=== PATIENT | male | born 1945 | race Hispanic/Latino ===

== ENCOUNTER → 2018-08-30 | Day surgery (SDC) | payer MEDICARE ==
[2018-08-29 11:29] LABS: BASOPHILS # (AUTO) 0.1 (0.0-0.1); BASOPHILS % 0.6 % (0.0-1.0); EOSINOPHILS # (AUTO) 0.2 (0.0-0.4); EOSINOPHILS % 2.5 % (0.0-6.0); HEMATOCRIT 36.3 % (38.2-49.6); HEMOGLOBIN 12.3 g/dL (14.0-18.0); LYMPHOCYTES # (AUTO) 1.2 (1.0-3.2); LYMPHOCYTES % 14.1 % (18.0-39.1); MEAN CORPUSCULAR HEMOGLOBIN 30.8 pg (28-32); MEAN CORPUSCULAR HGB CONC 33.9 g/dL (31-35); MEAN CORPUSCULAR VOLUME 90.8 fL (81-99); MONOCYTES # (AUTO) 0.6 (0.2-0.8); MONOCYTES % 7.3 % (4.4-11.3); NEUTROPHILS # (AUTO) 6.2 (2.1-6.9); NEUTROPHILS % 73.6 % (38.7-80.0); PLATELET COUNT 299 x10e3/uL (140-360); RED CELL DISTRIBUTION WIDTH 12.7 % (11.7-14.4)
[2018-08-29 11:50] LABS: ALBUMIN 3.5 g/dL (3.5-5.0); ALBUMIN/GLOBULIN RATIO 0.8 (0.8-2.0); ANION GAP 13.9 mmol/L (8-16); CALCIUM 9.9 mg/dL (8.4-10.2); CREATININE, SERUM 1.51 mg/dL (0.72-1.25); POTASSIUM 4.9 mmol/L (3.5-5.1)
[2018-08-29 12:21] LABS: INR 0.96; PROTHROMBIN TIME 13.3 seconds (11.9-14.5)
[~2018-08-30] VITALS: Ht 172.7 cm; Wt 77.1 kg
[~2018-08-30] MED LIST: ASPIRIN81 MG PO; ATORVASTATIN CA40 MG PO; CEPHALEXIN500 MG PO; CLOPIDOGREL75 MG PO; DOXAZOSIN MESYLA2 MG PO; ESCITALOPRAM OXA5 MG PO; FENTANYL CITRATE/PF 100MCG/2 ML INJ ONE; GLIMEPIRIDE4 MG PO; HEPARIN SOD/SOD CHLORIDE 2,000 ML ONE; IOPAMIDOL 300MG/ML 100 ML INFUS..BTL IV ONE; JANUMET 50-1,01 EACH PO; LIDOCAINE HCL 1% LOCAL INJ 20 ML VIAL ONE; LISINOPRIL2.5 MG PO; METOPROLOL SUCC25 MG PEG; MIDAZOLAM HCL 2 MG/2 ML VIAL ONE; MULTI-VITAMIN1 EACH PO; OMEGA 3 1,0001 EACH PO; OMEPRAZOLE40 MG PO; SODIUM CHLORIDE 0.9% 1000ML 1,000 ML ONE; TAMSULOSIN HCL0.4 MG PO; TRULANCE PO; VERAPAMIL HCL 2.5 MG/ML 2 ML VIAL ONE; XIGDUO XR PO
--- OUTSIDE RECORDS SUMMARY | 2018-08-30 07:09 | XMS REPORT ---
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 Allergies, Adverse Reactions, Alerts This patient has no known allergies or adverse reactions. Medications This patient has no known medications.
--- OUTSIDE RECORDS SUMMARY | 2018-08-30 07:09 | XMS REPORT ---
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 Active Christy Averyt Special investigations and examinations - Gynecological examination BMI 30.0-30.9 Active Christy Averyt Body Mass Index 30.0-30.9, adult Colon cancer screening V76.51 Active Christy Averyt Screening for malignant neoplasms of colon Obesity Active Christy Averyt Obesity, unspecified Pap smear V76.2 Active Christy Averyt Screening for malignant neoplasms of the cervix Personal history of malignant neoplasm of breast V10.3 Active Christy Averyt Personal history of malignant neoplasm of breast Screening for anemia V78.1 Active Christy Averyt Screening for other and unspecified deficiency anemia Screening for diabetes mellitus V77.1 Active Christy Averyt Screening for diabetes mellitus Screening for hyperlipidemia V77.91 Active Christy Averyt Screening for lipoid disorders Screening for thyroid disorder V77.0 Active Christy Averyt Screening for thyroid disorders Sleep disorder 780.50 Active Christy Averyt Unspecified sleep disturbance Need for prophylactic vaccination against other specified vaccination V03.89 Inactive 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 Need for other specified vaccination against single bacterial disease Need for prophylactic vaccination against other specified vaccination ICD-V03.89 Inactive 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 Medication List Medication Instructions Start Date Stop Date Generic Name NDC Status Provider Patient Instruction No Drug Therapy Prescribed - none known did ask 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 Immunizations Vaccine Administration Date Value Standard Description influenza immunization (Flu Vax) has been administered given influenza virus vaccine, unspecified formulation MMR (measles, mumps, rubella) virus immunization #1 given Tetanus toxoid, reduced diphtheria toxoid and acellular Pertussis vaccine, absorbed (TdaP) given given tetanus toxoid, reduced diphtheria toxoid, and acellular pertussis vaccine, adsorbed Vital Signs Date Name Value Unit Range Description blood pressure, diastolic - 8462-4 83 mm[Hg] BP farah blood pressure, systolic - 8480-6 124 mm[Hg] BP sys height E&M - 8302-2 58 [in_us] Bdy height pulse rate E&M - 8867-4 70 /min Heart rate respiratory rate E&M - 9279-1 16 /min Resp rate temperature E&M 98.2 [degF] Body temperature weight E&M - 3141-9 143.80 [lb_av] Weight Measured Diagnostic Results Date Name Value Unit Range Description Lab Report: CBC With Differential/Platelet, Comp. Metabolic Panel (14), ... - Hematology hematocrit, blood 42.4 % 37.5-51.0 Lab Report: CBC With Differential/Platelet, Comp. Metabolic Panel (14), ... - Chemistry sodium, serum 140 mmol/L 766-491 7925/11/20 thyroid stimulating hormone, serum 1.390 u[iU]/mL 0.450-4.500 Lab Report: CBC With Differential/Platelet, Comp. Metabolic Panel (14), ... - Hematology neutrophils as percent of blood leukocytes 51 % Not Estab. basophils as percent of blood leukocytes 0 % Not Estab. Lab Report: CBC With Differential/Platelet, Comp. Metabolic Panel (14), ... - Chemistry very low density lipoproteins 60 mg/dL 5-40 carbon dioxide, venous blood 24 mmol/L 20-29 chloride, serum 101 mmol/L 96-106 triglyceride, serum, fasting 299 mg/dL 0-149 calcium, serum 9.8 mg/dL 8.7-10.2 urea nitrogen, blood 14 mg/dL 6-24 alanine aminotransferase (SGPT), serum 28 U/L 0-44 Lab Report: CBC With Differential/Platelet, Comp. Metabolic Panel (14), ... - Hematology mean corpuscular hemoglobin, RBC 28.7 pg 26.6-33.0 mean corpuscular hemoglobin concentration, RBC 33.5 G/DL % 31.5-35.7 Lab Report: CBC With Differential/Platelet, Comp. Metabolic Panel (14), ... - Chemistry protein, total, serum 8.0 g/dL 6.0-8.5 alkaline phosphatase, serum 121 U/L 39-117 Lab Report: CBC With Differential/Platelet, Comp. Metabolic Panel (14), ... - Hematology erythrocyte (RBC) count 4.94 X10E6/UL 10*6/mm3 4.14-5.80 hemoglobin, blood 14.2 g/dL 13.0-17.7 Lab Report: CBC With Differential/Platelet, Comp. Metabolic Panel (14), ... - Chemistry Absolute Neutrophils 4.0 X10E3/UL 10*3/uL 1.4-7.0 LDL cholesterol, serum 126 mg/dL 0-99 urea nitrogen/creatinine ratio, serum 22 9-20 Lab Report: CBC With Differential/Platelet, Comp. Metabolic Panel (14), ... - Hematology lymphocytes as percent of blood leukocytes 42 % Not Estab. Lab Report: CBC With Differential/Platelet, Comp. Metabolic Panel (14), ... - Chemistry hemoglobin A1C, blood, as % of total hemoglobin 5.4 % 4.8-5.6 Lab Report: CBC With Differential/Platelet, Comp. Metabolic Panel (14), ... - Hematology mean corpuscular volume, RBC 86 fL 79-97 Lab Report: CBC With Differential/Platelet, Comp. Metabolic Panel (14), ... - Chemistry HDL cholesterol, serum 49 mg/dL >39 Lab Report: CBC With Differential/Platelet, Comp. Metabolic Panel (14), ... - Genetics/fertility eGFR if 125 mL/min/1.73m2 >59 Lab Report: CBC With Differential/Platelet, Comp. Metabolic Panel (14), ... - Hematology basophil count, absolute 0.0 x10E3/uL 0.0-0.2 monocytes as percent of blood leukocytes 6 % Not Estab. Lab Report: CBC With Differential/Platelet, Comp. Metabolic Panel (14), ... - Chemistry globulin, serum 3.3 1.5-4.5 albumin/globulin ratio, serum 1.4 1.2-2.2 Estimated Glomerular Filtration Rate (calc) 108 mL/min/1.73m2 >59 creatinine, serum 0.65 mg/dL 0.76-1.27 cholesterol, serum 235 mg/dL 298-978 1606/11/20 bilirubin, serum, total 0.3 mg/dL 0.0-1.2 Lab Report: CBC With Differential/Platelet, Comp. Metabolic Panel (14), ... - Hematology Eosinophil Absolute Count 0.1 X10E3/UL 10*3/uL 0.0-0.4 eosinophils as percent of blood leukocytes 1 % Not Estab. Lab Report: CBC With Differential/Platelet, Comp. Metabolic Panel (14), ... - Chemistry blood glucose, random 87 mg/dL 65-99 aspartate aminotransferase (SGOT), serum 27 U/L 0-40 Lab Report: CBC With Differential/Platelet, Comp. Metabolic Panel (14), ... - Hematology red blood cell distribution width 14.6 % 12.3-15.4 leukocyte count, blood 8.1 X10E3/UL 10*3/mm3 3.4-10.8 Lab Report: CBC With Differential/Platelet, Comp. Metabolic Panel (14), ... - Chemistry potassium, serum 4.6 mmol/L 3.5-5.2 Lab Report: CBC With Differential/Platelet, Comp. Metabolic Panel (14), ... - Hematology monocyte count, blood, automated 0.5 X10E3/UL 10*3/uL 0.1-0.9 Lab Report: CBC With Differential/Platelet, Comp. Metabolic Panel (14), ... - Chemistry albumin, serum 4.7 g/dL 3.5-5.5 immature granulocytes, percentage of total cells, blood 0 % Not Estab. Lab Report: CBC With Differential/Platelet, Comp. Metabolic Panel (14), ... - Hematology platelet count 240 X10E3/UL 10*3/mm3 052-228 4486/11/20 lymphocyte count, blood, automated 3.4 X10E3/UL 10*3/mm3 0.7-3.1 Encounters Date Encounter Provider Code Facility 11:34:35 CHANNEL EXECUTIVE Est Patient Nurse - Only Visit - [id number] Jumana Caballero LVN CPT-12960 [facility] Procedures Code Procedure Name Date Entry Date Standard Description CPT-30332 New Patient Well Exam (40 - 64 Yrs) - 37331 15:53:29 CHANNEL EXECUTIVE CPT-68768 INFLUENZA VACCINE QUADRIVALENT 3 YRS PLUS IM 11:34:35 CHANNEL EXECUTIVE CPT-68421 TDAP 11:34:35 CHANNEL EXECUTIVE CPT-05536 MEASLES MUMPS RUBELLA VIRUS VACCINE LIVE SUBQ 11:34:35 CHANNEL EXECUTIVE CPT-44974 Admin of Vaccine - Injection - 1 11:34:35 CHANNEL EXECUTIVE
[2018-08-30 09:54] VITALS: BP 129/63
--- NOTE | 2018-08-30 09:54 | NUR ---
Received report from Norberto Narvaez RN. Reviewed medications given, procedural events and orders. Patient laying flat in stretcher with siderails elevatedx2. Caregiver at bedside. Patient appears to be in no signs of acute distress.
[2018-08-30 10:00] VITALS: BP 115/69
[2018-08-30 10:15] VITALS: BP 121/70
--- NOTE | 2018-08-30 10:20 | NUR ---
Report given to Dede Avalos RN. Reviewed medications given, procedural events, and orders.
[2018-08-30 10:30] VITALS: BP 121/70
--- NOTE | 2018-08-30 10:30 | NUR ---
1030 Received report from Norberto Rivers Peripheral no fix. Left hand iv site w/o s/s infiltration. Resp shallow and regular 100% on room air Abdomen soft and non tender Denies necessity to defecate or urinate. Bilateral PPx 4 Pd/Dp. Ordered diet tray Ok to dc home at 1100am. greg/oli
[2018-08-30 11:00] VITALS: BP 100/70
[2018-08-30 11:15] VITALS: BP_SYST 134; BP_SYST 137; BP_DIAS 85; BP_DIAS 98
--- NOTE | 2018-08-30 11:15 | NUR ---
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 ds/rn
--- NOTE | 2018-08-30 17:02 | Operative Report ---
DATE OF PROCEDURE: 08/30/2018 SURGEON: Rich Tejada MD INDICATIONS: Peripheral arterial disease and ulceration of the right lower extremity. PROCEDURES PERFORMED: 1. Abdominal aortogram. 2. Unilateral extremity angiogram with third-order catheter placement from the left femoral artery, right superficial femoral artery. 3. Deployment of left groin Vascade closure device. COMPLICATIONS: None. BLOOD LOSS: 2 mL. RECOMMENDATIONS: Medical therapy including consideration for hyperbaric oxygen therapy. DESCRIPTION OF PROCEDURE: Access obtained in the left femoral artery. A 6-Mexican sheath placed. Abdominal aortogram demonstrated widely patent abdominal aorta and iliac arteries bilaterally. The catheter then exchanged from the left femoral artery to the right superficial femoral artery. Heavy calcification was noted, but diffuse 30% to 50% stenosis of the femoral artery; popliteal artery, 50% stenosis; right anterior tibial artery, 30% to 50% stenosis. The right dorsalis pedis of 1.5 mm vessel was completely occluded. Right posterior tibial artery was occluded. Peroneal artery was patent. Two-vessel runoff to the right foot. No intervention was deemed necessary. Aggressive medical therapy recommended. Left groin repaired using Vascade closure device. The patient discharged home same day. Rich Tejada MD KSB/MODL /[id number]
== END | disposition home or self-care (01) ==
LOC: CATH LAB 07:06 → EDBD 09:30
PROVIDERS: ATTEND Internal Medicine Interventional Cardiology
DX: I70.235 Atherosclerosis of native arteries of right leg with ulceration of other part of foot (principal); I70.92 Chronic total occlusion of artery of the extremities; I10 Essential (primary) hypertension; E78.5 Hyperlipidemia, unspecified; Z88.1 Allergy status to other antibiotic agents; Z01.812 Encounter for preprocedural laboratory examination; Z79.02 Long term (current) use of antithrombotics/antiplatelets; Z79.82 Long term (current) use of aspirin; Z79.84 Long term (current) use of oral hypoglycemic drugs
CPT/HCPCS: 36247; 36415; 75625; 75710; 80053; 85025; 85610; C1760; C1769 ×2; J2001; J2250; J7030; Q9967

== ENCOUNTER → 2018-09-13 | Day surgery (SDC) | payer MEDICARE ==
[~2018-09-13] MED LIST changes: +ARICEPT5 MG PO; +BACITRACIN 50,000 UNIT VIAL ONE; +BUPIVACAINE HCL 0.5% INJ 30 ML VIAL INJ ONE; +CEFAZOLIN SOD 2 GM/D5W 50ML 50 ML IV ONE; +DEXAMETHASONE SOD PHOS INJ 4 MG/ML VIAL ONE; +EPHEDRINE SULFATE INJ 50 MG/10 ML SYR ONE; -FENTANYL CITRATE/PF 100MCG/2 ML INJ ONE; -HEPARIN SOD/SOD CHLORIDE 2,000 ML ONE; +HYDROMORPHONE 2MG/ML 2 MG/ML ML ONE; -IOPAMIDOL 300MG/ML 100 ML INFUS..BTL IV ONE; +LEXAPRO10 MG PO; -LIDOCAINE HCL 1% LOCAL INJ 20 ML VIAL ONE; +LIDOCAINE HCL 2% LOCAL INJ 5 ML SDV VIAL INJ ONE; -MIDAZOLAM HCL 2 MG/2 ML VIAL ONE; +MUPIROCIN 2% OINT 22 GM TUBE ONE; +ONDANSETRON HCL INJ 2MG/ML 2ML 2 MG/ML VIAL ONE; +PHENYLEPHRINE HCL 1% 10 MG/ML VIAL ONE; +PROPOFOL IV EMULSION 10 MG/ML 20 ML VIAL ONE; +SEVOFLURANE INHAL SOLN 250 ML PEN BTL ONE; -SODIUM CHLORIDE 0.9% 1000ML 1,000 ML ONE; -VERAPAMIL HCL 2.5 MG/ML 2 ML VIAL ONE; +[UNRECOGNIZED DRUG - OTHER] SQ
--- OUTSIDE RECORDS SUMMARY | 2018-09-13 05:26 | XMS REPORT | Continuity of Care Document ---
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 Abnormal Lab Result, Start date: 12/10/16 1:38:00 CDT, Duration: 30 day, Stop date: 01/09/17 1:37:00 CDT, FOR ICU USE ONLY Inactive 12/10/2016 [facility] Magnesium Sulfate 2 gm, Route: IVPB, PRN, Dosing Weight 77.273, kg, PRN Abnormal Lab Result, Start date: 12/10/16 1:38:00 CDT, Duration: 30 day, Stop date: 01/09/17 1:37:00 CDT, FOR ICU USE ONLY Inactive 12/10/2016 [facility] niCARdipine 40 mg/ NS 200 ml IV Soln (premix) 40 mg 40 mg, 200 mL, Rate: Titrate, Start Dose: 5 mg/hr, Titration: 2.5 mg/hr every 15 minutes, Goal(s): MAP >65, HR >60 Notes: Same as: Cardene Concentration: (0.2 mg /1 ml ) Inactive 12/10/2016 [facility] Dextrose 50% Syringe 12.5 gm, 25 mL, Route: IVP, Drug Form: INJ, Dosing Weight 77.273, kg, PRN, PRN Blood Glucose Results, Start date: 12/10/16 0:04:00 CDT, Duration: 30 day, Stop date: 01/09/17 0:03:00 CDT No Longer Active 12/10/2016 [facility] Insulin regular 100 unit + sodium chloride 0.9% INJ 99 mL 99 mL, Rate: Start Insulin Drip Per ICU Protocol, Dosing Weight 77.273, kg, Route: IVPB, Total Volume: 100, Start Date: 12/10/16 0:04:00 CDT, Duration: 30 day, Stop date: 01/09/17 0:03:00 CDT, Replace Every: 24 hrNotes: (Same as: Humulin R and NovoLIN R) WASTE: F/P - Black; E - Municipal Trash Bin (Do not shake) No Longer Active 12/10/2016 [facility] Coreg 12.5 mg, 1 tab, Route: PO, Drug form: TAB, ONCE, Dosing Weight 77.273, kg, Start date: 12/09/16 22:40:00 CDT, Stop date: 12/09/16 22:40:00 CDTNotes: Give with food. (Same As: Coreg) Inactive 12/10/2016 [facility] Ceftriaxone 1 gm, Route: IVPB, Drug form: PDR/INJ, Q24H, Dosing Weight 77.273, kg, Start date: 12/09/16 22:00:00 CDT, Duration: 4 day, Stop date: 12/12/16 22:00:00 CDT, ABX Indication: Urinary Tract InfectionNotes: (Same As: Rocephin). Use with 100 mL NS and infuse over 30 min MEDICATION WASTE Product Size: 1000 mg Product Wasted: ___ mg No Longer Active 12/10/2016 [facility] heparin 5,000 unit, 1 mL, Route: SUB-Q, Drug form: INJ, Q8H, Dosing Weight 77.273, kg, Start date: 12/09/16 16:00:00 CDT, Duration: 30 day, Stop date: 01/08/17 8:00:00 CDTNotes: porcine heparin No Longer Active 12/09/2016 [facility] Labetalol 10 mg, Route: IVP, Drug form: INJ, ONCE, Dosing Weight 77.273, kg, Start date: 12/09/16 15:26:00 CDT, Stop date: 12/09/16 15:26:00 CDT Inactive 12/09/2016 [facility] carvedilol 6.25 mg, Route: PO, Drug form: TAB, ONCE, Dosing Weight 77.273, kg, Start date: 12/09/16 15:23:00 CDT, Stop date: 12/09/16 15:23:00 CDT Inactive 12/09/2016 [facility] Sodium Chloride, Inhalation 3% solution 3 mL, Route: INHALATION, Drug Form: SOLN, Dosing Weight 77.273, kg, RQ6H, PRN Respiratory Protocol, Start date: 12/09/16 9:48:00 CDT, Duration: 30 day, Stop date: 01/08/17 9:47:00 CDTNotes: SEE RT DOCUMENTATION (Same as: Hypertonic Saline 3%, Inhalation) No Longer Active 12/09/2016 [facility] Sodium Chloride, Inhalation 3% solution 3 mL, Route: INHALATION, Drug Form: SOLN, Dosing Weight 77.273, kg, PRN, PRN Respiratory Protocol, Start date: 12/09/16 9:03:00 CDT, Duration: 30 day, Stop date: 01/08/17 9:02:00 CDTNotes: SEE RT DOCUMENTATION (Same as: Hypertonic Saline 3%, Inhalation) Inactive 12/09/2016 [facility] Albuterol 0.833 MG/ML / Ipratropium [place] 0.167 MG/ML Inhalant Solution [DuoNeb] 3 ml, Route: NEB, Drug Form: SOLN, Dosing Weight 77.273, kg, PRN, PRN Respiratory Protocol, Start date: 12/09/16 9:02:00 CDT, Duration: 30 day, Stop date: 01/08/17 9:01:00 CDTNotes: (Same as: Duoneb) No Longer Active 12/09/2016 [facility] potassium chloride 20 mEq, 15 mL, Route: PO, Drug form: LIQ, ONCE, Dosing Weight 77.273, kg, Start date: 12/09/16 4:00:00 CDT, Stop date: 12/09/16 4:00:00 CDTNotes: (Same as: Potassium Chloride) Inactive 12/09/2016 [facility] potassium chloride 20 mEq oral tablet, extended release 20 mEq, 1 tab, Route: PO, Drug form: ERTAB, ONCE, Dosing Weight 77.273, kg, Start date: 12/09/16 3:31:00 CDT, Stop date: 12/09/16 3:31:00 CDTNotes: (Same as: K- Dur 20) "Do Not Crush" With food and full glass of water Inactive 12/09/2016 [facility] carvedilol 12.5 mg, 1 tab, Route: PO, Drug form: TAB, Q12H, Dosing Weight 77.273, kg, Start date: 12/08/16 18:00:00 CDT, Stop date: 01/07/17 6:00:00 CDT No Longer Active 12/08/2016 [facility] heparin 1,000 unit, 1 mL, Route: MISC, Drug form: INJ, PRN, PRN Other -See Comment, Start date: 12/08/16 15:56:00 CDT, Stop date: 01/07/17 15:55:00 CDT No Longer Active 12/08/2016 [facility] heparin, porcine 1,000 unit, Route: IVP, PRN, Dosing Weight 77.273, kg, PRN Line Flush, Start date: 12/08/16 15:30:00 CDT, Duration: 30 day, Stop date: 01/07/17 15:29:00 CDT, flush jordon cath Inactive 12/08/2016 [facility] Metoprolol 5 mg, Route: IVP, Drug form: INJ, ONCE, Dosing Weight 77.273, kg, Start date: 12/08/16 11:09:00 CDT, Stop date: 12/08/16 11:09:00 CDT Inactive 12/08/2016 [facility] Nitroglycerin 0.4 mg, 1 tab, Route: SL, Drug form: TAB, Q5Min, Dosing Weight 77.273, kg, PRN Chest Pain, Start date: 12/08/16 9:53:00 CDT, Duration: 3 doses or times, Stop date: Limited # of timesNotes: (Same as:N itroquick, Nitrostat) "Do Not Crush" Sublingual tablet No Longer Active 12/08/2016 [facility] lansoprazole 30 mg, 10 mL, Route: NG, Drug form: SUSP, Daily, Dosing Weight 77.273, kg, Start date: 12/08/16 9:00:00 CDT, Duration: 30 day, Stop date: 01/06/17 9:00:00 CDT No Longer Active 12/08/2016 [facility] Insulin regular 3 unit, 0.03 mL, Route: SUB-Q, Drug form: SOLN, Sliding Scale, Dosing Weight 77.273, kg, PRN Blood Glucose Results, Start date: 12/07/16 19:42:00 CDT, Duration: 30 day, Stop date: 01/06/17 19:41:00 C DTNotes: (Same as: Humulin R) Roll in palms of hands gently; Do not shake vigorously. "single patient use only" (Restricted to patients requiring a dose > 60 units) WASTE: F/P - Black; E - Municipal Trash Bin Stable for 28 days at room temperature Expires in days from Date No Longer Active 12/08/2016 [facility] Glucagon 1 mg, Route: IM, Drug form: PDR/INJ, PRN, Dosing Weight 77.273, kg, PRN Blood Glucose Results, Start date: 12/07/16 19:42:00 CDT, Duration: 30 day, Stop date: 01/06/17 19:41:00 CDT No Longer Active 12/08/2016 [facility] Dextrose 50% Syringe 12.5 gm, 25 mL, Route: IVP, Drug Form: INJ, Dosing Weight 77.273, kg, PRN, PRN Blood Glucose Results, Start date: 12/07/16 19:42:00 CDT, Duration: 30 day, Stop date: 01/06/17 19:41:00 CDT No Longer Active 12/08/2016 [facility] Versed 2 mg, 2 mL, Route: IVP, Drug form: INJ, PRN, Dosing Weight 77.273, kg, PRN Agitation, Start date: 12/07/16 18:42:00 CDT, Duration: 30 day, Stop date: 01/06/17 18:41:00 CDTNotes: (Same as: Versed) MEDICATION WASTE Product Size: 2 mg Product Wasted: _0__ mg No Longer Active 12/07/2016 [facility] Calcium Chloride 1 gm, 10 mL, Route: IVPB, PRN, Dosing Weight 77.273, kg, PRN Abnormal Lab Result, Via central line, Start date: 12/07/16 16:17:00 CDT, Duration: 30 day, Stop date: 01/06/17 16:16:00 CDTNotes: WASTE: F/P - Sink; E - Municipal Trash Bin No Longer Active 12/07/2016 [facility] Magnesium Sulfate 4 gm, 100 mL, Route: IVPB, Drug form: INJ, PRN, Dosing Weight 77.273, kg, PRN Abnormal Lab Result, Via central line, Start date: 12/07/16 16:17:00 CDT, Duration: 30 day, Stop date: 01/06/17 16:16:00 CDTNotes: WASTE: F/P - Sink; E - Municipal Trash Bin No Longer Active 12/07/2016 [facility] sodium phosphate + sodium chloride 0.9% INJ 250 mL 30 mmol, 10 mL, Route: IVPB, PRN, Dosing Weight 77.273, kg, PRN Abnormal Lab Result, Via central line, Start date: 12/07/16 16:17:00 CDT, Duration: 30 day, Stop date: 01/06/17 16:16:00 CDT No Longer Active 12/07/2016 [facility] potassium chloride 20 mEq, 100 mL, Route: IVPB, Drug form: INJ, PRN, Dosing Weight 77.273, kg, PRN Abnormal Lab Result, Via central line, Start date: 12/07/16 16:17:00 CDT, Duration: 30 day, Stop date: 01/06/17 16:16:0 0 CDTNotes: (Same as: KCL) Infuse no faster than 10 mEq/hr if given peripherally. No Longer Active 12/07/2016 [facility] Fentanyl 1,000 microgram, 20 mL, Rate: Titrate, Start Dose: 50 microgram/hr, Titration: 25 microgram/hour every 15 minutes, Goal(s): RASS (0) to (-2), Max Dose: 300 microgram/hr, Route: IV, Dosing Weight 77.273 kg, Total Volume: 20, Start date: 12/07/16 15:42:... No Longer Active 12/07/2016 [facility] Sodium Chloride 0.154 MEQ/ML Injectable Solution 500 mL, 500 ml/hr, Infuse Over: 1 hr, Route: IV, 500, Drug form: INJ, ONCE, Priority: STAT, Dosing Weight 77.273 kg, Start date: 12/07/16 9:55:00 CDT, Duration: 1 doses or times, Stop date: 12/07/16 9:55:00 CDT Inactive 12/07/2016 [facility] heparin additive 25,000 unit [18 unit/kg/hr] + Premix Diluent Dextrose 5% 500 mL 500 mL, Rate: 27.82 ml/hr, Infuse over: 18 hr, Route: IV, Dosing Weight 77.27 kg, Total Volume: 500 mL, Start date: 12/07/16 9:34:00 CDT, Stop date: 01/06/17 9:33:00 CDT No Longer Active 12/07/2016 [facility] Heparin 80 unit/kg Bolus (Heparin Dosing Weight) Route: IVP, PRN, 6,200 unit, 6.2 mL, Drug form: INJ, PRN, Heparin Protocol, Start date: 12/07/16 9:34:00 CDT Stop date: 01/06/17 9:33:00 CDT, 30 day No Longer Active 12/07/2016 [facility] Heparin 40 unit/kg Bolus (Heparin Dosing Weight) Route: IVP, PRN, 3,100 unit, 3.1 mL, Drug form: INJ, PRN, Heparin Protocol, Start date: 12/07/16 9:34:00 CDT Stop date: 01/06/17 9:33:00 CDT, 30 day No Longer Active 12/07/2016 [facility] heparin additive 25,000 unit [14 unit/kg/hr] + Premix Diluent Dextrose 5% 500 mL 500 mL, Rate: 21.64 ml/hr, Infuse over: 23.1 hr, Route: IV, Dosing Weight 77.273 kg, Total Volume: 500 mL, Start date: 12/07/16 9:12:00 CDT, Duration: 30 day, Stop date: 01/06/17 9:11:00 CDT Inactive 12/07/2016 [facility] D5W 1,000 mL 1,000 mL, Rate: 75 ml/hr, Infuse over: 13.3 hr, Route: IV, Dosing Weight 77.273 kg, Total Volume: 1,000, Start date: 12/07/16 3:45:00 CDT, Duration: 30 day, Stop date: 01/06/17 3:44:00 CDT Inactive 12/07/2016 [facility] senna 8.8 mg, 5 mL, Route: PO, Drug form: SYRP, Q12H, Start date: 12/06/16 21:00:00 CDT, Duration: 30 day, Stop date: 01/05/17 9:00:00 CDTNotes: (Same as: Senokot) No Longer Active 12/07/2016 [facility] docusate 100 mg, 10 mL, Route: PO, Drug form: LIQ, Q12H, Start date: 12/06/16 21:00:00 CDT, Duration: 30 day, Stop date: 01/05/17 9:00:00 CDTNotes: (Same as: Colace) No Longer Active 12/07/2016 [facility] atorvastatin 40 mg, 1 tab, Route: PO, Drug form: TAB, Bedtime, Dosing Weight 77.273, kg, Start date: 12/06/16 21:00:00 CDT, Duration: 30 day, Stop date: 01/04/17 21:00:00 CDTNotes: (Same as: Lipitor) No Longer Active 12/07/2016 [facility] sodium chloride 0.9% INJ 250 mL 250 mL, Rate: score caller for use with blood product administration, Dosing Weight 77.273, kg, Route: IV, Total Volume: 250, Start Date: 12/06/16 11:40:00 CDT, Duration: 30 day, Stop date: 01/05/17 11:39:00 CDT, Replace Every: 24 hr No Longer Active 12/06/2016 [facility] sodium chloride 0.9% INJ 250 mL 250 mL, Rate: Grinding Machine Operator for use with blood product administration., Dosing Weight 77.273, kg, Route: IV, Total Volume: 250, Priority: Routine, Start Date: 12/06/16 10:22:00 CDT, Duration: 30 day, Stop date: 01/05/17 10:21:00 CDT, Replace Every: 24 hr No Longer Active 12/06/2016 [facility] Plavix 75 mg, 1 tab, Route: PO, Drug form: TAB, Daily, Dosing Weight 77.273, kg, Start date: 12/06/16 9:00:00 CDT, Duration: 30 day, Stop date: 01/04/17 9:00:00 CDTNotes: (Same As: Plavix) No Longer Active 12/06/2016 [facility] Aspirin 81 mg, 1 tab, Route: PO, Drug form: ECTAB, Daily, Dosing Weight 77.273, kg, Start date: 12/06/16 9:00:00 CDT, Duration: 30 day, Stop date: 01/04/17 9:00:00 CDTNotes: Do not crush or chew. (Same As: Ecotrin) No Longer Active 12/06/2016 [facility] pantoprazole 40 mg, Route: IVP, Drug form: INJ, Daily, Dosing Weight 77.273, kg, Start date: 12/06/16 9:00:00 CDT, Duration: 30 day, Stop date: 01/04/17 9:00:00 CDTNotes: For IV push reconstitute with 10 ml 0.9% sodium chloride and push over 2 minutes. (Same as: Protonix) No Longer Active 12/06/2016 [facility] Famotidine 20 mg, 2 mL, Route: IVP, Drug form: INJ, Daily, Dosing Weight 77.273, kg, Start date: 12/06/16 9:00:00 CDT, Duration: 30 day, Stop date: 01/04/17 9:00:00 CDTNotes: (Same as: Pepcid) Can be dilute in 5-10cc NS IVP: Slow IV push over at least 2 minutes. No Longer Active 12/06/2016 [facility] Docusate Sodium 50 MG / sennosides, PENITENTIARY 8.6 MG Oral Tablet 1 tab, Route: PO, Drug Form: TAB, Dosing Weight 77.273, kg, BID, Start date: 12/06/16 9:00:00 CDT, Duration: 30 day, Stop date: 01/04/17 17:00:00 CDTNotes: (Same as Senokot-S) Equiv. to Sugar-Colace. Inactive 12/06/2016 [facility] metoprolol extended release 25 mg, 1 tab, Route: PO, Drug form: ERTAB, Daily, Start date: 12/06/16 9:00:00 CDT, Duration: 30 day, Stop date: 01/04/17 9:00:00 CDTNotes: (Same as: Toprol XL) Do Not Crush No Longer Active 12/06/2016 [facility] Sodium Chloride 0.154 MEQ/ML Injectable Solution 500 mL, 500 ml/hr, Infuse Over: 1 hr, Route: IV, 500, Drug form: INJ, ONCE, Priority: STAT, Dosing Weight 77.273 kg, Start date: 12/06/16 7:36:00 CDT, Duration: 1 doses or times, Stop date: 12/06/16 7:36:00 CDT Inactive 12/06/2016 [facility] Midazolam 2 mg, 2 mL, Route: IVP, Drug form: INJ, Q2H, Dosing Weight 77.273, kg, PRN Sedation, Start date: 12/06/16 5:40:00 CDT, Duration: 30 day, Stop date: 01/05/17 5:39:00 CDTNotes: (Same as: Versed) MEDICATION WASTE Product Size: 2 mg Product Wasted: ___ mg No Longer Active 12/06/2016 [facility] Insulin regular 100 unit + sodium chloride 0.9% INJ 99 mL 99 mL, Rate: Start Insulin Drip Per ICU Protocol, Dosing Weight 77.273, kg, Route: IVPB, Total Volume: 100, Start Date: 12/06/16 4:36:00 CDT, Duration: 30 day, Stop date: 01/05/17 4:35:00 CDT, Replace Every: 24 hrNotes: (Same as: Humulin R and NovoLIN R) WASTE: F/P - Black; E - Nexvet Trash Bin (Do not shake) No Longer Active 12/06/2016 [facility] Dextrose 50% Syringe 12.5 gm, 25 mL, Route: IVP, Drug Form: INJ, Dosing Weight 77.273, kg, PRN, PRN Blood Glucose Results, Start date: 12/06/16 4:36:00 CDT, Duration: 30 day, Stop date: 01/05/17 4:35:00 CDT No Longer Active 12/06/2016 [facility] Vasopressin (PENITENTIARY) 40 unit, 2 mL, Rate: 0.03 unit/min, Start Dose: 0.03 unit/min, Titration: DO NOT TITRATE, Goal(s): MAP >=65 mmHg, Max Dose: 0.03 unit/min, Route: IV, Dosing Weight 77.273 kg, Total Volume: 100 For Sepsis, Start date: 12/06/16 1:40:00 CDT, Duration:...Notes: (Same As: Pitressin, Vasostrict) No Longer Active 12/06/2016 [facility] heparin 5,000 unit, Route: SUB-Q, Q8H, Dosing Weight 77.273, kg, Start date: 12/06/16 0:00:00 CDT, Duration: 30 day, Stop date: 01/04/17 16:00:00 CDT No Longer Active 12/06/2016 [facility] ocular lubricant 1 appl, Route: BOTH EYES, Q6H, Drug form: OINT, Start date: 12/06/16 0:00:00 CDT, Duration: 30 day, Stop date: 01/04/17 18:00:00 CDTNotes: (Same as: Lacri-Lube, Duratears Naturale, Artificial Tears, and Tears Again ) No Longer Active 12/06/2016 [facility] Lactulose 20 gm, 30 mL, Route: PO, Drug form: SYRP, Q6H, Dosing Weight 77.273, kg, Start date: 12/06/16 0:00:00 CDT, Duration: 30 day, Stop date: 01/04/17 18:00:00 CDTNotes: (Same as:Chronulac) No Longer Active 12/06/2016 [facility] Norepinephrine 16 mg, 16 mL, Rate: Titrate, Start Dose: 0.1 microgram/kg/min, Titration: 0.05 microgram/kg/min every 2 - 5 minutes, Goal(s): MAP >=60 mmHg, Max Dose: 1 microgram/kg/min, Route: IV, Dosing Weight 77.273 kg, Total Volume: 250, Start date: 12/05/16 23:...Notes: Not for direct administration - DILUTE. Protect from light. (Same as:Levophed). Administer by either central venous catheter or peripherally-inserted central catheter (PICC) line. No Longer Active 12/06/2016 [facility] Clindamycin 600 mg, 4 mL, Route: IV, Drug form: INJ, ABXQ8H, Dosing Weight 77.273, kg, Start date: 12/05/16 23:00:00 CDT, Duration: 30 day, Stop date: 01/04/17 15:00:00 CDT, ABX Indication: Other (specify in Commen ts)Notes: (clindamycin 150 mg/1 ml (600 mg/4 ml VL) INJ) (Same As: Cleocin) No Longer Active 12/06/2016 [facility] Norepinephrine 16 mg, 16 mL, Rate: Titrate, Start Dose: 0.1 microgram/kg/min, Titration: 0.05 microgram/kg/min every 2 - 5 minutes, Goal(s): MAP >=65 mmHg, Max Dose: 1 microgram/kg/min, Route: IV, Dosing Weight 77.273 kg, Total Volume: 250, Start date: 12/05/16 22:...Notes: Not for direct administration - DILUTE. Protect from light. (Same as:Levophed). Administer by either central venous catheter or peripherally-inserted central catheter (PICC) line. Inactive 12/06/2016 [facility] sodium bicarbonate 150 mEq + D5W 1,000 mL 1,000 mL, Rate: 150 ml/hr, Infuse over: 7.7 hr, Route: IV, Dosing Weight 77.273 kg, Total Volume: 1,150 mL, Start date: 12/05/16 22:39:00 CDT, Duration: 30 day, Stop date: 01/04/17 22:38:00 CDT No Longer Active 12/06/2016 [facility] sodium chloride 0.9% INJ 250 mL 250 mL, Rate: score caller for use with blood product administration, Dosing Weight 77.273, kg, Route: IV, Total Volume: 250, Start Date: 12/05/16 22:07:00 CDT, Duration: 30 day, Stop date: 01/04/17 22:06:00 CDT, Replace Every: 24 hr No Longer Active 12/06/2016 [facility] chlorhexidine gluconate 1.2 MG/ML Mouthwash 15 mL, Route: Swab Mouth, Q12H, Drug form: LIQ, Start date: 12/05/16 21:00:00 CDT, Duration: 30 day, Stop date: 01/04/17 9:00:00 CDTNotes: (Same As: Peridex) No Longer Active 12/06/2016 [facility] Saline Flush 0.9% 10 ml, Route: IVP, Drug Form: INJ, Dosing Weight 77.273, kg, Q12H, Start date: 12/05/16 21:00:00 CDT, Duration: 30 day, Stop date: 01/04/17 9:00:00 CDTNotes: (Same as: BD Posiflush) No Longer Active 12/06/2016 [facility] Docusate 100 mg, 10 mL, Route: PO, Drug form: LIQ, Q12H, Dosing Weight 77.273, kg, Start date: 12/05/16 21:00:00 CDT, Stop date: 01/04/17 9:00:00 CDTNotes: (Same as: Colace) No Longer Active 12/06/2016 [facility] sodium bicarbonate 150 mEq + D5W 1,000 mL 1,000 mL, Rate: 999 ml/hr, Infuse over: 1.2 hr, Route: IV, Dosing Weight 77.273 kg, Total Volume: 1,150 mL, Start date: 12/05/16 20:37:00 CDT, Duration: 30 day, Stop date: 01/04/17 20:36:00 CDT No Longer Active 12/06/2016 [facility] albumin human 5% intravenous solution 25 gm, 500 mL, 500 ml/hr, Route: IV, Drug Form: INJ, Dosing Weight 77.273, kg, ONCE, Start date: 12/05/16 20:36:00 CDT, Stop date: 12/05/16 20:36:00 CDTNotes: LOT#: Mfg: (Same as: Albuminar) "blood product derivative" WASTE: F/P - Red; E -Red MEDICATION WASTE Product Size: 25 gm Product Wasted: 0 gm Inactive 12/06/2016 [facility] sodium chloride 0.9% INJ 250 mL 250 mL, Rate: score caller for use with blood product administration, Dosing Weight 77.273, kg, Route: IV, Total Volume: 250, Start Date: 12/05/16 20:30:00 CDT, Duration: 30 day, Stop date: 01/04/17 20:29:00 CDT, Replace Every: 24 hr No Longer Active 12/06/2016 [facility] Versed 1 mg, 1 mL, Route: IVP, Drug form: INJ, ONCE, Dosing Weight 77.273, kg, PRN Other -See Comment, Start date: 12/05/16 20:15:00 CDTNotes: (Same as: Versed) MEDICATION WASTE Product Size: 2 mg Product Wasted: 0 mg No Longer Active 12/06/2016 [facility] Insulin regular 8 unit, 0.08 mL, Route: SUB-Q, Drug form: SOLN, Sliding Scale, Dosing Weight 77.273, kg, PRN Blood Glucose Results, Start date: 12/05/16 20:14:00 CDT, Duration: 30 day, Stop date: 01/04/17 20:13:00 CDTN otes: (Same as: Humulin R) Roll in palms of hands gently; Do not shake vigorously. "single patient use only" (Restricted to patients requiring a dose > 60 units) WASTE: F/P - Black; E - Municipal Trash Bin Stable for 28 days at room temperature Expires in days from Date No Longer Active 12/06/2016 [facility] Glucagon 1 mg, Route: IM, Drug form: PDR/INJ, PRN, Dosing Weight 77.273, kg, PRN Blood Glucose Results, Start date: 12/05/16 20:14:00 CDT, Duration: 30 day, Stop date: 01/04/17 20:13:00 CDT No Longer Active 12/06/2016 [facility] Dextrose 50% Syringe 25 gm, 50 mL, Route: IVP, Drug Form: INJ, Dosing Weight 77.273, kg, PRN, PRN Blood Glucose Results, Start date: 12/05/16 20:14:00 CDT, Duration: 30 day, Stop date: 01/04/17 20:13:00 CDT No Longer Active 12/06/2016 [facility] sodium bicarbonate 8.4% 100 mEq, 100 mL, Route: IVP, Drug Form: INJ, Dosing Weight 77.273, kg, ONCE, Start date: 12/05/16 20:14:00 CDT, Stop date: 12/05/16 20:14:00 CDTNotes: (sodium bicarb 8.4% (1 mEq/ml) 50 ml syringe) Inactive 12/06/2016 [facility] Norepinephrine 8 mg, 8 mL, Rate: Titrate, Start Dose: 0.2 microgram/kg/min, Titration: 0.05 microgram/kg/min every 2 - 5 minutes, Goal(s): MAP >=65 mmHg, Max Dose: 1 microgram/kg/min, Route: IV, Dosing Weight 77.273 kg, Total Volume: 250, Start date: 12/05/16 20:05...Notes: Not for direct administration - DILUTE. Protect from light. (Same as:Levophed). Administer by either central venous catheter or peripherally-inserted central catheter (PICC) line. Inactive 12/06/2016 [facility] sodium bicarbonate 8.4% 100 mEq, 100 mL, Route: IVP, Drug Form: SOLN, Dosing Weight 77.273, kg, ONCE, Start date: 12/05/16 20:03:00 CDT, Stop date: 12/05/16 20:03:00 CDTNotes: For oral use only. Inactive 12/06/2016 [facility] Midazolam 1 mg, Route: IVP, ONCE, Dosing Weight 77.273, kg, Start date: 12/05/16 19:03:00 CDT, Stop date: 12/05/16 19:03:00 CDT Inactive 12/06/2016 [facility] Fentanyl 50 microgram, 1 mL, Route: IVP, Drug form: INJ, Q2H, Dosing Weight 77.273, kg, PRN Pain Score 6-10, Start date: 12/05/16 19:03:00 CDT, Duration: 30 day, Stop date: 01/04/17 19:02:00 CDTNotes: (Same as: Sublimaze) Preservative free. No Longer Active 12/06/2016 [facility] Saline Flush 0.9% 10 ml, Route: IVP, Drug Form: INJ, Dosing Weight 77.273, kg, PRN, PRN Line Flush, Start date: 12/05/16 18:53:00 CDT, Duration: 30 day, Stop date: 01/04/17 18:52:00 CDTNotes: (Same as: BD Posiflush) No Longer Active 12/05/2016 [facility] Nystatin 100 UNT/MG Topical Powder 1 appl, Route: TOP, PRN, Drug form: PWDR, PRN For Fungal Prophylaxis, Start date: 12/05/16 18:53:00 CDT, Duration: 30 day, Stop date: 01/04/17 18:52:00 CDTNotes: (Same as:Mycostatin, Nilstat) For external use only. No Longer Active 12/05/2016 [facility] chlorhexidine gluconate 1.2 MG/ML Mouthwash 15 mL, Route: Swab Mouth, PRN, Drug form: LIQ, PRN Other -See Comment, Start date: 12/05/16 18:44:00 CDT, Duration: 30 day, Stop date: 01/04/17 18:43:00 CDTNotes: (Same As: Peridex) No Longer Active 12/05/2016 [facility] iodixanol 100 mL, Route: IVP, Drug Form: SOLN, Dosing Weight 77.273, kg, ONCALL, STAT, Start date: 12/05/16 18:28:00 CDT, Duration: 1 doses or times, Dose=2.2ml/kg, Max [id number] -- "To be infused by Radiology Staff ONLY" Inactive 12/05/2016 [facility] physiological irrigating solution 5,000 mL, Route: DIALYSIS, Dialysis PRN, Irrigation Site: Groin, Right, "For Irrigation Only", Start date: 12/05/16 17:24:00 CDT, Duration: 30 day, Stop date: 01/04/17 17:23:00 CDTNotes: NxStage RFP-400=K2/Ca3 Total ingredients in bag Na 140meq/L; K 2meq/L; HCO 35meq/L; Ca 3meq/L; Magnesium 1meq/L; CL 111meq/L; Glucose 100mg/dL; "Break seal Between compartments and mix before hanging" No Longer Active 12/05/2016 [facility] Magnesium Sulfate 2 gm, 50 mL, Route: IVPB, Drug form: INJ, PRN, Dosing Weight 77.273, kg, PRN Abnormal Lab Result, Via central line, Start date: 12/05/16 17:02:00 CDT, Duration: 30 day, Stop date: 01/04/17 17:01:00 CDTNotes: WASTE: F/P - Sink; E - Municipal Trash Bin No Longer Active 12/05/2016 [facility] sodium phosphate + sodium chloride 0.9% INJ 250 mL 30 mmol, 10 mL, Route: IVPB, PRN, Dosing Weight 77.273, kg, PRN Abnormal Lab Result, Via central line, Start date: 12/05/16 17:02:00 CDT, Duration: 30 day, Stop date: 01/04/17 17:01:00 CDT No Longer Active 12/05/2016 [facility] Calcium Chloride 1 gm, 10 mL, Route: IVPB, PRN, Dosing Weight 77.273, kg, PRN Abnormal Lab Result, Via central line, Start date: 12/05/16 17:02:00 CDT, Duration: 30 day, Stop date: 01/04/17 17:01:00 CDTNotes: WASTE: F/P - Sink; E - Municipal Trash Bin No Longer Active 12/05/2016 [facility] physiological irrigating solution 5000 mL 5,000 mL, Route: DIALYSIS, Irrigation Site: Groin, Right, 3,500 ml/hr, 1.4 hr, Total Volume: 5,000 mL, "For Irrigation Only", Start date: 12/05/16 17:02:00 CDT, Duration: 30 day, Stop date: 01/04/17 17:01:00 CDT Inactive 12/05/2016 [facility] Fentanyl 1,000 microgram, 20 mL, Rate: Titrate, Start Dose: 50 microgram/hr, Titration: 25 microgram/hour every 15 minutes, Goal(s): RASS (0) to (-2), Max Dose: 300 microgram/hr, Route: IV, Dosing Weight 77.273 kg, Total Volume: 20, Start date: 12/05/16 16:13:... No Longer Active 12/05/2016 [facility] Propofol 30 mg, Route: IV, Drug form: INJ, ONCE, Dosing Weight 77.273, kg, Start date: 12/05/16 16:10:00 CDT, Stop date: 12/05/16 16:10:00 CDT, Loading Dose; Pediatric Dosing Inactive 12/05/2016 [facility] Isolyte S PH-7.4 (Bolus) IV 1,000 mL, 1000 ml/hr, Route: IV, Drug Form: SOLN, Dosing Weight 77.273, kg, ONCE, STAT, Start date: 12/05/16 16:08:00 CDT, Stop date: 12/05/16 16:08:00 CDTNotes: (Same as: Isolyte S PH 7.4) Inactive 12/05/2016 [facility] Ketamine 100 mg, Route: IV, ONCE, Dosing Weight 77.273, kg, Start date: 12/05/16 16:08:00 CDT, Duration: 1 doses or times, Stop date: 12/05/16 16:08:00 CDT Inactive 12/05/2016 [facility] Ondansetron 4 mg, Route: IVP, Drug form: INJ, ONCE, Dosing Weight 77.273, kg, Priority: STAT, Start date: 12/05/16 14:47:00 CDT, Stop date: 12/05/16 14:47:00 CDT Inactive 12/05/2016 [facility] Morphine 4 mg, Route: IVP, ONCE, Dosing Weight 77.273, kg, Priority: STAT, Start date: 12/05/16 14:47:00 CDT, Stop date: 12/05/16 14:47:00 CDT Inactive 12/05/2016 [facility] cefepime 1 gm, Route: IVPB, ONCE, Dosing Weight 77.273, kg, Priority: STAT, Start date: 12/05/16 14:21:00 CDT, Duration: 1 doses or times, Stop date: 12/05/16 14:21:00 CDT, ABX Indication: Bacteremia Inactive 12/05/2016 [facility] Clindamycin 600 mg, Route: IVPB, ONCE, Dosing Weight 77.273, kg, Priority: STAT, Start date: 12/05/16 14:21:00 CDT, Duration: 1 doses or times, Stop date: 12/05/16 14:21:00 CDT, ABX Indication: Bacteremia Inactive 12/05/2016 [facility] sodium bicarbonate 150 mEq + D5W 1,000 mL 1,000 mL, Rate: 150 ml/hr, Infuse over: 7.7 hr, Route: IV, Dosing Weight 77.273 kg, Total Volume: 1,150 mL, Start date: 12/05/16 14:16:00 CDT, Duration: 30 day, Stop date: 01/04/17 14:15:00 CDT Inactive 12/05/2016 [facility] Sodium Chloride 0.154 MEQ/ML Injectable Solution 1,000 mL, Infuse Over: 1 hr, Route: IV, ONCE, Priority: STAT, Dosing Weight 77.273 kg, Start date: 12/05/16 13:27:00 CDT, Duration: 1 doses or times, Stop date: 12/05/16 13:27:00 CDT Inactive 12/05/2016 [facility] D5W 1/2NS 1,000 mL 1,000 mL, Rate: 125 ml/hr, Infuse over: 8 hr, Route: IV, Dosing Weight 77.273 kg, Total Volume: 1,000, Start date: 12/05/16 13:25:00 CDT, Duration: 30 day, Stop date: 01/04/17 13:24:00 CDT No Longer Active 12/05/2016 [facility] Albuterol 0.83 MG/ML Inhalant Solution 10 mg, Route: INHALATION, ONCE, Dosing Weight 77.273, kg, Start date: 12/05/16 13:25:00 CDT, Stop date: 12/05/16 13:25:00 CDT Inactive 12/05/2016 [facility] Sodium Chloride 0.154 MEQ/ML Injectable Solution 1,000 mL, Infuse Over: 1 hr, Route: IV, ONCE, Priority: STAT, Dosing Weight 77.273 kg, Start date: 12/05/16 13:24:00 CDT, Duration: 1 doses or times, Stop date: 12/05/16 13:24:00 CDT Inactive 12/05/2016 [facility] Dextrose 50% Syringe 25 gm, Route: IVP, Dosing Weight 77.273, kg, ONCE, STAT, Start date: 12/05/16 13:08:00 CDT, Stop date: 12/05/16 13:08:00 CDT Inactive 12/05/2016 [facility] cefepime 1 gm, Route: IV, Drug form: INJ, [id number], Dosing Weight 77.273, kg, Start date: 12/05/16 3:00:00 CDT, Stop date: 01/03/17 14:00:00 CDT, ABX Indication: Other (specify in Comments)Notes: (Same As: López cruz) MEDICATION WASTE Product Size: 1000 mg Product Wasted: ___ mg No Longer Active 12/05/2016 [facility] Clonidine Hydrochloride 0.1 MG Oral Tablet 0.1 mg, 1 tab, Route: PO, Drug form: TAB, Q8H, Dosing Weight 66.818, kg, PRN Elevated BP, Start date: 08/02/15 13:49:00, Duration: 30 day, Stop date: 09/01/15 13:48:00, SBP >160Notes: (Same As: Catapres) Inactive 08/02/2015 [facility] Ciprofloxacin 250 MG Oral Tablet [Cipro] 250 mg=1 tab, PO, Q12H, X 7 day, # 14 tab, 0 Refill(s) Active 08/02/2015 [facility] Pravastatin 40 mg, 2 tab, Route: PO, Drug form: TAB, Bedtime, Dosing Weight 66.818, kg, Start date: 07/31/15 21:00:00, Duration: 30 day, Stop date: 08/29/15 21:00:00Notes: (Same as: Pravachol) No Longer Active 08/01/2015 [facility] Simvastatin 20 mg, 1 tab, Route: PO, Drug form: TAB, Bedtime, Dosing Weight 66.818, kg, Start date: 07/31/15 21:00:00, Duration: 30 day, Stop date: 08/29/15 21:00:00Notes: (Same as: Zocor) Inactive 08/01/2015 [facility] Protonix 40 mg, 1 tab, Route: PO, Drug form: ECTAB, Before Dinner, Start date: 07/31/15 16:30:00, Duration: 30 day, Stop date: 08/29/15 16:30:00Notes: Tablet should not be chewed or crushed. (Same as: Protonix) No Longer Active 07/31/2015 [facility] Insulin Glargine 15 unit, Route: SUB-Q, Drug form: SOLN, Daily, Dosing Weight 66.818, kg, Start date: 07/31/15 9:00:00, Duration: 30 day, Stop date: 08/29/15 9:00:00 Inactive 07/31/2015 [facility] glimepiride 4 mg, 1 tab, Route: PO, Drug form: TAB, BID, Dosing Weight 66.818, kg, Start date: 07/31/15 9:00:00, Duration: 30 day, Stop date: 08/29/15 17:00:00Notes: (Same as: Amaryl) No Longer Active 07/31/2015 [facility] ferrous sulfate 325 mg, 1 tab, Route: PO, Drug form: ECTAB, Daily, Dosing Weight 66.818, kg, Start date: 07/31/15 9:00:00, Duration: 30 day, Stop date: 08/29/15 9:00:00Notes: Give with food. "Do Not Crush" Inactive 07/31/2015 [facility] Escitalopram 5 mg, 0.5 tab, Route: PO, Drug form: TAB, Daily, Dosing Weight 66.818, kg, Start date: 07/31/15 9:00:00, Duration: 30 day, Stop date: 08/29/15 9:00:00Notes: (Same as: Lexapro) No Longer Active 07/31/2015 [facility] clopidogrel 75 mg, 1 tab, Route: PO, Drug form: TAB, Daily, Dosing Weight 66.818, kg, Start date: 07/31/15 9:00:00, Duration: 30 day, Stop date: 08/29/15 9:00:00Notes: (Same As: Plavix) No Longer Active 07/31/2015 [facility] Baclofen 10 mg, 1 tab, Route: PO, Drug form: TAB, TID, Dosing Weight 66.818, kg, Start date: 07/31/15 9:00:00, Duration: 30 day, Stop date: 08/29/15 21:00:00Notes: (Same As: Lioresal) No Longer Active 07/31/2015 [facility] Patient's own med: Janumet 50mg/1000mg(sitagliptin/metformin Patient's own med: Janumet 50mg/1000mg(sitagliptin/metformin, 1 tab, Drug form: MISC, Route: PO, BID, 07/31/15 9:00:00, Duration: 30 day, Stop date: 08/29/15 17:00:00 No Longer Active 07/31/2015 [facility] Sertraline 50 mg, 1 tab, Route: PO, Drug form: TAB, Daily, Dosing Weight 66.818, kg, Start date: 07/31/15 9:00:00, Duration: 30 day, Stop date: 08/29/15 9:00:00Notes: (Same as: Zoloft) Inactive 07/31/2015 [facility] Levemir FlexPen 15 unit, 0.15 mL, Route: SUB-Q, Drug form: INJ, Daily, Start date: 07/31/15 9:00:00, Duration: 30 day, Stop date: 08/29/15 9:00:00Notes: Same as Levemir Do not hold insulin without contacting prescriber WASTE: F/P - Black; E - Municipal Trash Bin "single patient use only" No Longer Active 07/31/2015 [facility] tamsulosin 0.8 mg, 2 cap, Route: PO, Drug form: CAP, Daily, Dosing Weight 66.818, kg, Start date: 07/31/15 9:00:00, Stop date: 08/29/15 9:00:00Notes: (Same As: Flomax) "Do Not Crush" No Longer Active 07/31/2015 [facility] Omeprazole 40 mg, Route: PO, Daily, Dosing Weight 66.818, kg, Start date: 07/31/15 9:00:00, Duration: 30 day, Stop date: 08/29/15 9:00:00 Inactive 07/31/2015 [facility] sitagliptin 50 mg, Route: PO, Drug form: TAB, BID, Dosing Weight 66.818, kg, substituting metform and this for his janumet, Start date: 07/31/15 9:00:00, Duration: 30 day, Stop date: 08/29/15 17:00:00 Inactive 07/31/2015 [facility] influenza virus vaccine, inactivated 0.5 mL, Route: IM, Drug Form: SUSP, Daily, Start date: 07/31/15 9:00:00, Duration: 1 doses or times, Stop date: 07/31/15 9:00:00Notes: (Same as: Fluzone Quadrivalent) For 3 years of age and older (0.5 mL IM) Shake well before use Inactive 07/31/2015 [facility] Losartan 100 mg, 2 tab, Route: PO, Drug form: TAB, Daily, Dosing Weight 66.818, kg, Start date: 07/31/15 9:00:00, Duration: 30 day, Stop date: 08/29/15 9:00:00Notes: (Same as: Cozaar) Inactive 07/31/2015 [facility] Metformin 1,000 mg, 2 tab, Route: PO, Drug form: TAB, BID, Dosing Weight 66.818, kg, Start date: 07/31/15 9:00:00, Duration: 30 day, Stop date: 08/29/15 17:00:00Notes: (Same as: Glucophage) Take with meal Inactive 07/31/2015 [facility] metoprolol tartrate 25 mg, 1 tab, Route: PO, Drug form: ERTAB, Daily, Dosing Weight 66.818, kg, Start date: 07/31/15 9:00:00, Duration: 30 day, Stop date: 08/29/15 9:00:00Notes: (Same as: Toprol XL) Do Not Crush No Longer Active 07/31/2015 [facility] Enoxaparin 40 mg, 0.4 mL, Route: SUB-Q, Drug form: INJ, [id number], Dosing Weight 66.818, kg, Start date: 07/31/15 8:00:00, Duration: 30 day, Stop date: 08/29/15 8:00:00Notes: (Same as: Lovenox) No Longer Active 07/31/2015 [facility] Nurse pls bring pt's own med: Sitagliptin to pharmacy for ve Nurse pls bring pt's own med: Sitagliptin to pharmacy for ve, attn, Drug form: MISC, Route: MISC, QSHIFT, 07/31/15 8:00:00, Duration: 30 day, Stop date: 08/30/15 0:00:00 Inactive 07/31/2015 [facility] Glucagon 1 mg, Route: IM, Drug form: PDR/INJ, PRN, Dosing Weight 66.818, kg, PRN Blood Glucose Results, Start date: 07/31/15 7:47:00, Duration: 30 day, Stop date: 08/30/15 7:46:00 No Longer Active 07/31/2015 [facility] Insulin, Aspart, Human 6 unit, 0.06 mL, Route: SUB-Q, Drug form: SOLN, TID-Before Meals, Dosing Weight 66.818, kg, PRN Blood Glucose Results, Start date: 07/31/15 7:47:00, Duration: 30 day, Stop date: 08/30/15 7:46:00Notes: Roll in palms of hands gently; Do not shake vigorously. (Same as: NovoLOG) "single patient use only" WASTE: F/P - Black; E - Municipal Trash Bin Stable for 28 days at room temperature. Expires in days from Date No Longer Active 07/31/2015 [facility] Dextrose 50% Syringe 12.5 gm, 25 mL, Route: IVP, Drug Form: INJ, Dosing Weight 66.818, kg, PRN, PRN Blood Glucose Results, Start date: 07/31/15 7:47:00, Duration: 30 day, Stop date: 08/30/15 7:46:00 No Longer Active 07/31/2015 [facility] Vitamin D2 50,000 IntlUnit, Route: PO, qWeek, Dosing Weight 66.818, kg, Start date: 07/31/15 6:00:00, Duration: 30 day, Stop date: 08/28/15 9:00:00 Inactive 07/31/2015 [facility] Aspirin 81 MG Chewable Tablet 81 mg, 1 tab, Route: PO, Drug form: CHEWTAB, Q24H, Dosing Weight 66.818, kg, Start date: 07/31/15 6:00:00, Duration: 30 day, Stop date: 08/29/15 6:00:00Notes: Take with food. No Longer Active 07/31/2015 [facility] tramadol hydrochloride 50 MG Oral Tablet 50 mg, 1 tab, Route: PO, Drug form: TAB, ONCE, Dosing Weight 66.818, kg, Start date: 07/31/15 5:18:00, Stop date: 07/31/15 5:18:00Notes: Not to exceed 400mg/day. (Same As: Ultram) Inactive 07/31/2015 [facility] gabapentin 300 MG Oral Capsule 300 mg, 1 cap, Route: PO, Drug form: CAP, ONCE, Dosing Weight 66.818, kg, Start date: 07/31/15 5:16:00, Stop date: 07/31/15 5:16:00Notes: (Same as: Neurontin) Inactive 07/31/2015 [facility] Atropine 0.5 mg, 5 mL, Route: IVP, Drug form: INJ, PRN, Dosing Weight 66.818, kg, PRN Bradycardia, Start date: 07/31/15 3:53:00, Duration: 30 day, Stop date: 08/30/15 3:52:00 No Longer Active 07/31/2015 [facility] Nitroglycerin 0.4 MG Sublingual Tablet 0.4 mg, 1 tab, Route: SL, Drug form: TAB, Q5Min, Dosing Weight 66.818, kg, PRN Chest Pain, Start date: 07/31/15 3:53:00, Duration: 30 day, Stop date: 08/30/15 3:52:00Notes: (Same as:Nitroquick, Nitrostat) "Do Not Crush" Sublingual tablet No Longer Active 07/31/2015 [facility] Insulin Glargine 100 UNT/ML Injectable Solution [Lantus] SUB-Q, Daily, # 15 unit, 0 Refill(s) Active 07/31/2015 [facility] escitalopram 5 mg oral tablet 5 mg=1 tab, PO, Daily, # 30 tab, 0 Refill(s) Active 07/31/2015 [facility] metoprolol tartrate 25 mg oral tablet 25 mg=1 tab, PO, ONCE, 0 Refill(s) No Longer Active 07/31/2015 [facility] tamsulosin 0.4 mg oral capsule 0.4 mg=1 cap, PO, Daily, # 30 cap, 0 Refill(s) Active 07/31/2015 [facility] tramadol hydrochloride 50 MG Oral Tablet 50 mg=1 tab, PO, Daily, 0 Refill(s) No Longer Active 07/31/2015 [facility] gabapentin 300 MG Oral Capsule 300 mg=1 cap, PO, ONCE, 0 Refill(s) No Longer Active 07/31/2015 [facility] pravastatin 40 mg oral tablet 40 mg=1 tab, PO, Bedtime, # 30 tab, 0 Refill(s) No Longer Active 07/31/2015 [facility] losartan 100 mg oral tablet 100 mg=1 tab, PO, Daily, # 30 tab, 0 Refill(s) Active 07/31/2015 [facility] Metformin hydrochloride 1000 MG / sitagliptin 50 MG Oral Tablet [Janumet ] 1 tab, PO, BID-Meals, # 60 tab, 0 Refill(s) No Longer Active 07/31/2015 [facility] baclofen 10 mg oral tablet 10 mg=1 tab, PO, TID, # 90 tab, 0 Refill(s) Active 07/31/2015 [facility] Sulfamethoxazole 800 MG / Trimethoprim 160 MG Oral Tablet 1 tab, PO, BID, # 28 tab, 0 Refill(s) No Longer Active 07/31/2015 [facility] Sodium Chloride 0.154 MEQ/ML Injectable Solution 1,000 mL, Rate: 75 ml/hr, Infuse over: 13.3 hr, Route: IV, Dosing Weight 63.636 kg, Total Volume: 1,000, Start date: 07/31/15 3:19:00, Duration: 30 day, Stop date: 08/30/15 3:18:00 No Longer Active 07/31/2015 [facility] Ceftriaxone 1 gm, Route: IVPB, Q24H, Dosing Weight 63.636, kg, Priority: STAT, Start date: 07/31/15 3:19:00, Duration: 30 day, Stop date: 08/29/15 2:00:00Notes: (Same As: Rocephin). Use with 100 mL NS and infuse over 30 min MEDICATION WASTE Product Size: 1000 mg Product Wasted: ___ mg No Longer Active 07/31/2015 [facility] Acetaminophen 650 mg, 2 tab, Route: PO, Drug form: TAB, Q4H, Dosing Weight 63.636, kg, PRN Pain 1-3/Temp > 100.4 F, Start date: 07/31/15 3:19:00, Duration: 30 day, Stop date: 08/30/15 3:18:00Notes: Do not exceed 4 gm/day. (Same as: Tylenol) No Longer Active 07/31/2015 [facility] Morphine 2 mg, 1 mL, Route: IVP, Drug form: INJ, Q4H, Dosing Weight 63.636, kg, PRN Pain Score 7-10, Start date: 07/31/15 3:19:00, Duration: 30 day, Stop date: 08/30/15 3:18:00Notes: (Same as:MORPhine Sulfate) No Longer Active 07/31/2015 [facility] Docusate 100 mg, 1 cap, Route: PO, Drug form: CAP, BID, Dosing Weight 63.636, kg, PRN Constipation, Start date: 07/31/15 3:19:00, Duration: 30 day, Stop date: 08/30/15 3:18:00Notes: (Same as: Colace) (Do Not Crush) No Longer Active 07/31/2015 [facility] Ondansetron 4 mg, 2 mL, Route: IVP, Drug form: INJ, Q6H, Dosing Weight 63.636, kg, PRN Nausea & Vomiting, Start date: 07/31/15 3:19:00, Duration: 30 day, Stop date: 08/30/15 3:18:00Notes: (Same as: Zofran) MEDICATION WASTE Product Size: 4 mg Product Wasted: ___ mg No Longer Active 07/31/2015 [facility] Rocephin 1 gm, Route: IVPB, Drug form: PDR/INJ, ONCE, Dosing Weight 63.636, kg, Priority: STAT, Start date: 07/31/15 1:33:00, Stop date: 07/31/15 1:33:00 Inactive 07/31/2015 [facility] Saline Flush 0.9% 10 mL, Route: IVP, Drug Form: INJ, Dosing Weight 63.636, kg, PRN, PRN Line Flush, Start date: 07/30/15 23:05:00, Duration: 30 day, Stop date: 08/29/15 23:04:00Notes: (Same as: BD Posiflush) No Longer Active 07/31/2015 [facility] Zofran 4 mg, Route: IVP, Drug form: INJ, ONCE, Dosing Weight 63.636, kg, Priority: STAT, Start date: 07/30/15 23:03:00, Stop date: 07/30/15 23:03:00 Inactive 07/31/2015 [facility] omeprazole 40 mg, Route: PO, Daily, Dosing Weight 62.727, kg, Start date: 06/07/12 9:00:00, Duration: 30 day, Stop date: 07/06/12 9:00:00 PO No Longer Active [facility] 06/07/2012 [facility] sertraline 50 mg, 1 tab, Route: PO, Drug form: TAB, Daily, Dosing Weight 62.727, kg, Start date: 06/07/12 9:00:00, Duration: 30 day, Stop date: 07/06/12 9:00:00 PO No Longer Active [facility] 06/07/2012 [facility] metoprolol extended release 25 mg, 1 tab, Route: PO, Drug form: ERTAB, Daily, Start date: 06/07/12 9:00:00, Duration: 30 day, Stop date: 07/06/12 9:00:00 PO No Longer Active [facility] 06/07/2012 [facility] losartan 50 mg, 1 tab, Route: PO, Drug form: TAB, Daily, Dosing Weight 62.727, kg, Start date: 06/07/12 9:00:00, Duration: 30 day, Stop date: 07/06/12 9:00:00 PO No Longer Active [facility] 06/07/2012 [facility] ferrous sulfate 325 mg, 1 tab, Route: PO, Drug form: ECTAB, Daily, Dosing Weight 62.727, kg, Start date: 06/07/12 9:00:00, Duration: 30 day, Stop date: 07/06/12 9:00:00 PO No Longer Active [facility] 06/07/2012 [facility] clopidogrel 75 mg, 1 tab, Route: PO, Drug form: TAB, Daily, Dosing Weight 62.727, kg, Start date: 06/07/12 9:00:00, Duration: 30 day, Stop date: 07/06/12 9:00:00 PO No Longer Active [facility] 06/07/2012 [facility] potassium chloride 40 mEq, 2 tab, Route: PO, Drug form: ERTAB, ONCE, Dosing Weight 62.727, kg, Priority: NOW, Start date: 06/07/12 8:21:00, Stop date: 06/07/12 8:21:00 PO No Longer Active [facility] 06/07/2012 [facility] NovoLog Mix 70/30 FlexPen 10 unit, 0.1 mL, Route: SUB-Q, Drug form: INJ, BID-Before Meals, Priority: STAT, Start date: 06/07/12 0:15:00, Duration: 30 day, Stop date: 07/06/12 16:30:00 SUB-Q No Longer Active [facility] 06/07/2012 [facility] insulin isophane-insulin regular 70/30 10 unit, Route: SUB-Q, Drug form: SUSP, BID-Before Meals, Dosing Weight 62.727, kg, Priority: STAT, Start date: 06/07/12 0:06:00, Duration: 30 day, Stop date: 07/06/12 16:30:00 SUB-Q No Longer Active [facility] 06/07/2012 [facility] simvastatin 20 mg, 1 tab, Route: PO, Drug form: TAB, Bedtime, Dosing Weight 62.727, kg, Start date: 06/06/12 21:00:00, Duration: 30 day, Stop date: 07/05/12 21:00:00 PO No Longer Active [facility] 06/07/2012 [facility] amLODipine 5 mg, 1 tab, Route: PO, Drug form: TAB, Q24H, Dosing Weight 62.727, kg, Start date: 06/06/12 17:00:00, Duration: 30 day, Stop date: 07/05/12 17:00:00 PO No Longer Active [facility] 06/06/2012 [facility] Imdur 60 mg, 1 tab, Route: PO, Drug form: ERTAB, Q24H, Dosing Weight 62.727, kg, Start date: 06/06/12 17:00:00, Duration: 30 day, Stop date: 07/05/12 17:00:00 PO No Longer Active [facility] 06/06/2012 [facility] glimepiride 4 mg, 1 tab, Route: PO, Drug form: TAB, BID, Dosing Weight 62.727, kg, Start date: 06/06/12 17:00:00, Duration: 30 day, Stop date: 07/06/12 9:00:00 PO No Longer Active [facility] 06/06/2012 [facility] Protonix 40 mg, 1 tab, Route: PO, Drug form: ECTAB, Before Dinner, Start date: 06/06/12 16:30:00, Duration: 30 day, Stop date: 07/05/12 16:30:00 PO No Longer Active [facility] 06/06/2012 [facility] morphine Sulfate 2 mg, 1 mL, Route: IV, Drug form: INJ, Q10day, PRN Chest Pain, Start date: 06/06/12 15:42:00, Duration: 5 doses or times, Stop date: Limited # of times IV No Longer Active [facility] 06/06/2012 [facility] nitroglycerin 0.4 mg sublingual tablet 0.4 mg, 1 tab, Route: SL, Drug form: TAB, Q5Min, PRN Chest Pain, Start date: 06/06/12 15:41:00, Duration: 30 day, Stop date: 07/06/12 15:40:00 SL No Longer Active [facility] 06/06/2012 [facility] atropine 0.5 mg, 5 mL, Route: IVP, Drug form: INJ, PRN, PRN Bradycardia, Start date: 06/06/12 15:41:00, Duration: 30 day, Stop date: 07/06/12 15:40:00 IVP No Longer Active [facility] 06/06/2012 [facility] aspirin 81 mg tablet, chewable 81 mg, 1 tab, Route: PO, Drug form: CHEWTAB, Daily, Dosing Weight 62.727, kg, Start date: 06/06/12 15:30:00, Duration: 30 day, Stop date: 07/06/12 9:00:00 PO No Longer Active [facility] 06/06/2012 [facility] Vitamin D 50,000 IntlUnit, 1 cap, Route: PO, Drug form: CAP, qWeek, Dosing Weight 62.727, kg, Start date: 06/06/12 15:00:00, Duration: 30 day, Stop date: 07/04/12 9:00:00 PO No Longer Active [facility] 06/06/2012 [facility] NS 1,000 mL 1,000 mL, Rate: 100 ml/hr, Infuse over: 10 hr, Route: IV, kg, Total Volume: 1,000, Priority: NOW, Start date: 06/06/12 14:51:00, Duration: 10 hr, Stop date: 06/07/12 0:50:00 IV No Longer Active [facility] 06/06/2012 [facility] pneumococcal 23-valent vaccine 0.5 ml, Route: IM, Drug Form: INJ, Start date: 05/18/12 16:30:00, Stop date: 05/18/12 16:30:00 IM No Longer Active [facility] 05/18/2012 [facility] influenza virus vaccine, inactivated 0.5 ml, Route: IM, Drug Form: INJ, Start date: 05/18/12 16:30:00, Stop date: 05/18/12 16:30:00 IM No Longer Active [facility] 05/18/2012 [facility] Allergies, Adverse Reactions, Alerts Substance Category Reaction Severity Reaction type Status Date Reported Comments Source vancomycin Assertion Drug allergy Active [facility] Immunizations Immunization Date Given Site Status Last Updated Comments Source influenza virus vaccine, inactivated<sup>1</sup> 03/02/2018 Left Deltoid completed [facility] Result Comment: Patient waited 10 min, no reaction [facility] pneumococcal 23-valent vaccine 04/01/2017 Left Deltoid completed [facility] influenza virus vaccine, inactivated 03/16/2017 Right Deltoid completed [facility] influenza virus vaccine, inactivated 03/24/2016 Right Deltoid completed [facility] influenza virus vaccine, inactivated 03/24/2016 Right Deltoid completed [facility] influenza virus vaccine, inactivated 03/24/2016 Right Deltoid completed [facility] influenza virus vaccine, inactivated 07/31/2015 Not Given [facility] influenza virus vaccine, inactivated 07/31/2015 Not Given [facility] influenza virus vaccine, inactivated 07/31/2015 Not Given [facility] influenza virus vaccine, inactivated<sup>2</sup> 07/31/2015 Not Given [facility] influenza virus vaccine, inactivated 05/18/2012 Right deltoid completed [facility] pneumococcal 23-valent vaccine 05/18/2012 Left deltoid completed [facility] influenza virus vaccine, inactivated 05/18/2012 Right deltoid completed [facility] pneumococcal 23-valent vaccine 05/18/2012 Left deltoid completed [place] [facility] influenza virus vaccine, inactivated 05/18/2012 Right deltoid completed [place] [facility] pneumococcal 23-valent vaccine 05/18/2012 Left deltoid completed [place] [facility], [facility] pneumococcal 23-valent vaccine 05/18/2012 completed [facility] influenza virus vaccine, inactivated 05/18/2012 completed [facility] Results Order Name Results Value Reference Range Date Interpretation Comments Source CHEM PANEL eGFR 37 mL/min/1.73m2 09/05/2018 Result Comment: The eGFR is calculated using the CKD-EPI formula. In most young, healthy individuals the eGFR will be >90 mL/min/1.73m2. The eGFR declines with age. An eGFR of 60-89 may be normal in some populations, particularly the elderly, for whom the CKD-EPI formula has not been extensively validated. Use of the eGFR is not recommended in the following populations: Individuals with unstable creatinine concentrations, including patients and those with serious co-morbid conditions. Patients with extremes in muscle mass or diet. The data above are obtained from the National Kidney Disease Education Program (NKDEP) which additionally recommends that when the eGFR is used in patients with extremes of body mass index for purposes of drug dosing, the eGFR should be multiplied by the estimated BMI. [facility] CHEM PANEL Calcium Lvl 9.0 mg/dL 8.5 - 10.5 09/05/2018 [facility] CHEM PANEL AGAP 8.1 meq/L 10.0 - 20.0 09/05/2018 [facility] CHEM PANEL CO2 27 meq/L 24 - 32 09/05/2018 [facility] CHEM PANEL Potassium Lvl 5.1 meq/L 3.5 - 5.1 09/05/2018 [facility] CHEM PANEL Chloride Lvl 101 meq/L 95 - 109 09/05/2018 [facility] CHEM PANEL Sodium Lvl 131 meq/L 135 - 145 09/05/2018 [facility] CHEM PANEL Creatinine Lvl 1.79 mg/dL 0.50 - 1.40 09/05/2018 [facility] CHEM PANEL BUN 27 mg/dL 7 - 22 09/05/2018 [facility] CHEM PANEL Glucose Lvl 436 mg/dL 70 - 99 09/05/2018 Result Comment: Critical Result(s) called to Jonel Pitts at 09/05/2018 15:28 by alva. Read back OK. [facility] HEMATOLOGY RDW 13.5 % 11.5 - 14.5 09/05/2018 [facility] HEMATOLOGY Platelet 195 K/CMM 133 - 450 09/05/2018 [facility] HEMATOLOGY MPV 8.1 fL 7.4 - 10.4 09/05/2018 [facility] [place][note 2] MCHC 33.4 g/dL 32.0 - 36.0 09/05/2018 [facility] [place][note 2] MCH 30.8 pg 27.0 - 31.0 09/05/2018 [facility] [place][note 2] MCV 92.2 fL 80.0 - 94.0 09/05/2018 [facility] [place][note 2] Hct 36.6 % 42.0 - 54.0 09/05/2018 [facility] [place][note 2] Hgb 12.2 g/dL 14.0 - 18.0 09/05/2018 [facility] [place][note 2] RBC 3.98 M/CMM 4.70 - 6.10 09/05/2018 [facility] [place][note 2] WBC 9.5 K/CMM 3.7 - 10.4 09/05/2018 [facility] [place][note 2] Eosinophils # 0.1 K/CMM 0.0 - 0.5 09/05/2018 [facility] [place][note 2] Monocytes # 0.7 K/CMM 0.0 - 0.8 09/05/2018 [facility] [place][note 2] Lymphocytes # 0.9 K/CMM 1.0 - 5.5 09/05/2018 [facility] [place][note 2] Neutrophils # 7.8 K/CMM 1.5 - 8.1 09/05/2018 [facility] [place][note 2] Basophils 0.4 % 0.0 - 1.0 09/05/2018 [facility] [place][note 2] Eosinophils 1.0 % 0.0 - 4.0 09/05/2018 [facility] [place][note 2] Monocytes 7.1 % 2.0 - 12.0 09/05/2018 [facility] [place][note 2] Lymphocytes 9.7 % 20.0 - 40.0 09/05/2018 [facility] [place][note 2] Segs 81.8 % 45.0 - 75.0 09/05/2018 [facility]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 HEMATOLOGY Lymphocytes # 1.3 K/CMM 1.0 - 5.5 12/20/2016 [facility] HEMATOLOGY Basophils 0.4 % 0.0 - 1.0 12/20/2016 [facility] HEMATOLOGY Eosinophils 2.0 % 0.0 - 4.0 12/20/2016 [facility] HEMATOLOGY Segs 76.4 % 45.0 - 75.0 12/20/2016 [facility] HEMATOLOGY Lymphocytes 13.8 % 20.0 - 40.0 12/20/2016 [facility] HEMATOLOGY Monocytes 7.4 % 2.0 - 12.0 12/20/2016 [facility] ELECTROLYTES CO2 30 meq/L 24 - 32 12/19/2016 [facility] ELECTROLYTES Calcium Lvl 7.7 mg/dL 8.5 - 10.5 12/19/2016 [facility] ELECTROLYTES AGAP 9.6 meq/L 10.0 - 20.0 12/19/2016 [facility] ELECTROLYTES Potassium Lvl 4.6 meq/L 3.5 - 5.1 12/19/2016 [facility] ELECTROLYTES B/C Ratio 26 6 - 25 12/19/2016 [facility] ELECTROLYTES Glucose Lvl 169 mg/dL 70 - 99 12/19/2016 [facility] ELECTROLYTES BUN 37 mg/dL 7 - 22 12/19/2016 [facility] ELECTROLYTES Sodium Lvl 142 meq/L 135 - 145 12/19/2016 [facility] ELECTROLYTES Chloride Lvl 107 meq/L 95 - 109 12/19/2016 [facility] ELECTROLYTES Creatinine Lvl 1.40 mg/dL 0.50 - 1.40 12/19/2016 [facility] ELECTROLYTES eGFR 50 mL/min/1.73m2 12/19/2016 Result Comment: The eGFR is calculated using the CKD-EPI formula. In most young, healthy individuals the eGFR will be >90 mL/min/1.73m2. The eGFR declines with age. An eGFR of 60-89 may be normal in some populations, particularly the elderly, for whom the CKD-EPI formula has not been extensively validated. Use of the eGFR is not recommended in the following populations: Individuals with unstable creatinine concentrations, including patients and those with serious co-morbid conditions. Patients with extremes in muscle mass or diet. The data above are obtained from the National Kidney Disease Education Program (NKDEP) which additionally recommends that when the eGFR is used in patients with extremes of body mass index for purposes of drug dosing, the eGFR should be multiplied by the estimated BMI. [facility] ELECTROLYTES A/G Ratio 0.6 0.7 - 1.6 12/19/2016 [facility] ELECTROLYTES Bili Total 0.4 mg/dL 0.2 - 1.3 12/19/2016 [facility] ELECTROLYTES Globulin 4.0 g/dL 2.7 - 4.2 12/19/2016 [facility] ELECTROLYTES Alk Phos 98 unit/L 39 - 136 12/19/2016 [facility] ELECTROLYTES AST 42 unit/L 0 - 37 12/19/2016 [facility] ELECTROLYTES Total Protein 6.2 g/dL 6.4 - 8.4 12/19/2016 [facility] ELECTROLYTES ALT 18 unit/L 0 - 65 12/19/2016 [facility] ELECTROLYTES Albumin Lvl 2.2 g/dL 3.5 - 5.0 12/19/2016 [facility] CHEM PANEL Bili Total 0.6 mg/dL 0.2 - 1.3 12/18/2016 [facility] CHEM PANEL Alk Phos 98 unit/L 39 - 136 12/18/2016 [facility] CHEM PANEL ALT 21 unit/L 0 - 65 12/18/2016 [facility] CHEM PANEL Total Protein 6.5 g/dL 6.4 - 8.4 12/18/2016 [facility] CHEM PANEL Albumin Lvl 2.2 g/dL 3.5 - 5.0 12/18/2016 [facility] CHEM PANEL Globulin 4.3 g/dL 2.7 - 4.2 12/18/2016 [facility] CHEM PANEL A/G Ratio 0.5 0.7 - 1.6 12/18/2016 [facility] CHEM PANEL AST 37 unit/L 0 - 37 12/18/2016 [facility] CHEM PANEL B/C Ratio 26 6 - 25 12/18/2016 [facility] HEMATOLOGY MPV 8.3 fL 7.4 - 10.4 12/18/2016 [facility] HEMATOLOGY RDW 19.3 % 11.5 - 14.5 12/18/2016 [facility] HEMATOLOGY MCH 29.9 pg 27.0 - 31.0 12/18/2016 [facility] HEMATOLOGY MCHC 33.5 g/dL 32.0 - 36.0 12/18/2016 [facility] HEMATOLOGY Platelet 327 K/CMM 133 - 450 12/18/2016 [facility] HEMATOLOGY WBC 11.6 K/CMM 3.7 - 10.4 12/18/2016 [facility] HEMATOLOGY RBC 2.91 M/CMM 4.70 - 6.10 12/18/2016 [facility] HEMATOLOGY Hct 26.0 % 42.0 - 54.0 12/18/2016 [facility] HEMATOLOGY MCV 89.4 fL 80.0 - 94.0 12/18/2016 [facility] HEMATOLOGY Hgb 8.7 g/dL 14.0 - 18.0 12/18/2016 [facility] HEMATOLOGY Segs 77.3 % 45.0 - 75.0 12/18/2016 [facility] HEMATOLOGY Lymphocytes 11.7 % 20.0 - 40.0 12/18/2016 [facility] HEMATOLOGY Basophils 0.5 % 0.0 - 1.0 12/18/2016 [facility] HEMATOLOGY Monocytes 7.9 % 2.0 - 12.0 12/18/2016 [facility] HEMATOLOGY Segs-Bands # 9.0 K/CMM 1.5 - 8.1 12/18/2016 [facility] HEMATOLOGY Eosinophils 2.6 % 0.0 - 4.0 12/18/2016 [facility] HEMATOLOGY Basophils # 0.1 K/CMM 0.0 - 0.2 12/18/2016 [facility] HEMATOLOGY Eosinophils # 0.3 K/CMM 0.0 - 0.5 12/18/2016 [facility] HEMATOLOGY Monocytes # 0.9 K/CMM 0.0 - 0.8 12/18/2016 [facility] HEMATOLOGY Lymphocytes # 1.4 K/CMM 1.0 - 5.5 12/18/2016 [facility] Abdomen AP DX Abdomen AP DX EXAM: XR ABDOMEN 1 VIEW DATE: 12/18/2016 4:13 AM CDT INDICATION: - Tube placement ADDITIONAL INFORMATION: None. COMPARISON: KUB 12/17/2016 TECHNIQUE: AP view of the abdomen. Number of images: 1 FINDINGS: Transesophageal suction tube: The tip overlies the greater curvature of the proximal to mid body with the side-port in the central proximal body. Transesophageal feeding tube: None. Other tubes and lines: None. Bowel: Mild gaseous distention without dilatation. Fecal [place]: Mild. Bones: No acute abnormalities seen. Soft tissues. There is stable moderate left retrocardiac opacification. IMPRESSION: 1. Non-specific bowel gas pattern with no acute abnormality seen. 2. Tube(s) and/or catheter(s) as above. 12/18/2016 - - Read by: Magdaleno Spann MD Dictated Date/time: 12/18/16 09:46 Electronically Signed by: Magdaleno Spann MD 12/18/16 09:47 FINAL REPORT [facility] HEMATOLOGY Basophils # 0.1 K/CMM 0.0 - 0.2 12/17/2016 [facility] Abdomen AP DX Abdomen AP DX EXAM: XR ABDOMEN 1 VIEW DATE: 12/17/2016 4:01 AM CDT INDICATION: - NGT placement confirmation ADDITIONAL INFORMATION: None. COMPARISON: 12/15/2016 TECHNIQUE: Limited AP view of the abdomen for tube placement assessment. Number of images: 1 FINDINGS: Transesophageal feeding tube tip: None Transesophageal suction tube sidehole: Nasogastric tube is terminating in the proximal gastric antral region. Other tubes and lines: None. Diffuse gaseous distention of loops of small bowel and colon seen without dilation. IMPRESSION: 1. Tube position as above. 12/17/2016 - - Read by: Leidy Chavez Dictated Date/time: 12/17/16 09:16 Electronically Signed by: Leidy Chavez 12/17/16 09:18 FINAL REPORT [facility] Chest Pulmonary Embolism CTA Chest Pulmonary Embolism CTA EXAM: CTA CHEST WITH CONTRAST. Pulmonary Embolus Protocol. DATE: 12/16/2016 6:38 PM CDT INDICATION: - r/o PE acture SOB. Evaluate for Pulmonary Embolus. COMPARISON: None TECHNIQUE: Volumetric CT acquisition of the chest, during pulmonary arterial phase, after intravenous contrast. Axial, sagittal, coronal, and oblique MIP reconstructions are created at the acquisition workstation. Exam repeated due to technically suboptimal initial exam. IV Contrast: 1 20 mL Visipaque 320. DLP: 1584 mGy-cm FINDINGS: Visualized Lower Neck: No acute findings. Lines/Tubes/Devices: Gastric catheter courses into the stomach. Heart and Great Vessels: The aorta and main pulmonary artery measure 33 and 26 mm. respectively. The cardiothoracic radio measures 14/25. No significant pericardial effusion is present. Advanced three-vessel coronary artery vascular calcifications are noted. Evaluation for pulmonary embolus is limited by significant respiratory motion artifact on both studies. No central pulmonary embolus is identified. Peripheral evaluation nondiagnostic. Lymph Nodes: 11 mm right precarinal node. Lungs: Extensive respiratory motion artifact and expiratory imaging, as demonstrated by concavity of the posterior wall the trachea, moderately degrades image quality, limiting evaluation. Small to moderate bilateral pleural effusions are present with bibasilar areas of consolidation demonstrating patchy enhancement. There is mild biapical scarring. Areas of septal thickening and groundglass opacity cannot be excluded given motion. No distinct pneumothorax is identified. Upper abdomen: No acute findings. Bones and Soft Tissues: Irregularity of the sternum likely secondary to motion. Evaluation of ribs suboptimal. Moderate degenerative changes spine. IMPRESSION: 1. Exam moderately degraded by significant respiratory motion artifact on initial and repeat scan. 2. No central pulmonary embolus. Peripheral evaluation nondiagnostic. 3. Small to moderate bilateral pleural effusions with superimposed areas of consolidation predominantly enhancing suggesting atelectasis. Superimposed pneumonia not excluded. 4. Pulmonary parenchymal evaluation limited. BELOW IS PROVIDED PRELIMINARY REPORT BY THE ON-CALL VIDEO SYSTEMS ENGINEER. FINAL REPORT IS DETAILED ABOVE. IMPRESSION: This exam was repeated secondary to motion artifact. Both original and repeat exam are somewhat limited by quantum mottle artifact. Within the limitations, no filling defects in the pulmonary arteries to the segmental level. Moderate bilateral pleural effusions with subsegmental atelectasis. [place] SECTION: Chest 12/16/2016 - - This report was dictated by a Fire Prevention Inspector/Fellow. I have personally reviewed the images as well as the Resident's interpretation and agree with the findings. Read by: Cat Krueger MD Resident: Cat Krueger MD Dictated Date/time: 12/16/16 20:40 Electronically Signed by: Travon Castro MD 12/17/16 08:30 FINAL REPORT [facility] Chest 1view DX Chest 1view DX EXAM: XR CHEST 1 VIEW DATE: 12/16/2016 6:19 PM CDT INDICATION: Shortness of Breath - acute SOB COMPARISON: 12/14/2016 TECHNIQUE: AP chest, semierect. FINDINGS: Lines and tubes, and life support devices: Unchanged. Lungs and pleura: Persisting left basilar opacity. Bilateral pleural effusions. Mild interstitial pulmonary edema. No new pulmonary or pleural based abnormality is identified. Heart and mediastinum: Unchanged. Bones and soft tissues: Unchanged. IMPRESSION: No significant interval change in the radiographic appearance of the chest. 12/16/2016 - - Read by: Adonay Schuler Dictated Date/time: 12/17/16 06:11 Electronically Signed by: Adonay Schuler 12/17/16 06:11 FINAL REPORT [facility] Abdomen AP DX Abdomen AP DX EXAM: XR ABDOMEN 1 VIEW DATE: 12/15/2016 3:26 PM CDT INDICATION: NGT placement - NGT placement ADDITIONAL INFORMATION: None. COMPARISON: X-ray abdomen 12/05/2016 TECHNIQUE: AP view of the abdomen. FINDINGS: Lines, tubes and hardware: Nasogastric tube tip overlies the gastric antrum, the side port is beyond the gastroesophageal junction. Lower thorax: Unremarkable where visualized. Bowel: Normal. Gas is distributed throughout the gastrointestinal tract. Other abdominal organs: No abnormal mass or organomegaly seen. Calcifications: No abnormal calcifications found. Bones: No acute abnormality. Extraabdominal soft tissues: Normal. IMPRESSION: 1. Nasogastric tube tip overlies the gastric antrum. 2. No acute intra-abdominal abnormality. 12/15/2016 - - This report was dictated by a Fire Prevention Inspector/Fellow. I have personally reviewed the images as well as the Resident's interpretation and agree with the findings. Read by: Yong Paul MD Resident: Yong Paul MD Dictated Date/time: 12/15/16 16:04 Electronically Signed by: Pan Coe MD 12/15/16 16:50 FINAL REPORT [facility] CHEM PANEL Lactic Acid Lvl 1.0 mMol/L 0.5 - 2.2 12/15/2016 [facility] URINE AND STOOL Micro? Performed *NA* (12/15/16 9:55 AM) 12/15/2016 [facility] URINE AND STOOL UA Bacteria Occasional /HPF None Seen /HPF 12/15/2016 [facility] URINE AND STOOL UA RBC null 0 - 2 12/15/2016 [facility] URINE AND STOOL UA [place] Yeast Occasional /HPF None Seen /HPF 12/15/2016 [facility] URINE AND STOOL UA Urobilinogen <=1.0 mg/dL 0.1 - 1.0 12/15/2016 [facility] URINE AND STOOL UA WBC 19 /HPF 0 - 5 12/15/2016 [facility] URINE AND STOOL UA Blood Negative (12/15/16 9:55 AM) Negative 12/15/2016 [facility] URINE AND STOOL UA Bili Negative *NA* (12/15/16 9:55 AM) Negative 12/15/2016 [facility] URINE AND STOOL UA Protein 100 mg/dL Negative mg/dL 12/15/2016 [facility] URINE AND STOOL UA Glucose Negative mg/dL Negative mg/dL 12/15/2016 [facility] URINE AND STOOL UA Turbidity Clear (12/15/16 9:55 AM) Clear 12/15/2016 [facility] URINE AND STOOL UA Color Yellow *NA* (12/15/16 9:55 AM) Yellow 12/15/2016 [facility] URINE AND STOOL UA pH 7.5 5.0 - 8.0 12/15/2016 [facility] URINE AND STOOL UA Spec Grav 1.012 <=1.030 12/15/2016 [facility] URINE AND STOOL UA Nitrite Negative (12/15/16 9:55 AM) Negative 12/15/2016 [facility] URINE AND STOOL UA Sq Epi Occasional /LPF Few /LPF 12/15/2016 [facility] URINE AND STOOL UA Leuk Est Small *ABN* (12/15/16 9:55 AM) Negative 12/15/2016 [facility] URINE AND STOOL UA Ketones Negative mg/dL Negative mg/dL 12/15/2016 [facility] HEMATOLOGY Plt Morph Normal (12/15/16 5:27 AM) 12/15/2016 [facility] HEMATOLOGY RBC Morph Normal (12/15/16 5:27 AM) 12/15/2016 [facility] HEMATOLOGY RBC Morph Normal (12/14/16 4:24 AM) 12/14/2016 [facility] HEMATOLOGY Plt Morph Normal (12/14/16 4:24 AM) 12/14/2016 [facility] Chest 2 views DX Chest 2 views DX EXAM: XR PA AND LATERAL CHEST DATE: 12/14/2016 INDICATION: - Eval for improvemnent, comparison is made with December 10 FINDINGS: The patient has been extubated. Gastric tube tip is in the fundus of the stomach. There are bilateral retrocardiac opacities obscuring the hemidiaphragms and silhouette of the descending thoracic aorta which may represent bilateral pleural effusions with or without underlying atelectasis or consolidation of both lower lobes. .. The remainder of the lungs are clear. There are bilateral pleural effusions. IMPRESSION: The patient has been extubated. 12/14/2016 - - Read by: Jessica Matthew MD Dictated Date/time: 12/14/16 10:12 Electronically Signed by: Jessica Matthew MD 12/14/16 10:12 FINAL REPORT [facility] CHEM PANEL Phosphorus 2.8 mg/dL 2.5 - 4.5 12/12/2016 [facility] CHEM PANEL Phosphorus 0.5 mg/dL 2.5 - 4.5 12/11/2016 Result Comment: Critical Result(s) called to Tristan Ortiz at 12/11/2016 19:44 byJP. Read back OK. [facility] CHEM PANEL Magnesium Lvl 2.2 mg/dL 1.8 - 2.4 12/11/2016 [facility] CHEM PANEL Phosphorus 1.2 mg/dL 2.5 - 4.5 12/11/2016 Result Comment: Critical Result(s) called to Baltazar MUNIZIN at 12/11/2016 01:32 byJw. Read back OK. [facility] PARATHYROID PROFILE Ca Ion WB 1.06 mMol/L 1.05 - 1.25 12/11/2016 [facility] PARATHYROID PROFILE Ca Norm WB 1.11 mMol/L 1.05 - 1.25 12/11/2016 [facility] Chest 1view DX Chest 1view DX EXAM: XR CHEST 1 VIEW DATE: 12/10/2016 1:07 PM CDT INDICATION: - ET tube leak COMPARISON: 12/10/2016 at 0057 hours TECHNIQUE: AP chest IMPRESSION: 1. Endotracheal tube again seen with tip terminates 1 cm above the stas and retraction for 3 cm is recommended. Right IJV central venous line and NG tube are stable. 2. Cardiomediastinal silhouette is enlarged, unchanged. Aortic atherosclerotic disease. 3. Prominent lung reticulations again seen with peribronchial cuffing suggestive of pulmonary edema. Superimposed infection cannot be excluded. Findings are stable compared to previous study. 4. Small bilateral pleural effusions. 5. No acute osseous abnormalities. 12/10/2016 - - Read by: Bryant Emerson MD Dictated Date/time: 12/10/16 14:31 Electronically Signed by: Bryant Emerson MD 12/10/16 14:32 FINAL REPORT [facility] CHEM PANEL Lactic Acid Lvl 1.1 mMol/L 0.5 - 2.2 12/10/2016 [facility] URINE AND STOOL UA Amorph Georgie Moderate /HPF None Seen /HPF 12/10/2016 [facility] URINE AND STOOL UA Sq Epi None Seen 12/10/2016 [facility] URINE AND STOOL UA Urobilinogen <=1.0 mg/dL 0.1 - 1.0 12/10/2016 [facility] URINE AND STOOL UA Gran Cast 74 /LPF 12/10/2016 [facility] URINE AND STOOL UA Nitrite Negative (12/10/16 2:08 AM) Negative 12/10/2016 [facility] URINE AND STOOL UA RBC 15 /HPF 0 - 2 12/10/2016 [facility] URINE AND STOOL UA Leuk Est Large *ABN* (12/10/16 2:08 AM) Negative 12/10/2016 [facility] URINE AND STOOL UA WBC 129 /HPF 0 - 5 12/10/2016 [facility] URINE AND STOOL UA Blood Moderate *ABN* (12/10/16 2:08 AM) Negative 12/10/2016 [facility] URINE AND STOOL UA Protein 70 mg/dL Negative mg/dL 12/10/2016 [facility] URINE AND STOOL UA Ketones 40 mg/dL Negative mg/dL 12/10/2016 [facility] URINE AND STOOL UA Bacteria Few /HPF None Seen /HPF 12/10/2016 [facility] URINE AND STOOL UA Mucus Few /LPF None Seen /LPF 12/10/2016 [facility] URINE AND STOOL UA Bili Negative *NA* (12/10/16 2:08 AM) Negative 12/10/2016 [facility] URINE AND STOOL UA Glucose >=1000 mg/dL Negative mg/dL 12/10/2016 [facility] URINE AND STOOL UA Turbidity Marked *ABN* (12/10/16 2:08 AM) Clear 12/10/2016 [facility] URINE AND STOOL UA pH 6.5 5.0 - 8.0 12/10/2016 [facility] URINE AND STOOL UA Spec Grav 1.006 <=1.030 12/10/2016 [facility] URINE AND STOOL UA Color Light Yellow (12/10/16 2:08 AM) Yellow 12/10/2016 [facility] CHEM PANEL Magnesium Lvl 2.4 mg/dL 1.8 - 2.4 12/10/2016 [facility] HEMATOLOGY Schistocyte Occasional 12/10/2016 [facility] HEMATOLOGY Polychrom slight 12/10/2016 [facility] HEMATOLOGY Anisocyte 1+ *ABN* (12/10/16 12:03 AM) None Seen 12/10/2016 [facility] HEMATOLOGY Toxic Gran slight 12/10/2016 [facility] PARATHYROID PROFILE Ca Norm WB 1.09 mMol/L 1.05 - 1.25 12/10/2016 [facility] PARATHYROID PROFILE Ca Ion WB 1.03 mMol/L 1.05 - 1.25 12/10/2016 [facility] Chest 1view DX Chest 1view DX ADDENDUM: Dr. Armen Tan, the tray server in the MICU, was notified by phone of this right midlung lucency today at 0930 hours. The peak tells me that the patient has ARDS and a strep infection. EXAM: XR CHEST 1 VIEW DATE: 12/10/2016 INDICATION: intubated - intubated . Comparison is made with yesterday FINDINGS: The tip of the endotracheal tube is 8 mm from the stas and should be pulled out 1.5 cm further away from the stas. Cardiomediastinal silhouette and other life-support lines are stable. There are bilateral retrocardiac opacities obscuring the hemidiaphragms and silhouette of the descending thoracic aorta which may represent bilateral pleural effusions with or without underlying atelectasis or consolidation of both lower lobes. .. The upper lungs are clear. IMPRESSION: The tip of the endotracheal tube is 8 mm from the stas and should be pulled out 1.5 cm further away from the stas. Dr. Armen Tan, the Department Store Manager in the MICU was notified by phone of this at 0930 hours. 12/10/2016 - - Read by: Jessica Matthew MD Dictated Date/time: 12/10/16 09:38 Electronically Signed by: Jessica Matthew MD 12/10/16 09:39 FINAL REPORT - - Read by: Jessica Matthew MD Dictated Date/time: 12/10/16 09:27 Electronically Signed by: Jessica Matthew MD 12/10/16 09:30 FINAL REPORT [facility] URINE CHEM TV CrCl 12H 2121 mL 800 - 1800 12/09/2016 [facility] URINE CHEM Ur Creat 30.30 mg/dL 12/09/2016 [facility] URINE CHEM WT Crcl 121 [lb_ap] 12/09/2016 [facility] URINE CHEM HT Crcl 69 [in_i] 12/09/2016 [facility] URINE CHEM BSA Cr Clear 1.66 12/09/2016 [facility] URINE CHEM U12 Cr Clear 42 mL/min 97 - 137 12/09/2016 [facility] CHEM PANEL Magnesium Lvl 2.5 mg/dL 1.8 - 2.4 12/09/2016 [facility] PARATHYROID PROFILE Ca Ion WB 1.08 mMol/L 1.05 - 1.25 12/09/2016 [facility] PARATHYROID PROFILE Ca Norm WB 1.08 mMol/L 1.05 - 1.25 12/09/2016 [facility] Chest 1view DX Chest 1view DX EXAM: XR CHEST 1 VIEW DATE: 12/09/2016 INDICATION: - intubated ICU . Comparison is made with December 07 FINDINGS: Cardiomediastinal silhouette and life-support lines are stable. There are bilateral retrocardiac opacities obscuring the hemidiaphragms and silhouette of the descending thoracic aorta which may represent bilateral pleural effusions with or without underlying atelectasis or consolidation of both lower lobes. .. The upper lungs are clear IMPRESSION: No significant interval change when compared to prior radiograph. 12/09/2016 - - Read by: Jessica Matthew MD Dictated Date/time: 12/09/16 10:19 Electronically Signed by: Jessica Matthew MD 12/09/16 10:20 FINAL REPORT [facility] HEMATOLOGY PTT 37.6 s 22.9 - 35.8 12/08/2016 [facility] HEMATOLOGY INR 1.26 0.85 - 1.17 12/08/2016 [facility] HEMATOLOGY PT 16.1 s 12.0 - 14.7 12/08/2016 [facility] HEMATOLOGY POC Activated Clotting Time 101 s 12/08/2016 [facility] HEMATOLOGY PT 17.1 s 12.0 - 14.7 12/08/2016 [facility] HEMATOLOGY INR 1.37 0.85 - 1.17 12/08/2016 [facility] HEMATOLOGY PTT 138.0 s 22.9 - 35.8 12/08/2016 Result Comment: Critical Result(s) called to Maryjo TEJADA at 12/08/2016 02:31 by SADE. Read back OK. [facility] CARDIAC ENZYMES Troponin-I 4.55 ng/mL 0.00 - 0.40 12/07/2016 Result Comment: Critical Result(s) called to at 12/07/2016 17:45 by CINDY. Read back OK. [facility] HEMATOLOGY Anisocyte 1+ *ABN* (12/07/16 10:42 AM) None Seen 12/07/2016 [facility] Ext Upper & Lower Venous Doppler Jose Maria US Ext Upper & Lower Venous Doppler Jose Maria US EXAM: US BILATERAL UPPER AND LOWER EXTREMITY VENOUS DOPPLER DATE: 12/07/2016 9:12 AM CDT INDICATION: Leg swelling, concern for DVT ADDITIONAL INFORMATION: None. COMPARISON: None. TECHNIQUE: Multiplanar grayscale, color Doppler and spectral Doppler ultrasound of the bilateral upper and lower extremity veins. FINDINGS: Right Upper Extremity Veins: Internal Jugular: Not imaged due to bandaging. Subclavian: Patent. Axillary: Patent. Brachial: Patent. Basilic: Patent. Cephalic: Patent. Left Upper Extremity Veins: Internal Jugular: Patent. Subclavian: Patent. Axillary: Patent. Brachial: Patent. Basilic: Patent. Cephalic: Patent. Right Thigh Veins: Common Femoral: Not imaged due to bandaging Femoral (SFV): Patent. Popliteal: Patent. Proximal Greater Saphenous: Not imaged due to bandaging . Deep Femoral Veins: Not imaged due to bandaging . 4.7 cm cyst in the medial popliteal fossa, likely Cross's cyst. Left Thigh Veins: Common Femoral: Patent. Femoral (SFV): Patent. Popliteal: Patent. Proximal Greater Saphenous: Patent. Deep Femoral Veins: Patent. IMPRESSION: 1. No deep venous thrombosis (DVT) identified. The right common femoral, deep femoral, proximal greater saphenous, and internal jugular veins were not imaged due to bandaging. 2. 4.7 cm Cross's cyst in right popliteal fossa. 12/07/2016 - - This report was dictated by a Fire Prevention Inspector/Fellow. I have personally reviewed the images as well as the Resident's interpretation and agree with the findings. Read by: Frank Matson MD Resident: Frank Matson MD Dictated Date/time: 12/07/16 16:17 Electronically Signed by: Juventino Copeland MD 12/07/16 18:10 FINAL REPORT [facility] Chest 1view DX Chest 1view DX EXAM: XR CHEST 1 VIEW DATE: 12/07/2016 at 0858 hours INDICATION: - intubated . Comparison is made with 7 hours earlier today FINDINGS: Mediastinal silhouette and life-support lines are stable. Perihilar alveolar opacities are noted which may represent multifocal pneumonia or edema. Left retrocardiac opacity IMPRESSION: No significant interval change when compared to prior radiograph. 12/07/2016 - - Read by: Jessica Matthew MD Dictated Date/time: 12/07/16 09:46 Electronically Signed by: Jessica Matthew MD 12/07/16 09:46 FINAL REPORT [facility] CARDIAC ENZYMES Troponin-I 8.52 ng/mL 0.00 - 0.40 12/07/2016 Result Comment: Critical Result(s) called to Tal Crowley at 12/07/2016 02:45 byJw. Read back OK. [facility] Chest 1view DX Chest 1view DX EXAM: XR CHEST 1 VIEW DATE: 12/07/2016 INDICATION: intubated - intubated . Comparison is made with December 05 FINDINGS: The tip of the endotracheal tube is 2 cm from the stas. Other life support lines are unchanged. There is an opacity at the left lung base obscuring the left hemidiaphragm and the silhouette of the descending thoracic aorta. This opacity may represent left pleural effusion with or without left lower lobe consolidation or atelectasis.. This has increased since earlier radiograph. There is platelike atelectasis in the right midlung. The upper lungs are clear IMPRESSION: Increasing left retrocardiac opacity. 12/07/2016 - - Read by: Jessica Matthew MD Dictated Date/time: 12/07/16 10:07 Electronically Signed by: Jessica Matthew MD 12/07/16 10:08 FINAL REPORT [facility] CARDIAC ENZYMES Troponin-I 8.64 ng/mL 0.00 - 0.40 12/07/2016 Result Comment: Critical Result(s) called to brittney at 12/06/2016 21:57 m by ko. Read back OK. [facility] BLOOD BANK RESULTS RBC product Product available (12/06/16 11:40 AM) 12/06/2016 [facility] BLOOD BANK RESULTS FFP product Product available (12/06/16 11:40 AM) 12/06/2016 [facility] BLOOD BANK RESULTS RBC product Product available (12/06/16 10:22 AM) 12/06/2016 [facility] CHEM PANEL Lactic Acid Lvl 5.9 mMol/L 0.5 - 2.2 12/06/2016 Result Comment: Critical Result(s) called to Kenna Bates at 12/06/2016 10:00 by melani. Read back OK. [facility] CARDIAC ENZYMES Total CK 511 unit/L 12 - 191 12/06/2016 [facility] BACTERIAL - SEROLOGY MRSA by PCR Negative (12/05/16 10:58 PM) 12/06/2016 [facility] URINE AND STOOL UA Ketones TR 12/06/2016 [facility] URINE AND STOOL UA Urobilinogen <=1.0 mg/dL 0.1 - 1.0 12/06/2016 [facility] URINE AND STOOL UA Sq Epi None Seen 12/06/2016 [facility] URINE AND STOOL UA RBC 17 /HPF 0 - 2 12/06/2016 [facility] URINE AND STOOL UA Bacteria Many /HPF None Seen /HPF 12/06/2016 [facility] URINE AND STOOL UA Mucus Few /LPF None Seen /LPF 12/06/2016 [facility] URINE AND STOOL UA pH 6.0 5.0 - 8.0 12/06/2016 [facility] URINE AND STOOL UA Protein >=300 mg/dL Negative mg/dL 12/06/2016 [facility] URINE AND STOOL UA Glucose 30 mg/dL Negative mg/dL 12/06/2016 [facility] URINE AND STOOL UA Color Yellow *NA* (12/05/16 10:58 PM) Yellow 12/06/2016 [facility] URINE AND STOOL UA Turbidity Marked *ABN* (12/05/16 10:58 PM) Clear 12/06/2016 [facility] URINE AND STOOL UA Spec Grav 1.012 <=1.030 12/06/2016 [facility] URINE AND STOOL UA Bili Negative *NA* (12/05/16 10:58 PM) Negative 12/06/2016 [facility] URINE AND STOOL UA Blood Moderate *ABN* (12/05/16 10:58 PM) Negative 12/06/2016 [facility] URINE AND STOOL UA Nitrite Negative (12/05/16 10:58 PM) Negative 12/06/2016 [facility] URINE AND STOOL UA Leuk Est Large *ABN* (12/05/16 10:58 PM) Negative 12/06/2016 [facility] URINE AND STOOL UA WBC null 0 - 5 12/06/2016 [facility] BLOOD BANK RESULTS ABO/Rh O POS 12/06/2016 [facility] BLOOD BANK RESULTS Antibody Scrn Negative (12/05/16 8:42 PM) 12/06/2016 [facility] HEMATOLOGY PB Smear Path Peripheral blood smear shows hypochromic normocytic anemia with anisopoikilocytosis, moderate number of janine cells, slight polychromasia, normal number/morphology of platelets, leukocytosis with left shift.Impression: (1) RBC morphology is suggestive of renal disorder, (2) a leukemoid reaction.CPT: 50389 12/06/2016 [facility] HEMATOLOGY Retic Auto 3.0 % 0.5 - 1.5 12/06/2016 [facility] IMMUNOLOGY HIV Ag/Ab 4th Gen Negative *NA* (12/05/16 8:39 PM) Negative 12/06/2016 [facility] BLOOD BANK RESULTS RBC product Product available (12/05/16 8:30 PM) 12/06/2016 [facility] CHEM PANEL Bili Indirect 0.2 mg/dL 0.0 - 1.0 12/06/2016 [facility] CHEM PANEL Bili Direct 0.1 mg/dL 0.0 - 0.3 12/06/2016 [facility] CHEM PANEL Lipase Lvl 234 unit/L 73 - 393 12/06/2016 [facility] CHEM PANEL Procalcitonin Lvl 0.52 ng/mL 0.00 - 0.10 12/06/2016 [facility] Retroperitoneal Complete US Retroperitoneal Complete US EXAM: US RENAL DATE: 12/05/2016 2:35 PM CDT INDICATION: - JORGE COMPARISON: None. TECHNIQUE: Multiplanar grayscale and color Doppler ultrasound images of the kidneys and urinary bladder. DISCUSSION: Right kidney: Hydronephrosis: None. Size: 10.1 x 4.7 x 5.6 cm Echogenicity: Increased Parenchymal thickness and contour: Normal. Calculi: None. Cysts: None. Masses: None. Left kidney: Hydronephrosis: None. Size: 9.7 x 5.2 x 4.9 cm Echogenicity: Normal. Parenchymal thickness and contour: Normal. Calculi: None. Cysts: None. Masses: None. Bladder: Normal. Small amount of free fluid in the pelvis. IMPRESSION: Bilateral renal parenchymal disease. Small small volume pelvic ascites. 12/05/2016 - - This report was dictated by a Fire Prevention Inspector/Fellow. I have personally reviewed the images as well as the Resident's interpretation and agree with the findings. Read by: Justino Salazar MD Resident: Justino Salazar MD Dictated Date/time: 12/06/16 00:10 Electronically Signed by: Rodolfo Retana MD 12/06/16 05:47 FINAL REPORT [facility] Abdomen AP DX Abdomen AP DX EXAM: XR ABDOMEN 1 VIEW DATE: 12/05/2016 10:59 PM CDT INDICATION: Tube placement/removal/reposition - NG tube placement confirmation COMPARISON: Chest radiograph obtained earlier the same day. TECHNIQUE: AP view of the abdomen. IMPRESSION: 1. Enteric suction tube extends to the stomach. 12/05/2016 - - Read by: Tommy Vaughan MD Dictated Date/time: 12/06/16 09:09 Electronically Signed by: Tommy Vaughan MD 12/06/16 09:10 FINAL REPORT [facility] CHEM PANEL Lactic Acid WB 17.1 mmol/L 0.5 - 2.2 12/05/2016 Result Comment: Critical Result(s) called to Dr. Kenzie Spain at 12/05/2016 18:11 byJP. Read back OK. [facility] Chest 1view DX Chest 1view DX EXAM: XR CHEST 1 VIEW DATE: 12/05/2016 10:45 PM CDT INDICATION: R IJ central line - R IJ central line TECHNIQUE: AP chest IMPRESSION: Right IJ approach central venous catheter with its tip overlying the SVC. ET tube, enteric suction tube in place. Mild subsegmental atelectasis in the lung bases. No pneumothorax given the limitation of a semiupright exam. The costophrenic sulci are sharp. 12/05/2016 - - Read by: Tommy Vaughan MD Dictated Date/time: 12/06/16 09:09 Electronically Signed by: Tommy Vaughan MD 12/06/16 09:09 FINAL REPORT [facility] URINE AND STOOL Micro? Performed (12/05/16 3:04 PM) 12/05/2016 [facility] Chest 1view DX Chest 1view DX EXAM: XR CHEST 1 VIEW DATE: 12/05/2016 6:44 PM CDT INDICATION: intubation - intubation TECHNIQUE: AP chest IMPRESSION: ET tube, enteric suction tube are in place. No evidence for new consolidation. Mild subsegmental atelectasis in the lung bases. No pneumothorax given the limitation of a semiupright exam. 12/05/2016 - - Read by: Tommy Vaughan MD Dictated Date/time: 12/05/16 22:53 Electronically Signed by: Tommy Vaughan MD 12/05/16 22:53 FINAL REPORT [facility] CHEM PANEL Lactic Acid WB 16.1 mmol/L 0.5 - 2.2 12/05/2016 Result Comment: Critical Result(s) called to Thao Jean at 12/05/2016 14:16 by Karsten. Read back OK. [facility] Abdomen/Pelvis w IV contrast CT Abdomen/Pelvis w IV contrast CT EXAM: CT ABDOMEN AND PELVIS WITH CONTRAST DATE: 12/05/2016 5:34 PM CDT. INDICATION: - Adding dialysis afterwards for renal failure. Abdominal pain . ADDITIONAL INFORMATION: None. COMPARISON: None.. TECHNIQUE: Volumetric CT acquisition of the abdomen and pelvis with intravenous contrast. Axial, coronal and sagittal reconstructions. Postcontrast phases: Portal venous and delayed. IV contrast: Visipaque 320, 100 mL. Oral contrast: Dilute enteric contrast. DLP: 1111 mGy-cm. FINDINGS: Lines and tubes: Salcido catheter. Lower thorax: Mild bilateral pleural effusions with associated dependent atelectasis. Liver: There is mild periportal edema. No focal lesions are seen. Biliary tree: No intra- or extrahepatic biliary ductal dilation. Gallbladder: There is vicarious excretion of iodinated contrast within the gallbladder lumen although the patient does not have recent IV contrast administration. Pancreas: There is moderate diffuse fatty replacement. Spleen: Normal. Adrenals: Normal. Kidneys and ureters: There is a tiny lower pole 0.4 cm hypodense lesion too small to characterize. There is focal scarring seen within the interpolar posterior cortex. There is mild bilateral perinephric stranding. Excretion of contrast is not seen on delayed images. Bladder: There is a Salcido catheter in place. Reproductive organs: No CT abnormality. Gastrointestinal tract: There is positive enteric contrast within the colon and rectum. The colon is decompressed. The terminal ileum is unremarkable. The small bowel is unremarkable. Appendix: Not definitely seen. Peritoneum and retroperitoneum: There is retroperitoneal fluid tracking along the posterior retrorenal fascial planes, along the lateral conal fascia extending to the extraperitoneal pelvis. There is intermediate density material seen along the right retroperitoneal space along the right lateral abdominal wall and extending medially to the anterior iliopsoas margin measuring 7.4 x 2.9 x 1.7 cm there is a small amount of intermediate density fluid seen along the contralateral side. Intermediate density material crosses the midline at the level just below the aortic bifurcation. There is intermediate density fluid in the presacral space. Lymph nodes: Normal. Vasculature: There is moderate infrarenal abdominal aortoiliac and common femoral artery extensive atherosclerotic plaque. There is a right venous central femoral catheter with the tip in the proximal right common femoral vein. The IVC is patent. The hepatoportal splenic vasculature is patent. The main portal vein is dilated. There is thickening of the ascending colon suggesting portal colopathy. Bones: Normal. Soft tissues: There are bilateral fat-containing inguinal hernias. IMPRESSION: 1. Extensive intermediate density material extending from the right lateral retroperitoneal fascial planes and along the anterolateral right psoas muscle likely representing hematoma. It extends into the pelvis. There is a smaller amount of similar density fluid on the left. 2. Excretion of contrast is not seen on delayed images suggesting renal insufficiency/renal failure. 3. Vicarious excretion of iodinated contrast within the gallbladder lumen although the patient does not have recent IV contrast administration. 4. Small bilateral pleural effusions. 5. The main portal vein is dilated. There is thickening of the ascending colon suggesting portal colopathy. 6. Primordial system activated. Dr. Gu discussed the finding with Dr. Sprague of the MICU by phone at 2220 hours 12/05/2016. 12/05/2016 - - This report was dictated by a Fire Prevention Inspector/Fellow. I have personally reviewed the images as well as the Resident's interpretation and agree with the findings. Read by: John Paul Gu MD Resident: John Paul Gu MD Dictated Date/time: 12/05/16 18:22 Electronically Signed by: Magdaleno Spann MD 12/05/16 22:26 FINAL REPORT [facility] CHEM PANEL Lipase Lvl 195 unit/L 73 - 393 12/05/2016 [facility] HEMATOLOGY Basophils # 0.1 K/CMM 0.0 - 0.2 12/05/2016 [facility] Chest 1view DX Chest 1view DX EXAM: XR CHEST 1 VIEW DATE: 12/05/2016 3:55 PM CDT INDICATION: - tube placement COMPARISON: None. TECHNIQUE: AP chest FINDINGS: Lines, tubes and hardware: The endotracheal tube tip terminates approximately 3.1 cm superior to stas. An enteric tube tip overlies the mid to distal esophagus. Airway: Patent. Lungs and pleura: Clear. Heart, mediastinum and krystal: Cardiac mediastinal silhouette is prominent. Aorta is tortuous. Bones: No acute abnormality. Soft tissues: Normal. Upper abdomen: Normal. IMPRESSION: 1. Endotracheal tube tip terminates 3.1 cm superior to stas. 2. Enteric tube tip terminates the mid to distal esophagus. 3. No acute intrathoracic abnormality. THIS IS A PRELIMINARY REPORT BY THE ON-CALL RESIDENT. CHANGES TO THIS PRELIMINARY REPORT MAY OCCUR IN AN ADDITIONAL PRELIMINARY OR FINALIZED VERSION. [place] SECTION: ER 12/05/2016 - - This report was dictated by a Fire Prevention Inspector/Fellow. I have personally reviewed the images as well as the Resident's interpretation and agree with the findings. Read by: Yong Paul MD Resident: Yong Paul MD Dictated Date/time: 12/05/16 16:18 Electronically Signed by: Henrik Blackwell MD 12/05/16 17:05 FINAL REPORT [facility] Chest 1view DX Chest 1view DX EXAM: XR CHEST 1 VIEW DATE: 12/05/2016 2:21 PM CDT INDICATION: - renal failure COMPARISON: 05/18/2012 TECHNIQUE: AP chest FINDINGS: No pulmonary or pleural-based abnormality is identified. Pulmonary vascularity is normal. The heart size is normal for technique. No acute bony abnormality is identified. IMPRESSION: No acute cardiopulmonary abnormality. UT SECTION: ER 12/05/2016 - - This report was dictated by a Fire Prevention Inspector/Fellow. I have personally reviewed the images as well as the Resident's interpretation and agree with the findings. Read by: Yong Paul MD Resident: Yong Paul MD Dictated Date/time: 12/05/16 14:44 Electronically Signed by: Carlton Kenney MD 12/05/16 14:47 FINAL REPORT [facility] ELECTROLYTES AGAP 12.6 meq/L 10.0 - 20.0 08/01/2015 [facility] ELECTROLYTES Calcium Lvl 8.3 mg/dL 8.5 - 10.5 08/01/2015 [facility] ELECTROLYTES Chloride Lvl 102 meq/L 95 - 109 08/01/2015 [facility] ELECTROLYTES Potassium Lvl 4.6 meq/L 3.5 - 5.1 08/01/2015 [facility] ELECTROLYTES CO2 24 meq/L 24 - 32 08/01/2015 [facility] ELECTROLYTES BUN 15 mg/dL 7 - 22 08/01/2015 [facility] ELECTROLYTES Glucose Lvl 51 mg/dL 70 - 99 08/01/2015 [facility] ELECTROLYTES Sodium Lvl 134 meq/L 135 - 145 08/01/2015 [facility] ELECTROLYTES Creatinine Lvl 1.57 mg/dL 0.50 - 1.40 08/01/2015 [facility] ELECTROLYTES eGFR 44 mL/min/1.73m2 08/01/2015 Result Comment: The eGFR is calculated using the CKD-EPI formula. In most young, healthy individuals the eGFR will be >90 mL/min/1.73m2. The eGFR declines with age. An eGFR of 60-89 may be normal in some populations, particularly the elderly, for whom the CKD-EPI formula has not been extensively validated. Use of the eGFR is not recommended in the following populations: Individuals with unstable creatinine concentrations, including patients and those with serious co-morbid conditions. Patients with extremes in muscle mass or diet. The data above are obtained from the National Kidney Disease Education Program (NKDEP) which additionally recommends that when the eGFR is used in patients with extremes of body mass index for purposes of drug dosing, the eGFR should be multiplied by the estimated BMI. [facility] [place][note 2] RDW 15.8 % 11.5 - 14.5 08/01/2015 [facility] [place][note 2] MPV 7.8 fL 7.4 - 10.4 08/01/2015 [facility] [place][note 2] MCHC 32.1 g/dL 32.0 - 36.0 08/01/2015 [facility] [place][note 2] Hct 34.2 % 42.0 - 54.0 08/01/2015 [facility] [place][note 2] Hgb 11.0 g/dL 14.0 - 18.0 08/01/2015 [facility] [place][note 2] Platelet 205 K/CMM 133 - 450 08/01/2015 [facility] [place][note 2] MCH 28.0 pg 27.0 - 31.0 08/01/2015 [facility] [place][note 2] MCV 87.4 fL 80.0 - 94.0 08/01/2015 [facility] [place][note 2] RBC 3.91 M/CMM 4.70 - 6.10 08/01/2015 [facility] [place][note 2] WBC 12.4 K/CMM 3.7 - 10.4 08/01/2015 [facility] HEMATOLOGY Segs-Bands # 10.4 K/CMM 1.5 - 8.1 08/01/2015 [facility] HEMATOLOGY Lymphocytes # 1.0 K/CMM 1.0 - 5.5 08/01/2015 [facility] HEMATOLOGY Eosinophils # 0.1 K/CMM 0.0 - 0.5 08/01/2015 [facility] HEMATOLOGY Monocytes # 0.8 K/CMM 0.0 - 0.8 08/01/2015 [facility] HEMATOLOGY Eosinophils 1.2 % 0.0 - 4.0 08/01/2015 [facility] HEMATOLOGY Monocytes 6.6 % 2.0 - 12.0 08/01/2015 [facility] HEMATOLOGY Basophils 0.3 % 0.0 - 1.0 08/01/2015 [facility] [place][note 2] Lymphocytes 8.1 % 20.0 - 40.0 08/01/2015 [facility] [place][note 2] Segs 83.8 % 45.0 - 75.0 08/01/2015 [facility] CARDIAC ENZYMES Total CK 109 unit/L 12 - 191 07/31/2015 [facility] CARDIAC ENZYMES CK MB 2.2 ng/mL 0.5 - 3.6 07/31/2015 [facility] CARDIAC ENZYMES Troponin-I 0.03 ng/mL 0.00 - 0.40 07/31/2015 [facility] CARDIAC ENZYMES CK MB Index 2.0 0.0 - 2.5 07/31/2015 [facility] CHEM PANEL Creatinine Lvl 1.66 mg/dL 0.50 - 1.40 07/31/2015 [facility] CHEM PANEL eGFR 41 mL/min/1.73m2 07/31/2015 Result Comment: The eGFR is calculated using the CKD-EPI formula. In most young, healthy individuals the eGFR will be >90 mL/min/1.73m2. The eGFR declines with age. An eGFR of 60-89 may be normal in some populations, particularly the elderly, for whom the CKD-EPI formula has not been extensively validated. Use of the eGFR is not recommended in the following populations: Individuals with unstable creatinine concentrations, including patients and those with serious co-morbid conditions. Patients with extremes in muscle mass or diet. The data above are obtained from the National Kidney Disease Education Program (NKDEP) which additionally recommends that when the eGFR is used in patients with extremes of body mass index for purposes of drug dosing, the eGFR should be multiplied by the estimated BMI. [facility] HEMATOLOGY Platelet 223 K/CMM 133 - 450 07/31/2015 [facility] CARDIAC ENZYMES Total CK 116 unit/L 12 - 191 07/31/2015 [facility] CARDIAC ENZYMES CK MB 2.0 ng/mL 0.5 - 3.6 07/31/2015 [facility] CARDIAC ENZYMES Troponin-I 0.04 ng/mL 0.00 - 0.40 07/31/2015 [facility] CARDIAC ENZYMES CK MB Index 1.7 0.0 - 2.5 07/31/2015 [facility] CARDIAC ENZYMES Total CK 115 unit/L 12 - 191 07/31/2015 [facility] CARDIAC ENZYMES CK MB 1.8 ng/mL 0.5 - 3.6 07/31/2015 [facility] CARDIAC ENZYMES Troponin-I 0.03 ng/mL 0.00 - 0.40 07/31/2015 [facility] CARDIAC ENZYMES CK MB Index 1.6 0.0 - 2.5 07/31/2015 [facility] CHEM PANEL eGFR 42 mL/min/1.73m2 07/31/2015 Result Comment: The eGFR is calculated using the CKD-EPI formula. In most young, healthy individuals the eGFR will be >90 mL/min/1.73m2. The eGFR declines with age. An eGFR of 60-89 may be normal in some populations, particularly the elderly, for whom the CKD-EPI formula has not been extensively validated. Use of the eGFR is not recommended in the following populations: Individuals with unstable creatinine concentrations, including patients and those with serious co-morbid conditions. Patients with extremes in muscle mass or diet. The data above are obtained from the National Kidney Disease Education Program (NKDEP) which additionally recommends that when the eGFR is used in patients with extremes of body mass index for purposes of drug dosing, the eGFR should be multiplied by the estimated BMI. [facility] CHEM PANEL AGAP 19.5 meq/L 10.0 - 20.0 07/31/2015 [facility] CHEM PANEL A/G Ratio 0.8 0.7 - 1.6 07/31/2015 [facility] CHEM PANEL Globulin 4.6 g/dL 2.0 - 4.0 07/31/2015 [facility] CHEM PANEL B/C Ratio 11 6 - 25 07/31/2015 [facility] CHEM PANEL Glucose Lvl 218 mg/dL 70 - 99 07/31/2015 [facility] CHEM PANEL Potassium Lvl 4.5 meq/L 3.5 - 5.1 07/31/2015 [facility] CHEM PANEL AST 27 unit/L 0 - 37 07/31/2015 [facility] CHEM PANEL Alk Phos 106 unit/L 39 - 136 07/31/2015 [facility] CHEM PANEL ALT 26 unit/L 0 - 65 07/31/2015 [facility] CHEM PANEL Bili Total 0.4 mg/dL 0.2 - 1.3 07/31/2015 [facility] CHEM PANEL Calcium Lvl 9.4 mg/dL 8.5 - 10.5 07/31/2015 [facility] CHEM PANEL Total Protein 8.4 g/dL 6.4 - 8.4 07/31/2015 [facility] CHEM PANEL Chloride Lvl 97 meq/L 95 - 109 07/31/2015 [facility] CHEM PANEL CO2 18 meq/L 24 - 32 07/31/2015 [facility] CHEM PANEL Creatinine Lvl 1.63 mg/dL 0.50 - 1.40 07/31/2015 [facility] CHEM PANEL Sodium Lvl 130 meq/L 135 - 145 07/31/2015 [facility] CHEM PANEL BUN 18 mg/dL 7 - 22 07/31/2015 [facility] CHEM PANEL Albumin Lvl 3.8 g/dL 3.5 - 5.0 07/31/2015 [facility] CHEM PANEL Lipase Lvl 133 unit/L 73 - 393 07/31/2015 [facility] CHEM PANEL Amylase Lvl 72 unit/L 25 - 115 07/31/2015 [facility] HEMATOLOGY INR 1.21 0.85 - 1.17 07/31/2015 [facility] HEMATOLOGY PT 15.6 s 12.0 - 14.7 07/31/2015 [facility] HEMATOLOGY MCH 28.2 pg 27.0 - 31.0 07/31/2015 [facility] HEMATOLOGY MCV 87.5 fL 80.0 - 94.0 07/31/2015 [facility] HEMATOLOGY Hct 36.6 % 42.0 - 54.0 07/31/2015 [facility] HEMATOLOGY Hgb 11.8 g/dL 14.0 - 18.0 07/31/2015 [facility] HEMATOLOGY MPV 7.9 fL 7.4 - 10.4 07/31/2015 [facility] HEMATOLOGY Platelet 216 K/CMM 133 - 450 07/31/2015 [facility] HEMATOLOGY RDW 15.8 % 11.5 - 14.5 07/31/2015 [facility] HEMATOLOGY RBC 4.18 M/CMM 4.70 - 6.10 07/31/2015 [facility] [place][note 2] WBC 23.8 K/CMM 3.7 - 10.4 07/31/2015 [facility] [place][note 2] MCHC 32.3 g/dL 32.0 - 36.0 07/31/2015 [facility] HEMATOLOGY PTT 41.0 s 22.9 - 35.8 07/31/2015 [facility] HEMATOLOGY Plt Morph Normal (07/30/15 11:15 PM) 07/31/2015 [facility] [place][note 2] Monocytes # 0.8 K/CMM 0.0 - 0.8 07/31/2015 [facility] HEMATOLOGY Lymphocytes # 0.7 K/CMM 1.0 - 5.5 07/31/2015 [facility] HEMATOLOGY Segs-Bands # 22.3 K/CMM 1.5 - 8.1 07/31/2015 [facility] HEMATOLOGY Basophils 0.1 % 0.0 - 1.0 07/31/2015 [facility] [place][note 2] Eosinophils 0.1 % 0.0 - 4.0 07/31/2015 [facility] [place][note 2] Segs 93.5 % 45.0 - 75.0 07/31/2015 [facility] [place][note 2] Lymphocytes 2.9 % 20.0 - 40.0 07/31/2015 [facility] [place][note 2] Monocytes 3.4 % 2.0 - 12.0 07/31/2015 [facility] [place][note 2] RBC Morph Normal (07/30/15 11:15 PM) 07/31/2015 [facility] URINE AND STOOL UA Urobilinogen <=1.0 mg/dL 0.1 - 1.0 07/31/2015 [facility] URINE AND STOOL UA Sq Epi None Seen 07/31/2015 [facility] URINE AND STOOL UA Color Ltyellow 07/31/2015 [facility] URINE AND STOOL UA Spec Grav 1.010 <=1.030 07/31/2015 [facility] URINE AND STOOL UA Turbidity Clear (07/30/15 11:15 PM) Clear 07/31/2015 [facility] URINE AND STOOL UA Protein 100 mg/dL Negative mg/dL 07/31/2015 [facility] URINE AND STOOL UA pH 6.0 5.0 - 8.0 07/31/2015 [facility] URINE AND STOOL UA Bili Negative *NA* (07/30/15 11:15 PM) Negative 07/31/2015 [facility] URINE AND STOOL UA Nitrite Negative (07/30/15 11:15 PM) Negative 07/31/2015 [facility] URINE AND STOOL UA Blood Small *ABN* (07/30/15 11:15 PM) Negative 07/31/2015 [facility] URINE AND STOOL UA Ketones Trace mg/dL Negative mg/dL 07/31/2015 [facility] URINE AND STOOL UA Glucose 150 mg/dL Negative mg/dL 07/31/2015 [facility] URINE AND STOOL UA RBC 6 /HPF 0 - 2 07/31/2015 [facility] URINE AND STOOL UA WBC 26 /HPF 0 - 5 07/31/2015 [facility] URINE AND STOOL UA Leuk Est Moderate *ABN* (07/30/15 11:15 PM) Negative 07/31/2015 [facility] Shoulder 2+ Views Bilateral DX Shoulder 2+ Views Bilateral DX HISTORY: Pain TECHNIQUE: Three views of the bilateral shoulders COMPARISON: Previous exam of the left shoulder 12/28/2013 FINDINGS: There is no acute fracture or dislocation. No suspicious osseous lesions. Moderate arthrosis of the bilateral glenohumeral and AC joints, slightly worse on the left. No joint effusions or soft tissue abnormalities. IMPRESSION: Moderate bilateral glenohumeral and AC joint arthrosis, worst on the left. 07/23/2014 - - Read by: Berta Croft MD Dictated Date/time: 07/23/14 10:21 Electronically Signed by: Berta Croft MD 07/23/14 10:23 FINAL REPORT [facility] Shoulder series Shoulder series Exam: X-ray of the left shoulder, 3 views Reason for Exam: Left shoulder pain Comparison Exam: None Discussion: No fractures or dislocations are seen of the left shoulder. AC joint is unremarkable. Moderate osteoarthritis is seen involving the glenohumeral joint. No intraosseous lesions identified. No radiopaque foreign bodies. Visualized portions of the left lung and ribcage are unremarkable. Impression: 1. Moderate osteoarthritis is seen involving the glenohumeral joint. 12/28/2013 - - Read by: Leodan Roberts MD Dictated Date/time: 12/28/13 11:40 Electronically Signed by: Leodan Roberts MD 12/28/13 11:42 FINAL REPORT [facility] BEDSIDE GLUCOSE TESTING Gluc POC Lifscn 290 mg/dL 70 - 99 06/07/2012 HI 1Interpretive Data: Upper Reportable Limit: 200 mg/dL. [facility] BEDSIDE GLUCOSE TESTING Gluc POC Lifscn 131 mg/dL 70 - 99 06/07/2012 HI 2Interpretive Data: Upper Reportable Limit: 200 mg/dL. [facility] BEDSIDE GLUCOSE TESTING Comment1 Notify RN/ 06/07/2012 NA [facility] BEDSIDE GLUCOSE TESTING Gluc POC Lifscn 105 mg/dL 70 - 99 06/07/2012 [place] 3Interpretive Data: Upper Reportable Limit: 200 mg/dL. [facility] CHEMISTRY Magnesium Lvl 1.9 mg/dL 1.8 - 2.4 06/07/2012 Normal [facility] CHEMISTRY AGAP 9.5 meq/L 10.0 - 20.0 06/07/2012 LOW [facility] CHEMISTRY Calcium Lvl 7.8 mg/dL 8.5 - 10.5 06/07/2012 LOW [facility] CHEMISTRY Potassium Lvl 3.5 meq/L 3.5 - 5.1 06/07/2012 Normal [facility] CHEMISTRY Chloride Lvl 109 meq/L 95 - 109 06/07/2012 Normal [facility] CHEMISTRY Sodium Lvl 146 meq/L 135 - 145 06/07/2012 HI [facility] CHEMISTRY eGFR 92 mL/min/1.73m2 06/07/2012 NA 4Result Comment: The eGFR is calculated using the CKD-EPI formula. In most young, healthy individuals the eGFR will be >90 mL/min/1.73m2. The eGFR declines with age. An eGFR of 60-89 may be normal in some populations, particularly the elderly, for whom the CKD-EPI formula has not been extensively validated. Use of the eGFR is not recommended in the following populations: Individuals with unstable creatinine concentrations, including patients and those with serious co-morbid conditions. Patients with extremes in muscle mass or diet. The data above are obtained from the National Kidney Disease Education Program (NKDEP) which additionally recommends that when the eGFR is used in patients with extremes of body mass index for purposes of drug dosing, the eGFR should be multiplied by the estimated BMI. [facility] CHEMISTRY CO2 31 meq/L 24 - 32 06/07/2012 Normal [facility] CHEMISTRY Creatinine Lvl 0.8 mg/dL 0.5 - 1.4 06/07/2012 Normal [facility] CHEMISTRY Glucose Lvl 96 mg/dL 70 - 99 06/07/2012 Normal 5Interpretive Data: Adult reference range values reflect the clinical guidelines of the [place] [employer]. [facility] CHEMISTRY BUN 13 mg/dL 7 - 22 06/07/2012 Normal [facility] HEMATOLOGY MCHC 33.4 g/dL 32.0 - 36.0 06/07/2012 Normal [facility] HEMATOLOGY MPV 7.9 fL 7.4 - 10.4 06/07/2012 Normal [facility] HEMATOLOGY RDW 15.4 % 11.5 - 14.5 06/07/2012 [facility] HEMATOLOGY Platelet 149 K/CMM 133 - 450 06/07/2012 Normal [facility] HEMATOLOGY RBC 3.16 M/CMM 4.70 - 6.10 06/07/2012 LOW [facility] HEMATOLOGY Hgb 10.1 g/dL 14.0 - 18.0 06/07/2012 LOW [facility] HEMATOLOGY MCH 32.0 pg 27.0 - 31.0 06/07/2012 [facility] HEMATOLOGY Hct 30.3 % 42.0 - 54.0 06/07/2012 LOW [facility] HEMATOLOGY MCV 95.7 fL 80.0 - 94.0 06/07/2012 [facility] HEMATOLOGY WBC 7.2 K/CMM 3.7 - 10.4 06/07/2012 Normal [facility] HEMATOLOGY Eosinophils # 0.1 K/CMM 0.0 - 0.5 06/07/2012 Normal [facility] HEMATOLOGY Monocytes # 0.6 K/CMM 0.0 - 0.8 06/07/2012 Normal [facility] HEMATOLOGY Segs-Bands # 5.4 K/CMM 1.5 - 8.1 06/07/2012 Normal [facility] HEMATOLOGY Lymphocytes # 1.0 K/CMM 1.0 - 5.5 06/07/2012 Normal [facility] HEMATOLOGY Basophils # 0.0 K/CMM 0.0 - 0.2 06/07/2012 Normal [facility] HEMATOLOGY Monocytes 8.7 % 2.0 - 12.0 06/07/2012 Normal [facility] HEMATOLOGY Eosinophils 1.6 % 0.0 - 4.0 06/07/2012 Normal [facility] HEMATOLOGY Basophils 0.5 % 0.0 - 1.0 06/07/2012 Normal [facility] HEMATOLOGY Lymphocytes 14.0 % 20.0 - 40.0 06/07/2012 LOW [facility] HEMATOLOGY Segs 75.2 % 45.0 - 75.0 06/07/2012 [facility] BEDSIDE GLUCOSE TESTING Comment1 Notify RN/ 06/07/2012 [facility] BEDSIDE GLUCOSE TESTING Comment1 Notify RN/ 06/07/2012 [facility] HEMATOLOGY PT 13.9 s 12.0 - 14.7 06/06/2012 Normal [facility] HEMATOLOGY INR 1.05 0.85 - 1.17 06/06/2012 Normal 6Interpretive Data: RECOMMENDED RANGES FOR PROTIME INR: 2.0-3.0 for most medical and surgical thromboembolic states. 2.5-3.5 for artificial heart valves and recurrent embolism. INR SHOULD BE USED ONLY FOR PATIENTS ON STABLE ANTICOAGULANT THERAPY. [facility] HEMATOLOGY PTT 31.8 s 22.9 - 35.8 06/06/2012 Normal 7Interpretive Data: Heparin Therapeutic Range: 57 - 92 Seconds [facility] Vital Signs Vital Sign Value Date Comments Source Diastolic (mm Hg) 78 09/06/2018 [facility] Systolic (mm Hg) 183 09/06/2018 [facility] Heart Rate 85 09/06/2018 [facility] Weight 72.727 09/05/2018 [facility] Heart Rate 97 09/05/2018 [facility] Temperature Oral (F) 98.2 F 09/05/2018 [facility] Respitory Rate 16 09/05/2018 [facility] Systolic (mm Hg) 166 09/05/2018 [facility] Diastolic (mm Hg) 75 09/05/2018 [facility] Height 175.26 cm 09/05/2018 [facility] BMI Calculated 23.68 09/05/2018 [facility] Height 172.72 cm 01/20/2018 [facility] Temperature Oral (F) 98 F 01/20/2018 [facility] Respitory Rate 14 01/20/2018 [facility] Heart Rate 82 01/20/2018 [facility] Systolic (mm Hg) 127 01/20/2018 [facility] Diastolic (mm Hg) 59 01/20/2018 [facility] Height 172.72 cm 10/21/2017 [facility] Temperature Oral (F) 98.7 F 10/21/2017 [facility] Systolic (mm Hg) 134 10/21/2017 [facility] Diastolic (mm Hg) 69 10/21/2017 [facility] Heart Rate 78 10/21/2017 [facility] Respitory Rate 14 10/21/2017 [facility] Height 172.72 cm 07/22/2017 [facility] Heart Rate 73 07/22/2017 [facility] Respitory Rate 14 07/22/2017 [facility] Systolic (mm Hg) 143 07/22/2017 [facility] Diastolic (mm Hg) 65 07/22/2017 [facility] Temperature Oral (F) 98.3 F 07/22/2017 [facility] Height 172.72 cm 06/11/2017 [facility] Temperature Oral (F) 98.1 F 06/11/2017 [facility] Heart Rate 80 06/11/2017 [facility] Respitory Rate 14 06/11/2017 [facility] Systolic (mm Hg) 151 06/11/2017 [facility] Diastolic (mm Hg) 70 06/11/2017 [facility] Systolic (mm Hg) 148 05/25/2017 [facility] Diastolic (mm Hg) 72 05/25/2017 [facility] Weight 72.727 05/25/2017 [facility] BMI Calculated 24.38 05/25/2017 [facility] Height 172.72 cm 05/25/2017 [facility] BMI Calculated 25.11 03/23/2017 [facility] Weight 72.727 03/23/2017 [facility] Height 170.18 cm 03/23/2017 [facility] BMI Calculated 25.11 03/18/2017 [facility] Weight 72.727 03/18/2017 [facility] Height 170.18 cm 03/18/2017 [facility] Heart Rate 73 03/18/2017 [facility] Systolic (mm Hg) 122 03/18/2017 [facility] Diastolic (mm Hg) 58 03/18/2017 [facility] Respitory Rate 18 03/04/2017 [facility] Heart Rate 80 03/04/2017 [facility] Systolic (mm Hg) 142 03/04/2017 [facility] Diastolic (mm Hg) 69 03/04/2017 [facility] BMI Calculated 28.35 03/04/2017 [facility] Height 165.1 cm 03/04/2017 [facility] Heart Rate 80 03/04/2017 [facility] Weight 77.273 03/04/2017 [facility] Temperature Oral (F) 98 F 03/04/2017 [facility] Respitory Rate 18 03/04/2017 [facility] Systolic (mm Hg) 162 03/04/2017 [facility] Diastolic (mm Hg) 78 03/04/2017 [facility] Temperature Oral (F) 98.2 F 02/26/2017 [facility] Systolic (mm Hg) 132 02/26/2017 [facility] Diastolic (mm Hg) 97 02/26/2017 [facility] Systolic (mm Hg) 161 02/26/2017 [facility] Diastolic (mm Hg) 82 02/26/2017 [facility] Systolic (mm Hg) 116 02/26/2017 [facility] Diastolic (mm Hg) 60 02/26/2017 [facility] Respitory Rate 18 02/26/2017 [facility] Respitory Rate 17 02/26/2017 [facility] Respitory Rate 19 02/26/2017 [facility] Weight 72.727 02/26/2017 [facility] BMI Calculated 26.68 02/26/2017 [facility] Temperature Oral (F) 98.3 F 02/26/2017 [facility] Height 165.1 cm 02/26/2017 [facility] Heart Rate 77 02/26/2017 [facility] Systolic (mm Hg) 129 12/22/2016 [facility] Diastolic (mm Hg) 64 12/22/2016 [facility] Respitory Rate 18 12/22/2016 [facility] Heart Rate 75 12/22/2016 [facility] Heart Rate 60 12/22/2016 [facility] Respitory Rate 18 12/22/2016 [facility] Systolic (mm Hg) 103 12/22/2016 [facility] Diastolic (mm Hg) 60 12/22/2016 [facility] Temperature Oral (F) 98.8 F 12/22/2016 [facility] Systolic (mm Hg) 144 12/22/2016 [facility] Diastolic (mm Hg) 60 12/22/2016 [facility] Temperature Oral (F) 98.2 F 12/22/2016 [facility] Respitory Rate 18 12/22/2016 [facility] Heart Rate 74 12/22/2016 [facility] Temperature Oral (F) 98.2 F 12/22/2016 [facility] Height 172.72 cm 12/10/2016 [facility] Height 172.72 cm 12/10/2016 [facility] Height 172.72 cm 12/10/2016 [facility] BMI Calculated 25.9 12/07/2016 [facility] Weight 77.273 12/07/2016 [facility] BMI Calculated 25.9 12/05/2016 [facility] Weight 77.273 12/05/2016 [facility] Temperature Oral (F) 98.0 F 08/02/2015 [facility] Respitory Rate 18 08/02/2015 [facility] Heart Rate 78 08/02/2015 [facility] Systolic (mm Hg) 150 08/02/2015 [facility] Diastolic (mm Hg) 72 08/02/2015 [facility] Heart Rate 77 08/02/2015 [facility] Systolic (mm Hg) 169 08/02/2015 [facility] Diastolic (mm Hg) 75 08/02/2015 [facility] Respitory Rate 18 08/02/2015 [facility] Heart Rate 74 08/02/2015 [facility] Temperature Oral (F) 97.8 F 08/02/2015 [facility] Systolic (mm Hg) 184 08/02/2015 [facility] Diastolic (mm Hg) 82 08/02/2015 [facility] Temperature Oral (F) 97.8 F 08/02/2015 [facility] Respitory Rate 18 08/02/2015 [facility] Height 172.72 cm 07/31/2015 [facility] Weight 66.818 07/31/2015 [facility] BMI Calculated 22.4 07/31/2015 [facility] BMI Calculated 24.85 07/31/2015 [facility] Weight 63.636 07/31/2015 [facility] Height 160.02 cm 07/31/2015 [facility] Respitory Rate 20 06/07/2012 [facility] Systolic (mm Hg) 121 06/07/2012 [facility] Diastolic (mm Hg) 65 06/07/2012 [facility] Temperature Oral (F) 97.7 F 06/07/2012 [facility] Heart Rate 80 06/07/2012 [facility] Systolic (mm Hg) 122 06/07/2012 [facility] Diastolic (mm Hg) 70 06/07/2012 [facility] Temperature Oral (F) 98.0 F 06/07/2012 [facility] Respitory Rate 18 06/07/2012 [facility] Heart Rate 75 06/07/2012 [facility] Diastolic (mm Hg) 76 06/07/2012 [facility] Systolic (mm Hg) 130 06/07/2012 [facility] Respitory Rate 18 06/07/2012 [facility] Heart Rate 80 06/07/2012 [facility] Temperature Oral (F) 97.7 F 06/07/2012 [facility] Weight 62.727 06/06/2012 [facility] Height 170.18 cm 06/06/2012 [facility] Encounters Location Location Details Encounter Type Encounter Number Reason For Visit Attending Provider ADM Date DC Date Status Source [facility] OU [id number] CHEST PAIN RADHA CAMPBELL 05/18/2012 05/18/2012 Active [facility] JOHN PAUL [id number] ANGINA/CAD 411.1/414.01/402.10/433.11/794.31/440.21 RADHA CAMPBELL 05/23/2012 05/23/2012 Active [facility] OU [id number] 440.21 RADHA ARSHADEN 06/06/2012 06/07/2012 Active [facility] [place] [facility] [id number] Hardeep Bronson 12/28/2013 12/29/2013 [facility] [place] [facility] [place] [facility] [id number] Jojo Wrightcayo 07/23/2014 07/24/2014 [facility] [place] Outpatient [id number] SYDNEY BULLARD 04/19/2015 Active [facility] Inpatient [id number] Leonardo Darylqwimuah 07/31/2015 08/03/2015 [facility] Outpatient [id number] [place] 03/24/2016 Active [facility] Outpatient [id number] [place] 04/06/2016 Active [facility] Outpatient [id number] [place] 05/04/2016 Active [facility] Outpatient [id number] [place] 06/01/2016 Active [facility] Outpatient [id number] [place] 06/30/2016 Active [facility] Outpatient [id number] [place] 07/13/2016 Active [facility] Outpatient [id number] [place] 10/12/2016 Active [facility] Outpatient [id number] [place] 10/19/2016 Active [facility] Outpatient [id number] [place] 11/16/2016 Active [facility] Inpatient [id number] Odalys Joaquin 12/05/2016 12/22/2016 [facility] Outpatient [id number] [place] 01/18/2017 Active [facility] Phone Message [id number] 02/16/2017 02/18/2017 [facility] Outpatient [id number] KEV MORALES 02/17/2017 Active [facility] Emergency [id number] Lucia Krishnamurthy 02/26/2017 02/26/2017 [facility] Emergency [id number] Luis M Lawsonter 03/04/2017 03/04/2017 [facility] Outpatient [id number] [place] 03/16/[address] [facility] Outpatient [id number] Shyla Kraus 03/18/2017 03/19/2017 [facility] Outpatient [id number] David Jonas 03/23/2017 03/24/2017 [facility] Outpatient [id number] [place] 03/30/2017 Active [facility] Outpatient [id number] [place] 04/01/2017 Active [facility] Outpatient [id number] [place] 04/08/2017 Active [facility] Outpatient [id number] [place] 04/26/2017 Active [facility] Outpatient [id number] [place] 06/11/2017 Active [facility] Outpatient [id number] [place] 06/11/2017 06/12/2017 [facility] Outpatient [id number] [place] 07/16/2017 Active [facility] Ambulatory Pre-Reg [id number] [place] 07/16/2017 07/16/2017 [facility] Outpatient [id number] [place] 07/22/2017 Active [facility] Outpatient [id number] [place] 07/22/2017 07/23/2017 [facility] Outpatient [id number] [place] 10/21/2017 Active [facility] Outpatient [id number] [place] 10/21/2017 10/22/2017 [facility] Phone Message [id number] 12/01/2017 12/03/2017 [facility] Outpatient [id number] [place] 01/20/2018 Active [facility] Outpatient [id number] [place] 01/20/2018 01/21/2018 [facility] Outpatient [id number] [place] 03/02/2018 Active [facility] Outpatient [id number] [place] 05/31/2018 Active [facility] Outpatient [id number] [place] 08/31/2018 Active [facility] Ambulatory Pre-Reg [id number] [place] 08/31/2018 08/31/2018 [facility] Emergency [id number] Jah Iheme 09/05/2018 09/06/2018 [facility] Procedures Procedure Code Date Perfomer Comments Source Screening colonoscopy<sup>1</sup> [id number] 01/11/2018 Hemorroids. Normal colonosopcy Repeat in 10 years but per recommendation of Dr Villanueva, do not repeat due to age and comorbidities [facility] Screening colonoscopy<sup>1</sup> [id number] 01/11/2018 Hemorroids. Normal colonosopcy Repeat in 10 years but per recommendation of Dr Villanueva, do not repeat due to age and comorbidities [facility] Angiogram<sup>1</sup> [id number] coronary [facility] Cataract surgery [id number] [facility] Operation<sup>2</sup> [id number] prostate [facility] Operation<sup>3</sup> [id number] prostate [facility] PEG - Percutaneous endoscopic gastrostomy [id number] [facility] Angiogram<sup>2</sup> [id number] coronary [facility] Operation<sup>4</sup> [id number] foot surgery [facility] Angiogram<sup>2</sup> [id number] coronary [facility] Cataract surgery [id number] [facility] Operation<sup>3</sup> [id number] prostate [facility] Operation<sup>4</sup> [id number] foot surgery [facility] PEG - Percutaneous endoscopic gastrostomy [id number] [facility]
--- OUTSIDE RECORDS SUMMARY | 2018-09-13 05:27 | XMS REPORT | Summary of Care ---
Author Author [facility] Organization [facility] Address Unknown Phone Unavailable Encounter NICHOLE Hernández(GERTRUDE) [id number] Date(s): 12/05/16 - 12/22/16 [facility] [address] [facility] provided by [facility] [employer] [facility] [employer] [place] [address]- Discharge Disposition: Jail Facility Attending Physician: Lindsay Dalton MD Admitting Physician: Odalys Joaquin MD Vital Signs 1 2 3 Most recent to oldest [Reference Range]: 172.72 cm (12/10/16 2:10 PM) 172.72 cm (12/10/16 12:07 PM) 172.72 cm (12/10/16 9:40 AM) Height 51.273 kg (12/22/16 5:09 AM) 52.4 kg (12/21/16 5:33 AM) 57 kg (12/18/16 8:25 AM) Current Weight 98.8 DegF (12/22/16 7:58 AM) 98.2 DegF (12/22/16 4:13 AM) 98.2 DegF (12/22/16 12:15 AM) Temperature Oral [96.4-99.1 DegF] 129/64 mmHg (12/22/16 12:10 PM) 103/60 mmHg (12/22/16 7:58 AM) 144/60 mmHg *HI* (12/22/16 4:13 AM) Blood Pressure [90-140/60-90 mmHg] 18 BRMIN (12/22/16 12:10 PM) 18 BRMIN (12/22/16 7:58 AM) 18 BRMIN (12/22/16 4:13 AM) Respiratory Rate [14-20 BRMIN] 75 bpm (12/22/16 12:10 PM) 60 bpm (12/22/16 7:58 AM) 74 bpm (12/22/16 4:13 AM) Peripheral Pulse Rate [60-100 bpm] 77.273 kg (12/07/16 3:10 PM) 77.273 kg (12/05/16 12:24 PM) Weight 25.9 m2 (12/07/16 3:10 PM) 25.9 m2 (12/05/16 12:24 PM) Body Mass Index Problem List Condition Effective Dates Status Health Status Informant CAD (coronary artery Active disease)(Confirmed) Benign essential Active HTN(Confirmed) Chest Active pain(Confirmed) Constipation(Confirm Active ed) Stroke(Confirmed) Resolved Foot Active deformity(Confirmed) Diabetes Resolved mellitus(Confirmed) DM type 2 with Active diabetic peripheral neuropathy(Confirmed ) dm(Confirmed) Active Heart Resolved disease(Confirmed) Hypertension(Confirm Active ed) Hypertension(Confirm Resolved ed) Iron deficiency Active anemia(Confirmed) Hyperlipidemia, Active mixed(Confirmed) Stroke(Confirmed) Active Allergies, Adverse Reactions, Alerts Substance Reaction Severity Status vancomycin Active Medications acetaminophen 325 mg oral tablet 650 mg=2 tab, PO, Q6H, PRN For Temp > 100.4 F, 0 Refill(s) Start Date: 12/22/16 Status: Ordered albumin human 5% intravenous solution 25 gm, 500 mL, 500 ml/hr, Route: IV, Drug Form: INJ, Dosing Weight 77.273, kg, O NCE, Start date: 12/05/16 20:36:00 CDT, Stop date: 12/05/16 20:36:00 CDT Notes: LOT#: Mfg: (Same as: Albuminar)"blood product derivative"WASTE: F/P - Red; E -Red MEDICATION WASTE Product Size: 25 gmProduct Wasted: 0 gm Start Date: 12/05/16 Stop Date: 12/05/16 Status: Completed albuterol 0.083% inhalation solution 10 mg, Route: INHALATION, ONCE, Dosing Weight 77.273, kg, Start date: 12/05/16 1 3:25:00 CDT, Stop date: 12/05/16 13:25:00 CDT Start Date: 12/05/16 Stop Date: 12/05/16 Status: Completed amLODIPine 10 mg, 1 tab, Route: PO, Drug form: TAB, Daily, Dosing Weight 77.273, kg, Priori ty: NOW, Start date: 12/10/16 9:33:00 CDT, Duration: 30 day, Stop date: 01/09/17 9:00:00 CDT Notes: (Same as: Norvasc) Start Date: 12/10/16 Stop Date: 12/18/16 Status: Discontinued amLODIPine 5 mg, 1 tab, Route: PO, Drug form: TAB, Daily, Dosing Weight 77.273, kg, Start d ate: 12/19/16 9:00:00 CDT, Duration: 30 day, Stop date: 01/17/17 9:00:00 CDT Notes: (Same as: Norvasc) Start Date: 12/19/16 Stop Date: 12/19/16 Status: Canceled aspirin 81 mg, 1 tab, Route: PO, Drug form: ECTAB, Daily, Dosing Weight 77.273, kg, Star t date: 12/06/16 9:00:00 CDT, Duration: 30 day, Stop date: 01/04/17 9:00:00 CDT Notes: Do not crush or chew.(Same As: Ecotrin) Start Date: 12/06/16 Stop Date: 12/05/16 Status: Canceled aspirin 81 mg, 1 tab, Route: PO, Drug form: ECTAB, Daily, Dosing Weight 77.273, kg, Star t date: 12/19/16 9:00:00 CDT, Duration: 30 day, Stop date: 01/17/17 9:00:00 CDT Start Date: 12/19/16 Stop Date: 12/22/16 Status: Discontinued atorvastatin 40 mg, 1 tab, Route: PO, Drug form: TAB, Bedtime, Dosing Weight 77.273, kg, Star t date: 12/06/16 21:00:00 CDT, Duration: 30 day, Stop date: 01/04/17 21:00:00 CD T Notes: (Same as: Lipitor) Start Date: 12/06/16 Stop Date: 12/22/16 Status: Discontinued atorvastatin 40 mg oral tablet 40 mg=1 tab, PO, Bedtime, 0 Refill(s) Start Date: 12/22/16 Status: Ordered calcium carbonate 500 mg (200 mg elemental calcium) oral tablet 1,000 mg, Route: PO, PRN, Dosing Weight 77.273, kg, PRN Abnormal Lab Result, FOR ICU USE ONLY, Start date: 12/10/16 1:38:00 CDT, Duration: 30 day, Stop date: 1:37:00 CDT Start Date: 12/10/16 Stop Date: 12/10/16 Status: Discontinued calcium carbonate 500 mg (200 mg elemental calcium) oral tablet 500 mg, Route: PO, PRN, Dosing Weight 77.273, kg, PRN Abnormal Lab Result, FOR I CU USE ONLY, Start date: 12/10/16 1:38:00 CDT, Duration: 30 day, Stop date: 12/26 11/11 1:37:00 CDT Start Date: 12/10/16 Stop Date: 12/10/16 Status: Discontinued calcium carbonate 500 mg (200 mg elemental calcium) oral tablet 1,000 mg, 2 tab, Route: PO, Drug form: CHEWTAB, PRN, Dosing Weight 77.273, kg, P RN Abnormal Lab Result, FOR ICU USE ONLY, Start date: 12/11/16 2:10:00 CDT, Dura tion: 30 day, Stop date: 01/10/17 2:09:00 CDT Notes: (Same As: Tri)Calcium Carbonate 500 uw=695 mg elemental calcium Dose=_ mg calcium carbonate ( mg elemental calcium) Start Date: 12/11/16 Stop Date: 12/15/16 Status: Discontinued calcium carbonate 500 mg (200 mg elemental calcium) oral tablet 500 mg, 1 tab, Route: PO, Drug form: CHEWTAB, PRN, Dosing Weight 77.273, kg, PRN Abnormal Lab Result, FOR ICU USE ONLY, Start date: 12/11/16 2:10:00 CDT, Durati on: 30 day, Stop date: 01/10/17 2:09:00 CDT Notes: (Same As: Kourtneys)Calcium Carbonate 500 nz=302 mg elemental calcium Dose=_ mg calcium carbonate ( mg elemental calcium) Start Date: 12/11/16 Stop Date: 12/15/16 Status: Discontinued calcium chloride + sodium chloride 0.9% INJ 100 mL 2 gm, 20 mL, Route: IVPB, PRN, Dosing Weight 77.273, kg, PRN Abnormal Lab Result , Via central line, Start date: 12/07/16 16:17:00 CDT, Duration: 30 day, Stop da te: 01/06/17 16:16:00 CDT Notes: WASTE: F/P - Sink; E - Municipal Trash Bin Start Date: 12/07/16 Stop Date: 12/11/16 Status: Discontinued calcium chloride + sodium chloride 0.9% INJ 100 mL 2 gm, 20 mL, Route: IVPB, PRN, Dosing Weight 77.273, kg, PRN Abnormal Lab Result , Via central line, Start date: 12/05/16 17:02:00 CDT, Duration: 30 day, Stop da te: 01/04/17 17:01:00 CDT Notes: WASTE: F/P - Sink; E - Municipal Trash Bin Start Date: 12/05/16 Stop Date: 12/07/16 Status: Discontinued calcium chloride + sodium chloride 0.9% INJ 50 mL 1 gm, 10 mL, Route: IVPB, PRN, Dosing Weight 77.273, kg, PRN Abnormal Lab Result , Via central line, Start date: 12/07/16 16:17:00 CDT, Duration: 30 day, Stop da te: 01/06/17 16:16:00 CDT Notes: WASTE: F/P - Sink; E - Municipal Trash Bin Start Date: 12/07/16 Stop Date: 12/11/16 Status: Discontinued calcium chloride + sodium chloride 0.9% INJ 50 mL 1 gm, 10 mL, Route: IVPB, PRN, Dosing Weight 77.273, kg, PRN Abnormal Lab Result , Via central line, Start date: 12/05/16 17:02:00 CDT, Duration: 30 day, Stop da te: 01/04/17 17:01:00 CDT Notes: WASTE: F/P - Sink; E - Municipal Trash Bin Start Date: 12/05/16 Stop Date: 12/07/16 Status: Discontinued calcium gluconate 1 gm, Route: IVPB, PRN, Dosing Weight 77.273, kg, PRN Abnormal Lab Result, Start date: 12/10/16 1:38:00 CDT, Duration: 30 day, Stop date: 01/09/17 1:37:00 CDT, FOR ICU USE ONLY Start Date: 12/10/16 Stop Date: 12/10/16 Status: Discontinued calcium gluconate + sodium chloride 0.9% INJ 50 mL 1 gm, 10 mL, Route: IVPB, PRN, Dosing Weight 77.273, kg, PRN Abnormal Lab Result , Start date: 12/11/16 2:10:00 CDT, Duration: 30 day, Stop date: 01/10/17 2:09:0 0 CDT, FOR ICU USE ONLY Notes: WASTE: F/P - Sink; E - Municipal Trash Bin Start Date: 12/11/16 Stop Date: 12/15/16 Status: Discontinued carvedilol 25 mg, 1 tab, Route: PO, Drug form: TAB, Q12H, Dosing Weight 77.273, kg, Start d ate: 12/10/16 6:00:00 CDT, Duration: 30 day, Stop date: 01/08/17 18:00:00 CDT Notes: Give with food. (Same As: Coreg) Start Date: 12/10/16 Stop Date: 12/22/16 Status: Discontinued carvedilol 6.25 mg, Route: PO, Drug form: TAB, ONCE, Dosing Weight 77.273, kg, Start date: 12/09/16 15:23:00 CDT, Stop date: 12/09/16 15:23:00 CDT Start Date: 12/09/16 Stop Date: 12/09/16 Status: Discontinued carvedilol 12.5 mg, 1 tab, Route: PO, Drug form: TAB, Q12H, Dosing Weight 77.273, kg, Start date: 12/08/16 18:00:00 CDT, Stop date: 01/07/17 6:00:00 CDT Start Date: 12/08/16 Stop Date: 12/09/16 Status: Discontinued carvedilol 25 mg oral tablet 25 mg=1 tab, PO, Q12H, 0 Refill(s) Start Date: 12/22/16 Status: Ordered cefepime 1 gm, Route: IVPB, ONCE, Dosing Weight 77.273, kg, Priority: STAT, Start date: 0 12/05/16 14:21:00 CDT, Duration: 1 doses or times, Stop date: 12/05/16 14:21:00 C DT, ABX Indication: Bacteremia Start Date: 12/05/16 Stop Date: 12/05/16 Status: Completed cefepime 1 gm, Route: IV, Drug form: INJ, [id number], Dosing Weight 77.273, kg, Start date: 0 12/05/16 3:00:00 CDT, Stop date: 01/03/17 14:00:00 CDT, ABX Indication: Other (sp ecify in Comments) Notes: (Same As: Maxipime) MEDICATION WASTE Product Size: 1000 mgProduc t Wasted: ___ mg Start Date: 12/05/16 Stop Date: 12/09/16 Status: Discontinued cefepime 1 gm, Route: IVPB, Drug form: INJ, [id number], Dosing Weight 77.273, kg, (CrCl 30 - 49 ml/min), Start date: 12/10/16 6:00:00 CDT, Duration: 7 day, Stop date: 12/16 18:00:00 CDT, ABX Indication: Urinary Tract Infection Notes: (Same As: Maxipime) MEDICATION WASTE Product Size: 1000 mgProduc t Wasted: ___ mg Start Date: 12/10/16 Stop Date: 12/12/16 Status: Discontinued cefTRIAXone 1 gm, Route: IVPB, Drug form: PDR/INJ, Q24H, Dosing Weight 77.273, kg, Start vincenzo e: 12/09/16 22:00:00 CDT, Duration: 4 day, Stop date: 12/12/16 22:00:00 CDT, ABX Indication: Urinary Tract Infection Notes: (Same As: Rocephin).Use with 100 mL NS and infuse over 30 min MEDICA TION WASTE Product Size: 1000 mgProduct Wasted: ___ mg Start Date: 12/09/16 Stop Date: 12/10/16 Status: Discontinued Chloraseptic 1.4% spray 1 spray, Route: TOP, TID, Drug form: SPRY, PRN Sore Throat, Start date: 12/10/16 16:40:00 CDT, Duration: 30 day, Stop date: 01/09/17 16:39:00 CDT Notes: Chloraseptic Mchenry(Same as: Chloraseptic, Sore Throat Mchenry)WASTE: F/P - Black; E - Municipal Trash Bin Start Date: 12/10/16 Stop Date: 12/22/16 Status: Discontinued chlorhexidine topical 0.12% liquid 15 mL, Route: Swab Mouth, PRN, Drug form: LIQ, PRN Other -See Comment, Start vincenzo e: 12/05/16 18:44:00 CDT, Duration: 30 day, Stop date: 01/04/17 18:43:00 CDT Notes: (Same As: Peridex) Start Date: 12/05/16 Stop Date: 12/22/16 Status: Discontinued chlorhexidine topical 0.12% liquid 15 mL, Route: Swab Mouth, Q12H, Drug form: LIQ, Start date: 12/05/16 21:00:00 CD T, Duration: 30 day, Stop date: 01/04/17 9:00:00 CDT Notes: (Same As: Peridex) Start Date: 12/05/16 Stop Date: 12/11/16 Status: Discontinued clindamycin 600 mg, Route: IVPB, ONCE, Dosing Weight 77.273, kg, Priority: STAT, Start date: 12/05/16 14:21:00 CDT, Duration: 1 doses or times, Stop date: 12/05/16 14:21:00 CDT, ABX Indication: Bacteremia Start Date: 12/05/16 Stop Date: 12/05/16 Status: Completed clindamycin 600 mg, 4 mL, Route: IV, Drug form: INJ, ABXQ8H, Dosing Weight 77.273, kg, Start date: 12/05/16 23:00:00 CDT, Duration: 30 day, Stop date: 01/04/17 15:00:00 CDT, ABX Indication: Other (specify in Comments) Notes: (clindamycin 150 mg/1 ml (600 mg/4 ml VL) INJ) (Same As: Cleocin) Start Date: 12/05/16 Stop Date: 12/07/16 Status: Discontinued Coreg 12.5 mg, 1 tab, Route: PO, Drug form: TAB, ONCE, Dosing Weight 77.273, kg, Start date: 12/09/16 22:40:00 CDT, Stop date: 12/09/16 22:40:00 CDT Notes: Give with food. (Same As: Coreg) Start Date: 12/09/16 Stop Date: 12/09/16 Status: Completed Crestor 10 mg oral tablet 10 mg=1 tab, PO, Bedtime, 0 Refill(s) Start Date: 12/19/16 Stop Date: 12/22/16 Status: Discontinued D50W (bolus) IV 12.5 gm, 25 mL, Route: IVP, Drug Form: INJ, Dosing Weight 77.273, kg, ONCE, Star t date: 12/15/16 22:22:00 CDT, Stop date: 12/15/16 22:22:00 CDT Start Date: 12/15/16 Stop Date: 12/15/16 Status: Completed D5W 1,000 mL 1,000 mL, Rate: 75 ml/hr, Infuse over: 13.3 hr, Route: IV, Dosing Weight 77.273 kg, Total Volume: 1,000, Start date: 12/07/16 3:45:00 CDT, Duration: 30 day, Sto p date: 01/06/17 3:44:00 CDT Start Date: 12/07/16 Stop Date: 12/07/16 Status: Discontinued D5W 1,000 mL 1,000 mL, Rate: 30 ml/hr, Infuse over: 33.3 hr, Route: IV, Dosing Weight 77.273 kg, Total Volume: 1,000, Start date: 12/17/16 8:29:00 CDT, Duration: 30 day, Sto p date: 01/16/17 8:28:00 CDT Start Date: 12/17/16 Stop Date: 12/17/16 Status: Discontinued D5W 1/2NS 1,000 mL 1,000 mL, Rate: 125 ml/hr, Infuse over: 8 hr, Route: IV, Dosing Weight 77.273 kg , Total Volume: 1,000, Start date: 12/05/16 13:25:00 CDT, Duration: 30 day, Stop date: 01/04/17 13:24:00 CDT Start Date: 12/05/16 Stop Date: 12/06/16 Status: Discontinued Dextrose 50% Syringe 12.5 gm, 25 mL, Route: IVP, Drug Form: INJ, Dosing Weight 77.273, kg, PRN, PRN B lood Glucose Results, Start date: 12/06/16 4:36:00 CDT, Duration: 30 day, Stop d ate: 01/05/17 4:35:00 CDT Start Date: 12/06/16 Stop Date: 12/10/16 Status: Discontinued Dextrose 50% Syringe 25 gm, 50 mL, Route: IVP, Drug Form: INJ, Dosing Weight 77.273, kg, PRN, PRN Blo od Glucose Results, Start date: 12/06/16 4:36:00 CDT, Duration: 30 day, Stop vincenzo e: 01/05/17 4:35:00 CDT Start Date: 12/06/16 Stop Date: 12/10/16 Status: Discontinued Dextrose 50% Syringe 25 gm, 50 mL, Route: IVP, Drug Form: INJ, Dosing Weight 77.273, kg, PRN, PRN Blo od Glucose Results, Start date: 12/05/16 20:14:00 CDT, Duration: 30 day, Stop da te: 01/04/17 20:13:00 CDT Start Date: 12/05/16 Stop Date: 12/06/16 Status: Discontinued Dextrose 50% Syringe 12.5 gm, 25 mL, Route: IVP, Drug Form: INJ, Dosing Weight 77.273, kg, PRN, PRN B lood Glucose Results, Start date: 12/05/16 20:14:00 CDT, Duration: 30 day, Stop date: 01/04/17 20:13:00 CDT Start Date: 12/05/16 Stop Date: 12/06/16 Status: Discontinued Dextrose 50% Syringe 12.5 gm, 25 mL, Route: IVP, Drug Form: INJ, Dosing Weight 77.273, kg, PRN, PRN B lood Glucose Results, Start date: 12/07/16 19:42:00 CDT, Duration: 30 day, Stop date: 01/06/17 19:41:00 CDT Start Date: 12/07/16 Stop Date: 12/10/16 Status: Discontinued Dextrose 50% Syringe 25 gm, 50 mL, Route: IVP, Drug Form: INJ, Dosing Weight 77.273, kg, PRN, PRN Blo od Glucose Results, Start date: 12/07/16 19:42:00 CDT, Duration: 30 day, Stop da te: 01/06/17 19:41:00 CDT Start Date: 12/07/16 Stop Date: 12/10/16 Status: Discontinued Dextrose 50% Syringe 25 gm, Route: IVP, Dosing Weight 77.273, kg, ONCE, STAT, Start date: 12/05/16 13 :08:00 CDT, Stop date: 12/05/16 13:08:00 CDT Start Date: 12/05/16 Stop Date: 12/05/16 Status: Completed Dextrose 50% Syringe 12.5 gm, 25 mL, Route: IVP, Drug Form: INJ, Dosing Weight 77.273, kg, PRN, PRN B lood Glucose Results, Start date: 12/10/16 0:04:00 CDT, Duration: 30 day, Stop d ate: 01/09/17 0:03:00 CDT Start Date: 12/10/16 Stop Date: 12/15/16 Status: Discontinued Dextrose 50% Syringe 25 gm, 50 mL, Route: IVP, Drug Form: INJ, Dosing Weight 77.273, kg, PRN, PRN Blo od Glucose Results, Start date: 12/10/16 0:04:00 CDT, Duration: 30 day, Stop vincenzo e: 01/09/17 0:03:00 CDT Start Date: 12/10/16 Stop Date: 12/15/16 Status: Discontinued Dextrose 50% Syringe 12.5 gm, 25 mL, Route: IVP, Drug Form: INJ, Dosing Weight 77.273, kg, PRN, PRN B lood Glucose Results, Start date: 12/11/16 12:54:00 CDT, Duration: 30 day, Stop date: 01/10/17 12:53:00 CDT Start Date: 12/11/16 Stop Date: 12/22/16 Status: Discontinued Dextrose 50% Syringe 25 gm, 50 mL, Route: IVP, Drug Form: INJ, Dosing Weight 77.273, kg, PRN, PRN Blo od Glucose Results, Start date: 12/11/16 12:54:00 CDT, Duration: 30 day, Stop da te: 01/10/17 12:53:00 CDT Start Date: 12/11/16 Stop Date: 12/22/16 Status: Discontinued docusate 100 mg, 10 mL, Route: PO, Drug form: LIQ, Q12H, Start date: 12/06/16 21:00:00 CD T, Duration: 30 day, Stop date: 01/05/17 9:00:00 CDT Notes: (Same as: Colace) Start Date: 12/06/16 Stop Date: 12/22/16 Status: Discontinued docusate 100 mg, 10 mL, Route: PO, Drug form: LIQ, Q12H, Dosing Weight 77.273, kg, Start date: 12/05/16 21:00:00 CDT, Stop date: 01/04/17 9:00:00 CDT Notes: (Same as: Colace) Start Date: 12/05/16 Stop Date: 12/06/16 Status: Voided With Results docusate sodium 150 mg/15 mL oral liquid 100 mg=10 mL, PO, Q12H, 0 Refill(s) Start Date: 12/22/16 Status: Ordered docusate-senna 50 mg-8.6 mg oral tablet 1 tab, Route: PO, Drug Form: TAB, Dosing Weight 77.273, kg, BID, Start date: 05/14 9:00:00 CDT, Duration: 30 day, Stop date: 01/04/17 17:00:00 CDT Notes: (Same as Senokot-S) Equiv. to Sugar-Colace. Start Date: 12/06/16 Stop Date: 12/06/16 Status: Voided With Results DuoNeb inhalation solution 3 mL, NEB, PRN, PRN Respiratory Protocol, 0 Refill(s) Start Date: 12/22/16 Status: Ordered DuoNeb inhalation solution 3 ml, Route: NEB, Drug Form: SOLN, Dosing Weight 77.273, kg, PRN, PRN Respirator y Protocol, Start date: 12/09/16 9:02:00 CDT, Duration: 30 day, Stop date: 01/08 9:01:00 CDT Notes: (Same as: Duoneb) Start Date: 12/09/16 Stop Date: 12/22/16 Status: Discontinued famotidine 20 mg, 2 mL, Route: IVP, Drug form: INJ, Daily, Dosing Weight 77.273, kg, Start date: 12/06/16 9:00:00 CDT, Duration: 30 day, Stop date: 01/04/17 9:00:00 CDT Notes: (Same as: Pepcid)Can be dilute in 5-10cc NS IVP: Slow IV push over at le ast 2 minutes. Start Date: 12/06/16 Stop Date: 12/05/16 Status: Canceled fentaNYL 50 microgram, 1 mL, Route: IVP, Drug form: INJ, Q2H, Dosing Weight 77.273, kg, P RN Pain Score 6-10, Start date: 12/05/16 19:03:00 CDT, Duration: 30 day, Stop da te: 01/04/17 19:02:00 CDT Notes: (Same as: Sublimaze) Preservative free. Start Date: 12/05/16 Stop Date: 12/11/16 Status: Discontinued fentaNYL 25 microgram, 0.5 mL, Route: IVP, Drug form: INJ, Q2H, Dosing Weight 77.273, kg, PRN Pain Score 1-5, Start date: 12/05/16 19:03:00 CDT, Duration: 30 day, Stop d ate: 01/04/17 19:02:00 CDT Notes: (Same as: Sublimaze) Preservative free. Start Date: 12/05/16 Stop Date: 12/11/16 Status: Discontinued fentaNYL 1000microgram/20ml drip (pyxis) 1,000 microgram 1,000 microgram, 20 mL, Rate: Titrate, Start Dose: 50 microgram/hr, Titration: 2 5 microgram/hour every 15 minutes, Goal(s): RASS (0) to (-2), Max Dose: 300 micr ogram/hr, Route: IV, Dosing Weight 77.273 kg, Total Volume: 20, Start date: 11/26 16:13:... Start Date: 12/05/16 Stop Date: 12/07/16 Status: Discontinued fentaNYL 1000microgram/20ml drip (pyxis) 1,000 microgram 1,000 microgram, 20 mL, Rate: Titrate, Start Dose: 50 microgram/hr, Titration: 2 5 microgram/hour every 15 minutes, Goal(s): RASS (0) to (-2), Max Dose: 300 micr ogram/hr, Route: IV, Dosing Weight 77.273 kg, Total Volume: 20, Start date: 11/26 08/14 15:42:... Start Date: 12/07/16 Stop Date: 12/08/16 Status: Discontinued glucagon 1 mg, Route: IM, Drug form: PDR/INJ, PRN, Dosing Weight 77.273, kg, PRN Blood Gl ucose Results, Start date: 12/05/16 20:14:00 CDT, Duration: 30 day, Stop date: 0 01/04/17 20:13:00 CDT Start Date: 12/05/16 Stop Date: 12/06/16 Status: Discontinued glucagon 1 mg, Route: IM, Drug form: PDR/INJ, PRN, Dosing Weight 77.273, kg, PRN Blood Gl ucose Results, Start date: 12/07/16 19:42:00 CDT, Duration: 30 day, Stop date: 0 01/06/17 19:41:00 CDT Start Date: 12/07/16 Stop Date: 12/11/16 Status: Discontinued glucagon 1 mg, Route: IM, Drug form: PDR/INJ, PRN, Dosing Weight 77.273, kg, PRN Blood Gl ucose Results, Start date: 12/11/16 12:54:00 CDT, Duration: 30 day, Stop date: 0 01/10/17 12:53:00 CDT Start Date: 12/11/16 Stop Date: 12/22/16 Status: Discontinued heparin 5,000 unit, Route: SUB-Q, Q8H, Dosing Weight 77.273, kg, Start date: 12/06/16 0: 00:00 CDT, Duration: 30 day, Stop date: 01/04/17 16:00:00 CDT Start Date: 12/06/16 Stop Date: 12/05/16 Status: Canceled heparin 5,000 unit, 1 mL, Route: SUB-Q, Drug form: INJ, Q8H, Dosing Weight 77.273, kg, S tart date: 12/09/16 16:00:00 CDT, Duration: 30 day, Stop date: 01/08/17 8:00:00 CDT Notes: porcine heparin Start Date: 12/09/16 Stop Date: 12/22/16 Status: Discontinued heparin 1,000 unit, 1 mL, Route: MISC, Drug form: INJ, PRN, PRN Other -See Comment, Star t date: 12/08/16 15:56:00 CDT, Stop date: 01/07/17 15:55:00 CDT Start Date: 12/08/16 Stop Date: 12/12/16 Status: Discontinued Heparin 40 unit/kg Bolus (Heparin Dosing Weight) Route: IVP, PRN, 3,100 unit, 3.1 mL, Drug form: INJ, PRN, Heparin Protocol, Star t date: 12/07/16 9:34:00 CDT Stop date: 01/06/17 9:33:00 CDT, 30 day Start Date: 12/07/16 Stop Date: 12/08/16 Status: Discontinued Heparin 80 unit/kg Bolus (Heparin Dosing Weight) Route: IVP, PRN, 6,200 unit, 6.2 mL, Drug form: INJ, PRN, Heparin Protocol, Star t date: 12/07/16 9:34:00 CDT Stop date: 01/06/17 9:33:00 CDT, 30 day Start Date: 12/07/16 Stop Date: 12/08/16 Status: Discontinued heparin additive 25,000 unit [14 unit/kg/hr] + Premix Diluent Dextrose 5% 500 mL 500 mL, Rate: 21.64 ml/hr, Infuse over: 23.1 hr, Route: IV, Dosing Weight 77.273 kg, Total Volume: 500 mL, Start date: 12/07/16 9:12:00 CDT, Duration: 30 day, S top date: 01/06/17 9:11:00 CDT Start Date: 12/07/16 Stop Date: 12/07/16 Status: Discontinued heparin additive 25,000 unit [18 unit/kg/hr] + Premix Diluent Dextrose 5% 500 mL 500 mL, Rate: 27.82 ml/hr, Infuse over: 18 hr, Route: IV, Dosing Weight 77.27 kg , Total Volume: 500 mL, Start date: 12/07/16 9:34:00 CDT, Stop date: 01/06/17 9: 33:00 CDT Start Date: 12/07/16 Stop Date: 12/08/16 Status: Discontinued heparin flush 1,000 unit, Route: IVP, PRN, Dosing Weight 77.273, kg, PRN Line Flush, Start vincenzo e: 12/08/16 15:30:00 CDT, Duration: 30 day, Stop date: 01/07/17 15:29:00 CDT, [facility] Start Date: 12/08/16 Stop Date: 12/08/16 Status: Deleted hydrALAZINE 25 mg oral tablet 50 mg, 2 tab, Route: PO, Drug form: TAB, Q6Hnow, Dosing Weight 77.273, kg, Prior ity: NOW, Start date: 12/19/16 16:00:00 CDT, Duration: 30 day, Stop date: 10:00:00 CDT Notes: (Same as: Apresoline) May interfere w/enteral feedings Take With Food. Start Date: 12/19/16 Stop Date: 12/20/16 Status: Discontinued hydrALAZINE 25 mg oral tablet 50 mg, 2 tab, Route: PO, Drug form: TAB, Q6Hnow, Dosing Weight 77.273, kg, Start date: 12/10/16 10:00:00 CDT, Duration: 30 day, Stop date: 01/09/17 6:00:00 CDT Notes: (Same as: Apresoline) May interfere w/enteral feedings Take With Food. Start Date: 12/10/16 Stop Date: 12/18/16 Status: Discontinued hydrALAZINE 25 mg oral tablet 25 mg=1 tab, PO, Q6H, 0 Refill(s) Start Date: 12/22/16 Status: Ordered hydrALAZINE 25 mg oral tablet 25 mg, 1 tab, Route: PO, Drug form: TAB, Q6Hnow, Dosing Weight 77.273, kg, Start date: 12/18/16 11:00:00 CDT, Duration: 30 day, Stop date: 01/17/17 5:00:00 CDT Notes: (Same as: Apresoline) Start Date: 12/18/16 Stop Date: 12/19/16 Status: Discontinued hydrALAZINE 25 mg oral tablet 25 mg, 1 tab, Route: PO, Drug form: TAB, Q6H, Dosing Weight 77.273, kg, Start da te: 12/20/16 12:00:00 CDT, Duration: 30 day, Stop date: 01/19/17 6:00:00 CDT Notes: (Same as: Apresoline) May interfere w/enteral feedings Take With Food. Start Date: 12/20/16 Stop Date: 12/22/16 Status: Discontinued insulin isophane (NPH) 100 units/mL human recombinant subcutaneous suspension 30 unit, SUB-Q, BID, 0 Refill(s) Start Date: 12/22/16 Status: Ordered insulin isophane-NPH 24 unit, 0.24 mL, Route: SUB-Q, Drug form: INJ, TID-Before Meals, Dosing Weight 77.273, kg, Start date: 12/12/16 7:30:00 CDT, Duration: 30 day, Stop date: 01/10 16:30:00 CDT Notes: Roll in palms of hands gently; Do not shake vigorously. (Same as: Nereyda meredith N)Do not hold insulin without contacting prescriberWASTE: F/P - Black; E - [facility] Tr[facility] Bin Stable for 28 days at room temperatureExpires in days f rom Date Start Date: 12/12/16 Stop Date: 12/22/16 Status: Discontinued insulin isophane-NPH 20 unit, 0.2 mL, Route: SUB-Q, Drug form: INJ, TID-Before Meals, Dosing Weight 7 7.273, kg, Start date: 12/11/16 7:30:00 CDT, Duration: 30 day, Stop date: 16:30:00 CDT Notes: Roll in palms of hands gently; Do not shake vigorously. (Same as: Nereyda n N)Do not hold insulin without contacting prescriberWASTE: F/P - Black; E - [facility] Stable for 28 days at room temperatureExpires in days f rom Date Start Date: 12/11/16 Stop Date: 12/11/16 Status: Discontinued Insulin regular 8 unit, 0.08 mL, Route: SUB-Q, Drug form: SOLN, Sliding Scale, Dosing Weight 77. 273, kg, PRN Blood Glucose Results, Start date: 12/05/16 20:14:00 CDT, Duration: 30 day, Stop date: 01/04/17 20:13:00 CDT Notes: (Same as: Humulin R) Roll in palms of hands gently; Do not shake vigorou sly. "single patient use only"(Restricted to patients requiring a dose > 60 units)WASTE: F/P - Black; E - [facility] Stable for 28 days at room temperatureExpires in days from Date Start Date: 12/05/16 Stop Date: 12/06/16 Status: Discontinued Insulin regular 10 unit, 0.1 mL, Route: SUB-Q, Drug form: SOLN, Sliding Scale, Dosing Weight 77. 273, kg, PRN Blood Glucose Results, Start date: 12/05/16 20:14:00 CDT, Duration: 30 day, Stop date: 01/04/17 20:13:00 CDT Notes: (Same as: Humulin R) Roll in palms of hands gently; Do not shake vigorou sly. "single patient use only"(Restricted to patients requiring a dose > 60 units)WASTE: F/P - Black; E - [facility] Stable for 28 days at room temperatureExpires in days from Date Start Date: 12/05/16 Stop Date: 12/06/16 Status: Discontinued Insulin regular 6 unit, 0.06 mL, Route: SUB-Q, Drug form: SOLN, Sliding Scale, Dosing Weight 77. 273, kg, PRN Blood Glucose Results, Start date: 12/05/16 20:14:00 CDT, Duration: 30 day, Stop date: 01/04/17 20:13:00 CDT Notes: (Same as: Humulin R) Roll in palms of hands gently; Do not shake vigorou sly. "single patient use only"(Restricted to patients requiring a dose > 60 units)WASTE: F/P - Black; E - [facility] Stable for 28 days at room temperatureExpires in days from Date Start Date: 12/05/16 Stop Date: 12/06/16 Status: Discontinued Insulin regular 2 unit, 0.02 mL, Route: SUB-Q, Drug form: SOLN, Sliding Scale, Dosing Weight 77. 273, kg, PRN Blood Glucose Results, Start date: 12/05/16 20:14:00 CDT, Duration: 30 day, Stop date: 01/04/17 20:13:00 CDT Notes: (Same as: Humulin R) Roll in palms of hands gently; Do not shake vigorou sly. "single patient use only"(Restricted to patients requiring a dose > 60 units)WASTE: F/P - Black; E - [facility] Stable for 28 days at room temperatureExpires in days from Date Start Date: 12/05/16 Stop Date: 12/06/16 Status: Discontinued Insulin regular 4 unit, 0.04 mL, Route: SUB-Q, Drug form: SOLN, Sliding Scale, Dosing Weight 77. 273, kg, PRN Blood Glucose Results, Start date: 12/05/16 20:14:00 CDT, Duration: 30 day, Stop date: 01/04/17 20:13:00 CDT Notes: (Same as: Humulin R) Roll in palms of hands gently; Do not shake vigorou sly. "single patient use only"(Restricted to patients requiring a dose > 60 units)WASTE: F/P - Black; E - [facility] Stable for 28 days at room temperatureExpires in days from Date Start Date: 12/05/16 Stop Date: 12/06/16 Status: Discontinued Insulin regular 3 unit, 0.03 mL, Route: SUB-Q, Drug form: SOLN, Sliding Scale, Dosing Weight 77. 273, kg, PRN Blood Glucose Results, Start date: 12/07/16 19:42:00 CDT, Duration: 30 day, Stop date: 01/06/17 19:41:00 CDT Notes: (Same as: Humulin R) Roll in palms of hands gently; Do not shake vigorou sly. "single patient use only"(Restricted to patients requiring a dose > 60 units)WASTE: F/P - Black; E - [facility] Stable for 28 days at room temperatureExpires in days from Date Start Date: 12/07/16 Stop Date: 12/10/16 Status: Discontinued Insulin regular 6 unit, 0.06 mL, Route: SUB-Q, Drug form: SOLN, Sliding Scale, Dosing Weight 77. 273, kg, PRN Blood Glucose Results, Start date: 12/07/16 19:42:00 CDT, Duration: 30 day, Stop date: 01/06/17 19:41:00 CDT Notes: (Same as: Humulin R) Roll in palms of hands gently; Do not shake vigorou sly. "single patient use only"(Restricted to patients requiring a dose > 60 units)WASTE: F/P - Black; E - [facility] Stable for 28 days at room temperatureExpires in days from Date Start Date: 12/07/16 Stop Date: 12/10/16 Status: Discontinued Insulin regular 9 unit, 0.09 mL, Route: SUB-Q, Drug form: SOLN, Sliding Scale, Dosing Weight 77. 273, kg, PRN Blood Glucose Results, Start date: 12/07/16 19:42:00 CDT, Duration: 30 day, Stop date: 01/06/17 19:41:00 CDT Notes: (Same as: Humulin R) Roll in palms of hands gently; Do not shake vigorou sly. "single patient use only"(Restricted to patients requiring a dose > 60 units)WASTE: F/P - Black; E - [facility] Stable for 28 days at room temperatureExpires in days from Date Start Date: 12/07/16 Stop Date: 12/10/16 Status: Discontinued Insulin regular 12 unit, 0.12 mL, Route: SUB-Q, Drug form: SOLN, Sliding Scale, Dosing Weight 77 .273, kg, PRN Blood Glucose Results, Start date: 12/07/16 19:42:00 CDT, Duration : 30 day, Stop date: 01/06/17 19:41:00 CDT Notes: (Same as: Humulin R) (Restricted to patients requiring a dose > 60 units) Start Date: 12/07/16 Stop Date: 12/10/16 Status: Discontinued Insulin regular 15 unit, 0.15 mL, Route: SUB-Q, Drug form: SOLN, Sliding Scale, Dosing Weight 77 .273, kg, PRN Blood Glucose Results, Start date: 12/07/16 19:42:00 CDT, Duration : 30 day, Stop date: 01/06/17 19:41:00 CDT Notes: (Same as: Humulin R) Roll in palms of hands gently; Do not shake vigorou sly. "single patient use only"(Restricted to patients requiring a dose > 60 units)WASTE: F/P - Black; E - [facility] Stable for 28 days at room temperatureExpires in days from Date Start Date: 12/07/16 Stop Date: 12/10/16 Status: Discontinued Insulin regular 12 unit, 0.12 mL, Route: SUB-Q, Drug form: SOLN, Sliding Scale, Dosing Weight 77 .273, kg, PRN Blood Glucose Results, Start date: 12/11/16 12:54:00 CDT, Duration : 30 day, Stop date: 01/10/17 12:53:00 CDT Notes: (Same as: Humulin R) Roll in palms of hands gently; Do not shake vigorou sly. "single patient use only"(Restricted to patients requiring a dose > 60 units)WASTE: F/P - Black; E - [facility] Stable for 28 days at room temperatureExpires in days from Date Start Date: 12/11/16 Stop Date: 12/22/16 Status: Discontinued Insulin regular 15 unit, 0.15 mL, Route: SUB-Q, Drug form: SOLN, Sliding Scale, Dosing Weight 77 .273, kg, PRN Blood Glucose Results, Start date: 12/11/16 12:54:00 CDT, Duration : 30 day, Stop date: 01/10/17 12:53:00 CDT Notes: (Same as: Humulin R) Roll in palms of hands gently; Do not shake vigorou sly. "single patient use only"(Restricted to patients requiring a dose > 60 units)WASTE: F/P - Black; E - [facility] Stable for 28 days at room temperatureExpires in days from Date Start Date: 12/11/16 Stop Date: 12/22/16 Status: Discontinued Insulin regular 6 unit, 0.06 mL, Route: SUB-Q, Drug form: SOLN, Sliding Scale, Dosing Weight 77. 273, kg, PRN Blood Glucose Results, Start date: 12/11/16 12:54:00 CDT, Duration: 30 day, Stop date: 01/10/17 12:53:00 CDT Notes: (Same as: Humulin R) Roll in palms of hands gently; Do not shake vigorou sly. "single patient use only"(Restricted to patients requiring a dose > 60 units)WASTE: F/P - Black; E - [facility] Stable for 28 days at room temperatureExpires in days from Date Start Date: 12/11/16 Stop Date: 12/22/16 Status: Discontinued Insulin regular 9 unit, 0.09 mL, Route: SUB-Q, Drug form: SOLN, Sliding Scale, Dosing Weight 77. 273, kg, PRN Blood Glucose Results, Start date: 12/11/16 12:54:00 CDT, Duration: 30 day, Stop date: 01/10/17 12:53:00 CDT Notes: (Same as: Humulin R) Roll in palms of hands gently; Do not shake vigorou sly. "single patient use only"(Restricted to patients requiring a dose > 60 units)WASTE: F/P - Black; E - [facility] Stable for 28 days at room temperatureExpires in days from Date Start Date: 12/11/16 Stop Date: 12/22/16 Status: Discontinued Insulin regular 3 unit, 0.03 mL, Route: SUB-Q, Drug form: SOLN, Sliding Scale, Dosing Weight 77. 273, kg, PRN Blood Glucose Results, Start date: 12/11/16 12:54:00 CDT, Duration: 30 day, Stop date: 01/10/17 12:53:00 CDT Notes: (Same as: Humulin R) Roll in palms of hands gently; Do not shake vigorou sly. "single patient use only"(Restricted to patients requiring a dose > 60 units)WASTE: F/P - Black; E - [facility] Stable for 28 days at room temperatureExpires in days from Date Start Date: 12/11/16 Stop Date: 12/22/16 Status: Discontinued Insulin regular 15 unit, 0.15 mL, Route: SUB-Q, Drug form: SOLN, ONCE, Dosing Weight 77.273, kg, Start date: 12/12/16 0:41:00 CDT, Stop date: 12/12/16 0:41:00 CDT Notes: (Same as: Humulin R) Roll in palms of hands gently; Do not shake vigorou sly. "single patient use only"(Restricted to patients requiring a dose > 60 units)WASTE: F/P - Black; E - [facility] Stable for 28 days at room temperatureExpires in days from Date Start Date: 12/12/16 Stop Date: 12/12/16 Status: Completed Insulin regular 100 unit + sodium chloride 0.9% INJ 99 mL 99 mL, Rate: Start Insulin Drip Per ICU Protocol, Dosing Weight 77.273, kg, Rout e: IVPB, Total Volume: 100, Start Date: 12/06/16 4:36:00 CDT, Duration: 30 day, Stop date: 01/05/17 4:35:00 CDT, Replace Every: 24 hr Notes: (Same as: Humulin R and NovoLIN R)WASTE: F/P - Black; E - [facility] (Do not shake) Start Date: 12/06/16 Stop Date: 12/08/16 Status: Discontinued Insulin regular 100 unit + sodium chloride 0.9% INJ 99 mL 99 mL, Rate: Start Insulin Drip Per ICU Protocol, Dosing Weight 77.273, kg, Rout e: IVPB, Total Volume: 100, Start Date: 12/10/16 0:04:00 CDT, Duration: 30 day, Stop date: 01/09/17 0:03:00 CDT, Replace Every: 24 hr Notes: (Same as: Humulin R and NovoLIN R)WASTE: F/P - Black; E - [facility] (Do not shake) Start Date: 12/10/16 Stop Date: 12/12/16 Status: Discontinued Isolyte S PH-7.4 (Bolus) IV 1,000 mL, 1000 ml/hr, Route: IV, Drug Form: SOLN, Dosing Weight 77.273, kg, ONCE , STAT, Start date: 12/05/16 16:08:00 CDT, Stop date: 12/05/16 16:08:00 CDT Notes: (Same as: Isolyte S PH 7.4) Start Date: 12/05/16 Stop Date: 12/05/16 Status: Completed Isolyte S PH-7.4 (Bolus) IV 1,000 mL, 1000 ml/hr, Route: IV, Drug Form: SOLN, Dosing Weight 77.273, kg, ONCE , STAT, Start date: 12/05/16 16:08:00 CDT, Stop date: 12/05/16 16:08:00 CDT Notes: (Same as: Isolyte S PH 7.4) Start Date: 12/05/16 Stop Date: 12/05/16 Status: Completed ketAMINE 100 mg, Route: IV, ONCE, Dosing Weight 77.273, kg, Start date: 12/05/16 16:08:00 CDT, Duration: 1 doses or times, Stop date: 12/05/16 16:08:00 CDT Start Date: 12/05/16 Stop Date: 12/05/16 Status: Completed labetalol 10 mg, Route: IVP, Drug form: INJ, ONCE, Dosing Weight 77.273, kg, Start date: 0 12/09/16 15:26:00 CDT, Stop date: 12/09/16 15:26:00 CDT Start Date: 12/09/16 Stop Date: 12/09/16 Status: Completed lactulose 20 gm, 30 mL, Route: PO, Drug form: SYRP, Q6H, Dosing Weight 77.273, kg, Start d ate: 12/06/16 0:00:00 CDT, Duration: 30 day, Stop date: 01/04/17 18:00:00 CDT Notes: (Same as:Chronulac) Start Date: 12/06/16 Stop Date: 12/07/16 Status: Discontinued lansoprazole 30 mg, 10 mL, Route: NG, Drug form: SUSP, Daily, Dosing Weight 77.273, kg, Start date: 12/08/16 9:00:00 CDT, Duration: 30 day, Stop date: 01/06/17 9:00:00 CDT Start Date: 12/08/16 Stop Date: 12/11/16 Status: Discontinued Lasix 40 mg, 4 mL, Route: IVP, Drug form: INJ, BID, Dosing Weight 77.273, kg, Start da te: 12/17/16 9:00:00 CDT, Duration: 30 day, Stop date: 01/15/17 17:00:00 CDT Notes: (Same as: Lasix) MEDICATION WASTE Product Size: 40 mgProduct Was mitchell: ___ mg Start Date: 12/17/16 Stop Date: 12/18/16 Status: Discontinued Lasix 20 mg oral tablet 20 mg, 1 tab, Route: PO, Drug form: TAB, Daily, Dosing Weight 77.273, kg, Start date: 12/19/16 9:00:00 CDT, Duration: 30 day, Stop date: 01/17/17 9:00:00 CDT Notes: (Same as: Lasix) May cause GI upset. Give with food or milk. Start Date: 12/19/16 Stop Date: 12/20/16 Status: Discontinued Lasix 20 mg oral tablet 40 mg, 2 tab, Route: PO, Drug form: TAB, BID, Dosing Weight 77.273, kg, Priority : NOW, Start date: 12/20/16 20:46:00 CDT, Duration: 30 day, Stop date: 01/19/17 9:00:00 CDT Notes: (Same as: Lasix) May cause GI upset. Give with food or milk. Start Date: 12/20/16 Stop Date: 12/22/16 Status: Discontinued Lasix 20 mg oral tablet See Instructions, 2 tab PO BID for 3 days then 2 tabs PO daily, 0 Refill(s) Start Date: 12/22/16 Status: Ordered lisinopril 5 mg, Route: PO, Drug form: TAB, Daily, Dosing Weight 77.273, kg, Start date: 9:00:00 CDT, Duration: 30 day, Stop date: 01/10/17 9:00:00 CDT Start Date: 12/12/16 Stop Date: 12/12/16 Status: Canceled magnesium oxide 800 mg, Route: PO, PRN, Dosing Weight 77.273, kg, PRN Abnormal Lab Result, FOR I CU USE ONLY, Start date: 12/10/16 1:38:00 CDT, Duration: 30 day, Stop date: 12/26 11/11 1:37:00 CDT Start Date: 12/10/16 Stop Date: 12/10/16 Status: Discontinued magnesium oxide 800 mg, 2 tab, Route: PO, Drug form: TAB, PRN, Dosing Weight 77.273, kg, PRN Abn ormal Lab Result, FOR ICU USE ONLY, Start date: 12/11/16 2:10:00 CDT, Duration: 30 day, Stop date: 01/10/17 2:09:00 CDT Notes: (Same as: Mag-Ox 400)Magnesium oxide [id number] elemental magnesiumDose= ____mg magnesium oxide (___mg elemental magnesium) Start Date: 12/11/16 Stop Date: 12/12/16 Status: Discontinued magnesium sulfate 2 gm, Route: IVPB, PRN, Dosing Weight 77.273, kg, PRN Abnormal Lab Result, Start date: 12/10/16 1:38:00 CDT, Duration: 30 day, Stop date: 01/09/17 1:37:00 CDT, FOR ICU USE ONLY Start Date: 12/10/16 Stop Date: 12/10/16 Status: Discontinued magnesium sulfate 2 gm, 50 mL, Route: IVPB, Drug form: INJ, PRN, Dosing Weight 77.273, kg, PRN Abn ormal Lab Result, Start date: 12/11/16 2:10:00 CDT, Duration: 30 day, Stop date: 01/10/17 2:09:00 CDT, FOR ICU USE ONLY Notes: WASTE: F/P - Sink; E - [facility] Start Date: 12/11/16 Stop Date: 12/12/16 Status: Discontinued magnesium sulfate 4 gm, 100 mL, Route: IVPB, Drug form: INJ, PRN, Dosing Weight 77.273, kg, PRN Ab normal Lab Result, Via central line, Start date: 12/07/16 16:17:00 CDT, Duration : 30 day, Stop date: 01/06/17 16:16:00 CDT Notes: WASTE: F/P - Sink; E - [facility] Start Date: 12/07/16 Stop Date: 12/11/16 Status: Discontinued magnesium sulfate 2 gm, 50 mL, Route: IVPB, Drug form: INJ, PRN, Dosing Weight 77.273, kg, PRN Abn ormal Lab Result, Via central line, Start date: 12/07/16 16:17:00 CDT, Stop date : 01/06/17 16:16:00 CDT Notes: WASTE: F/P - Sink; E - [facility] Start Date: 12/07/16 Stop Date: 12/11/16 Status: Discontinued magnesium sulfate 2 gm, 50 mL, Route: IVPB, Drug form: INJ, PRN, Dosing Weight 77.273, kg, PRN Abn ormal Lab Result, Via central line, Start date: 12/05/16 17:02:00 CDT, Duration: 30 day, Stop date: 01/04/17 17:01:00 CDT Notes: WASTE: F/P - Sink; E - [facility] Start Date: 12/05/16 Stop Date: 12/07/16 Status: Discontinued magnesium sulfate 4 gm, 100 mL, Route: IVPB, Drug form: INJ, PRN, Dosing Weight 77.273, kg, PRN Ab normal Lab Result, Via central line, Start date: 12/05/16 17:02:00 CDT, Duration : 30 day, Stop date: 01/04/17 17:01:00 CDT Notes: WASTE: F/P - Sink; E - [facility] Start Date: 12/05/16 Stop Date: 12/07/16 Status: Discontinued melatonin 3 mg oral tablet 3 mg=1 tab, PO, Bedtime, 0 Refill(s) Start Date: 12/22/16 Status: Ordered melatonin 3 mg oral tablet 3 mg, 1 tab, Route: PO, Drug Form: TAB, Dosing Weight 77.273, kg, Bedtime, NOW, Start date: 12/18/16 23:15:00 CDT, Duration: 30 day, Stop date: 01/17/17 21:00:0 0 CDT Notes: (Same as: Melatonin) Start Date: 12/18/16 Stop Date: 12/22/16 Status: Discontinued metoprolol 5 mg/5 ml INJ 5 mg, Route: IVP, Drug form: INJ, ONCE, Dosing Weight 77.273, kg, Start date: 11:09:00 CDT, Stop date: 12/08/16 11:09:00 CDT Start Date: 12/08/16 Stop Date: 12/08/16 Status: Completed metoprolol extended release 25 mg, 1 tab, Route: PO, Drug form: ERTAB, Daily, Start date: 12/06/16 9:00:00 C DT, Duration: 30 day, Stop date: 01/04/17 9:00:00 CDT Notes: (Same as: Toprol XL) Do Not Crush Start Date: 12/06/16 Stop Date: 12/05/16 Status: Canceled midazolam 1 mg, Route: IVP, ONCE, Dosing Weight 77.273, kg, Start date: 12/05/16 19:03:00 CDT, Stop date: 12/05/16 19:03:00 CDT Start Date: 12/05/16 Stop Date: 12/05/16 Status: Completed midazolam 2 mg, 2 mL, Route: IVP, Drug form: INJ, Q2H, Dosing Weight 77.273, kg, PRN Sedat ion, Start date: 12/05/16 19:03:00 CDT, Duration: 30 day, Stop date: 01/04/17 19 :02:00 CDT Notes: (Same as: Versed) MEDICATION WASTE Product Size: 5 mgProduct Was mitchell: ___ mg Start Date: 12/05/16 Stop Date: 12/05/16 Status: Discontinued midazolam 2 mg, 2 mL, Route: IVP, Drug form: INJ, Q2H, Dosing Weight 77.273, kg, PRN Sedat ion, Start date: 12/06/16 5:40:00 CDT, Duration: 30 day, Stop date: 01/05/17 5:3 9:00 CDT Notes: (Same as: Versed) MEDICATION WASTE Product Size: 2 mgProduct Was mitchell: ___ mg Start Date: 12/06/16 Stop Date: 12/08/16 Status: Discontinued morphine Sulfate 4 mg, Route: IVP, ONCE, Dosing Weight 77.273, kg, Priority: STAT, Start date: 14:47:00 CDT, Stop date: 12/05/16 14:47:00 CDT Start Date: 12/05/16 Stop Date: 12/05/16 Status: Completed niCARdipine 40 mg/ NS 200 ml IV Soln (premix) 40 mg 40 mg, 200 mL, Rate: Titrate, Start Dose: 5 mg/hr, Titration: 2.5 mg/hr every 15 minutes, Goal(s): MAP >65, HR >60 <100, Max Dose: 15 mg/hr, Route: IV, Dosing Weight 77.273 kg, Total Volume: 200, Start date: 12/10/16 1:12:00 CDT, Duration: 30 day, Sto... Notes: Same as: CardeneConcentration: (0.2 mg /1 ml ) Start Date: 12/10/16 Stop Date: 12/10/16 Status: Discontinued nitroglycerin SL Tab 0.4 mg, 1 tab, Route: SL, Drug form: TAB, Q5Min, Dosing Weight 77.273, kg, PRN C hest Pain, Start date: 12/08/16 9:53:00 CDT, Duration: 3 doses or times, Stop da te: Limited # of times Notes: (Same as:Nitroquick, Nitrostat)"Do Not Crush" Sublingual tablet Start Date: 12/08/16 Stop Date: 12/22/16 Status: Discontinued norepinephrine 4 mg/4 ml inj 16 mg + sodium chloride 0.9% INJ 234 mL 16 mg, 16 mL, Rate: Titrate, Start Dose: 0.1 microgram/kg/min, Titration: 0.05 m icrogram/kg/min every 2 - 5 minutes, Goal(s): MAP >=65 mmHg, Max Dose: 1 microgram/kg/min, Route: IV, Dosing Weight 77.273 kg, Total Volume: 250, Start date: 12/05/16 22:... Notes: Not for direct administration - DILUTE. Protect from light. (Same as:Levo phed). Administer by either central venous catheter or peripherally-inserted clyde tral catheter (PICC) line. Start Date: 12/05/16 Stop Date: 12/05/16 Status: Discontinued norepinephrine 4 mg/4 ml inj 16 mg + sodium chloride 0.9% INJ 234 mL 16 mg, 16 mL, Rate: Titrate, Start Dose: 0.1 microgram/kg/min, Titration: 0.05 m icrogram/kg/min every 2 - 5 minutes, Goal(s): MAP >=60 mmHg, Max Dose: 1 microgram/kg/min, Route: IV, Dosing Weight 77.273 kg, Total Volume: 250, Start date: 12/05/16 23:... Notes: Not for direct administration - DILUTE. Protect from light. (Same as:Levo phed). Administer by either central venous catheter or peripherally-inserted clyde tral catheter (PICC) line. Start Date: 12/05/16 Stop Date: 12/08/16 Status: Discontinued norepinephrine 4 mg/4 ml inj 8 mg + sodium chloride 0.9% INJ 242 mL 8 mg, 8 mL, Rate: Titrate, Start Dose: 0.2 microgram/kg/min, Titration: 0.05 boom rogram/kg/min every 2 - 5 minutes, Goal(s): MAP >=65 mmHg, Max Dose: 1 microgram/kg/min, Route: IV, Dosing Weight 77.273 kg, Total Volume: 250, Start date: 12/05/16 20:05... Notes: Not for direct administration - DILUTE. Protect from light. (Same as:Levo phed). Administer by either central venous catheter or peripherally-inserted clyde tral catheter (PICC) line. Start Date: 12/05/16 Stop Date: 12/05/16 Status: Discontinued NS (Bolus) IV 500 mL, 500 ml/hr, Infuse Over: 1 hr, Route: IV, 500, Drug form: INJ, ONCE, Prio rity: STAT, Dosing Weight 77.273 kg, Start date: 12/07/16 9:55:00 CDT, Duration: 1 doses or times, Stop date: 12/07/16 9:55:00 CDT Start Date: 12/07/16 Stop Date: 12/07/16 Status: Completed NS (Bolus) IV 500 mL, 500 ml/hr, Infuse Over: 1 hr, Route: IV, 500, Drug form: INJ, ONCE, Prio rity: STAT, Dosing Weight 77.273 kg, Start date: 12/06/16 7:36:00 CDT, Duration: 1 doses or times, Stop date: 12/06/16 7:36:00 CDT Start Date: 12/06/16 Stop Date: 12/06/16 Status: Completed nystatin topical 100,000 units/g powder 1 appl, Route: TOP, PRN, Drug form: PWDR, PRN For Fungal Prophylaxis, Start date : 12/05/16 18:53:00 CDT, Duration: 30 day, Stop date: 01/04/17 18:52:00 CDT Notes: (Same as:Mycostatin, Nilstat) For external use only. Start Date: 12/05/16 Stop Date: 12/12/16 Status: Discontinued ocular lubricant 1 appl, Route: BOTH EYES, Q6H, Drug form: OINT, Start date: 12/06/16 0:00:00 CDT , Duration: 30 day, Stop date: 01/04/17 18:00:00 CDT Notes: (Same as: Lacri-Lube, Duratears Naturale, Artificial Tears, and Tears Aga in ) Start Date: 12/06/16 Stop Date: 12/11/16 Status: Discontinued ondansetron 4 mg, Route: IVP, Drug form: INJ, ONCE, Dosing Weight 77.273, kg, Priority: STAT , Start date: 12/05/16 14:47:00 CDT, Stop date: 12/05/16 14:47:00 CDT Start Date: 12/05/16 Stop Date: 12/05/16 Status: Completed pantoprazole 40 mg, Route: IVP, Drug form: INJ, Daily, Dosing Weight 77.273, kg, Start date: 12/06/16 9:00:00 CDT, Duration: 30 day, Stop date: 01/04/17 9:00:00 CDT Notes: For IV push reconstitute with 10 ml 0.9% sodium chloride and push over 2 minutes. (Same as: Protonix) Start Date: 12/06/16 Stop Date: 12/07/16 Status: Discontinued physiological irrigating solution 5,000 mL, Route: DIALYSIS, Dialysis PRN, Irrigation Site: Groin, Right, "For Irr igation Only", Start date: 12/05/16 17:24:00 CDT, Duration: 30 day, Stop date: 0 01/04/17 17:23:00 CDT Notes: NxStage [id number] ingredients in bag Na 140meq/L; K 2meq/L; HCO 35meq/L; Ca 3meq/L; Magnesium 1meq/L; CL 111meq/L; Glucose 100mg/dL; "Break seal Between compartments and mix before hanging" Start Date: 12/05/16 Stop Date: 12/12/16 Status: Discontinued physiological irrigating solution 5000 mL 5,000 mL, Route: DIALYSIS, Irrigation Site: Groin, Right, 3,500 ml/hr, 1.4 hr, T otal Volume: 5,000 mL, "For Irrigation Only", Start date: 12/05/16 17:02:00 CDT, Duration: 30 day, Stop date: 01/04/17 17:01:00 CDT Start Date: 12/05/16 Stop Date: 12/05/16 Status: Deleted Plavix 75 mg, 1 tab, Route: PO, Drug form: TAB, Daily, Dosing Weight 77.273, kg, Start date: 12/06/16 9:00:00 CDT, Duration: 30 day, Stop date: 01/04/17 9:00:00 CDT Notes: (Same As: Plavix) Start Date: 12/06/16 Stop Date: 12/05/16 Status: Canceled potassium chloride 20 mEq, Route: NJ, Drug form: LIQ, PRN, Dosing Weight 77.273, kg, PRN Abnormal L ab Result, Start date: 12/10/16 1:38:00 CDT, Duration: 30 day, Stop date: 1:37:00 CDT, FOR ICU USE ONLY Start Date: 12/10/16 Stop Date: 12/10/16 Status: Discontinued potassium chloride 20 mEq, Route: PO, Drug form: ERTAB, PRN, Dosing Weight 77.273, kg, PRN Abnormal Lab Result, Start date: 12/10/16 1:38:00 CDT, Duration: 30 day, Stop date: 12/26 11/11 1:37:00 CDT, FOR ICU USE ONLY Start Date: 12/10/16 Stop Date: 12/10/16 Status: Discontinued potassium chloride 10 mEq, Route: IVPB, PRN, Dosing Weight 77.273, kg, PRN Abnormal Lab Result, Via peripheral line, Start date: 12/10/16 1:38:00 CDT, Duration: 30 day, Stop date: 01/09/17 1:37:00 CDT, FOR ICU USE ONLY Start Date: 12/10/16 Stop Date: 12/10/16 Status: Discontinued potassium chloride 20 mEq, Route: IVPB, PRN, Dosing Weight 77.273, kg, PRN Abnormal Lab Result, Via central line, Start date: 12/10/16 1:38:00 CDT, Duration: 30 day, Stop date: 1:37:00 CDT, FOR ICU USE ONLY Start Date: 12/10/16 Stop Date: 12/10/16 Status: Discontinued potassium chloride 20 mEq, 100 mL, Route: IVPB, Drug form: INJ, PRN, Dosing Weight 77.273, kg, PRN Abnormal Lab Result, Via central line, Start date: 12/11/16 2:10:00 CDT, Duratio n: 30 day, Stop date: 01/10/17 2:09:00 CDT, FOR ICU USE ONLY Notes: (Same as: KCL) Infuse no faster than 10 mEq/hr if given peripherally. Start Date: 12/11/16 Stop Date: 12/12/16 Status: Discontinued potassium chloride 10 mEq, 50 mL, Route: IVPB, Drug form: INJ, PRN, Dosing Weight 77.273, kg, PRN A bnormal Lab Result, Via peripheral line, Start date: 12/11/16 2:10:00 CDT, Durat ion: 30 day, Stop date: 01/10/17 2:09:00 CDT, FOR ICU USE ONLY Notes: (Same as: KCL) Infuse over 2 hours. Start Date: 12/11/16 Stop Date: 12/12/16 Status: Discontinued potassium chloride 20 mEq, 15 mL, Route: NJ, Drug form: LIQ, PRN, Dosing Weight 77.273, kg, PRN Abn ormal Lab Result, Start date: 12/11/16 2:10:00 CDT, Duration: 30 day, Stop date: 01/10/17 2:09:00 CDT, FOR ICU USE ONLY Notes: (Same as: Potassium Chloride) Start Date: 12/11/16 Stop Date: 12/12/16 Status: Discontinued potassium chloride 20 mEq, 1 tab, Route: PO, Drug form: ERTAB, PRN, Dosing Weight 77.273, kg, PRN A bnormal Lab Result, Start date: 12/11/16 2:10:00 CDT, Duration: 30 day, Stop vincenzo e: 01/10/17 2:09:00 CDT, FOR ICU USE ONLY Notes: (Same as: K-Dur 20)"Do Not Crush" With food and full glass of water Start Date: 12/11/16 Stop Date: 12/12/16 Status: Discontinued potassium chloride 20 mEq, 100 mL, Route: IVPB, Drug form: INJ, PRN, Dosing Weight 77.273, kg, PRN Abnormal Lab Result, Via central line, Start date: 12/07/16 16:17:00 CDT, Durati on: 30 day, Stop date: 01/06/17 16:16:00 CDT Notes: (Same as: KCL) Infuse no faster than 10 mEq/hr if given peripherally. Start Date: 12/07/16 Stop Date: 12/11/16 Status: Discontinued potassium chloride 20 mEq, 15 mL, Route: PO, Drug form: LIQ, ONCE, Dosing Weight 77.273, kg, Start date: 12/09/16 4:00:00 CDT, Stop date: 12/09/16 4:00:00 CDT Notes: (Same as: Potassium Chloride) Start Date: 12/09/16 Stop Date: 12/09/16 Status: Completed potassium chloride 20 mEq oral tablet, extended release 20 mEq, 1 tab, Route: PO, Drug form: ERTAB, ONCE, Dosing Weight 77.273, kg, Star t date: 12/09/16 3:31:00 CDT, Stop date: 12/09/16 3:31:00 CDT Notes: (Same as: K-Dur 20)"Do Not Crush" With food and full glass of water Start Date: 12/09/16 Stop Date: 12/09/16 Status: Deleted potassium chloride 20 mEq/15 mL oral liquid 40 mEq, 30 mL, Route: PO, Drug form: LIQ, ONCE, Dosing Weight 77.273, kg, Start date: 12/11/16 0:54:00 CDT, Stop date: 12/11/16 0:54:00 CDT Start Date: 12/11/16 Stop Date: 12/11/16 Status: Discontinued potassium chloride 20 mEq/15 mL oral liquid 20 mEq, 15 mL, Route: PO, Drug form: LIQ, ONCE, Dosing Weight 77.273, kg, Start date: 12/11/16 0:53:00 CDT, Stop date: 12/11/16 0:53:00 CDT Notes: (Same as: Potassium Chloride) Start Date: 12/11/16 Stop Date: 12/11/16 Status: Completed potassium phosphate 30 mmol, Route: IVPB, PRN, Dosing Weight 77.273, kg, PRN Abnormal Lab Result, St art date: 12/10/16 1:38:00 CDT, Duration: 30 day, Stop date: 01/09/17 1:37:00 CD T, FOR ICU USE ONLY Start Date: 12/10/16 Stop Date: 12/10/16 Status: Discontinued potassium phosphate 45 mmol, Route: IVPB, PRN, Dosing Weight 77.273, kg, PRN Abnormal Lab Result, St art date: 12/10/16 1:38:00 CDT, Duration: 30 day, Stop date: 01/09/17 1:37:00 CD T, FOR ICU USE ONLY Start Date: 12/10/16 Stop Date: 12/10/16 Status: Discontinued potassium phosphate 15 mmol, Route: IVPB, PRN, Dosing Weight 77.273, kg, PRN Abnormal Lab Result, St art date: 12/10/16 1:38:00 CDT, Duration: 30 day, Stop date: 01/09/17 1:37:00 CD T, FOR ICU USE ONLY Start Date: 12/10/16 Stop Date: 12/10/16 Status: Discontinued potassium phosphate + sodium chloride 0.9% INJ 250 mL 21 mmol, 7 mL, Route: IVPB, ONCE, Dosing Weight 77.273, kg, Start date: 12/10/16 4:35:00 CDT, Stop date: 12/10/16 4:35:00 CDT Notes: (Same as: K Phosphate.) 1 mMol phoshate has 1.47 mEq potassium Infuse o rj 4 hours Start Date: 12/10/16 Stop Date: 12/10/16 Status: Completed potassium phosphate + sodium chloride 0.9% INJ 250 mL 45 mmol, 15 mL, Route: IVPB, PRN, Dosing Weight 77.273, kg, PRN Abnormal Lab Res ult, Start date: 12/11/16 2:10:00 CDT, Duration: 30 day, Stop date: 01/10/17 2:0 9:00 CDT, FOR ICU USE ONLY Notes: (Same as: K Phosphate.) 1 mMol phoshate has 1.47 mEq potassium Infuse o rj 4 hours Start Date: 12/11/16 Stop Date: 12/12/16 Status: Discontinued potassium phosphate + sodium chloride 0.9% INJ 250 mL 15 mmol, 5 mL, Route: IVPB, PRN, Dosing Weight 77.273, kg, PRN Abnormal Lab Resu lt, Start date: 12/11/16 2:10:00 CDT, Duration: 30 day, Stop date: 01/10/17 2:09 :00 CDT, FOR ICU USE ONLY Notes: (Same as: K Phosphate.) 1 mMol phoshate has 1.47 mEq potassium Infuse o rj 4 hours Start Date: 12/11/16 Stop Date: 12/12/16 Status: Discontinued potassium phosphate + sodium chloride 0.9% INJ 250 mL 30 mmol, 10 mL, Route: IVPB, PRN, Dosing Weight 77.273, kg, PRN Abnormal Lab Res ult, Start date: 12/11/16 2:10:00 CDT, Duration: 30 day, Stop date: 01/10/17 2:0 9:00 CDT, FOR ICU USE ONLY Notes: (Same as: K Phosphate.) 1 mMol phoshate has 1.47 mEq potassium Infuse o rj 4 hours Start Date: 12/11/16 Stop Date: 12/12/16 Status: Discontinued potassium phosphate-sodium phosphate 250 mg-280 mg-160 mg oral powder for recons titution 2 pkt, Route: PO, Dosing Weight 77.273, kg, PRN, PRN Abnormal Lab Result, FOR IC U USE ONLY, Start date: 12/10/16 1:38:00 CDT, Duration: 30 day, Stop date: 01/09 1:37:00 CDT Start Date: 12/10/16 Stop Date: 12/10/16 Status: Discontinued potassium phosphate-sodium phosphate 250 mg-280 mg-160 mg oral powder for recons titution 2 pkt, Route: PO, Drug Form: PDR/REC, Dosing Weight 77.273, kg, PRN, PRN Abnorma l Lab Result, FOR ICU USE ONLY, Start date: 12/11/16 2:10:00 CDT, Duration: 30 d ay, Stop date: 01/10/17 2:09:00 CDT Notes: (Same as: Phos-NaK) Each 1.5 gm pkt has 250mg phosphorous. Mix w/2.5oz w ater and stir. Start Date: 12/11/16 Stop Date: 12/12/16 Status: Discontinued propofol 30 mg, Route: IV, Drug form: INJ, ONCE, Dosing Weight 77.273, kg, Start date: 16:10:00 CDT, Stop date: 12/05/16 16:10:00 CDT, Loading Dose; Pediatric D osing Start Date: 12/05/16 Stop Date: 12/05/16 Status: Completed Rocephin 1 gm, Route: IVPB, Drug form: PDR/INJ, [id number], Dosing Weight 77.273, kg, Start date: 12/12/16 5:00:00 CDT, Duration: 7 day, Stop date: 12/18/16 5:00:00 CDT, AB X Indication: Urinary Tract Infection Notes: (Same As: Rocephin).Use with 100 mL NS and infuse over 30 min MEDICA TION WASTE Product Size: 1000 mgProduct Wasted: ___ mg Start Date: 12/12/16 Stop Date: 12/18/16 Status: Completed Saline Flush 0.9% 10 ml, Route: IVP, Drug Form: INJ, Dosing Weight 77.273, kg, PRN, PRN Line Flush , Start date: 12/05/16 18:53:00 CDT, Duration: 30 day, Stop date: 01/04/17 18:52 :00 CDT Notes: (Same as: BD Posiflush) Start Date: 12/05/16 Stop Date: 12/19/16 Status: Discontinued Saline Flush 0.9% 10 ml, Route: IVP, Drug Form: INJ, Dosing Weight 77.273, kg, Q12H, Start date: 0 12/05/16 21:00:00 CDT, Duration: 30 day, Stop date: 01/04/17 9:00:00 CDT Notes: (Same as: BD Posiflush) Start Date: 12/05/16 Stop Date: 12/19/16 Status: Discontinued senna 8.8 mg, 5 mL, Route: PO, Drug form: SYRP, Q12H, Start date: 12/06/16 21:00:00 CD T, Duration: 30 day, Stop date: 01/05/17 9:00:00 CDT Notes: (Same as: Senokot) Start Date: 12/06/16 Stop Date: 12/22/16 Status: Discontinued senna 8.6 mg=, PO, Q12H, PRN as needed for constipation, 0 Refill(s) Start Date: 12/22/16 Status: Ordered sodium bicarbonate 150 mEq + D5W 1,000 mL 1,000 mL, Rate: 150 ml/hr, Infuse over: 7.7 hr, Route: IV, Dosing Weight 77.273 kg, Total Volume: 1,150 mL, Start date: 12/05/16 22:39:00 CDT, Duration: 30 day, Stop date: 01/04/17 22:38:00 CDT Start Date: 12/05/16 Stop Date: 12/06/16 Status: Discontinued sodium bicarbonate 150 mEq + D5W 1,000 mL 1,000 mL, Rate: 999 ml/hr, Infuse over: 1.2 hr, Route: IV, Dosing Weight 77.273 kg, Total Volume: 1,150 mL, Start date: 12/05/16 20:37:00 CDT, Duration: 30 day, Stop date: 01/04/17 20:36:00 CDT Start Date: 12/05/16 Stop Date: 12/06/16 Status: Discontinued sodium bicarbonate 150 mEq + D5W 1,000 mL 1,000 mL, Rate: 150 ml/hr, Infuse over: 7.7 hr, Route: IV, Dosing Weight 77.273 kg, Total Volume: 1,150 mL, Start date: 12/05/16 14:16:00 CDT, Duration: 30 day, Stop date: 01/04/17 14:15:00 CDT Start Date: 12/05/16 Stop Date: 12/05/16 Status: Discontinued sodium bicarbonate 8.4% 100 mEq, 100 mL, Route: IVP, Drug Form: SOLN, Dosing Weight 77.273, kg, ONCE, St art date: 12/05/16 20:03:00 CDT, Stop date: 12/05/16 20:03:00 CDT Notes: For oral use only. Start Date: 12/05/16 Stop Date: 12/05/16 Status: Completed sodium bicarbonate 8.4% 100 mEq, 100 mL, Route: IVP, Drug Form: INJ, Dosing Weight 77.273, kg, ONCE, Sta rt date: 12/05/16 20:14:00 CDT, Stop date: 12/05/16 20:14:00 CDT Notes: (sodium bicarb 8.4% (1 mEq/ml) 50 ml syringe) Start Date: 12/05/16 Stop Date: 12/05/16 Status: Completed Sodium Chloride 0.9% (Bolus) IV 1,000 mL, Infuse Over: 1 hr, Route: IV, ONCE, Priority: STAT, Dosing Weight 77.2 73 kg, Start date: 12/05/16 13:24:00 CDT, Duration: 1 doses or times, Stop date: 12/05/16 13:24:00 CDT Start Date: 12/05/16 Stop Date: 12/05/16 Status: Completed Sodium Chloride 0.9% (Bolus) IV 1,000 mL, Infuse Over: 1 hr, Route: IV, ONCE, Priority: STAT, Dosing Weight 77.2 73 kg, Start date: 12/05/16 13:27:00 CDT, Duration: 1 doses or times, Stop date: 12/05/16 13:27:00 CDT Start Date: 12/05/16 Stop Date: 12/05/16 Status: Completed sodium chloride 0.9% INJ 250 mL 250 mL, Rate: call box wirer for use with blood product administration, Dosing Weight 7 7.273, kg, Route: IV, Total Volume: 250, Start Date: 12/06/16 11:40:00 CDT, Dura tion: 30 day, Stop date: 01/05/17 11:39:00 CDT, Replace Every: 24 hr Start Date: 12/06/16 Stop Date: 12/09/16 Status: Discontinued sodium chloride 0.9% INJ 250 mL 250 mL, Rate: Team Psychologist for use with blood product administration., Dosing Weight 77.273, kg, Route: IV, Total Volume: 250, Priority: Routine, Start Date: 7 10:22:00 CDT, Duration: 30 day, Stop date: 01/05/17 10:21:00 CDT, Replace Ever y: 24 hr Start Date: 12/06/16 Stop Date: 12/12/16 Status: Discontinued sodium chloride 0.9% INJ 250 mL 250 mL, Rate: call box wirer for use with blood product administration, Dosing Weight 7 7.273, kg, Route: IV, Total Volume: 250, Start Date: 12/05/16 22:07:00 CDT, Dura tion: 30 day, Stop date: 01/04/17 22:06:00 CDT, Replace Every: 24 hr Start Date: 12/05/16 Stop Date: 12/06/16 Status: Discontinued sodium chloride 0.9% INJ 250 mL 250 mL, Rate: call box wirer for use with blood product administration, Dosing Weight 7 7.273, kg, Route: IV, Total Volume: 250, Start Date: 12/05/16 20:30:00 CDT, Dura tion: 30 day, Stop date: 01/04/17 20:29:00 CDT, Replace Every: 24 hr Start Date: 12/05/16 Stop Date: 12/06/16 Status: Discontinued Sodium Chloride, Inhalation 3% solution 3 mL, Route: INHALATION, Drug Form: SOLN, Dosing Weight 77.273, kg, RQ6H, PRN Re spiratory Protocol, Start date: 12/09/16 9:48:00 CDT, Duration: 30 day, Stop vincenzo e: 01/08/17 9:47:00 CDT Notes: SEE RT DOCUMENTATION (Same as: Hypertonic Saline 3%, Inhalation) Start Date: 12/09/16 Stop Date: 12/22/16 Status: Discontinued Sodium Chloride, Inhalation 3% solution 0.702 gm=3 mL, INHALATION, RQ6H, PRN Respiratory Protocol, 0 Refill(s) Start Date: 12/22/16 Status: Ordered Sodium Chloride, Inhalation 3% solution 3 mL, Route: INHALATION, Drug Form: SOLN, Dosing Weight 77.273, kg, PRN, PRN Res piratory Protocol, Start date: 12/09/16 9:03:00 CDT, Duration: 30 day, Stop date : 01/08/17 9:02:00 CDT Notes: SEE RT DOCUMENTATION (Same as: Hypertonic Saline 3%, Inhalation) Start Date: 12/09/16 Stop Date: 12/09/16 Status: Discontinued sodium phosphate 30 mmol, Route: IVPB, PRN, Dosing Weight 77.273, kg, PRN Abnormal Lab Result, St art date: 12/10/16 1:38:00 CDT, Duration: 30 day, Stop date: 01/09/17 1:37:00 CD T, FOR ICU USE ONLY Start Date: 12/10/16 Stop Date: 12/10/16 Status: Discontinued sodium phosphate 15 mmol, Route: IVPB, PRN, Dosing Weight 77.273, kg, PRN Abnormal Lab Result, St art date: 12/10/16 1:38:00 CDT, Duration: 30 day, Stop date: 01/09/17 1:37:00 CD T, FOR ICU USE ONLY Start Date: 12/10/16 Stop Date: 12/10/16 Status: Discontinued sodium phosphate 45 mmol, Route: IVPB, PRN, Dosing Weight 77.273, kg, PRN Abnormal Lab Result, St art date: 12/10/16 1:38:00 CDT, Duration: 30 day, Stop date: 01/09/17 1:37:00 CD T, FOR ICU USE ONLY Start Date: 12/10/16 Stop Date: 12/10/16 Status: Discontinued sodium phosphate + sodium chloride 0.9% INJ 250 mL 30 mmol, 10 mL, Route: IVPB, PRN, Dosing Weight 77.273, kg, PRN Abnormal Lab Res ult, Start date: 12/11/16 2:10:00 CDT, Duration: 30 day, Stop date: 01/10/17 2:0 9:00 CDT, FOR ICU USE ONLY Start Date: 12/11/16 Stop Date: 12/12/16 Status: Discontinued sodium phosphate + sodium chloride 0.9% INJ 250 mL 15 mmol, 5 mL, Route: IVPB, PRN, Dosing Weight 77.273, kg, PRN Abnormal Lab Resu lt, Start date: 12/11/16 2:10:00 CDT, Duration: 30 day, Stop date: 01/10/17 2:09 :00 CDT, FOR ICU USE ONLY Start Date: 12/11/16 Stop Date: 12/12/16 Status: Discontinued sodium phosphate + sodium chloride 0.9% INJ 250 mL 45 mmol, 15 mL, Route: IVPB, PRN, Dosing Weight 77.273, kg, PRN Abnormal Lab Res ult, Start date: 12/11/16 2:10:00 CDT, Duration: 30 day, Stop date: 01/10/17 2:0 9:00 CDT, FOR ICU USE ONLY Start Date: 12/11/16 Stop Date: 12/12/16 Status: Discontinued sodium phosphate + sodium chloride 0.9% INJ 250 mL 30 mmol, 10 mL, Route: IVPB, PRN, Dosing Weight 77.273, kg, PRN Abnormal Lab Res ult, Via central line, Start date: 12/07/16 16:17:00 CDT, Duration: 30 day, Stop date: 01/06/17 16:16:00 CDT Start Date: 12/07/16 Stop Date: 12/11/16 Status: Discontinued sodium phosphate + sodium chloride 0.9% INJ 250 mL 15 mmol, 5 mL, Route: IVPB, PRN, Dosing Weight 77.273, kg, PRN Abnormal Lab Resu lt, Via central line, Start date: 12/07/16 16:17:00 CDT, Duration: 30 day, Stop date: 01/06/17 16:16:00 CDT Start Date: 12/07/16 Stop Date: 12/11/16 Status: Discontinued sodium phosphate + sodium chloride 0.9% INJ 250 mL 30 mmol, 10 mL, Route: IVPB, PRN, Dosing Weight 77.273, kg, PRN Abnormal Lab Res ult, Via central line, Start date: 12/05/16 17:02:00 CDT, Duration: 30 day, Stop date: 01/04/17 17:01:00 CDT Start Date: 12/05/16 Stop Date: 12/07/16 Status: Discontinued sodium phosphate + sodium chloride 0.9% INJ 250 mL 15 mmol, 5 mL, Route: IVPB, PRN, Dosing Weight 77.273, kg, PRN Abnormal Lab Resu lt, Via central line, Start date: 12/05/16 17:02:00 CDT, Duration: 30 day, Stop date: 01/04/17 17:01:00 CDT Start Date: 12/05/16 Stop Date: 12/07/16 Status: Discontinued sodium phosphate + sodium chloride 0.9% INJ 250 mL 30 mmol, 10 mL, Route: IVPB, Q12H, Dosing Weight 77.273, kg, Start date: 7 9:00:00 CDT, Duration: 3 day, Stop date: 12/14/16 21:00:00 CDT Start Date: 12/12/16 Stop Date: 12/13/16 Status: Discontinued Tylenol 650 mg, 2 tab, Route: PO, Drug form: TAB, Q6H, Dosing Weight 77.273, kg, PRN For Temp > 100.4 F, Start date: 12/10/16 6:02:00 CDT, Duration: 30 day, Stop date: 01/09/17 6:01:00 CDT Notes: Do not exceed 4 gm/day. (Same as: Tylenol) Start Date: 12/10/16 Stop Date: 12/22/16 Status: Discontinued vasopressin 20 unit/1 ml INJ 40 unit + sodium chloride 0.9% INJ 98 mL 40 unit, 2 mL, Rate: 0.03 unit/min, Start Dose: 0.03 unit/min, Titration: DO NOT TITRATE, Goal(s): MAP >=65 mmHg, Max Dose: 0.03 unit/min, Route: IV, Dosing Weight 77.273 kg, Total Volume: 100 For Sepsis, Start date: 12/06/16 1:40:00 CDT, Duration:... Notes: (Same As: Pitressin, Vasostrict) Start Date: 12/06/16 Stop Date: 12/08/16 Status: Discontinued Versed 2 mg, 2 mL, Route: IVP, Drug form: INJ, PRN, Dosing Weight 77.273, kg, PRN Agita tion, Start date: 12/07/16 18:42:00 CDT, Duration: 30 day, Stop date: 01/06/17 1 8:41:00 CDT Notes: (Same as: Versed) MEDICATION WASTE Product Size: 2 mgProduct Was mitchell: _0__ mg Start Date: 12/07/16 Stop Date: 12/08/16 Status: Discontinued Versed 1 mg, 1 mL, Route: IVP, Drug form: INJ, ONCE, Dosing Weight 77.273, kg, PRN Othe r -See Comment, Start date: 12/05/16 20:15:00 CDT Notes: (Same as: Versed) MEDICATION WASTE Product Size: 2 mgProduct Was mitchell: 0 mg Start Date: 12/05/16 Stop Date: 12/08/16 Status: Discontinued Visipaque 320mg/ml 60 mL, Route: IVP, Drug Form: SOLN, Dosing Weight 77.273, kg, ONCALL, STAT, Star t date: 12/16/16 19:13:00 CDT, Duration: 1 doses or times, Dose=2.2ml/kg, Max d [id number] -- "To be infused by Radiology Staff ONLY" Start Date: 12/16/16 Stop Date: 12/16/16 Status: Completed Visipaque 320mg/ml 100 mL, Route: IVP, Drug Form: SOLN, Dosing Weight 77.273, kg, ONCALL, STAT, Sta rt date: 12/05/16 18:28:00 CDT, Duration: 1 doses or times, Dose=2.2ml/kg, Max [id number] -- "To be infused by Radiology Staff ONLY" Start Date: 12/05/16 Stop Date: 12/05/16 Status: Completed Visipaque 320mg/ml 100 mL, Route: IVP, Drug Form: SOLN, Dosing Weight 77.273, kg, ONCALL, STAT, Sta rt date: 12/16/16 19:34:00 CDT, Duration: 1 doses or times, Dose=2.2ml/kg, Max [id number] -- "To be infused by Radiology Staff ONLY" Start Date: 12/16/16 Stop Date: 12/16/16 Status: Discontinued Results BLOOD BANK RESULTS 1 2 3 Most recent to oldest [Reference Range]: O POS *Unknown* (12/05/16 8:42 PM) ABO/Rh Negative (12/05/16 8:42 PM) Antibody Scrn Product available (12/06/16 11:40 AM) FFP product Product available (12/06/16 11:40 AM) Product available (12/06/16 10:22 AM) Product available (12/05/16 8:30 PM) RBC product ELECTROLYTES 1 2 3 Most recent to oldest [Reference Range]: 137 mEq/L (12/21/16 2:50 AM) 137 mEq/L (12/20/16 2:29 AM) 142 mEq/L (12/19/16 8:37 AM) Sodium Lvl [135-145 mEq/L] 4.6 mEq/L (12/21/16 2:50 AM) 4.6 mEq/L (12/20/16 2:29 AM) 4.6 mEq/L (12/19/16 8:37 AM) Potassium Lvl [3.5-5.1 mEq/L] 102 mEq/L (12/21/16 2:50 AM) 104 mEq/L (12/20/16 2:29 AM) 107 mEq/L (12/19/16 8:37 AM) Chloride Lvl [95-109 mEq/L] 28 mEq/L (12/21/16 2:50 AM) 25 mEq/L (12/20/16 2:29 AM) 30 mEq/L (12/19/16 8:37 AM) CO2 [24-32 mEq/L] 11.6 mEq/L (12/21/16 2:50 AM) 12.6 mEq/L (12/20/16 2:29 AM) 9.6 mEq/L *LOW* (12/19/16 8:37 AM) AGAP [10.0-20.0 mEq/L] CHEM PANEL 1 2 3 Most recent to oldest [Reference Range]: 1.32 mg/dL (12/21/16 2:50 AM) 1.36 mg/dL (12/20/16 2:29 AM) 1.40 mg/dL (12/19/16 8:37 AM) Creatinine Lvl [0.50-1.40 mg/dL] 54 mL/min/1.73m2 1 *NA* (12/21/16 2:50 AM) 52 mL/min/1.73m2 2 *NA* (12/20/16 2:29 AM) 50 mL/min/1.73m2 3 *NA* (12/19/16 8:37 AM) eGFR 34 mg/dL *HI* (12/21/16 2:50 AM) 33 mg/dL *HI* (12/20/16 2:29 AM) 37 mg/dL *HI* (12/19/16 8:37 AM) BUN [7-22 mg/dL] 24 (12/20/16 2:29 AM) 26 *HI* (12/19/16 8:37 AM) 26 *HI* (12/18/16 1:03 AM) B/C Ratio [6-25] 86 mg/dL (12/21/16 2:50 AM) 238 mg/dL *HI* (12/20/16 2:29 AM) 169 mg/dL *HI* (12/19/16 8:37 AM) Glucose Lvl [70-99 mg/dL] 6.1 g/dL *LOW* (12/20/16 2:29 AM) 6.2 g/dL *LOW* (12/19/16 8:37 AM) 6.5 g/dL (12/18/16 1:03 AM) Total Protein [6.4-8.4 g/dL] 2.2 g/dL *LOW* (12/20/16 2:29 AM) 2.2 g/dL *LOW* (12/19/16 8:37 AM) 2.2 g/dL *LOW* (12/18/16 1:03 AM) Albumin Lvl [3.5-5.0 g/dL] 3.9 g/dL (12/20/16 2:29 AM) 4.0 g/dL (12/19/16 8:37 AM) 4.3 g/dL *HI* (12/18/16 1:03 AM) Globulin [2.7-4.2 g/dL] 0.6 *LOW* (12/20/16 2:29 AM) 0.6 *LOW* (12/19/16 8:37 AM) 0.5 *LOW* (12/18/16 1:03 AM) A/G Ratio [0.7-1.6] 8.1 mg/dL *LOW* (12/21/16 2:50 AM) 7.9 mg/dL *LOW* (12/20/16 2:29 AM) 7.7 mg/dL *LOW* (12/19/16 8:37 AM) Calcium Lvl [8.5-10.5 mg/dL] 2.8 mg/dL (12/12/16 12:51 PM) 0.5 mg/dL 4 *CRIT* (12/11/16 6:41 PM) 1.2 mg/dL 5 *CRIT* (12/11/16 12:24 AM) Phosphorus [2.5-4.5 mg/dL] 2.2 mg/dL (12/11/16 12:24 AM) 2.4 mg/dL (12/10/16 12:03 AM) 2.5 mg/dL *HI* (12/09/16 12:45 AM) Magnesium Lvl [1.8-2.4 mg/dL] 18 unit/L (12/20/16 2:29 AM) 18 unit/L (12/19/16 8:37 AM) 21 unit/L (12/18/16 1:03 AM) ALT [0-65 unit/L] 36 unit/L (12/20/16 2:29 AM) 42 unit/L *HI* (12/19/16 8:37 AM) 37 unit/L (12/18/16 1:03 AM) AST [0-37 unit/L] 98 unit/L (12/20/16 2:29 AM) 98 unit/L (12/19/16 8:37 AM) 98 unit/L (12/18/16 1:03 AM) Alk Phos [39-136 unit/L] 0.4 mg/dL (12/20/16 2:29 AM) 0.4 mg/dL (12/19/16 8:37 AM) 0.6 mg/dL (12/18/16 1:03 AM) Bili Total [0.2-1.3 mg/dL] 0.1 mg/dL (12/05/16 7:55 PM) Bili Direct [0.0-0.3 mg/dL] 0.2 mg/dL (12/05/16 7:55 PM) Bili Indirect [0.0-1.0 mg/dL] 234 unit/L (12/05/16 7:55 PM) 195 unit/L (12/05/16 12:49 PM) Lipase Lvl [73-393 unit/L] 1.0 mMol/L (12/15/16 9:55 AM) 1.1 mMol/L (12/10/16 2:08 AM) 5.9 mMol/L 6 *CRIT* (12/06/16 9:06 AM) Lactic Acid Lvl [0.5-2.2 mMol/L] 17.1 mmol/L 7 *CRIT* (12/05/16 5:46 PM) 16.1 mmol/L 8 *CRIT* (12/05/16 1:54 PM) Lactic Acid WB [0.5-2.2 mmol/L] 0.52 ng/mL *HI* (12/05/16 7:55 PM) Procalcitonin Lvl [0.00-0.10 ng/mL] 1Result Comment: The eGFR is calculated using the [...] from the National Kid[employer] Education Program ( NKDEP) which additionally recommends that when the eGFR is used in patients with extremes of body mass index for purposes of drug dosing, the eGFR should be mul tiplied by the estimated BMI. 2Result Comment: The eGFR is calculated using the [...] from the National Kid[employer] Education Program ( NKDEP) which additionally recommends that when the eGFR is used in patients with extremes of body mass index for purposes of drug dosing, the eGFR should be mul tiplied by the estimated BMI. 3Result Comment: The eGFR is calculated using the [...] from the National Kid[employer] Education Program ( NKDEP) which additionally recommends that when the eGFR is used in patients with extremes of body mass index for purposes of drug dosing, the eGFR should be mul tiplied by the estimated BMI. 4Result Comment: Critical Result(s) called to Tristan Ortiz at 12/11/2016 19:44 byJP. Read back OK. 5Result Comment: Critical Result(s) called to Baltazar MAY at 12/11/2016 01:32 byJw. Read back OK. 6Result Comment: Critical Result(s) called to Kenna Bates at 12/06/2016 10:00 by melani. Read back OK. 7Result Comment: Critical Result(s) called to Dr. Kenzie Spain at 12/05/2016 18:11 byJP. Read back OK. 8Result Comment: Critical Result(s) called to Thao Jean at 12/05/2016 14:16 by Karsten. Read back OK. CARDIAC ENZYMES 1 2 3 Most recent to oldest [Reference Range]: 511 unit/L *HI* (12/06/16 2:11 AM) Total CK [12-191 unit/L] 4.55 ng/mL 1 *CRIT* (12/07/16 4:44 PM) 8.52 ng/mL 2 *CRIT* (12/07/16 1:25 AM) 8.64 ng/mL 3 *CRIT* (12/06/16 8:22 PM) Troponin-I [0.00-0.40 ng/mL] 1Result Comment: Critical Result(s) called to at 12/07/2016 17:45 by CINDY. Read back OK. 2Result Comment: Critical Result(s) called to Tal Crowley at 12/07/2016 02:45 byJose Luis. Read back OK. 3Result Comment: Critical Result(s) called to brittney at 12/06/2016 21:57 m by ko. Read back OK. PARATHYROID PROFILE 1 2 3 Most recent to oldest [Reference Range]: 1.06 mMol/L (12/11/16 12:24 AM) 1.03 mMol/L *LOW* (12/10/16 12:03 AM) 1.08 mMol/L (12/09/16 12:44 AM) Ca Ion WB [1.05-1.25 mMol/L] 1.11 mMol/L (12/11/16 12:24 AM) 1.09 mMol/L (12/10/16 12:03 AM) 1.08 mMol/L (12/09/16 12:44 AM) Ca Norm WB [1.05-1.25 mMol/L] URINE CHEM 1 2 3 Most recent to oldest [Reference Range]: 42 mL/min *LOW* (12/09/16 6:13 PM) U12 Cr Clear [97-137 mL/min] 30.30 mg/dL *NA* (12/09/16 6:13 PM) Ur Creat 1.66 *NA* (12/09/16 6:13 PM) BSA Cr Clear 121 lb *NA* (12/09/16 6:13 PM) WT Crcl 69 inch *NA* (12/09/16 6:13 PM) HT Crcl 2121 mL *HI* (12/09/16 6:13 PM) TV CrCl 12H [800-1800 mL] URINE AND STOOL 1 2 3 Most recent to oldest [Reference Range]: Clear (12/15/16 9:55 AM) Marked *ABN* (12/10/16 2:08 AM) Marked *ABN* (12/05/16 10:58 PM) UA Turbidity [Clear] Yellow *NA* (12/15/16 9:55 AM) Light Yellow (12/10/16 2:08 AM) Yellow *NA* (12/05/16 10:58 PM) UA Color [Yellow] 7.5 (12/15/16 9:55 AM) 6.5 (12/10/16 2:08 AM) 6.0 (12/05/16 10:58 PM) UA pH [5.0-8.0] 1.012 (12/15/16 9:55 AM) 1.006 (12/10/16 2:08 AM) 1.012 (12/05/16 10:58 PM) UA Spec Grav [<=1.030] Negative mg/dL *NA* (12/15/16 9:55 AM) >=1000 mg/dL *ABN* (12/10/16 2:08 AM) 30 mg/dL *ABN* (12/05/16 10:58 PM) UA Glucose [Negative mg/dL] Negative (12/15/16 9:55 AM) Moderate *ABN* (12/10/16 2:08 AM) Moderate *ABN* (12/05/16 10:58 PM) UA Blood [Negative] Negative mg/dL *NA* (12/15/16 9:55 AM) 40 mg/dL *ABN* (12/10/16 2:08 AM) UA Ketones [Negative mg/dL] TR *NA* (12/05/16 10:58 PM) UA Ketones 100 mg/dL *ABN* (12/15/16 9:55 AM) 70 mg/dL *ABN* (12/10/16 2:08 AM) >=300 mg/dL *ABN* (12/05/16 10:58 PM) UA Protein [Negative mg/dL] <=1.0 mg/dL *NA* (12/15/16 9:55 AM) <=1.0 mg/dL *NA* (12/10/16 2:08 AM) <=1.0 mg/dL *NA* (12/05/16 10:58 PM) UA Urobilinogen [0.1-1.0 mg/dL] Negative *NA* (12/15/16 9:55 AM) Negative *NA* (12/10/16 2:08 AM) Negative *NA* (12/05/16 10:58 PM) UA Bili [Negative] Small *ABN* (12/15/16 9:55 AM) Large *ABN* (12/10/16 2:08 AM) Large *ABN* (12/05/16 10:58 PM) UA Leuk Est [Negative] Negative (12/15/16 9:55 AM) Negative (12/10/16 2:08 AM) Negative (12/05/16 10:58 PM) UA Nitrite [Negative] 19 /HPF *HI* (12/15/16 9:55 AM) 129 /HPF *HI* (12/10/16 2:08 AM) >182 /HPF *HI* (12/05/16 10:58 PM) UA WBC [0-5 /HPF] <1 /HPF (12/15/16 9:55 AM) 15 /HPF *HI* (12/10/16 2:08 AM) 17 /HPF *HI* (12/05/16 10:58 PM) UA RBC [0-2 /HPF] Occasional /HPF *NA* (12/15/16 9:55 AM) Few /HPF *NA* (12/10/16 2:08 AM) Many /HPF *ABN* (12/05/16 10:58 PM) UA Bacteria [None Seen /HPF] Occasional /LPF *NA* (12/15/16 9:55 AM) UA Sq Epi [Few /LPF] None Seen *NA* (12/10/16 2:08 AM) None Seen *NA* (12/05/16 10:58 PM) UA Sq Epi Moderate /HPF *ABN* (12/10/16 2:08 AM) UA Amorph Georgie [None Seen /HPF] Few /LPF *NA* (12/10/16 2:08 AM) Few /LPF *NA* (12/05/16 10:58 PM) UA Mucus [None Seen /LPF] 74 /LPF *NA* (12/10/16 2:08 AM) UA Gran Cast Occasional /HPF *ABN* (12/15/16 9:55 AM) UA Depue Yeast [None Seen /HPF] Performed *NA* (12/15/16 9:55 AM) Performed (12/05/16 3:04 PM) Micro? IMMUNOLOGY 1 2 3 Most recent to oldest [Reference Range]: Negative *NA* (12/05/16 8:39 PM) HIV Ag/Ab 4th Gen [Negative] HEMATOLOGY 1 2 3 Most recent to oldest [Reference Range]: 9.8 K/CMM (12/21/16 2:50 AM) 9.8 K/CMM (12/20/16 2:29 AM) 11.6 K/CMM *HI* (12/18/16 1:03 AM) WBC [3.7-10.4 K/CMM] 2.80 M/CMM *LOW* (12/21/16 2:50 AM) 2.63 M/CMM *LOW* (12/20/16 2:29 AM) 2.91 M/CMM *LOW* (12/18/16 1:03 AM) RBC [4.70-6.10 M/CMM] 8.6 g/dL *LOW* (12/21/16 2:50 AM) 8.0 g/dL *LOW* (12/20/16 2:29 AM) 8.7 g/dL *LOW* (12/18/16 1:03 AM) Hgb [14.0-18.0 g/dL] 25.2 % *LOW* (12/21/16 2:50 AM) 23.8 % *LOW* (12/20/16 2:29 AM) 26.0 % *LOW* (12/18/16 1:03 AM) Hct [42.0-54.0 %] 89.7 fL (12/21/16 2:50 AM) 90.2 fL (12/20/16 2:29 AM) 89.4 fL (12/18/16 1:03 AM) MCV [80.0-94.0 fL] 30.6 pg (12/21/16 2:50 AM) 30.2 pg (12/20/16 2:29 AM) 29.9 pg (12/18/16 1:03 AM) MCH [27.0-31.0 pg] 34.1 g/dL (12/21/16 2:50 AM) 33.5 g/dL (12/20/16 2:29 AM) 33.5 g/dL (12/18/16 1:03 AM) MCHC [32.0-36.0 g/dL] 17.8 % *HI* (12/21/16 2:50 AM) 18.9 % *HI* (12/20/16 2:29 AM) 19.3 % *HI* (12/18/16 1:03 AM) RDW [11.5-14.5 %] 284 K/CMM (12/21/16 2:50 AM) 267 K/CMM (12/20/16 2:29 AM) 327 K/CMM (12/18/16 1:03 AM) Platelet [133-450 K/CMM] 8.5 fL (12/21/16 2:50 AM) 8.2 fL (12/20/16 2:29 AM) 8.3 fL (12/18/16 1:03 AM) MPV [7.4-10.4 fL] 78.0 % *HI* (12/21/16 2:50 AM) 76.4 % *HI* (12/20/16 2:29 AM) 77.3 % *HI* (12/18/16 1:03 AM) Segs [45.0-75.0 %] 12.6 % *LOW* (12/21/16 2:50 AM) 13.8 % *LOW* (12/20/16 2:29 AM) 11.7 % *LOW* (12/18/16 1:03 AM) Lymphocytes [20.0-40.0 %] 6.9 % (12/21/16 2:50 AM) 7.4 % (12/20/16 2:29 AM) 7.9 % (12/18/16 1:03 AM) Monocytes [2.0-12.0 %] 2.1 % (12/21/16 2:50 AM) 2.0 % (12/20/16 2:29 AM) 2.6 % (12/18/16 1:03 AM) Eosinophils [0.0-4.0 %] 0.4 % (12/21/16 2:50 AM) 0.4 % (12/20/16 2:29 AM) 0.5 % (12/18/16 1:03 AM) Basophils [0.0-1.0 %] 7.6 K/CMM (12/21/16 2:50 AM) 7.5 K/CMM (12/20/16 2:29 AM) 9.0 K/CMM *HI* (12/18/16 1:03 AM) Segs-Bands # [1.5-8.1 K/CMM] 1.2 K/CMM (12/21/16 2:50 AM) 1.3 K/CMM (12/20/16 2:29 AM) 1.4 K/CMM (12/18/16 1:03 AM) Lymphocytes # [1.0-5.5 K/CMM] 0.7 K/CMM (12/21/16 2:50 AM) 0.7 K/CMM (12/20/16 2:29 AM) 0.9 K/CMM *HI* (12/18/16 1:03 AM) Monocytes # [0.0-0.8 K/CMM] 0.2 K/CMM (12/21/16 2:50 AM) 0.2 K/CMM (12/20/16 2:29 AM) 0.3 K/CMM (12/18/16 1:03 AM) Eosinophils # [0.0-0.5 K/CMM] 0.1 K/CMM (12/18/16 1:03 AM) 0.1 K/CMM (12/17/16 3:59 AM) 0.1 K/CMM (12/05/16 12:49 PM) Basophils # [0.0-0.2 K/CMM] Normal (12/15/16 5:27 AM) Normal (12/14/16 4:24 AM) RBC Morph 1+ *ABN* (12/21/16 2:50 AM) 1+ *ABN* (12/10/16 12:03 AM) 1+ *ABN* (12/07/16 10:42 AM) Anisocyte [None Seen] slight *NA* (12/10/16 12:03 AM) Polychrom slight *NA* (12/10/16 12:03 AM) Toxic Gran Peripheral blood smear shows hypochromic normocytic anemia with anisopoikilocytosis, moderate number of janine cells, slight polychromasia, normal number/morphology of platelets, leukocytosis with left shift. Impression: (1) RBC morphology is suggestive of renal disorder, (2) a leukemoid reaction. CPT: 09560 *NA* (12/05/16 8:39 PM) PB Smear Path Occasional *NA* (12/10/16 12:03 AM) Schistocyte Normal (12/21/16 2:50 AM) Normal (12/15/16 5:27 AM) Normal (12/14/16 4:24 AM) Plt Morph 3.0 % *HI* (12/05/16 8:39 PM) Retic Auto [0.5-1.5 %] 13.5 seconds (12/21/16 2:50 AM) 16.1 seconds *HI* (12/08/16 2:21 PM) 17.1 seconds *HI* (12/08/16 1:18 AM) PT [12.0-14.7 seconds] 1.01 (12/21/16 2:50 AM) 1.26 *HI* (12/08/16 2:21 PM) 1.37 *HI* (12/08/16 1:18 AM) INR [0.85-1.17] 101 seconds *NA* (12/08/16 9:30 AM) POC Activated Clotting Time 35.4 seconds (12/21/16 2:50 AM) 37.6 seconds *HI* (12/08/16 2:21 PM) 138.0 seconds 1 *CRIT* (12/08/16 1:18 AM) PTT [22.9-35.8 seconds] 1Result Comment: Critical Result(s) called to Maryjo TEJADA at 12/08/2016 02:31 by ECAni. Read back OK. BACTERIAL - SEROLOGY 1 2 3 Most recent to oldest [Reference Range]: Negative (12/05/16 10:58 PM) MRSA by PCR Immunizations Given and Recorded Vaccine Date Status Refusal Reason influenza virus vaccine, inactivated 03/24/16 Given influenza virus vaccine, inactivated 05/18/12 Given pneumococcal 23-valent vaccine 05/18/12 Given Not Given Vaccine Date Status Refusal Reason influenza virus vaccine, inactivated 07/31/15 Not Given Patient Refuses Procedures No data available for this section Social History Social History Type Response Substance Abuse Use: None. Alcohol Never, Previous treatment: None. Alcohol use interferes with work or home: No. Drinks more than intended: No. Others hurt by drinking: No. Ready to change: No. Household alcohol concerns: No. 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 HPI is per EMR review as at the time of my encounter patient is intubated. Per ED note, patient had an IR guided procedure with injection of contrast dye for evaluation of PVD 2 days ago. Patient had endorsed abdominal discomfort with nausea in the ED. On presentation, tachycardic to 104 and saturating 99% on RA. Initial labs in the ED showed Na of 130, K 6.6 (no EKG changes), Cl 90, bicarb 7, Cr 9.52 (baseline 1.3-1.6) with an anion gap of 33 and lactic acid of 16.1. Initial VBG 7.00/23/60.0 (likely an arterial sample) and ABG a few hours later 6.83//74 on room air, patient was intubated for airway protection. Initial CBC with leukocytosis of 13.8. In the ED, hyperkalemia was treated medically, renal was consulted and bicarb drip was started as per renal recs. Given cefepime and clindamycin in the ED due to concern for sepsis. Patient was admitted to MICU for further management. In MICU, initially hemodynamically stable, MAP started to drop to 50s which is when levophed was started. CT abdomen pelvis with free fluid suspicious for possible bleeding; EGS consulted overnight. Review of Systems Unable to obtain as the patient in intubated and sedated. Health Status Allergies: Allergic Reactions (All) Severity Not Documented Vancomycin- No reactions were documented. Canceled/Inactive Reactions (All) Severity Not Documented NKDA- No reactions were documented., Allergies (1) ActiveReaction vancomycinNone Documented Current medications: (Selected) Inpatient Medications Ordered D5W 1/2NS 1,000 mL: 125 ml/hr, IV, Stop: 01/04/17 13:24:00 CDT Saline Flush 0.9%: 10 ml, IVP, PRN, PRN: Line Flush Saline Flush 0.9%: 10 ml, IVP, Q12H calcium chloride + sodium chloride 0.9% INJ 100 mL: 2 gm, 20 mL, 120 ml/hr, IVPB, PRN, PRN: Abnormal Lab Result calcium chloride + sodium chloride 0.9% INJ 50 mL: 1 gm, 10 mL, 60 ml/hr, IVPB, PRN, PRN: Abnormal Lab Result chlorhexidine topical 0.12% liquid: 15 mL, Swab Mouth, PRN, PRN: Other -See Comment chlorhexidine topical 0.12% liquid: 15 mL, Swab Mouth, Q12H docusate: 100 mg, 1 cap, PO, Q12H fentaNYL 1000microgram/20ml drip (pyxis) 1,000 microgram: Titrate, IV, Stop: 01/04/17 16:12:00 CDT lactulose: 20 gm, 30 mL, PO, Q6H magnesium sulfate: 2 gm, 50 mL, 12.5 ml/hr, IVPB, PRN, PRN: Abnormal Lab Result magnesium sulfate: 4 gm, 100 mL, 16.67 ml/hr, IVPB, PRN, PRN: Abnormal Lab Result nystatin topical 100,000 units/g powder: 1 appl, TOP, PRN, PRN: For Fungal Prophylaxis ocular lubricant: 1 appl, BOTH EYES, Q6H pantoprazole: 40 mg, IVP, Daily physiological irrigating solution: 5,000 mL, DIALYSIS, PRN, PRN: Dialysis sodium bicarbonate 150 mEq + D5W 1,000 mL: 150 ml/hr, IV, Stop: 01/04/17 14:15:00 CDT sodium phosphate + sodium chloride 0.9% INJ 250 mL: 15 mmol, 5 mL, 63.75 ml/hr, IVPB, PRN, PRN: Abnormal Lab Result sodium phosphate + sodium chloride 0.9% INJ 250 mL: 30 mmol, 10 mL, 43.33 ml/hr, IVPB, PRN, PRN: Abnormal Lab Result Prescriptions Prescribed DME Addition #1: See Instructions, PATIENT NEEDS HIS ELECTRICAL WHEELCHAIR TO BE REPAIRED SINCE HE IS WHEELCHAIR BOUND. 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 AND HE IS DEPENDENT OF HIS WHEELCHAIR FOR ALL HIS ACTIVITIES., 1 ea, 0 Refill(s) Janumet 50 mg/1000 mg oral tablet: 1 tab, PO, BID, for 90 day, 180 tab, 0 Refill(s) Lantus 100 units/mL: 22 unit, SUB-Q, Daily, for 90 day, 3 mL, 1 Refill(s) Voltaren Topical 1% topical gel: 2 gm, 1 appl, TOP, BID, Apply to affected area, 100 gm, 1 Refill(s) Voltaren Topical 1% topical gel: 4 gm, 1 appl, TOP, BID, for 90 day, PRN: Apply to affected area, 100 gm, 2 Refill(s) aspirin 81 mg tablet, chewable: 81 mg, 1 tab, PO, Daily, for 90 day, 90 tab, 3 Refill(s) bisacodyl 5 mg oral enteric coated tablet: 10 mg, 2 tab, PO, Daily, for 30 day, PRN: Constipation, 50 tab, 1 Refill(s) clopidogrel 75 mg oral tablet: 75 mg, 1 tab, PO, Daily, for 90 day, 90 tab, 0 Refill(s) escitalopram 5 mg oral tablet: 5 mg, 1 tab, PO, Daily, for 90 day, 90 tab, 0 Refill(s) ferrous sulfate 325 mg oral enteric coated tablet: 325 mg, 1 tab, PO, BID, for 90 day, 180 tab, 1 Refill(s) gabapentin 300 mg oral capsule: 300 mg, 1 cap, PO, Bedtime, for 90 day, 90 cap, 0 Refill(s) glimepiride 4 mg oral tablet: 4 mg, 1 tab, PO, Daily, for 90 day, 90 tab, 0 Refill(s) losartan 100 mg oral tablet: 100 mg, 1 tab, PO, Daily, for 90 day, 90 tab, 0 Refill(s) metoprolol 25 mg oral tablet, extended release: 25 mg, 1 tab, PO, Daily, for 90 day, 90 tab, 0 Refill(s) pravastatin 40 mg oral tablet: 40 mg, 1 tab, PO, Bedtime, for 90 day, 90 tab, 0 Refill(s) tamsulosin 0.4 mg oral capsule: 0.4 mg, 1 cap, PO, Daily, for 90 day, 90 cap, 0 Refill(s), Medications (19) Active Scheduled: (6) chlorhexidine 0.12% 15 ml oral rinse 15 mL, Swab Mouth, Q12H docusate sodium 100 mg CAP 100 mg 1 cap, PO, Q12H lactulose 20 gm/30 ml ud LIQ 20 gm 30 mL, PO, Q6H ocular lubricant ointment 3.5 gm 1 appl, BOTH EYES, Q6H pantoprazole 40 mg INJ 40 mg, IVP, Daily sodium chloride 0.9% 10 ml flush syr BD 10 ml, IVP, Q12H Continuous: (3) D5W 1/2NS 1,000 mL 1,000 mL, IV, 125 ml/hr fentaNYL 1000microgram/20ml drip (pyxis) 1,000 microgram 1,000 microgram 20 mL, IV sodium bicarbonate 8.4% INJ 150 mEq + D5W 1,000 mL 1,000 mL, IV, 150 ml/hr PRN: (10) calcium chloride INJ + sodium chloride 0.9% INJ 100 mL 2 gm 20 mL, IVPB, PRN calcium chloride INJ + sodium chloride 0.9% INJ 50 mL 1 gm 10 mL, IVPB, PRN chlorhexidine 0.12% 15 ml oral rinse 15 mL, Swab Mouth, PRN magnesium sulfate 2 gm/H20 50ml soln 2 gm 50 mL, IVPB, PRN magnesium sulfate 4 gm/100 ml H2O INJ 4 gm 100 mL, IVPB, PRN nxstage pureflow rfp-400 5000ml SLN 5,000 mL, DIALYSIS, PRN nystatin 052698 unit/gm 15 gm PWD 1 appl, TOP, PRN sodium chloride 0.9% 10 ml flush syr BD 10 ml, IVP, PRN sodium phosphate 3 mmol/1 ml 15 ml vial + sodium chloride 0.9% INJ 250 mL 15 mmol 5 mL, IVPB, PRN sodium phosphate 3 mmol/1 ml 15 ml vial + sodium chloride 0.9% INJ 250 mL 30 mmol 10 mL, IVPB, PRN Problem list: All Problems CAD (coronary artery disease) / SNOMED CT 3116523477 / Confirmed Benign essential HTN / SNOMED CT 4689662 / Confirmed Chest pain / SNOMED CT 35277931 / Confirmed Constipation / SNOMED CT 501930794 / Confirmed Foot deformity / SNOMED CT 983971908 / Confirmed DM type 2 with diabetic peripheral neuropathy / SNOMED CT 8427158583 / Confirmed dm / SNOMED CT 862553901 / Confirmed Hypertension / SNOMED CT 34959580 / Confirmed Iron deficiency anemia / SNOMED CT 956922339 / Confirmed Hyperlipidemia, mixed / SNOMED CT 981305646 / Confirmed Stroke / SNOMED CT 026938144 / Confirmed, Active Problems (11) Benign essential HTN CAD (coronary artery disease) Chest pain Constipation dm DM type 2 with diabetic peripheral neuropathy Foot deformity Hyperlipidemia, mixed Hypertension Iron deficiency anemia Stroke Histories Past Medical History: Resolved Heart disease (71693168): Resolved. Stroke (788829208): Resolved. Hypertension (0839299259): Resolved. Diabetes mellitus (897798968): Resolved. Family History: Cleft lip Mother Procedure history: No active procedure history items have been selected or recorded. Social History Social & Psychosocial Habits Alcohol 07/13/2016 Use: Never Previous treatment: None Has alcohol use interfered with work or home life? No Do you ever drink more than intended? No Has anyone been hurt or at risk by your drinking? No Ready to change: No Concerns about alcohol use in household: No Substance Abuse 07/13/2016 Use: None Tobacco 12/05/2016 Use: Never smoker Exposure to Tobacco Smoke None Cigarette Smoking Last 365 Days No Reg Smoking Cessation Counseling No . Physical Examination VS/Measurements Measurements from flowsheet : Measurements 12/05/2016 12:28 Heparin Dosing Weight (kg) 77.27 12/05/2016 12:24 Height 172.72 cm Height Collection Method Stated Weight 77.273 kg Dosing Weight Difference Percent 3.031 % Dosing Weight Collection Method Estimated Body Surface Area 1.9255 m2 Body Mass Index 25.9 m2 , Vital Signs (last 24 hrs) Last Charted Temp AxillaryL 92.2DegF (DEC 05 18:40) Heart Rate ApicalH 104bpm (DEC 05:00) Resp Rate H 31BRMIN (DEC 05:) QEE762 mmHg (DEC 05:) DBPL 54mmHg (DEC 05:) CiD5244 % (DEC 05:) Nuunfg74.273 kg (DEC 05 12:24) Nfchdg051.72 cm (DEC 05 18:39) BMI25.9 (DEC 05 12:24) General: intubated, on fentanyl, intermittently lifting head up from the bed . Eye: Pupils are equal, round and reactive to light, Extraocular movements are intact. HENT: Oral mucosa is moist. Neck: No jugular venous distention. Respiratory: Lungs are clear to auscultation, Respirations are non-labored, Breath sounds are equal, Symmetrical chest wall expansion. Cardiovascular: Normal rate, Regular rhythm, No murmur, No gallop, No edema. Gastrointestinal: Soft, Non-tender, intermittently guards lower abdomen on palpation. Genitourinary: lower abdomen/suprapubic ecchymoses linearly tracking towards the R lower abdomen, penile and scrotal ecchymoses. Musculoskeletal No swelling. Integumentary: Warm, Dry. Review / Management Results review: Labs (Last four charted values) WBC H 13.6(NOV 10) Hgb L 9.1(NOV 10) Hct L 28.1(NOV 10) Plt 151(ELIU 10) Na L 132(ELIU 10)L 130(ELIU 10)L 130(ELIU 10) K C 6.3(ELIU 10)C 6.6(NOV 10)C 6.6(NOV 10) CO2 C 7(NOV 10)C 5(NOV 10)C 7(ELIU 10) Cl L 93(DEC 05)L 90(DEC 05)L 90(DEC 05) Cr H 9.15(DEC 05)H 9.49(DEC 05)H 9.52(DEC 05) BUN H 69(DEC 05)H 71(DEC 05)H 68(DEC 05) Glucose Random H 186(DEC 05)H 164(DEC 05)80(DEC 05) Mg 2.1(DEC 05)1.9(DEC 05) Phos H 9.6(DEC 05)H 7.3(DEC 05) Ca L 7.3(DEC 05)L 7.9(DEC 05)L 8.3(DEC 05) PT H 15.9(DEC 05) INR H 1.24(DEC 05) PTT H 38.4(DEC 05) Troponin 0.06(DEC 05). Laboratory Results Today's Lab Results : Laboratory 12/05/2016 19:33 POC A Hct 21.0 % LOW POC A Ca Ion 0.93 mMol/L LOW POC A K 5.9 mEq/L HI POC A Source ART POC A Temp 37.0 DegC NA POC A pH 6.98 CRIT POC A PCO2 19 mmHg CRIT POC A PO2 154 mmHg HI POC A HCO3 5 mMol/L LOW POC A BE -25 mMol/L LOW POC A O2 Sat 98.0 % Normal POC A Glu 191 mg/dL HI POC A LA >12.0 mMol/L CRIT POC A Na 129 mEq/L LOW POC A Mode PRVC POC A Mech Rate 26 bpm Normal POC A VT 600 mL Normal POC A PEEP 5.0 cmH20 Normal POC A %FIO2 40.0 % Normal 12/05/2016 18:24 POC A Hct 21.0 % LOW POC A Ca Ion 1.01 mMol/L LOW POC A K 5.9 mEq/L HI POC A Source ART POC A Temp 37.0 DegC NA POC A pH <6.95 CRIT POC A PCO2 19 mmHg CRIT POC A PO2 440 mmHg HI POC A HCO3 4 mMol/L LOW POC A BE -26 mMol/L LOW POC A O2 Sat 100.0 % Normal POC A Glu 165 mg/dL HI POC A LA >12.0 mMol/L CRIT POC A Na 127 mEq/L LOW 12/05/2016 17:55 Temp Art 37.0 DegC NA pH Art 6.84 CRIT pCO2 Art 24 mmHg CRIT pO2 Art 84 mmHg Normal HCO3 Art 4 mMol/L LOW BE Art -29 mMol/L LOW O2 Sat Art 82.2 % LOW 12/05/2016 17:46 Sodium Lvl 132 mEq/L LOW Potassium Lvl 6.3 mEq/L CRIT Chloride Lvl 93 mEq/L LOW CO2 7 mEq/L CRIT AGAP 38.3 mEq/L HI Creatinine Lvl 9.15 mg/dL HI eGFR 5 mL/min/1.73m2 NA BUN 69 mg/dL HI Glucose Lvl 186 mg/dL HI Calcium Lvl 7.3 mg/dL LOW Phosphorus 9.6 mg/dL HI Magnesium Lvl 2.1 mg/dL Normal Lactic Acid WB 17.1 mmol/L CRIT Temp Art 37.0 DegC NA pH Art 6.83 CRIT pCO2 Art 27 mmHg CRIT pO2 Art 74 mmHg LOW HCO3 Art 4 mMol/L LOW BE Art -29 mMol/L LOW O2 Sat Art 74.9 % LOW 12/05/2016 17:42 Glucose POC 178 mg/dL HI Gluc POC Comment 1 Notified RN/ 12/05/2016 15:45 Glucose POC 136 mg/dL HI 12/05/2016 15:04 UA Turbidity Cloudy UA Color Yellow UA pH 5.5 Normal UA Spec Grav 1.020 Normal UA Glucose Negative UA Blood Moderate UA Ketones Negative UA Protein 100 mg/dL UA Urobilinogen 0.2 EU/dL Normal UA Bili Negative UA Leuk Est Large UA Nitrite Negative UA WBC Packed UA RBC 3-5 /HPF UA Bacteria Many /HPF UA Sq Epi None Seen Micro? Performed 12/05/2016 15:00 Sodium Lvl 130 mEq/L LOW Potassium Lvl 6.6 mEq/L CRIT Chloride Lvl 90 mEq/L LOW CO2 5 mEq/L CRIT AGAP 41.6 mEq/L HI Creatinine Lvl 9.49 mg/dL HI eGFR 5 mL/min/1.73m2 NA BUN 71 mg/dL HI Glucose Lvl 164 mg/dL HI Calcium Lvl 7.9 mg/dL LOW PT 15.9 seconds HI INR 1.24 HI PTT 38.4 seconds HI 12/05/2016 14:31 Glucose POC 164 mg/dL HI Gluc POC Comment 1 Notified SUSANNA/ 12/05/2016 13:54 Lactic Acid WB 16.1 mmol/L CRIT Temp Hernan 37.0 DegC NA pH Hernan 7.00 CRIT pCO2 Hernan 23 mmHg LOW pO2 Hernan 60 mmHg HI HCO3 Hernan 6 mMol/L LOW BE Hernan -24 mMol/L LOW O2 Sat Hernan 72.8 % HI 12/05/2016 13:08 Troponin-I 0.06 ng/mL Normal 12/05/2016 13:03 Glucose POC 76 mg/dL Normal Gluc POC Comment 1 Notified RN/ 12/05/2016 12:49 Sodium Lvl 130 mEq/L LOW Potassium Lvl 6.6 mEq/L CRIT Chloride Lvl 90 mEq/L LOW CO2 7 mEq/L CRIT AGAP 39.6 mEq/L HI Creatinine Lvl 9.52 mg/dL HI eGFR 5 mL/min/1.73m2 NA BUN 68 mg/dL HI Glucose Lvl 80 mg/dL Normal Calcium Lvl 8.3 mg/dL LOW Phosphorus 7.3 mg/dL HI Magnesium Lvl 1.9 mg/dL Normal Lipase Lvl 195 unit/L Normal WBC 13.6 K/CMM HI RBC 2.96 M/CMM LOW Hgb 9.1 g/dL LOW Hct 28.1 % LOW MCV 95.0 fL HI MCH 30.8 pg Normal MCHC 32.4 g/dL Normal RDW 13.5 % Normal Platelet 151 K/CMM Normal MPV 8.0 fL Normal Segs 92.1 % HI Lymphocytes 5.3 % LOW Monocytes 2.2 % Normal Basophils 0.4 % Normal Segs-Bands # 12.5 K/CMM HI Lymphocytes # 0.7 K/CMM LOW Monocytes # 0.3 K/CMM Normal Basophils # 0.1 K/CMM Normal Radiology results CXR reviewed CT abdomen and pelvis prelim read: 1. Wall thickening involving the ascending colon, which may be decompressed bowel loop, inflammatory/infectious etiology. 2. Nonspecific bilateral perinephric fat stranding. 3. Small pleural effusions with left greater than right groundglass opacities which may represent infection, aspiration or atelectasis. 4. Small amount of intraperitoneal fluid. 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 In the ED, found to have metabolic acidosis with AG of 33 and JORGE on CKD; admitted to MICU for CRRT; renal following. Problem List Anion gap metabolic acidosis Lactic acidosis JORGE on CKD Diabetes mellitus CAD s/p stents Hyperkalemia Shock Troponinemia Neuro -sedated on fentanyl -RASS 0 to +1 CV #Multifactorial shock: -Likely 2/2 blood loss due to the retroperitoneal hematoma and severe acidosis -s/p 4L IVF and on HCO3 gtt -on levophed and vasopressin -initial troponin <0.[address] depressions in leads I, II, v4, v5 & v6 -will trend cardiac enzymes; repeat troponin 0.76 and EKG consistent with the initial one. Troponinemia likely 2/2 demand. Will continue trending cardiac enzymes -SCVO2 48.8 --> decreased perfusion so there is a component of cardiogenic shock as well -will get TTE -will need to obtain records from OSH #CAD: -per clinic notes, s/p 3 stents -on metprolol, losartan, aspirin and plavix -will hold losartan in the setting of JORGE -will hold aspirin and plavix due to suspicion of acute blood loss Respiratory -intubated due to increased work of breathing 2/2 acidosis -initial ABG 6.83//74 -ABG with lactate q2h -ABG this am 7.22// on VC //30/5 GI -NPO for now Renal #JORGE on CKD: -Cr 9.52 on arrival; baseline Cr 1.3-1.6 -likely 2/2 contrast induced injury vs. UTI -renal following -started on CRRT -oliguric; strict Is&Os #Anion gap metabolic acidosis: -2/2 lactic acidosis likely due to metformin use in the setting of recent contrast use -s/p 2 amps of bicarb, on bicarb gtt and started on CRRT #Lactic acidosis: -likely type B 2/2 metformin -will trend q2h -improving; 16.1 -->17.1 --> 18.5 -->14.2 #FEN -on electrolyte replacement protocol -will start tubefeeds in the am Heme #Anemia: -Hb trending down from 9.1-->7.2; stable at 7.4 this am -per EMR, Hb 12 in 09/2016 -given the acute drop, there is concern for abdominal bleeding -CT abdomen/pelvis shows extensive intermediate density material extending from the right lateral retroperitoneal fascial planes and along the anterolateral right psoas muscle likely representing hematoma. It extends into the pelvis. -will trend H&H q6h -type and screen; will hold off on transfusion at this time -EGS consulted; pending recs #Leukocytosis: -discussed in ID ID #[id number] -hypothermic to 92.2 -worsening leukocytosis -UA with large leukocyte esterase and WBC -Procal 0.52 -lactic acidosis though may be multifactorial -given cefepime and clindamycin (allergic to vancomycin); will continue Endo #Diabetes mellitus: -finger stick >300 -likelu 2/2 HCO3 gtt in D5W -will start insulin gtt DVT: holding pharmacologic ppx; SCDs/TEDs GI: pantoprazole Nelson Sprague D.O. Internal Medicine, PGY-3 MSO# [id number] Addendum Attending: by Jemal, The patient was seen and discussed with the MICU team. I personally examined the patients Odalys ASHFORD and reviewed the lab and radiology data.I agree with the assessment and plan as outlined. on Critically ill with acute renal failure and profound acidosis . Intubated , unresponsive. 12/06/2016 shock. 11:59 VitalsTmp(F)[id number] 12/06 11:00----88-----[id number]--- 12/06 10:00----86-----[id number]--- 12/06 09:42----87-----28------ 12/06 09:00----89-----[id number]--- 12/06 08:47 [id number] 30% 24 Hr Tmax: 98.2F (36.78c) at 12/06 08:00Vital Signs are the last 5 in the past 48 hours. I&ORecordInOutBal /1124hr Tot [phone] 06/1024hr Tot [phone] General Sedated intubated Chest : Clear to auscultation Heart : RRR Abdomen: soft NT , area of echymosis Extremities: no edema Neuro: unable to assess Assessment Altered mental status Acute renal failure -likely contrast induced Shock Retroperitoneal bleed CAD Plan Mechanical ventilation Vasopressors Abx CVVHD Overall critically ill with critical care time spent of 40 min not including procedures.
--- OUTSIDE RECORDS SUMMARY | 2018-09-13 05:27 | XMS REPORT | Summary of Care ---
Author Author [facility] Primary Care [facility] Organization [facility] Address Unknown Phone Unavailable Encounter NICHOLE Hernández(GERTRUDE) [id number] Date(s): 07/16/17 - 07/16/17 [facility] [address], [address] [place] [address]- [phone] Attending Physician: Malena Arriaza MD Vital Signs Most recent to 1 oldest [Reference Range]: Height 172.72 cm (05/25/17 3:14 PM) Blood Pressure 148/72 mmHg [90-140/60-90 mmHg] *HI* (05/25/17 3:14 PM) Weight 72.727 kg (05/25/17 3:14 PM) Body Mass Index 24.38 m2 (05/25/17 3:14 PM) Problem List Condition Effective Dates Status Health Status Informant Alzheimer Active disease(Confirmed) Anemia(Confirmed) Resolved CAD (coronary artery Active disease)(Confirmed) Benign essential Active HTN(Confirmed) BPH (benign Resolved prostatic hyperplasia)(Confirm ed) Chest Active pain(Confirmed) CHF (congestive Resolved heart failure)(Confirmed) Constipation(Confirm Active ed) Stroke(Confirmed) Resolved Foot Active deformity(Confirmed) Diabetes Resolved mellitus(Confirmed) DM type 2 with Active diabetic peripheral neuropathy(Confirmed ) Hospital discharge Active follow-up(Confirmed) Heart Resolved disease(Confirmed) Hypercholesteremia(C Resolved onfirmed) Hypertension(Confirm Active ed) Hypertension(Confirm Resolved ed) Skin Active infection(Confirmed) Iron deficiency Active anemia(Confirmed) PEG tube Resolved malfunction(Confirme d) Hyperlipidemia, Active mixed(Confirmed) Ear pain(Confirmed) Active Annual physical Active exam(Confirmed) Colon cancer Active screening(Confirmed) Stroke(Confirmed) Active Heart failure, Active systolic(Confirmed) Tinea Active cruris(Confirmed) Allergies, Adverse Reactions, Alerts Substance Reaction Severity Status vancomycin Active Medications No data available for this section Results No data available for this section Immunizations Given and Recorded Vaccine Date Status Refusal Reason pneumococcal 23-valent vaccine 04/01/17 Given pneumococcal 23-valent vaccine 05/18/12 Given influenza virus vaccine, inactivated 03/16/17 Given influenza virus vaccine, inactivated 03/24/16 Given influenza virus vaccine, inactivated 05/18/12 Given Not Given Vaccine Date Status Refusal Reason influenza virus vaccine, inactivated 07/31/15 Not Given Patient Refuses Procedures Procedure Date Related Diagnosis Body Site Status Angiogram1 Completed Cataract surgery Completed Operation2 Completed Operation3 Completed PEG - Percutaneous endoscopic gastrostomy Completed 1coronary 2prostate 3foot surgery Social History Social History Type Response Substance Abuse Use: None. Alcohol Never, Previous treatment: None. Alcohol use interferes with work or home: No. Drinks more than intended: No. Others hurt by drinking: No. Ready to change: No. Household alcohol concerns: No. Smoking Status Never smoker; Exposure to Tobacco Smoke None; Cigarette Smoking Last 365 Days No; Reg Smoking Cessation Counseling No entered on: 10/21/17 Assessment and Plan No data available for this section
--- OUTSIDE RECORDS SUMMARY | 2018-09-13 05:27 | XMS REPORT | Summary of Care ---
Author Author [facility] Organization [facility] Address Unknown Phone Unavailable Encounter NICHOLE Hernández(GERTRUDE) [id number] Date(s): 03/03/17 - 03/03/17 [facility] [address] [facility] [employer] [facility] [place] [address]- Discharge Disposition: Non-Emergent Attending Physician: Luis M Arias MD Vital Signs Most recent to 1 2 oldest [Reference Range]: Height 165.1 cm (03/03/17 7:04 PM) Temperature Oral 98 DegF [96.4-99.1 DegF] (03/03/17 7:04 PM) Blood Pressure 142/69 mmHg 162/78 mmHg [90-140/60-90 mmHg] *HI* *HI* (03/03/17 9:22 PM) (03/03/17 7:04 PM) Respiratory Rate 18 BRMIN 18 BRMIN [14-20 BRMIN] (03/03/17 9:22 PM) (03/03/17 7:04 PM) Peripheral Pulse 80 bpm 80 bpm Rate [60-100 bpm] (03/03/17 9:22 PM) (03/03/17 7:04 PM) Weight 77.273 kg (03/03/17 7:04 PM) Body Mass Index 28.35 m2 (03/03/17 7:04 PM) Problem List Condition Effective Dates Status Health Status Informant CAD (coronary artery Active disease)(Confirmed) Benign essential Active HTN(Confirmed) Chest Active pain(Confirmed) Constipation(Confirm Active ed) Stroke(Confirmed) Resolved Foot Active deformity(Confirmed) Diabetes Resolved mellitus(Confirmed) DM type 2 with Active diabetic peripheral neuropathy(Confirmed ) dm(Confirmed) Active Heart Resolved disease(Confirmed) Hypertension(Confirm Active ed) Hypertension(Confirm Resolved ed) Iron deficiency Active anemia(Confirmed) PEG tube Resolved malfunction(Confirme d) Hyperlipidemia, Active mixed(Confirmed) Stroke(Confirmed) Active Allergies, Adverse [...] Smoking Cessation Counseling No Assessment and Plan No data available for this section
--- OUTSIDE RECORDS SUMMARY | 2018-09-13 05:27 | XMS REPORT | Summary of Care ---
Author Author [facility] Organization [facility] Address Unknown Phone Unavailable Encounter NICHOLE Farr) [id number] Date(s): 03/18/17 - 03/18/17 [facility] [address] [place] [address]- [facility] [phone] Discharge Disposition: Home or Self Care Attending Physician: Shyla Kraus MD Referring Physician: Shyla Kraus MD Vital Signs Most recent to 1 oldest [Reference Range]: Height 170.18 cm (03/18/17 10:29 AM) Blood Pressure 122/58 mmHg [90-140/60-90 mmHg] (03/18/17 10:29 AM) Peripheral Pulse 73 bpm Rate [60-100 bpm] (03/18/17 10:29 AM) Weight 72.727 kg (03/18/17 10:29 AM) Body Mass Index 25.11 m2 (03/18/17 10:29 AM) Problem List Condition Effective Dates Status Health Status Informant CAD (coronary artery Active disease)(Confirmed) Benign essential Active HTN(Confirmed) Chest Active pain(Confirmed) Constipation(Confirm Active ed) Stroke(Confirmed) Resolved Foot Active deformity(Confirmed) Diabetes Resolved mellitus(Confirmed) DM type 2 with Active diabetic peripheral neuropathy(Confirmed ) dm(Confirmed) Active Hospital discharge Active follow-up(Confirmed) Heart Resolved disease(Confirmed) Hypertension(Confirm Active ed) Hypertension(Confirm Resolved ed) Skin Active infection(Confirmed) Iron deficiency Active anemia(Confirmed) PEG tube Resolved malfunction(Confirme d) Hyperlipidemia, Active mixed(Confirmed) Stroke(Confirmed) Active Heart failure, Active systolic(Confirmed) Tinea Active cruris(Confirmed) Allergies, Adverse Reactions, Alerts Substance Reaction Severity Status vancomycin Active Medications clindamycin 300 mg oral capsule 300 mg=1 cap, PO, Q6H, # 40 cap, 0 Refill(s) Start Date: 03/18/17 Stop Date: 03/28/17 Status: Ordered clopidogrel 75 mg oral tablet 75 mg=1 tab, PO, Daily, # 30 tab, 0 Refill(s) Start Date: 03/18/17 Status: Ordered escitalopram 5 mg oral tablet 5 mg=1 tab, PO, Daily, # 30 tab, 0 Refill(s) Start Date: 03/18/17 Status: Ordered glimepiride 4 mg oral tablet 4 mg=1 tab, PO, Breakfast, # 30 tab, 0 Refill(s) Start Date: 03/18/17 Status: Ordered metoprolol 25 mg oral tablet, extended release 25 mg=1 tab, PO, Daily, # 30 tab, 0 Refill(s) Start Date: 03/18/17 Status: Ordered pravastatin 40 mg oral tablet 40 mg=1 tab, PO, Bedtime, # 30 tab, 0 Refill(s) Start Date: 03/18/17 Status: Ordered Suprep Bowel Prep Kit oral liquid 177 mL, PO, ONCE, # 354 mL, 0 Refill(s), Pharmacy: [facility] Start Date: 03/18/17 Status: Ordered Results No data available for this section Immunizations Given and Recorded Vaccine Date Status Refusal Reason influenza virus vaccine, inactivated 03/16/17 Given influenza [...]
--- OUTSIDE RECORDS SUMMARY | 2018-09-13 05:27 | XMS REPORT | Summary of Care ---
Author Author [facility] Organization [facility] Address Unknown Phone Unavailable Encounter NICHOLE Hernández(GERTRUDE) [id number] Date(s): 03/23/17 - 03/23/17 [facility] [address], [place] [address] Discharge Disposition: Home or Self Care Attending Physician: David Mcdaniel MD Vital Signs Most recent to 1 oldest [Reference Range]: Height 170.18 cm (03/23/17 9:49 AM) Weight 72.727 kg (03/23/17 9:49 AM) Body Mass Index 25.11 m2 (03/23/17 9:49 AM) Problem List Condition Effective Dates Status [...]
--- OUTSIDE RECORDS SUMMARY | 2018-09-13 05:27 | XMS REPORT | Summary of Care ---
Author Author [facility] Organization [facility] Address Unknown Phone Unavailable Encounter HQ Deven_sarah(FIN) [id number] Date(s): 02/16/17 - 02/17/17 [facility] [address] [place], [place] [address] [phone] Vital Signs No data available for this section Problem List Condition Effective Dates Status Health [...]
--- OUTSIDE RECORDS SUMMARY | 2018-09-13 05:27 | XMS REPORT | Summary of Care ---
Author Author [facility] Primary [facility] Organization [facility] Address Unknown Phone Unavailable Encounter HQ Betty(FIN) [id number] Date(s): 06/11/17 - 06/11/17 [facility] [address], [address] [place], [place] [address]- [phone] Discharge Disposition: Home or Self Care Attending Physician: Malena Arriaza MD Vital Signs Most recent to 1 oldest [Reference Range]: Height 172.72 cm (06/11/17 12:43 PM) Temperature Oral 98.1 DegF [96.4-99.1 DegF] (06/11/17 12:43 PM) Blood Pressure 151/70 mmHg [90-140/60-90 mmHg] *HI* (06/11/17 12:43 PM) Respiratory Rate 14 BRMIN [14-20 BRMIN] (06/11/17 12:43 PM) Peripheral Pulse 80 bpm Rate [60-100 bpm] (06/11/17 12:43 PM) Problem List Condition Effective Dates Status Health Status Informant Anemia(Confirmed) Resolved CAD (coronary artery Active disease)(Confirmed) [...] Substance Reaction Severity Status vancomycin Active Medications Cortisporin Otic solution 2 drp, RIGHT EAR, QID, X 7 day, # 10 mL, 0 Refill(s), Pharmacy: [facility] [place] Start Date: 06/11/17 Stop Date: 06/18/17 Status: Ordered DME Addition #1 See Instructions, PATIENT HAS DIABETES AND NEEDS DIABETIC SHOES, # 2 ea, 0 Refil l(s) Start Date: 06/11/17 Status: Ordered DME Addition #2 See Instructions, PATIENT NEEDS SEAT CUSHION FOR HIS WHEELCHAIR, # 1 ea, 0 Refil l(s) Start Date: 06/11/17 Stop Date: 06/11/17 Status: Discontinued DME Addition #2 See Instructions, PATIENT NEEDS GEL CUSHION FOR HIS WHEELCHAIR, # 1 ea, 0 Refill (s) Start Date: 06/11/17 Status: Ordered Results No data available for [...] Procedures Procedure Date Related Diagnosis Body Site Angiogram1 Cataract surgery Operation2 Operation3 PEG - Percutaneous endoscopic gastrostomy 1coronary 2prostate 3foot surgery Social History Social [...]
--- OUTSIDE RECORDS SUMMARY | 2018-09-13 05:27 | XMS REPORT | Summary of Care ---
Author Author [facility] Organization [facility] Address Unknown Phone Unavailable Encounter NICHOLE Hernández(GERTRUDE) [id number] Date(s): 02/26/17 - 02/26/17 [facility] [address] [place] [address]- Discharge Diagnosis: Dislodged gastrostomy tube Discharge Disposition: Home or Self Care Attending Physician: Lucia Krishnamurthy MD Vital Signs 1 2 3 Most recent to oldest [Reference Range]: 165.1 cm (02/26/17 11:27 AM) Height 98.2 DegF (02/26/17 5:51 PM) 98.3 DegF (02/26/17 11:27 AM) Temperature Oral [96.4-99.1 DegF] 132/97 mmHg (02/26/17 5:51 PM) 161/82 mmHg *HI* (02/26/17 4:07 PM) 116/60 mmHg (02/26/17 2:15 PM) Blood Pressure [90-140/60-90 mmHg] 18 BRMIN (02/26/17 2:15 PM) 17 BRMIN (02/26/17 1:32 PM) 19 BRMIN (02/26/17 12:02 PM) Respiratory Rate [14-20 BRMIN] 77 bpm (02/26/17 11:27 AM) Peripheral Pulse Rate [60-100 bpm] 72.727 kg (02/26/17 11:27 AM) Weight 26.68 m2 (02/26/17 11:27 AM) Body Mass Index Problem List Condition Effective [...]
--- OUTSIDE RECORDS SUMMARY | 2018-09-13 05:27 | XMS REPORT | Summary of Care ---
Author Author [facility] Primary Care [facility] Organization [facility] Address Unknown Phone Unavailable Encounter NICHOLE Hernández(GERTRUDE) [id number] Date(s): 07/16/17 - 07/16/17 [facility] [address], [address] [place] [address]- [phone] Attending Physician: Malena Arriaza MD Vital Signs [...] Reg Smoking Cessation Counseling No entered on: 07/22/17 Assessment and Plan No data available for this section
--- OUTSIDE RECORDS SUMMARY | 2018-09-13 05:28 | XMS REPORT | Summary of Care ---
Author Author [facility] Organization [facility] Address Unknown Phone Unavailable Encounter NICHOLE Hernández(GERTRUDE) [id number] Date(s): 07/30/15 - 08/02/15 [facility] [address] [place] [address]- Discharge Disposition: Home Attending Physician: Leonardo David DO Admitting Physician: Leonardo David DO Vital Signs 1 2 3 Most recent to oldest [Reference Range]: 172.72 cm (07/31/15 3:24 AM) 160.02 cm (07/30/15 10:05 PM) Height 98.0 DegF (08/02/15 4:00 PM) 97.8 DegF (08/02/15 12:00 PM) 97.8 DegF (08/02/15 8:00 AM) Temperature Oral [96.4-99.1 DegF] 150/72 mmHg *HI* (08/02/15 4:00 PM) 169/75 mmHg *HI* (08/02/15 2:56 PM) 184/82 mmHg *HI* (08/02/15 12:00 PM) Blood Pressure [90-140/60-90 mmHg] 18 BRMIN (08/02/15 4:00 PM) 18 BRMIN (08/02/15 12:00 PM) 18 BRMIN (08/02/15 8:00 AM) Respiratory Rate [14-20 BRMIN] 78 bpm (08/02/15 4:00 PM) 77 bpm (08/02/15 2:56 PM) 74 bpm (08/02/15 12:00 PM) Peripheral Pulse Rate [60-100 bpm] 66.818 kg (07/31/15 3:24 AM) 63.636 kg (07/30/15 10:05 PM) Weight 22.4 m2 (07/31/15 3:24 AM) 24.85 m2 (07/30/15 10:05 PM) Body Mass Index Problem List Condition Effective Dates Status Health Status Informant Chest Active pain(Confirmed) dm(Confirmed) Active Heart Resolved disease(Confirmed) Hypertension(Confirm Active ed) Stroke(Confirmed) Active Allergies, Adverse Reactions, Alerts Substance Reaction Severity Status vancomycin Active Medications acetaminophen 650 mg, 2 tab, Route: PO, Drug form: TAB, Q4H, Dosing Weight 63.636, kg, PRN Missy n 1-3/Temp > 100.4 F, Start date: 07/31/15 3:19:00, Duration: 30 day, Stop date: 08/30/15 3:18:00 Notes: Do not exceed 4 gm/day. (Same as: Tylenol) Start Date: 07/31/15 Stop Date: 08/02/15 Status: Discontinued aspirin 81 mg tablet, chewable 81 mg, 1 tab, Route: PO, Drug form: CHEWTAB, Q24H, Dosing Weight 66.818, kg, Sta rt date: 07/31/15 6:00:00, Duration: 30 day, Stop date: 08/29/15 6:00:00 Notes: Take with food. Start Date: 07/31/15 Stop Date: 08/02/15 Status: Discontinued atropine 0.5 mg, 5 mL, Route: IVP, Drug form: INJ, PRN, Dosing Weight 66.818, kg, PRN Bra dycardia, Start date: 07/31/15 3:53:00, Duration: 30 day, Stop date: 08/30/15 3: 52:00 Start Date: 07/31/15 Stop Date: 08/02/15 Status: Discontinued baclofen 10 mg, 1 tab, Route: PO, Drug form: TAB, TID, Dosing Weight 66.818, kg, Start da te: 07/31/15 9:00:00, Duration: 30 day, Stop date: 08/29/15 21:00:00 Notes: (Same As: Lioresal) Start Date: 07/31/15 Stop Date: 08/02/15 Status: Discontinued baclofen 10 mg oral tablet 10 mg=1 tab, PO, TID, # 90 tab, 0 Refill(s) Start Date: 07/31/15 Status: Ordered cefTRIAXone + Sodium Chloride 0.9% IV 100 mL 1 gm, Route: IVPB, Q24H, Dosing Weight 63.636, kg, Priority: STAT, Start date: 0 07/31/15 3:19:00, Duration: 30 day, Stop date: 08/29/15 2:00:00 Notes: (Same As: Rocephin).Use with 100 mL NS and infuse over 30 min MEDICA TION WASTE Product Size: 1000 mgProduct Wasted: ___ mg Start Date: 07/31/15 Stop Date: 08/02/15 Status: Discontinued Cipro 250 mg oral tablet 250 mg=1 tab, PO, Q12H, X 7 day, # 14 tab, 0 Refill(s) Start Date: 08/02/15 Stop Date: 08/09/15 Status: Ordered cloNIDine 0.1 mg oral tablet 0.1 mg, 1 tab, Route: PO, Drug form: TAB, Q8H, Dosing Weight 66.818, kg, PRN Daniela vated BP, Start date: 08/02/15 13:49:00, Duration: 30 day, Stop date: 09/01/15 1 3:48:00, SBP >160 Notes: (Same As: Catapres) Start Date: 08/02/15 Stop Date: 08/02/15 Status: Discontinued clopidogrel 75 mg, 1 tab, Route: PO, Drug form: TAB, Daily, Dosing Weight 66.818, kg, Start date: 07/31/15 9:00:00, Duration: 30 day, Stop date: 08/29/15 9:00:00 Notes: (Same As: Plavix) Start Date: 07/31/15 Stop Date: 08/02/15 Status: Discontinued Dextrose 50% Syringe 12.5 gm, 25 mL, Route: IVP, Drug Form: INJ, Dosing Weight 66.818, kg, PRN, PRN B lood Glucose Results, Start date: 07/31/15 7:47:00, Duration: 30 day, Stop date: 08/30/15 7:46:00 Start Date: 07/31/15 Stop Date: 08/02/15 Status: Discontinued Dextrose 50% Syringe 25 gm, 50 mL, Route: IVP, Drug Form: INJ, Dosing Weight 66.818, kg, PRN, PRN Blo od Glucose Results, Start date: 07/31/15 7:47:00, Duration: 30 day, Stop date: 0 08/30/15 7:46:00 Start Date: 07/31/15 Stop Date: 08/02/15 Status: Discontinued docusate 100 mg, 1 cap, Route: PO, Drug form: CAP, BID, Dosing Weight 63.636, kg, PRN Con stipation, Start date: 07/31/15 3:19:00, Duration: 30 day, Stop date: 08/30/15 3 :18:00 Notes: (Same as: Colace) (Do Not Crush) Start Date: 07/31/15 Stop Date: 08/02/15 Status: Discontinued enoxaparin 40 mg, 0.4 mL, Route: SUB-Q, Drug form: INJ, [id number], Dosing Weight 66.818, kg, Start date: 07/31/15 8:00:00, Duration: 30 day, Stop date: 08/29/15 8:00:00 Notes: (Same as: Lovenox) Start Date: 07/31/15 Stop Date: 08/02/15 Status: Discontinued escitalopram 5 mg, 0.5 tab, Route: PO, Drug form: TAB, Daily, Dosing Weight 66.818, kg, Start date: 07/31/15 9:00:00, Duration: 30 day, Stop date: 08/29/15 9:00:00 Notes: (Same as: Lexapro) Start Date: 07/31/15 Stop Date: 08/02/15 Status: Discontinued escitalopram 5 mg oral tablet 5 mg=1 tab, PO, Daily, # 30 tab, 0 Refill(s) Start Date: 07/31/15 Status: Ordered ferrous sulfate 325 mg, 1 tab, Route: PO, Drug form: ECTAB, Daily, Dosing Weight 66.818, kg, Sta rt date: 07/31/15 9:00:00, Duration: 30 day, Stop date: 08/29/15 9:00:00 Notes: Give with food. "Do Not Crush" Start Date: 07/31/15 Stop Date: 07/31/15 Status: Canceled gabapentin 300 mg oral capsule 300 mg, 1 cap, Route: PO, Drug form: CAP, ONCE, Dosing Weight 66.818, kg, Start date: 07/31/15 5:16:00, Stop date: 07/31/15 5:16:00 Notes: (Same as: Neurontin) Start Date: 07/31/15 Stop Date: 07/31/15 Status: Completed gabapentin 300 mg oral capsule 300 mg=1 cap, PO, ONCE, 0 Refill(s) Start Date: 07/31/15 Stop Date: 08/02/15 Status: Discontinued glimepiride 4 mg, 1 tab, Route: PO, Drug form: TAB, BID, Dosing Weight 66.818, kg, Start vincenzo e: 07/31/15 9:00:00, Duration: 30 day, Stop date: 08/29/15 17:00:00 Notes: (Same as: Amaryl) Start Date: 07/31/15 Stop Date: 08/02/15 Status: Discontinued glucagon 1 mg, Route: IM, Drug form: PDR/INJ, PRN, Dosing Weight 66.818, kg, PRN Blood Gl ucose Results, Start date: 07/31/15 7:47:00, Duration: 30 day, Stop date: 7:46:00 Start Date: 07/31/15 Stop Date: 08/02/15 Status: Discontinued influenza virus vaccine, inactivated 0.5 mL, Route: IM, Drug Form: SUSP, Daily, Start date: 07/31/15 9:00:00, Duratio n: 1 doses or times, Stop date: 07/31/15 9:00:00 Notes: (Same as: Fluzone Quadrivalent)For 3 years of age and older (0.5 mL IM)Sh fox well before use Start Date: 07/31/15 Stop Date: 07/31/15 Status: Completed insulin aspart 6 unit, 0.06 mL, Route: SUB-Q, Drug form: SOLN, TID-Before Meals, Dosing Weight 66.818, kg, PRN Blood Glucose Results, Start date: 07/31/15 7:47:00, Duration: 3 0 day, Stop date: 08/30/15 7:46:00 Notes: Roll in palms of hands gently; Do not shake vigorously. (Same as: NovoLO G)"single patient use only"WASTE: F/P - Black; E - Municipal Trash Bin Stable f or 28 days at room temperature.Expires in days from Date Start Date: 07/31/15 Stop Date: 08/02/15 Status: Discontinued insulin aspart 2 unit, 0.02 mL, Route: SUB-Q, Drug form: SOLN, TID-Before Meals, Dosing Weight 66.818, kg, PRN Blood Glucose Results, Start date: 07/31/15 7:47:00, Duration: 3 0 day, Stop date: 08/30/15 7:46:00 Notes: Roll in palms of hands gently; Do not shake vigorously. (Same as: NovoJOSÉ MIGUEL G)"single patient use only"WASTE: F/P - Black; E - Municipal Trash Bin Stable f or 28 days at room temperature.Expires in days from Date Start Date: 07/31/15 Stop Date: 08/02/15 Status: Discontinued insulin aspart 4 unit, 0.04 mL, Route: SUB-Q, Drug form: SOLN, TID-Before Meals, Dosing Weight 66.818, kg, PRN Blood Glucose Results, Start date: 07/31/15 7:47:00, Duration: 3 0 day, Stop date: 08/30/15 7:46:00 Notes: Roll in palms of hands gently; Do not shake vigorously. (Same as: NovoJOSÉ MIGUEL G)"single patient use only"WASTE: F/P - Black; E - Municipal Trash Bin Stable f or 28 days at room temperature.Expires in days from Date Start Date: 07/31/15 Stop Date: 08/02/15 Status: Discontinued insulin aspart 8 unit, 0.08 mL, Route: SUB-Q, Drug form: SOLN, TID-Before Meals, Dosing Weight 66.818, kg, PRN Blood Glucose Results, Start date: 07/31/15 7:47:00, Duration: 3 0 day, Stop date: 08/30/15 7:46:00 Notes: Roll in palms of hands gently; Do not shake vigorously. (Same as: NovoJOSÉ MIGUEL Brown)"single patient use only"WASTE: F/P - Black; E - Municipal Trash Bin Stable f or 28 days at room temperature.Expires in days from Date Start Date: 07/31/15 Stop Date: 08/02/15 Status: Discontinued insulin aspart 10 unit, 0.1 mL, Route: SUB-Q, Drug form: SOLN, TID-Before Meals, Dosing Weight 66.818, kg, PRN Blood Glucose Results, Start date: 07/31/15 7:47:00, Duration: 3 0 day, Stop date: 08/30/15 7:46:00 Notes: Roll in palms of hands gently; Do not shake vigorously. (Same as: NovoJOSÉ MIGUEL Brown)"single patient use only"WASTE: F/P - Black; E - Municipal Trash Bin Stable f or 28 days at room temperature.Expires in days from Date Start Date: 07/31/15 Stop Date: 08/02/15 Status: Discontinued insulin aspart 2 unit, 0.02 mL, Route: SUB-Q, Drug form: SOLN, Bedtime, Dosing Weight 66.818, k g, PRN Blood Glucose Results, Start date: 07/31/15 7:47:00, Duration: 30 day, St op date: 08/30/15 7:46:00 Notes: Roll in palms of hands gently; Do not shake vigorously. (Same as: NovoJOSÉ MIGUEL Brown)"single patient use only"WASTE: F/P - Black; E - Municipal Trash Bin Stable f or 28 days at room temperature.Expires in days from Date Start Date: 07/31/15 Stop Date: 08/02/15 Status: Discontinued insulin aspart 3 unit, 0.03 mL, Route: SUB-Q, Drug form: SOLN, Bedtime, Dosing Weight 66.818, k g, PRN Blood Glucose Results, Start date: 07/31/15 7:47:00, Duration: 30 day, St op date: 08/30/15 7:46:00 Notes: Roll in palms of hands gently; Do not shake vigorously. (Same as: Ofelia Brown)"single patient use only"WASTE: F/P - Black; E - Municipal Trash Bin Stable f or 28 days at room temperature.Expires in days from Date Start Date: 07/31/15 Stop Date: 08/02/15 Status: Discontinued insulin aspart 4 unit, 0.04 mL, Route: SUB-Q, Drug form: SOLN, Bedtime, Dosing Weight 66.818, k g, PRN Blood Glucose Results, Start date: 07/31/15 7:47:00, Duration: 30 day, St op date: 08/30/15 7:46:00 Notes: Roll in palms of hands gently; Do not shake vigorously. (Same as: Ofelia Brown)"single patient use only"WASTE: F/P - Black; E - Municipal Trash Bin Stable f or 28 days at room temperature.Expires in days from Date Start Date: 07/31/15 Stop Date: 08/02/15 Status: Discontinued insulin aspart 1 unit, 0.01 mL, Route: SUB-Q, Drug form: SOLN, Bedtime, Dosing Weight 66.818, k g, PRN Blood Glucose Results, Start date: 07/31/15 7:47:00, Duration: 30 day, St op date: 08/30/15 7:46:00 Notes: Roll in palms of hands gently; Do not shake vigorously. (Same as: NovoJOSÉ MIGUEL Brown)"single patient use only"WASTE: F/P - Black; E - Municipal Trash Bin Stable f or 28 days at room temperature.Expires in days from Date Start Date: 07/31/15 Stop Date: 08/02/15 Status: Discontinued insulin glargine 15 unit, Route: SUB-Q, Drug form: SOLN, Daily, Dosing Weight 66.818, kg, Start d ate: 07/31/15 9:00:00, Duration: 30 day, Stop date: 08/29/15 9:00:00 Start Date: 07/31/15 Stop Date: 07/31/15 Status: Deleted Janumet 50 mg/1000 mg oral tablet 1 tab, PO, BID-Meals, # 60 tab, 0 Refill(s) Start Date: 07/31/15 Stop Date: 08/02/15 Status: Discontinued Lantus 100 units/mL SUB-Q, Daily, # 15 unit, 0 Refill(s) Start Date: 07/31/15 Status: Ordered Levemir FlexPen 15 unit, 0.15 mL, Route: SUB-Q, Drug form: INJ, Daily, Start date: 07/31/15 9:00 :00, Duration: 30 day, Stop date: 08/29/15 9:00:00 Notes: Same as LevemirDo not hold insulin without contacting prescriberWASTE: F/ P - Black; E - [facility] Trash [facility] "single patient use only" Start Date: 07/31/15 Stop Date: 08/02/15 Status: Discontinued losartan 100 mg, 2 tab, Route: PO, Drug form: TAB, Daily, Dosing Weight 66.818, kg, Start date: 07/31/15 9:00:00, Duration: 30 day, Stop date: 08/29/15 9:00:00 Notes: (Same as: Sumit) Start Date: 07/31/15 Stop Date: 07/31/15 Status: Canceled losartan 100 mg oral tablet 100 mg=1 tab, PO, Daily, # 30 tab, 0 Refill(s) Start Date: 07/31/15 Status: Ordered metFORMIN 1,000 mg, 2 tab, Route: PO, Drug form: TAB, BID, Dosing Weight 66.818, kg, Start date: 07/31/15 9:00:00, Duration: 30 day, Stop date: 08/29/15 17:00:00 Notes: (Same as: Glucophage) Take with meal Start Date: 07/31/15 Stop Date: 07/31/15 Status: Canceled metoprolol tartrate 25 mg, 1 tab, Route: PO, Drug form: ERTAB, Daily, Dosing Weight 66.818, kg, Star t date: 07/31/15 9:00:00, Duration: 30 day, Stop date: 08/29/15 9:00:00 Notes: (Same as: Toprol XL) Do Not Crush Start Date: 07/31/15 Stop Date: 08/02/15 Status: Discontinued metoprolol tartrate 25 mg oral tablet 25 mg=1 tab, PO, ONCE, 0 Refill(s) Start Date: 07/31/15 Stop Date: 08/02/15 Status: Discontinued morphine Sulfate 2 mg, 1 mL, Route: IVP, Drug form: INJ, Q4H, Dosing Weight 63.636, kg, PRN Pain Score 7-10, Start date: 07/31/15 3:19:00, Duration: 30 day, Stop date: 08/30/15 3:18:00 Notes: (Same as:MORPhine Sulfate) Start Date: 07/31/15 Stop Date: 08/02/15 Status: Discontinued nitroglycerin 0.4 mg sublingual tablet 0.4 mg, 1 tab, Route: SL, Drug form: TAB, Q5Min, Dosing Weight 66.818, kg, PRN C hest Pain, Start date: 07/31/15 3:53:00, Duration: 30 day, Stop date: 08/30/15 3 :52:00 Notes: (Same as:Nitroquick, Nitrostat)"Do Not Crush" Sublingual tablet Start Date: 07/31/15 Stop Date: 08/02/15 Status: Discontinued Nurse pls bring pt's own med: Sitagliptin to pharmacy for ve Nurse pls bring pt's own med: Sitagliptin to pharmacy for ve, attn, Drug form: M ISC, Route: MISC, QSHIFT, 07/31/15 8:00:00, Duration: 30 day, Stop date: 6 0:00:00 Start Date: 07/31/15 Stop Date: 07/31/15 Status: Deleted omeprazole 40 mg, Route: PO, Daily, Dosing Weight 66.818, kg, Start date: 07/31/15 9:00:00, Duration: 30 day, Stop date: 08/29/15 9:00:00 Start Date: 07/31/15 Stop Date: 07/31/15 Status: Deleted ondansetron 4 mg, 2 mL, Route: IVP, Drug form: INJ, Q6H, Dosing Weight 63.636, kg, PRN Nause a & Vomiting, Start date: 07/31/15 3:19:00, Duration: 30 day, Stop date: 08/30/15 3:18:00 Notes: (Same as: Kaykay) MEDICATION WASTE Product Size: 4 mgProduct Was mitchell: ___ mg Start Date: 07/31/15 Stop Date: 08/02/15 Status: Discontinued Patient's own med: Janumet 50mg/1000mg(sitagliptin/metformin Patient's own med: Janumet 50mg/1000mg(sitagliptin/metformin, 1 tab, Drug form: MISC, Route: PO, BID, 07/31/15 9:00:00, Duration: 30 day, Stop date: 08/29/15 17 :00:00 Start Date: 07/31/15 Stop Date: 08/02/15 Status: Discontinued pravastatin 40 mg, 2 tab, Route: PO, Drug form: TAB, Bedtime, Dosing Weight 66.818, kg, Star t date: 07/31/15 21:00:00, Duration: 30 day, Stop date: 08/29/15 21:00:00 Notes: (Same as: Pravachol) Start Date: 07/31/15 Stop Date: 08/02/15 Status: Discontinued pravastatin 40 mg oral tablet 40 mg=1 tab, PO, Bedtime, # 30 tab, 0 Refill(s) Start Date: 07/31/15 Stop Date: 08/02/15 Status: Discontinued Protonix 40 mg, 1 tab, Route: PO, Drug form: ECTAB, Before Dinner, Start date: 07/31/15 1 6:30:00, Duration: 30 day, Stop date: 08/29/15 16:30:00 Notes: Tablet should not be chewed or crushed.(Same as: Protonix) Start Date: 07/31/15 Stop Date: 08/02/15 Status: Discontinued Rocephin 1 gm, Route: IVPB, Drug form: PDR/INJ, ONCE, Dosing Weight 63.636, kg, Priority: STAT, Start date: 07/31/15 1:33:00, Stop date: 07/31/15 1:33:00 Start Date: 07/31/15 Stop Date: 07/31/15 Status: Completed Saline Flush 0.9% 10 mL, Route: IVP, Drug Form: INJ, Dosing Weight 63.636, kg, PRN, PRN Line Flush , Start date: 07/30/15 23:05:00, Duration: 30 day, Stop date: 08/29/15 23:04:00 Notes: (Same as: BD Posiflush) Start Date: 07/30/15 Stop Date: 07/31/15 Status: Discontinued sertraline 50 mg, 1 tab, Route: PO, Drug form: TAB, Daily, Dosing Weight 66.818, kg, Start date: 07/31/15 9:00:00, Duration: 30 day, Stop date: 08/29/15 9:00:00 Notes: (Same as: Zoloft) Start Date: 07/31/15 Stop Date: 07/31/15 Status: Canceled simvastatin 20 mg, 1 tab, Route: PO, Drug form: TAB, Bedtime, Dosing Weight 66.818, kg, Star t date: 07/31/15 21:00:00, Duration: 30 day, Stop date: 08/29/15 21:00:00 Notes: (Same as: Zocor) Start Date: 07/31/15 Stop Date: 07/31/15 Status: Canceled sitaGLIPtin 50 mg, Route: PO, Drug form: TAB, BID, Dosing Weight 66.818, kg, substituting me tform and this for his janumet, Start date: 07/31/15 9:00:00, Duration: 30 day, Stop date: 08/29/15 17:00:00 Start Date: 07/31/15 Stop Date: 07/31/15 Status: Deleted Sodium Chloride 0.9% IV 1,000 mL 1,000 mL, Rate: 75 ml/hr, Infuse over: 13.3 hr, Route: IV, Dosing Weight 63.636 kg, Total Volume: 1,000, Start date: 07/31/15 3:19:00, Duration: 30 day, Stop da te: 08/30/15 3:18:00 Start Date: 07/31/15 Stop Date: 08/02/15 Status: Discontinued sulfamethoxazole-trimethoprim DS 800 mg-160 mg oral tablet 1 tab, PO, BID, # 28 tab, 0 Refill(s) Start Date: 07/31/15 Stop Date: 08/02/15 Status: Discontinued tamsulosin 0.8 mg, 2 cap, Route: PO, Drug form: CAP, Daily, Dosing Weight 66.818, kg, Start date: 07/31/15 9:00:00, Stop date: 08/29/15 9:00:00 Notes: (Same As: Flomax) "Do Not Crush" Start Date: 07/31/15 Stop Date: 08/02/15 Status: Discontinued tamsulosin 0.4 mg oral capsule 0.4 mg=1 cap, PO, Daily, # 30 cap, 0 Refill(s) Start Date: 07/31/15 Status: Ordered tramadol 50 mg oral tablet 50 mg=1 tab, PO, Daily, 0 Refill(s) Start Date: 07/31/15 Stop Date: 08/02/15 Status: Discontinued tramadol 50 mg oral tablet 50 mg, 1 tab, Route: PO, Drug form: TAB, ONCE, Dosing Weight 66.818, kg, Start d ate: 07/31/15 5:18:00, Stop date: 07/31/15 5:18:00 Notes: Not to exceed 400mg/day. (Same As: Ultram) Start Date: 07/31/15 Stop Date: 07/31/15 Status: Completed Vitamin D2 50,000 IntlUnit, Route: PO, qWeek, Dosing Weight 66.818, kg, Start date: 6 6:00:00, Duration: 30 day, Stop date: 08/28/15 9:00:00 Start Date: 07/31/15 Stop Date: 07/31/15 Status: Canceled Zofran 4 mg, Route: IVP, Drug form: INJ, ONCE, Dosing Weight 63.636, kg, Priority: STAT , Start date: 07/30/15 23:03:00, Stop date: 07/30/15 23:03:00 Start Date: 07/30/15 Stop Date: 07/30/15 Status: Completed Results ELECTROLYTES 1 2 3 Most recent to oldest [Reference Range]: 134 mEq/L *LOW* (08/01/15 4:39 AM) 130 mEq/L *LOW* (07/30/15 11:15 PM) Sodium Lvl [135-145 mEq/L] 4.6 mEq/L (08/01/15 4:39 AM) 4.5 mEq/L (07/30/15 11:15 PM) Potassium Lvl [3.5-5.1 mEq/L] 102 mEq/L (08/01/15 4:39 AM) 97 mEq/L (07/30/15 11:15 PM) Chloride Lvl [95-109 mEq/L] 24 mEq/L (08/01/15 4:39 AM) 18 mEq/L *LOW* (07/30/15 11:15 PM) CO2 [24-32 mEq/L] 12.6 mEq/L (08/01/15 4:39 AM) 19.5 mEq/L (07/30/15 11:15 PM) AGAP [10.0-20.0 mEq/L] CHEM PANEL 1 2 3 Most recent to oldest [Reference Range]: 1.57 mg/dL *HI* (08/01/15 4:39 AM) 1.66 mg/dL *HI* (07/31/15 8:30 AM) 1.63 mg/dL *HI* (07/30/15 11:15 PM) Creatinine Lvl [0.50-1.40 mg/dL] 44 mL/min/1.73m2 1 *NA* (08/01/15 4:39 AM) 41 mL/min/1.73m2 2 *NA* (07/31/15 8:30 AM) 42 mL/min/1.73m2 3 *NA* (07/30/15 11:15 PM) eGFR 15 mg/dL (08/01/15 4:39 AM) 18 mg/dL (07/30/15 11:15 PM) BUN [7-22 mg/dL] 11 (07/30/15 11:15 PM) B/C Ratio [6-25] 51 mg/dL *LOW* (08/01/15 4:39 AM) 218 mg/dL *HI* (07/30/15 11:15 PM) Glucose Lvl [70-99 mg/dL] 8.4 g/dL (07/30/15 11:15 PM) Total Protein [6.4-8.4 g/dL] 3.8 g/dL (07/30/15 11:15 PM) Albumin Lvl [3.5-5.0 g/dL] 4.6 g/dL *HI* (07/30/15 11:15 PM) Globulin [2.0-4.0 g/dL] 0.8 (07/30/15 11:15 PM) A/G Ratio [0.7-1.6] 8.3 mg/dL *LOW* (08/01/15 4:39 AM) 9.4 mg/dL (07/30/15 11:15 PM) Calcium Lvl [8.5-10.5 mg/dL] 26 unit/L (07/30/15 11:15 PM) ALT [0-65 unit/L] 27 unit/L (07/30/15 11:15 PM) AST [0-37 unit/L] 106 unit/L (07/30/15 11:15 PM) Alk Phos [39-136 unit/L] 0.4 mg/dL (07/30/15 11:15 PM) Bili Total [0.2-1.3 mg/dL] 72 unit/L (07/30/15 11:15 PM) Amylase Lvl [25-115 unit/L] 133 unit/L (07/30/15 11:15 PM) Lipase Lvl [73-393 unit/L] 1Result Comment: The eGFR is calculated using [...] be mul tiplied by the estimated BMI. CARDIAC ENZYMES 1 2 3 Most recent to oldest [Reference Range]: 109 unit/L (07/31/15 3:03 PM) 116 unit/L (07/31/15 8:15 AM) 115 unit/L (07/31/15 7:20 AM) Total CK [12-191 unit/L] 2.2 ng/mL (07/31/15 3:03 PM) 2.0 ng/mL (07/31/15 8:15 AM) 1.8 ng/mL (07/31/15 7:20 AM) CK MB [0.5-3.6 ng/mL] 2.0 (07/31/15 3:03 PM) 1.7 (07/31/15 8:15 AM) 1.6 (07/31/15 7:20 AM) CK MB Index [0.0-2.5] 0.03 ng/mL (07/31/15 3:03 PM) 0.04 ng/mL (07/31/15 8:15 AM) 0.03 ng/mL (07/31/15 7:20 AM) Troponin-I [0.00-0.40 ng/mL] URINE AND STOOL 1 2 3 Most recent to oldest [Reference Range]: Clear (07/30/15 11:15 PM) UA Turbidity [Clear] Ltyellow *NA* (07/30/15 11:15 PM) UA Color 6.0 (07/30/15 11:15 PM) UA pH [5.0-8.0] 1.010 (07/30/15 11:15 PM) UA Spec Grav [<=1.030] 150 mg/dL *ABN* (07/30/15 11:15 PM) UA Glucose [Negative mg/dL] Small *ABN* (07/30/15 11:15 PM) UA Blood [Negative] Trace mg/dL *ABN* (07/30/15 11:15 PM) UA Ketones [Negative mg/dL] 100 mg/dL *ABN* (07/30/15 11:15 PM) UA Protein [Negative mg/dL] <=1.0 mg/dL *NA* (07/30/15 11:15 PM) UA Urobilinogen [0.1-1.0 mg/dL] Negative *NA* (07/30/15 11:15 PM) UA Bili [Negative] Moderate *ABN* (07/30/15 11:15 PM) UA Leuk Est [Negative] Negative (07/30/15 11:15 PM) UA Nitrite [Negative] 26 /HPF *HI* (07/30/15 11:15 PM) UA WBC [0-5 /HPF] 6 /HPF *HI* (07/30/15 11:15 PM) UA RBC [0-2 /HPF] None Seen *NA* (07/30/15 11:15 PM) UA Sq Epi HEMATOLOGY 1 2 3 Most recent to oldest [Reference Range]: 12.4 K/CMM *HI* (08/01/15 4:39 AM) 23.8 K/CMM *HI* (07/30/15 11:15 PM) WBC [3.7-10.4 K/CMM] 3.91 M/CMM *LOW* (08/01/15 4:39 AM) 4.18 M/CMM *LOW* (07/30/15 11:15 PM) RBC [4.70-6.10 M/CMM] 11.0 g/dL *LOW* (08/01/15 4:39 AM) 11.8 g/dL *LOW* (07/30/15 11:15 PM) Hgb [14.0-18.0 g/dL] 34.2 % *LOW* (08/01/15 4:39 AM) 36.6 % *LOW* (07/30/15 11:15 PM) Hct [42.0-54.0 %] 87.4 fL (08/01/15 4:39 AM) 87.5 fL (07/30/15 11:15 PM) MCV [80.0-94.0 fL] 28.0 pg (08/01/15 4:39 AM) 28.2 pg (07/30/15 11:15 PM) MCH [27.0-31.0 pg] 32.1 g/dL (08/01/15 4:39 AM) 32.3 g/dL (07/30/15 11:15 PM) MCHC [32.0-36.0 g/dL] 15.8 % *HI* (08/01/15 4:39 AM) 15.8 % *HI* (07/30/15 11:15 PM) RDW [11.5-14.5 %] 205 K/CMM (08/01/15 4:39 AM) 223 K/CMM (07/31/15 8:30 AM) 216 K/CMM (07/30/15 11:15 PM) Platelet [133-450 K/CMM] 7.8 fL (08/01/15 4:39 AM) 7.9 fL (07/30/15 11:15 PM) MPV [7.4-10.4 fL] 83.8 % *HI* (08/01/15 4:39 AM) 93.5 % *HI* (07/30/15 11:15 PM) Segs [45.0-75.0 %] 8.1 % *LOW* (08/01/15 4:39 AM) 2.9 % *LOW* (07/30/15 11:15 PM) Lymphocytes [20.0-40.0 %] 6.6 % (08/01/15 4:39 AM) 3.4 % (07/30/15 11:15 PM) Monocytes [2.0-12.0 %] 1.2 % (08/01/15 4:39 AM) 0.1 % (07/30/15 11:15 PM) Eosinophils [0.0-4.0 %] 0.3 % (08/01/15 4:39 AM) 0.1 % (07/30/15 11:15 PM) Basophils [0.0-1.0 %] 10.4 K/CMM *HI* (08/01/15 4:39 AM) 22.3 K/CMM *HI* (07/30/15 11:15 PM) Segs-Bands # [1.5-8.1 K/CMM] 1.0 K/CMM (08/01/15 4:39 AM) 0.7 K/CMM *LOW* (07/30/15 11:15 PM) Lymphocytes # [1.0-5.5 K/CMM] 0.8 K/CMM (08/01/15 4:39 AM) 0.8 K/CMM (07/30/15 11:15 PM) Monocytes # [0.0-0.8 K/CMM] 0.1 K/CMM (08/01/15 4:39 AM) Eosinophils # [0.0-0.5 K/CMM] Normal (07/30/15 11:15 PM) RBC Morph Normal (07/30/15 11:15 PM) Plt Morph 15.6 seconds *HI* (07/30/15 11:15 PM) PT [12.0-14.7 seconds] 1.21 *HI* (07/30/15 11:15 PM) INR [0.85-1.17] 41.0 seconds *HI* (07/30/15 11:15 PM) PTT [22.9-35.8 seconds] Immunizations Vaccine Date Refusal Reason influenza virus vaccine, inactivated 07/31/15 Patient Refuses influenza virus vaccine, inactivated 05/18/12 pneumococcal 23-valent vaccine 05/18/12 Procedures No data available for this section Social History Social History Type Response Substance Abuse Use: None. Alcohol Never Smoking Status Never smoker; Exposure to Tobacco Smoke None; Cigarette Smoking Last 365 Days No; Reg Smoking Cessation Counseling No Assessment and Plan Extracted from: Title: Clinical Document Author: Fidel Polanco MD Date: 08/02/15 Progress Daily [facility] Completed: Jul, 14:15 by Fidel Polanco MD RM: [id number], SE [id number] SARMIENTO70y (: 1945) M Attending: Leonardo David: Service: Internal Medicine Reason for Admission: UTI, URINARY RETENTION Working DRG: Kidney & urinary tract infections w/o LONG TERM Code status: Full Code [Ordered]Current diet: Isolation: None Documented Allergies: vancomycin SUBJECTIVE No acute events tolerating gill OBJECTIVE General: NAD, AAO Abdomen: Soft, nontender, nondistended : urine clear ASSESSMENT & EXAM Urinary retention bph PLAN & TREATMENT d/w and pt, he will be discharged home with gill to follow up with prior urologist he will double his flomax DIAGNOSES & PROBLEMS Ready for Discharge (Yes/No)? Gill still necessary (Yes/No): Line still necessary (Yes/No): 24hr Labs 08/02 1104 Glucose OQQ273 H 08/02 0642 Glucose QYD935 H 08/02 0554 Glucose KNL723 H 08/02 0343 Glucose POC56 L 08/01 2128 Glucose OIT725 H 08/01 1537 Glucose MDW105 H VitalsTmp(F)[id number] 08/02 12:009.751904/[id number]--- 08/02 08:009.240272/696848--- 08/02 04:0097.996475/[id number]--- 08/02 00:0098.954487/[id number]--- 08/01 20:[id number]--- 24 Hr Tmax: 98.5F (36.94c) at 08/02 00:00Vital Signs are the last 5 in the past 48 hours. DateWt(kg)Wt(lb)Ht(cm)Ht(in)Method 07/31 66.82 [phone] 68.00Measured 07/30 (initial) 63.64 140.00Measured 60.02 63.00Stated I&ORecordInOutBal 07/523hr Tot 600 900 -300 07/423hr Tot 1236 [phone] Medications (32) Active Scheduled Meds (13): 07/31/15 aspirin (aspirin 81 mg tablet, chewable) 81 mg PO Q24H 07/31/15 baclofen 10 mg PO TID 07/31/15 cefTRIAXone + Sodium Chloride 0.9% IV 100 mL 1 gm IVPB Q24H 200 ml/hr 07/31/15 clopidogrel 75 mg PO Daily 07/31/15 enoxaparin 40 mg SUB-Q [id number] 07/31/15 escitalopram 5 mg PO Daily 07/31/15 glimepiride 4 mg PO BID 07/31/15 insulin detemir (Levemir FlexPen) 15 unit SUB-Q Daily 07/31/15 metoprolol (metoprolol tartrate) 25 mg PO Daily 07/31/15 non-formulary (Patient's own med: Janumet 50mg/1000mg(sitagliptin/metformin) 1 tab PO BID 07/31/15 pantoprazole (Protonix) 40 mg PO Before Dinner 07/31/15 pravastatin 40 mg PO Bedtime 07/31/15 tamsulosin 0.8 mg PO Daily Unscheduled Meds: None PRN Meds (19): 07/31/15 Dextrose 50% in Water IV (Dextrose 50% Syringe) 12.5 gm IVP PRN 07/31/15 Dextrose 50% in Water IV (Dextrose 50% Syringe) 25 gm IVP PRN 07/31/15 acetaminophen 650 mg PO Q4H 07/31/15 atropine 0.5 mg IVP PRN 08/02/15 cloNIDine (cloNIDine 0.1 mg oral tablet) 0.1 mg PO Q8H 07/31/15 docusate 100 mg PO BID 07/31/15 glucagon 1 mg IM PRN 07/31/15 insulin aspart 2 unit SUB-Q TID-Before Meals 07/31/15 insulin aspart 4 unit SUB-Q TID-Before Meals 07/31/15 insulin aspart 6 unit SUB-Q TID-Before Meals 07/31/15 insulin aspart 8 unit SUB-Q TID-Before Meals 07/31/15 insulin aspart 10 unit SUB-Q TID-Before Meals 07/31/15 insulin aspart 1 unit SUB-Q Bedtime 07/31/15 insulin aspart 2 unit SUB-Q Bedtime 07/31/15 insulin aspart 3 unit SUB-Q Bedtime 07/31/15 insulin aspart 4 unit SUB-Q Bedtime 07/31/15 morphine Sulfate 2 mg IVP Q4H 07/31/15 nitroglycerin (nitroglycerin 0.4 mg sublingual tablet) 0.4 mg SL Q5Min 07/31/15 ondansetron 4 mg IVP Q6H One Time Meds: None Continuous Infusions: None
--- OUTSIDE RECORDS SUMMARY | 2018-09-13 05:28 | XMS REPORT | Summary of Care ---
Author Author [facility] Primary Care [facility] Organization [facility] Address Unknown Phone Unavailable Encounter NICHOLE Hernández(GERTRUDE) [id number] Date(s): 08/31/18 - 08/31/18 [facility] [address], [address] [place], [place] [address]- [phone] Attending Physician: Malena Arriaza MD Vital Signs No data available for this section Problem List Condition Effective Dates Status Health Status Informant Alzheimer Active disease(Confirmed) Anemia(Confirmed) Resolved CAD (coronary artery Active disease)(Confirmed) Benign essential Active HTN(Confirmed) BPH (benign Resolved prostatic hyperplasia)(Confirm ed) Chest Active pain(Confirmed) Vitamin B 12 Active deficiency(Confirmed ) CHF (congestive Resolved heart failure)(Confirmed) Constipation(Confirm Active ed) Stroke(Confirmed) Resolved Low serum vitamin Active D.(Confirmed) Foot Active deformity(Confirmed) Diabetes Resolved mellitus(Confirmed) DM type 2 with Active diabetic peripheral neuropathy(Confirmed ) Fall(Confirmed) Active Hospital discharge Active follow-up(Confirmed) Heart Resolved disease(Confirmed) Hemorrhoids(Confirme Active d) Hypercholesteremia(C Resolved onfirmed) Hypertension(Confirm Active ed) Hypertension(Confirm Resolved ed) H. pylori Active infection(Confirmed) Skin Active infection(Confirmed) Iron deficiency Active anemia(Confirmed) PEG tube Resolved malfunction(Confirme d) Hyperlipidemia, Active mixed(Confirmed) Ear pain(Confirmed) Active Annual physical Active exam(Confirmed) Colon cancer Active screening(Confirmed) Senile Active debility(Confirmed) Stroke(Confirmed) Active Heart failure, Active systolic(Confirmed) Tinea Active cruris(Confirmed) Wheelchair Active dependent(Confirmed) Allergies, Adverse Reactions, Alerts Substance Reaction Severity Status vancomycin Active Medications No data available for this section Results No data available for this section Immunizations Given and Recorded Vaccine Date Status Refusal Reason influenza virus vaccine, inactivated1 9/5/18 Given influenza virus vaccine, inactivated 03/16/17 Given influenza virus vaccine, inactivated 03/24/16 Given influenza virus vaccine, inactivated 05/18/12 Given pneumococcal 23-valent vaccine 04/01/17 Given pneumococcal 23-valent vaccine 05/18/12 Given Not Given Vaccine Date Status Refusal Reason influenza virus vaccine, inactivated2 07/31/15 Not Given Patient Refuses 1Result Comment: Patient waited 10 min, no reaction 2Result Note: Patient family stated , patient had already received flu shot prior to admission Procedures Procedure Date Related Diagnosis Body Site Status Screening colonoscopy1 01/11/18 Completed Angiogram2 Completed Cataract surgery Completed Operation3 Completed Operation4 Completed PEG - Percutaneous endoscopic gastrostomy Completed 1Hemorroids. Normal colonosopcy Repeat in 10 years but per recommendation of Dr Villanueva, do not repeat due to age and comorbidities 2coronary 3prostate 4foot surgery Social History Social History Type Response [...] Reg Smoking Cessation Counseling No entered on: 07/02/18 Assessment and Plan No data available for this section
--- OUTSIDE RECORDS SUMMARY | 2018-09-13 05:28 | XMS REPORT | Summary of Care ---
Author Organization Unknown Address Unknown Phone Unavailable Encounter HQ Rajeshr_sarah([facility]) [id number] Date(s): 12/28/13 - 12/28/13 [facility] Outpatient Imaging - [address] [address] [place] Discharge Disposition: Home Physician Attending: Hardeep Dobson MD Reason for Visit 719.4 - PAIN IN JOINT Problem List Condition Effective Dates Status Health Status Informant Chest Active pain(Confirmed) dm(Confirmed) Active Heart Resolved disease(Confirmed) Hypertension(Confirm Active ed) Stroke(Confirmed) Active Allergies, Adverse Reactions, Alerts Substance Reaction Severity Status vancomycin Active Medications No data available for this section Medications Administered During Your Visit No data available for this section Immunizations Vaccine Date Refusal Reason influenza virus vaccine, inactivated 05/18/12 pneumococcal 23-valent vaccine 05/18/12
--- OUTSIDE RECORDS SUMMARY | 2018-09-13 05:28 | XMS REPORT | Summary of Care ---
Author Author [facility] Primary Care [facility] Organization [facility] Address Unknown Phone Unavailable Encounter NICHOLE Hernández(FIN) [id number] Date(s): 07/22/17 - 07/22/17 [facility] [address], [address] [place] [address]- [phone] Discharge Disposition: Home or Self Care Attending Physician: Malena Arriaza MD Vital Signs Most recent to 1 oldest [Reference Range]: Height 172.72 cm (07/22/17 1:24 PM) Temperature Oral 98.3 DegF [96.4-99.1 DegF] (07/22/17 1:24 PM) Blood Pressure 143/65 mmHg [90-140/60-90 mmHg] *HI* (07/22/17 1:24 PM) Respiratory Rate 14 BRMIN [14-20 BRMIN] (07/22/17 1:24 PM) Peripheral Pulse 73 bpm Rate [60-100 bpm] (07/22/17 1:24 PM) Problem List Condition Effective Dates Status [...] Substance Reaction Severity Status vancomycin Active Medications atorvastatin 40 mg oral tablet See Instructions, # 90 tab, Refill(s) 1, OSCAR RASHAD TABLETA ORALMENTE DIARIAMENTE AL ACOSTARSE PARA 90 FAM, Pharmacy: [facility] Start Date: 10/05/17 Status: Ordered DME Addition #1 See Instructions, DIAPERS FOR URINARY INCONTINENCE TO USE 4 TIMES A DAY., # 300 ea, 3 Refill(s) Start Date: 08/16/17 Status: Ordered escitalopram 5 mg oral tablet See Instructions, # 90 tab, Refill(s) 2, OSCAR RASHAD TABLETA ORALMENTE DIARIAMENTE , Pharmacy: [facility] Start Date: 10/05/17 Status: Ordered glimepiride 4 mg oral tablet 4 mg=1 tab, PO, Breakfast, # 90 tab, 1 Refill(s), Pharmacy: [facility] Start Date: 07/22/17 Stop Date: 01/18/18 Status: Ordered tamsulosin 0.4 mg oral capsule See Instructions, # 90 unknown unit, Refill(s) 2, OSCAR RASHAD CAPSULA ORALMENTE DI ARIAMENTE AL ACOSTARSE, Pharmacy: [facility] Start Date: 10/05/17 Status: Ordered Results No data available for [...]
--- OUTSIDE RECORDS SUMMARY | 2018-09-13 05:28 | XMS REPORT | Summary of Care ---
Author Organization Unknown Address Unknown Phone Unavailable Encounter HQ Patelntr_sarah(FIN) [id number] Date(s): 07/23/14 - 07/23/14 [facility] Outpatient Imaging - [address] [address]- [place] Discharge Disposition: Home Physician Attending: Jojo Morel MD Reason for Visit 116.41 - JOINT PAIN-SHLD Problem List Condition Effective Dates Status Health [...]
--- OUTSIDE RECORDS SUMMARY | 2018-09-13 05:28 | XMS REPORT | Summary of Care ---
Author Author [facility] Primary Care [facility] Organization [facility] Address Unknown Phone Unavailable Encounter NICHOLE Hernández(GERTRUDE) [id number] Date(s): 10/21/17 - 10/21/17 [facility] [address], [address] [place] [address]- [phone] Discharge Disposition: Home or Self Care Attending Physician: Malena Arriaza MD Vital Signs Most recent to 1 oldest [Reference Range]: Height 172.72 cm (10/21/17 10:13 AM) Temperature Oral 98.7 DegF [96.4-99.1 DegF] (10/21/17 10:13 AM) Blood Pressure 134/69 mmHg [90-140/60-90 mmHg] (10/21/17 10:13 AM) Respiratory Rate 14 BRMIN [14-20 BRMIN] (10/21/17 10:13 AM) Peripheral Pulse 78 bpm Rate [60-100 bpm] (10/21/17 10:13 AM) Problem List Condition Effective Dates Status [...] Substance Reaction Severity Status vancomycin Active Medications DME Addition #1 See Instructions, PATIENT NEEDS ADJUSTABLE DIAPERS SIZE LARGE, # 200 ea, 10 Ref ill(s) Start Date: 10/21/17 Status: Ordered DME Addition #1 See Instructions, PATIENT NEEDS A BP MACHINE TO CHECK BP DID, # 1 ea, 0 Refill(s ) Start Date: 10/21/17 Status: Ordered DME Addition #2 See Instructions, PATIENT NEEDS CUSHION FOR WHEEL CHAIR, # 1 ea, 0 Refill(s) Start Date: 10/21/17 Status: Ordered DME Addition #2 See Instructions, PATIENT NEEDS AN ELECTRIC BED. PATIENT HAS 2 PREVIOUS STROKES AND HE IS UNABLE TO WALK AND HE IS WHEELCHAIR BOUND. HAS SEVERE MOTOR DEFICITS ON BILATERAL UPPER AND LOWER EXTREMITIES, # 1 ea, 0 Refill(s) Start Date: 10/21/17 Status: Ordered docusate-senna 50 mg-8.6 mg oral tablet 2 tab, PO, Bedtime, PRN Constipation, X 14 day, # 60 tab, 1 Refill(s), [facility]acy: [facility] Start Date: 10/21/17 Stop Date: 11/18/17 Status: Ordered lisinopril 2.5 mg oral tablet 2.5 mg=1 tab, PO, Daily, # 90 tab, 1 Refill(s), Pharmacy: [facility] Start Date: 10/21/17 Stop Date: 04/19/18 Status: Ordered Results No data available for [...]
--- OUTSIDE RECORDS SUMMARY | 2018-09-13 05:28 | XMS REPORT | Summary of Care ---
Author Author [facility] Primary Care [facility] Organization [facility] Address Unknown Phone Unavailable Encounter NICHOLE Hernández(FIN) [id number] Date(s): 12/01/17 - 12/02/17 [facility] [address], [address] [place] [address] [phone] Vital Signs No data available for this [...]
--- OUTSIDE RECORDS SUMMARY | 2018-09-13 05:28 | XMS REPORT | CCD ---
Author Author Auto Generated Organization [facility] Address Unknown Phone Unavailable Care Team Providers Care Paper Bundler Name Role Phone Tank Malloy RP Allergies, Adverse Reactions, Alerts Substance Reaction Status vancomycin Active Problem List Condition Effective Dates Status Chest pain Active dm Active Heart disease Resolved Hypertension Active Stroke Active Medications Medication Instructions Start Date End Date Status potassium chloride 40 mEq, 2 tab, Route: PO, Drug 06/07/2012 06/07/2012 Completed form: ERTAB, ONCE, Dosing Weight 62.727, kg, Priority: NOW, Start date: 06/07/12 8:21:00, Stop date: 06/07/12 8:21:00 amLODipine 5 mg, 1 tab, Route: PO, Drug form: 06/06/2012 06/07/2012 Discontinued TAB, Q24H, Dosing Weight 62.727, kg, Start date: 06/06/12 17:00:00, Duration: 30 day, Stop date: 07/05/12 17:00:00 Protonix 40 mg, 1 tab, Route: PO, Drug form: 06/06/2012 06/07/2012 Discontinued ECTAB, Before Dinner, Start date: 06/06/12 16:30:00, Duration: 30 day, Stop date: 07/05/12 16:30:00 Imdur 60 mg, 1 tab, Route: PO, Drug form: 06/06/2012 06/07/2012 Discontinued ERTAB, Q24H, Dosing Weight 62.727, kg, Start date: 06/06/12 17:00:00, Duration: 30 day, Stop date: 07/05/12 17:00:00 NS 1,000 mL 1,000 mL, Rate: 100 ml/hr, Infuse 06/06/2012 06/07/2012 Completed over: 10 hr, Route: IV, kg, Total Volume: 1,000, Priority: NOW, Start date: 06/06/12 14:51:00, Duration: 10 hr, Stop date: 06/07/12 0:50:00 pneumococcal 0.5 ml, Route: IM, Drug Form: INJ, 05/18/2012 05/18/2012 Completed 23-valent vaccine Start date: 05/18/12 16:30:00, Stop date: 05/18/12 16:30:00 influenza virus 0.5 ml, Route: IM, Drug Form: INJ, 05/18/2012 05/18/2012 Completed vaccine, inactivated Start date: 05/18/12 16:30:00, Stop date: 05/18/12 16:30:00 morphine Sulfate 2 mg, 1 mL, Route: IV, Drug form: 06/06/2012 06/07/2012 Discontinued INJ, Q10day, PRN Chest Pain, Start date: 06/06/12 15:42:00, Duration: 5 doses or times, Stop date: Limited # of times insulin 10 unit, Route: SUB-Q, Drug form: 06/07/2012 06/07/2012 Deleted isophane-insulin SUSP, BID-Before Meals, Dosing regular 70/30 Weight 62.727, kg, Priority: STAT, Start date: 06/07/12 0:06:00, Duration: 30 day, Stop date: 07/06/12 16:30:00 nitroglycerin 0.4 mg 0.4 mg, 1 tab, Route: SL, Drug 06/06/2012 06/07/2012 Discontinued sublingual tablet form: TAB, Q5Min, PRN Chest Pain, Start date: 06/06/12 15:41:00, Duration: 30 day, Stop date: 07/06/12 15:40:00 atropine 0.5 mg, 5 mL, Route: IVP, Drug 06/06/2012 06/07/2012 Discontinued form: INJ, PRN, PRN Bradycardia, Start date: 06/06/12 15:41:00, Duration: 30 day, Stop date: 07/06/12 15:40:00 omeprazole 40 mg, Route: PO, Daily, Dosing 06/07/2012 06/06/2012 Deleted Weight 62.727, kg, Start date: 06/07/12 9:00:00, Duration: 30 day, Stop date: 07/06/12 9:00:00 simvastatin 20 mg, 1 tab, Route: PO, Drug form: 06/06/2012 06/07/2012 Discontinued TAB, Bedtime, Dosing Weight 62.727, kg, Start date: 06/06/12 21:00:00, Duration: 30 day, Stop date: 07/05/12 21:00:00 sertraline 50 mg, 1 tab, Route: PO, Drug form: 06/07/2012 06/07/2012 Discontinued TAB, Daily, Dosing Weight 62.727, kg, Start date: 06/07/12 9:00:00, Duration: 30 day, Stop date: 07/06/12 9:00:00 metoprolol extended 25 mg, 1 tab, Route: PO, Drug form: 06/07/2012 06/07/2012 Discontinued release ERTAB, Daily, Start date: 06/07/12 9:00:00, Duration: 30 day, Stop date: 07/06/12 9:00:00 losartan 50 mg, 1 tab, Route: PO, Drug form: 06/07/2012 06/07/2012 Discontinued TAB, Daily, Dosing Weight 62.727, kg, Start date: 06/07/12 9:00:00, Duration: 30 day, Stop date: 07/06/12 9:00:00 ferrous sulfate 325 mg, 1 tab, Route: PO, Drug 06/07/2012 06/07/2012 Discontinued form: ECTAB, Daily, Dosing Weight 62.727, kg, Start date: 06/07/12 9:00:00, Duration: 30 day, Stop date: 07/06/12 9:00:00 glimepiride 4 mg, 1 tab, Route: PO, Drug form: 06/06/2012 06/07/2012 Discontinued TAB, BID, Dosing Weight 62.727, kg, Start date: 06/06/12 17:00:00, Duration: 30 day, Stop date: 07/06/12 9:00:00 clopidogrel 75 mg, 1 tab, Route: PO, Drug form: 06/07/2012 06/07/2012 Discontinued TAB, Daily, Dosing Weight 62.727, kg, Start date: 06/07/12 9:00:00, Duration: 30 day, Stop date: 07/06/12 9:00:00 Vitamin D 50,000 IntlUnit, 1 cap, Route: PO, 06/06/2012 06/07/2012 Discontinued Drug form: CAP, qWeek, Dosing Weight 62.727, kg, Start date: 06/06/12 15:00:00, Duration: 30 day, Stop date: 07/04/12 9:00:00 NovoLog Mix 70/30 10 unit, 0.1 mL, Route: SUB-Q, Drug 06/07/2012 06/07/2012 Discontinued FlexPen form: INJ, BID-Before Meals, Priority: STAT, Start date: 06/07/12 0:15:00, Duration: 30 day, Stop date: 07/06/12 16:30:00 aspirin 81 mg 81 mg, 1 tab, Route: PO, Drug form: 06/06/2012 06/07/2012 Discontinued tablet, chewable CHEWTAB, Daily, Dosing Weight 62.727, kg, Start date: 06/06/12 15:30:00, Duration: 30 day, Stop date: 07/06/12 9:00:00 Immunizations Vaccine Date Status influenza virus vaccine, inactivated 05/18/2012 Auth (Verified) pneumococcal 23-valent vaccine 05/18/2012 Auth (Verified) Vital Signs Most recent to oldest [Reference Range]: 1 2 3 Height 170.18 cm (06/06/2012 11:06:00) Temperature Oral [96.4-99.1 DegF] 97.7 DegF (06/07/2012 08:00:00) 98.0 DegF (06/07/2012 04:00:00) 97.7 DegF (06/07/2012 00:00:00) Systolic Blood Pressure [90-140 mmHg] 121 mmHg (06/07/2012 08:00:00) 122 mmHg (06/07/2012 04:00:00) 130 mmHg (06/07/2012 00:00:00) Diastolic Blood Pressure [60-90 mmHg] 65 mmHg (06/07/2012 08:00:00) 70 mmHg (06/07/2012 04:00:00) 76 mmHg (06/07/2012 00:00:00) Respiratory Rate [14-20 BRMIN] 20 BRMIN (06/07/2012 08:00:00) 18 BRMIN (06/07/2012 04:00:00) 18 BRMIN (06/07/2012 00:00:00) Peripheral Pulse Rate [60-100 bpm] 80 bpm (06/07/2012 08:00:00) 75 bpm (06/07/2012 04:00:00) 80 bpm (06/07/2012 00:00:00) Weight 62.727 kg (06/06/2012 11:06:00) Results BEDSIDE GLUCOSE TESTING Most recent to oldest [Reference Range]: 1 2 3 Gluc POC Lifscn [70-99 mg/dL] 290 mg/dL 1 *HI* (06/07/2012 09:59:00) 131 mg/dL 2 *HI* (06/07/2012 08:23:00) 105 mg/dL 3 *HI* (06/07/2012 06:13:00) Comment1 Notify RN/MD *NA* (06/07/2012 08:23:00) Notify RN/MD *NA* (06/07/2012 04:03:00) Notify RN/MD *NA* (06/07/2012 02:02:00) 1Interpretive Data: Upper Reportable Limit: 200 mg/dL. 2Interpretive Data: Upper Reportable Limit: 200 mg/dL. 3Interpretive Data: Upper Reportable Limit: 200 mg/dL. CHEMISTRY Most recent to oldest [Reference Range]: 1 2 3 Sodium Lvl [135-145 mEq/L] 146 mEq/L *HI* (06/07/2012 04:23:00) Potassium Lvl [3.5-5.1 mEq/L] 3.5 mEq/L (06/07/2012 04:23:00) Chloride Lvl [95-109 mEq/L] 109 mEq/L (06/07/2012 04:23:00) CO2 [24-32 mEq/L] 31 mEq/L (06/07/2012 04:23:00) AGAP [10.0-20.0 mEq/L] 9.5 mEq/L *LOW* (06/07/2012 04:23:00) Creatinine Lvl [0.5-1.4 mg/dL] 0.8 mg/dL (06/07/2012 04:23:00) eGFR 92 mL/min/1.73m2 4 *NA* (06/07/2012 04:23:00) BUN [7-22 mg/dL] 13 mg/dL (06/07/2012 04:23:00) Glucose Lvl [70-99 mg/dL] 96 mg/dL 5 (06/07/2012 04:23:00) Calcium Lvl [8.5-10.5 mg/dL] 7.8 mg/dL *LOW* (06/07/2012:23:00) Magnesium Lvl [1.8-2.4 mg/dL] 1.9 mg/dL (06/07/2012 04:23:00) 4Result Comment: The eGFR is calculated using [...] be mul tiplied by the estimated BMI. 5Interpretive Data: Adult reference range values reflect the clinical guidelines of the [place] [employer]. HEMATOLOGY Most recent to oldest [Reference Range]: 1 2 3 WBC [3.7-10.4 K/CMM] 7.2 K/CMM (06/07/2012 04:23:00) RBC [4.70-6.10 M/CMM] 3.16 M/CMM *LOW* (06/07/2012 04:23:00) Hgb [14.0-18.0 g/dL] 10.1 g/dL *LOW* (06/07/2012 04:23:00) Hct [42.0-54.0 %] 30.3 % *LOW* (06/07/2012 04:23:00) MCV [80.0-94.0 fL] 95.7 fL *HI* (06/07/2012 04:23:00) MCH [27.0-31.0 pg] 32.0 pg *HI* (06/07/2012 04:23:00) MCHC [32.0-36.0 g/dL] 33.4 g/dL (06/07/2012 04:23:00) RDW [11.5-14.5 %] 15.4 % *HI* (06/07/2012 04:23:00) Platelet [133-450 K/CMM] 149 K/CMM (06/07/2012 04:23:00) MPV [7.4-10.4 fL] 7.9 fL (06/07/2012 04:23:00) Segs [45.0-75.0 %] 75.2 % *HI* (06/07/2012 04:23:00) Lymphocytes [20.0-40.0 %] 14.0 % *LOW* (06/07/2012 04:23:00) Monocytes [2.0-12.0 %] 8.7 % (06/07/2012 04:23:00) Eosinophils [0.0-4.0 %] 1.6 % (06/07/2012 04:23:00) Basophils [0.0-1.0 %] 0.5 % (06/07/2012 04:23:00) Segs-Bands # [1.5-8.1 K/CMM] 5.4 K/CMM (06/07/2012 04:23:00) Lymphocytes # [1.0-5.5 K/CMM] 1.0 K/CMM (06/07/2012 04:23:00) Monocytes # [0.0-0.8 K/CMM] 0.6 K/CMM (06/07/2012 04:23:00) Eosinophils # [0.0-0.5 K/CMM] 0.1 K/CMM (06/07/2012 04:23:00) Basophils # [0.0-0.2 K/CMM] 0.0 K/CMM (06/07/2012 04:23:00) PT [12.0-14.7 seconds] 13.9 seconds (06/06/2012 11:00:00) INR [0.85-1.17] 1.05 6 (06/06/2012 11:00:00) PTT [22.9-35.8 seconds] 31.8 seconds 7 (06/06/2012 11:00:00) 6Interpretive Data: RECOMMENDED RANGES FOR PROTIME INR: 2.0-3.0 for most medical and surgical thromboembolic states. 2.5-3.5 for artificial heart valves and recurrent embolism. INR SHOULD BE USED ONLY FOR PATIENTS ON STABLE ANTICOAGULANT THERAPY. 7Interpretive Data: Heparin Therapeutic Range: 57 - 92 Seconds
--- OUTSIDE RECORDS SUMMARY | 2018-09-13 05:29 | XMS REPORT | Summary of Care ---
Author Author [facility] Primary Care [facility] Organization [facility] Address Unknown Phone Unavailable Encounter NICHOLE Hernández(GERTRUDE) [id number] Date(s): 01/20/18 - 01/20/18 [facility] [address], [address] [place] [address]- [phone] Discharge Disposition: Home or Self Care Attending Physician: Malena Arriaza MD Vital Signs Most recent to 1 oldest [Reference Range]: Height 172.72 cm (01/20/18 10:21 AM) Temperature Oral 98 DegF [96.4-99.1 DegF] (01/20/18 10:21 AM) Blood Pressure 127/59 mmHg [90-140/60-90 mmHg] (01/20/18 10:21 AM) Respiratory Rate 14 BRMIN [14-20 BRMIN] (01/20/18 10:21 AM) Peripheral Pulse 82 bpm Rate [60-100 bpm] (01/20/18 10:21 AM) Problem List Condition Effective Dates Status [...] Substance Reaction Severity Status vancomycin Active Medications amoxicillin 500 mg oral tablet 500 mg=1 tab, PO, Q8H, 0 Refill(s) Start Date: 01/20/18 Stop Date: 05/31/18 Status: Discontinued BEE THERAPHY BEE THERAPHY, Refill(s) 0 Start Date: 01/20/18 Stop Date: 03/02/18 Status: Deleted clarithromycin 500 mg oral tablet 500 mg=1 tab, PO, Q12H, 0 Refill(s) Start Date: 01/20/18 Stop Date: 05/31/18 Status: Discontinued DME Addition #1 See Instructions, GLUCOSE TEST STRIPS TO CHECK HIS SUGARS BID, # 200 ea, 0 Refil l(s) Start Date: 01/20/18 Stop Date: 03/02/18 Status: Deleted DME Addition #1 See Instructions, GLUCOMETER TO CHECK HIS SUGARS BID, # 1 ea, 0 Refill(s) Start Date: 01/20/18 Stop Date: 03/02/18 Status: Deleted DME Addition #1 See Instructions, HOSPITAL BED, # 1 ea, 0 Refill(s) Start Date: 01/27/18 Stop Date: 03/02/18 Status: Deleted DME Addition #2 See Instructions, LANCETS TO CHECK HIS SUGARS BID, # 200 ea, 0 Refill(s) Start Date: 01/20/18 Stop Date: 03/02/18 Status: Deleted donepezil 5 mg oral tablet 5 mg=1 tab, PO, Daily, # 30 tab, 1 Refill(s) Start Date: 01/20/18 Status: Ordered omeprazole 20 mg oral delayed release capsule 20 mg=1 cap, PO, Daily, # 30 cap, 0 Refill(s) Start Date: 01/20/18 Stop Date: 02/19/18 Status: Ordered Results No data available for this section Immunizations Given and Recorded Vaccine Date Status Refusal Reason influenza virus vaccine, inactivated1 03/02/18 Given influenza virus vaccine, inactivated 03/16/17 Given [...]
[2018-09-13 06:19] LABS: BASOPHILS % 0.4 % (0.0-1.0); EOSINOPHILS # (AUTO) 0.2 (0.0-0.4); EOSINOPHILS % 2.4 % (0.0-6.0); HEMATOCRIT 34.9 % (38.2-49.6); HEMOGLOBIN 11.8 g/dL (14.0-18.0); LYMPHOCYTES # (AUTO) 1.2 (1.0-3.2); LYMPHOCYTES % 16.4 % (18.0-39.1); MEAN CORPUSCULAR HGB CONC 33.8 g/dL (31-35); MEAN CORPUSCULAR VOLUME 91.6 fL (81-99); MONOCYTES # (AUTO) 0.7 (0.2-0.8); MONOCYTES % 9.2 % (4.4-11.3); NEUTROPHILS # (AUTO) 5.3 (2.1-6.9); NEUTROPHILS % 70.5 % (38.7-80.0); PLATELET COUNT 198 x10e3/uL (140-360); RED BLOOD COUNT 3.81 x10e6/uL (4.3-5.7)
[2018-09-13 06:36] LABS: ANION GAP 12.4 mmol/L (8-16); CREATININE, SERUM 1.77 mg/dL (0.72-1.25); POTASSIUM 4.4 mmol/L (3.5-5.1)
--- NOTE | 2018-09-13 06:40 | Diagnostic Imaging Report ---
EXAMINATION: PA and lateral views of the chest. COMPARISON: None CLINICAL HISTORY: Pre-op anesthesia protocol DISCUSSION: Lines/tubes: None. Lungs: The lungs are well inflated and clear. There is no evidence of pneumonia or pulmonary edema. Pleura: There is no pleural effusion or pneumothorax. Heart and mediastinum: Enlarged cardiac silhouette. Pulmonary vasculature is normal. Bones and soft tissues: No acute bony abnormalities. Degenerative changes in the thoracic spine IMPRESSION: Enlarged cardiac silhouette, without acute cardiopulmonary abnormalities. Signed by: Dr. Hardeep Chou M.D. on 09/13/2018 6:37 AM
[2018-09-13 10:30] VITALS: BP 130/66
--- NOTE | 2018-09-13 16:02 | Operative Report ---
DATE OF PROCEDURE: 09/13/2018 SURGEON: Kassi Frausto DPM VACUUM SPINDLE SANDER: None. PREOPERATIVE DIAGNOSES: 1. Gangrene, fourth digit. 2. Diabetic foot ulcer grade 3, third digit. 3. Diabetes with peripheral vascular disease. 4. Neuropathy. POSTOPERATIVE DIAGNOSES: 1. Gangrene, fourth digit. 2. Diabetic foot ulcer grade 3, third digit. 3. Diabetes with peripheral vascular disease. 4. Neuropathy. PROCEDURE: 1. Amputation of fourth digit, right foot. 2. Debridement to bone and fascia to the third digit with partial closure of the wound. COMPLICATIONS: None. CONDITION: Stable. ANESTHESIA: General anesthetic. HEMOSTASIS: None. ESTIMATED BLOOD LOSS: Less than 20 mL. MATERIALS: 4-0 nylon. PROCEDURE IN DETAIL: Under mild sedation, the patient was brought to the operating room and placed on the operating room table in supine position. Following IV sedation, anesthesia was obtained with a general anesthetic. At this point, the right foot was scrubbed, prepped and draped in the usual aseptic manner. The leg was then lowered to the table. Attention was then directed to the fourth MPJ, where 2 curvilinear incisions were made around the metatarsophalangeal joint. The incision was deepened down to the level of the joint, the joint was articulated and the digit was passed from the operating table after it was fully removed. Attention was directed to the third, where 2 semi-elliptical incisions were made overlying the ulcer at the lateral aspect of the fourth digit. The incision was deepened, where the bone was exposed. Utilizing a bone rongeur, all nonviable tissue was removed to include the bone. All areas were then flushed with copious amount of normal sterile saline solution with pressure non destructive testing engineer and Bacitracin. Culture and sensitivities of the bone were taken before the Bacitracin. The area was then closed closing the amputation site with 4-0 nylon combination with simple interrupted sutures and vertical mattress. The third was partially closed, it was closed distally, it was left open proximally since there was not enough tissue to close the area. Clean dressing was applied consisting of Adaptic 4x4s, Betadine soak 4x4s, Kerlix, and an Malick bandage. The patient tolerated the procedure and anesthesia well without complications, was transported to the recovery room with vital signs stable and vascular status intact. The patient will be discharged home when he meets criteria. He was given instructions to be nonweightbearing, to followup with me in the office, to leave dressing clean, dry and intact, and to call the office if any questions, concerns, or new problems arise. CLIFF Tellez/VIKI /[id number]
== END | disposition home or self-care (01) ==
LOC: OR 05:18
PROVIDERS: ATTEND Podiatrist Foot & Ankle Surgery
DX: M86.671 Other chronic osteomyelitis, right ankle and foot (principal); E11.621 Type 2 diabetes mellitus with foot ulcer; L97.519 Non-pressure chronic ulcer of other part of right foot with unspecified severity; E11.52 Type 2 diabetes mellitus with diabetic peripheral angiopathy with gangrene; E11.40 Type 2 diabetes mellitus with diabetic neuropathy, unspecified; I96 Gangrene, not elsewhere classified; I70.8 Atherosclerosis of other arteries; I69.354 Hemiplegia and hemiparesis following cerebral infarction affecting left non-dominant side; I10 Essential (primary) hypertension; K21.9 Gastro-esophageal reflux disease without esophagitis; Z88.1 Allergy status to other antibiotic agents; Z79.02 Long term (current) use of antithrombotics/antiplatelets; Z79.82 Long term (current) use of aspirin; Z79.84 Long term (current) use of oral hypoglycemic drugs
CPT/HCPCS: 11044; 28820; 36415; 71046; 80048; 82948; 85025; 87071; 87075; 87186; 87205; 88305; 88311; 93005; J0690; J1100; J1170; J2001; J2370; J2405; J2704; 88304

== ENCOUNTER 2018-09-28 09:35 | Inpatient (IN) | payer MEDICARE, OTHER ==
[~2018-09-28] VITALS: Ht 172.7 cm; Wt 71.2 kg
[~2018-09-28 09:35] MED LIST changes: -BACITRACIN 50,000 UNIT VIAL ONE; -BUPIVACAINE HCL 0.5% INJ 30 ML VIAL INJ ONE; -CEFAZOLIN SOD 2 GM/D5W 50ML 50 ML IV ONE; -DEXAMETHASONE SOD PHOS INJ 4 MG/ML VIAL ONE; -EPHEDRINE SULFATE INJ 50 MG/10 ML SYR ONE; -HYDROMORPHONE 2MG/ML 2 MG/ML ML ONE; -LIDOCAINE HCL 2% LOCAL INJ 5 ML SDV VIAL INJ ONE; -MUPIROCIN 2% OINT 22 GM TUBE ONE; -ONDANSETRON HCL INJ 2MG/ML 2ML 2 MG/ML VIAL ONE; -PHENYLEPHRINE HCL 1% 10 MG/ML VIAL ONE; -PROPOFOL IV EMULSION 10 MG/ML 20 ML VIAL ONE; -SEVOFLURANE INHAL SOLN 250 ML PEN BTL ONE
--- OUTSIDE RECORDS SUMMARY | 2018-09-28 10:04 | XMS REPORT | Continuity of Care Document ---
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 Concentration: (0.2 mg /1 ml ) Inactive 12/10/2016 [facility] Dextrose 50% Syringe 12.5 gm, 25 mL, Route: IVP, Drug Form: INJ, Dosing Weight 77.273, kg, PRN, PRN Blood Glucose Results, Start date: 12/10/16 0:04:00 CDT, Duration: 30 day, Stop date: 01/09/17 0:03:00 CDT No Longer Active 12/10/2016 [facility] Insulin regular 100 unit + sodium chloride [...] (Do not shake) No Longer Active 12/10/2016 [facility] Coreg 12.5 mg, 1 tab, Route: PO, Drug form: TAB, ONCE, Dosing Weight 77.273, kg, Start date: 12/09/16 22:40:00 CDT, Stop date: 12/09/16 22:40:00 CDTNotes: Give with food. (Same As: Coreg) Inactive 12/10/2016 [facility] Ceftriaxone 1 gm, Route: IVPB, Drug form: PDR/INJ, Q24H, Dosing Weight 77.273, kg, Start date: 12/09/16 22:00:00 CDT, Duration: 4 day, Stop date: 12/12/16 22:00:00 CDT, ABX Indication: Urinary Tract InfectionNotes: (Same As: Rocephin). Use with 100 mL NS and infuse over 30 min MEDICATION WASTE Product Size: 1000 mg Product Wasted: ___ mg No Longer Active 12/10/2016 [facility] heparin 5,000 unit, 1 mL, Route: SUB-Q, Drug form: INJ, Q8H, Dosing Weight 77.273, kg, Start date: 12/09/16 16:00:00 CDT, Duration: 30 day, Stop date: 01/08/17 8:00:00 CDTNotes: porcine heparin No Longer Active 12/09/2016 [facility] Labetalol 10 mg, Route: IVP, Drug form: INJ, ONCE, Dosing Weight 77.273, kg, Start date: 12/09/16 15:26:00 CDT, Stop date: 12/09/16 15:26:00 CDT Inactive 12/09/2016 [facility] carvedilol 6.25 mg, Route: PO, Drug form: TAB, ONCE, Dosing Weight 77.273, kg, Start date: 12/09/16 15:23:00 CDT, Stop date: 12/09/16 15:23:00 CDT Inactive 12/09/2016 [facility] Sodium Chloride, Inhalation 3% solution 3 mL, Route: INHALATION, Drug Form: SOLN, Dosing Weight 77.273, kg, RQ6H, PRN Respiratory Protocol, Start date: 12/09/16 9:48:00 CDT, Duration: 30 day, Stop date: 01/08/17 9:47:00 CDTNotes: SEE RT DOCUMENTATION (Same as: Hypertonic Saline 3%, Inhalation) No Longer Active 12/09/2016 [facility] Sodium Chloride, Inhalation 3% solution 3 mL, Route: INHALATION, Drug Form: SOLN, Dosing Weight 77.273, kg, PRN, PRN Respiratory Protocol, Start date: 12/09/16 9:03:00 CDT, Duration: 30 day, Stop date: 01/08/17 9:02:00 CDTNotes: SEE RT DOCUMENTATION (Same as: Hypertonic Saline 3%, Inhalation) Inactive 12/09/2016 [facility] Albuterol 0.833 MG/ML / Ipratropium Palmetto 0.167 MG/ML Inhalant Solution [DuoNeb] 3 ml, Route: NEB, Drug Form: SOLN, Dosing Weight 77.273, kg, PRN, PRN Respiratory Protocol, Start date: 12/09/16 9:02:00 CDT, Duration: 30 day, Stop date: 01/08/17 9:01:00 CDTNotes: (Same as: Duoneb) No Longer Active 12/09/2016 [facility] potassium chloride 20 mEq, 15 mL, Route: PO, Drug form: LIQ, ONCE, Dosing Weight 77.273, kg, Start date: 12/09/16 4:00:00 CDT, Stop date: 12/09/16 4:00:00 CDTNotes: (Same as: Potassium Chloride) Inactive 12/09/2016 [facility] potassium chloride 20 mEq oral tablet, extended release 20 mEq, 1 tab, Route: PO, Drug form: ERTAB, ONCE, Dosing Weight 77.273, kg, Start date: 12/09/16 3:31:00 CDT, Stop date: 12/09/16 3:31:00 CDTNotes: (Same as: K- Dur 20) "Do Not Crush" With food and full glass of water Inactive 12/09/2016 [facility] carvedilol 12.5 mg, 1 tab, Route: PO, Drug form: TAB, Q12H, Dosing Weight 77.273, kg, Start date: 12/08/16 18:00:00 CDT, Stop date: 01/07/17 6:00:00 CDT No Longer Active 12/08/2016 [facility] heparin 1,000 unit, 1 mL, Route: MISC, Drug form: INJ, PRN, PRN Other -See Comment, Start date: 12/08/16 15:56:00 CDT, Stop date: 01/07/17 15:55:00 CDT No Longer Active 12/08/2016 [facility] heparin, porcine 1,000 unit, Route: IVP, PRN, Dosing Weight 77.273, kg, PRN Line Flush, Start date: 12/08/16 15:30:00 CDT, Duration: 30 day, Stop date: 01/07/17 15:29:00 CDT, flush jordon cath Inactive 12/08/2016 [facility] Metoprolol 5 mg, Route: IVP, Drug form: INJ, ONCE, Dosing Weight 77.273, kg, Start date: 12/08/16 11:09:00 CDT, Stop date: 12/08/16 11:09:00 CDT Inactive 12/08/2016 [facility] Nitroglycerin 0.4 mg, 1 tab, Route: SL, Drug form: TAB, Q5Min, Dosing Weight 77.273, kg, PRN Chest Pain, Start date: 12/08/16 9:53:00 CDT, Duration: 3 doses or times, Stop date: Limited # of timesNotes: (Same as:N itroquick, Nitrostat) "Do Not Crush" Sublingual tablet No Longer Active 12/08/2016 [facility] lansoprazole 30 mg, 10 mL, Route: NG, Drug form: SUSP, Daily, Dosing Weight 77.273, kg, Start date: 12/08/16 9:00:00 CDT, Duration: 30 day, Stop date: 01/06/17 9:00:00 CDT No Longer Active 12/08/2016 [facility] Insulin regular 3 unit, 0.03 mL, Route: [...] days from Date No Longer Active 12/08/2016 [facility] Glucagon 1 mg, Route: IM, Drug form: PDR/INJ, PRN, Dosing Weight 77.273, kg, PRN Blood Glucose Results, Start date: 12/07/16 19:42:00 CDT, Duration: 30 day, Stop date: 01/06/17 19:41:00 CDT No Longer Active 12/08/2016 [facility] Dextrose 50% Syringe 12.5 gm, 25 mL, Route: IVP, Drug Form: INJ, Dosing Weight 77.273, kg, PRN, PRN Blood Glucose Results, Start date: 12/07/16 19:42:00 CDT, Duration: 30 day, Stop date: 01/06/17 19:41:00 CDT No Longer Active 12/08/2016 [facility] Versed 2 mg, 2 mL, Route: IVP, Drug form: INJ, PRN, Dosing Weight 77.273, kg, PRN Agitation, Start date: 12/07/16 18:42:00 CDT, Duration: 30 day, Stop date: 01/06/17 18:41:00 CDTNotes: (Same as: Versed) MEDICATION WASTE Product Size: 2 mg Product Wasted: _0__ mg No Longer Active 12/07/2016 [facility] Calcium Chloride 1 gm, 10 mL, Route: IVPB, PRN, Dosing Weight 77.273, kg, PRN Abnormal Lab Result, Via central line, Start date: 12/07/16 16:17:00 CDT, Duration: 30 day, Stop date: 01/06/17 16:16:00 CDTNotes: WASTE: F/P - Sink; E - Municipal Trash Bin No Longer Active 12/07/2016 [facility] Magnesium Sulfate 4 gm, 100 mL, Route: IVPB, Drug form: INJ, PRN, Dosing Weight 77.273, kg, PRN Abnormal Lab Result, Via central line, Start date: 12/07/16 16:17:00 CDT, Duration: 30 day, Stop date: 01/06/17 16:16:00 CDTNotes: WASTE: F/P - Sink; E - Municipal Trash Bin No Longer Active 12/07/2016 [facility] sodium phosphate + sodium chloride 0.9% INJ 250 mL 30 mmol, 10 mL, Route: IVPB, PRN, Dosing Weight 77.273, kg, PRN Abnormal Lab Result, Via central line, Start date: 12/07/16 16:17:00 CDT, Duration: 30 day, Stop date: 01/06/17 16:16:00 CDT No Longer Active 12/07/2016 [facility] potassium chloride 20 mEq, 100 mL, Route: IVPB, Drug form: INJ, PRN, Dosing Weight 77.273, kg, PRN Abnormal Lab Result, Via central line, Start date: 12/07/16 16:17:00 CDT, Duration: 30 day, Stop date: 01/06/17 16:16:0 0 CDTNotes: (Same as: KCL) Infuse no faster than 10 mEq/hr if given peripherally. No Longer Active 12/07/2016 [facility] Fentanyl 1,000 microgram, 20 mL, Rate: Titrate, Start Dose: 50 microgram/hr, Titration: 25 microgram/hour every 15 minutes, Goal(s): RASS (0) to (-2), Max Dose: 300 microgram/hr, Route: IV, Dosing Weight 77.273 kg, Total Volume: 20, Start date: 12/07/16 15:42:... No Longer Active 12/07/2016 [facility] Sodium Chloride 0.154 MEQ/ML Injectable Solution 500 mL, 500 ml/hr, Infuse Over: 1 hr, Route: IV, 500, Drug form: INJ, ONCE, Priority: STAT, Dosing Weight 77.273 kg, Start date: 12/07/16 9:55:00 CDT, Duration: 1 doses or times, Stop date: 12/07/16 9:55:00 CDT Inactive 12/07/2016 [facility] heparin additive 25,000 unit [18 unit/kg/hr] + Premix Diluent Dextrose 5% 500 mL 500 mL, Rate: 27.82 ml/hr, Infuse over: 18 hr, Route: IV, Dosing Weight 77.27 kg, Total Volume: 500 mL, Start date: 12/07/16 9:34:00 CDT, Stop date: 01/06/17 9:33:00 CDT No Longer Active 12/07/2016 [facility] Heparin 80 unit/kg Bolus (Heparin Dosing Weight) Route: IVP, PRN, 6,200 unit, 6.2 mL, Drug form: INJ, PRN, Heparin Protocol, Start date: 12/07/16 9:34:00 CDT Stop date: 01/06/17 9:33:00 CDT, 30 day No Longer Active 12/07/2016 [facility] Heparin 40 unit/kg Bolus (Heparin Dosing Weight) Route: IVP, PRN, 3,100 unit, 3.1 mL, Drug form: INJ, PRN, Heparin Protocol, Start date: 12/07/16 9:34:00 CDT Stop date: 01/06/17 9:33:00 CDT, 30 day No Longer Active 12/07/2016 [facility] heparin additive 25,000 unit [14 unit/kg/hr] + Premix Diluent Dextrose 5% 500 mL 500 mL, Rate: 21.64 ml/hr, Infuse over: 23.1 hr, Route: IV, Dosing Weight 77.273 kg, Total Volume: 500 mL, Start date: 12/07/16 9:12:00 CDT, Duration: 30 day, Stop date: 01/06/17 9:11:00 CDT Inactive 12/07/2016 [facility] D5W 1,000 mL 1,000 mL, Rate: 75 ml/hr, Infuse over: 13.3 hr, Route: IV, Dosing Weight 77.273 kg, Total Volume: 1,000, Start date: 12/07/16 3:45:00 CDT, Duration: 30 day, Stop date: 01/06/17 3:44:00 CDT Inactive 12/07/2016 [facility] senna 8.8 mg, 5 mL, Route: PO, Drug form: SYRP, Q12H, Start date: 12/06/16 21:00:00 CDT, Duration: 30 day, Stop date: 01/05/17 9:00:00 CDTNotes: (Same as: Senokot) No Longer Active 12/07/2016 [facility] docusate 100 mg, 10 mL, Route: PO, Drug form: LIQ, Q12H, Start date: 12/06/16 21:00:00 CDT, Duration: 30 day, Stop date: 01/05/17 9:00:00 CDTNotes: (Same as: Colace) No Longer Active 12/07/2016 [facility] atorvastatin 40 mg, 1 tab, Route: PO, Drug form: TAB, Bedtime, Dosing Weight 77.273, kg, Start date: 12/06/16 21:00:00 CDT, Duration: 30 day, Stop date: 01/04/17 21:00:00 CDTNotes: (Same as: Lipitor) No Longer Active 12/07/2016 [facility] sodium chloride 0.9% INJ 250 mL 250 mL, Rate: manager trade marketing for use with blood product administration, Dosing Weight 77.273, kg, Route: IV, Total Volume: 250, Start Date: 12/06/16 11:40:00 CDT, Duration: 30 day, Stop date: 01/05/17 11:39:00 CDT, Replace Every: 24 hr No Longer Active 12/06/2016 [facility] sodium chloride 0.9% INJ 250 mL 250 mL, Rate: Job Compositor for use with blood product administration., Dosing Weight 77.273, kg, Route: IV, Total Volume: 250, Priority: Routine, Start Date: 12/06/16 10:22:00 CDT, Duration: 30 day, Stop date: 01/05/17 10:21:00 CDT, Replace Every: 24 hr No Longer Active 12/06/2016 [facility] Plavix 75 mg, 1 tab, Route: PO, Drug form: TAB, Daily, Dosing Weight 77.273, kg, Start date: 12/06/16 9:00:00 CDT, Duration: 30 day, Stop date: 01/04/17 9:00:00 CDTNotes: (Same As: Plavix) No Longer Active 12/06/2016 [facility] Aspirin 81 mg, 1 tab, Route: PO, Drug form: ECTAB, Daily, Dosing Weight 77.273, kg, Start date: 12/06/16 9:00:00 CDT, Duration: 30 day, Stop date: 01/04/17 9:00:00 CDTNotes: Do not crush or chew. (Same As: Ecotrin) No Longer Active 12/06/2016 [facility] pantoprazole 40 mg, Route: IVP, Drug form: INJ, Daily, Dosing Weight 77.273, kg, Start date: 12/06/16 9:00:00 CDT, Duration: 30 day, Stop date: 01/04/17 9:00:00 CDTNotes: For IV push reconstitute with 10 ml 0.9% sodium chloride and push over 2 minutes. (Same as: Protonix) No Longer Active 12/06/2016 [facility] Famotidine 20 mg, 2 mL, Route: IVP, Drug form: INJ, Daily, Dosing Weight 77.273, kg, Start date: 12/06/16 9:00:00 CDT, Duration: 30 day, Stop date: 01/04/17 9:00:00 CDTNotes: (Same as: Pepcid) Can be dilute in 5-10cc NS IVP: Slow IV push over at least 2 minutes. No Longer Active 12/06/2016 [facility] Docusate Sodium 50 MG / sennosides, MCFP 8.6 MG Oral Tablet 1 tab, Route: PO, Drug Form: TAB, Dosing Weight 77.273, kg, BID, Start date: 12/06/16 9:00:00 CDT, Duration: 30 day, Stop date: 01/04/17 17:00:00 CDTNotes: (Same as Senokot-S) Equiv. to Sugar-Colace. Inactive 12/06/2016 [facility] metoprolol extended release 25 mg, 1 tab, Route: PO, Drug form: ERTAB, Daily, Start date: 12/06/16 9:00:00 CDT, Duration: 30 day, Stop date: 01/04/17 9:00:00 CDTNotes: (Same as: Toprol XL) Do Not Crush No Longer Active 12/06/2016 [facility] Sodium Chloride 0.154 MEQ/ML Injectable Solution 500 mL, 500 ml/hr, Infuse Over: 1 hr, Route: IV, 500, Drug form: INJ, ONCE, Priority: STAT, Dosing Weight 77.273 kg, Start date: 12/06/16 7:36:00 CDT, Duration: 1 doses or times, Stop date: 12/06/16 7:36:00 CDT Inactive 12/06/2016 [facility] Midazolam 2 mg, 2 mL, Route: IVP, Drug form: INJ, Q2H, Dosing Weight 77.273, kg, PRN Sedation, Start date: 12/06/16 5:40:00 CDT, Duration: 30 day, Stop date: 01/05/17 5:39:00 CDTNotes: (Same as: Versed) MEDICATION WASTE Product Size: 2 mg Product Wasted: ___ mg No Longer Active 12/06/2016 [facility] Insulin regular 100 unit + sodium chloride [...] (Do not shake) No Longer Active 12/06/2016 [facility] Dextrose 50% Syringe 12.5 gm, 25 mL, Route: IVP, Drug Form: INJ, Dosing Weight 77.273, kg, PRN, PRN Blood Glucose Results, Start date: 12/06/16 4:36:00 CDT, Duration: 30 day, Stop date: 01/05/17 4:35:00 CDT No Longer Active 12/06/2016 [facility] Vasopressin (MCFP) 40 unit, 2 mL, Rate: 0.03 unit/min, Start Dose: 0.03 unit/min, Titration: DO NOT TITRATE, Goal(s): MAP >=65 mmHg, Max Dose: 0.03 unit/min, Route: IV, Dosing Weight 77.273 kg, Total Volume: 100 For Sepsis, Start date: 12/06/16 1:40:00 CDT, Duration:...Notes: (Same As: Pitressin, Vasostrict) No Longer Active 12/06/2016 [facility] heparin 5,000 unit, Route: SUB-Q, Q8H, Dosing Weight 77.273, kg, Start date: 12/06/16 0:00:00 CDT, Duration: 30 day, Stop date: 01/04/17 16:00:00 CDT No Longer Active 12/06/2016 [facility] ocular lubricant 1 appl, Route: BOTH EYES, Q6H, Drug form: OINT, Start date: 12/06/16 0:00:00 CDT, Duration: 30 day, Stop date: 01/04/17 18:00:00 CDTNotes: (Same as: Lacri-Lube, Duratears Naturale, Artificial Tears, and Tears Again ) No Longer Active 12/06/2016 [facility] Lactulose 20 gm, 30 mL, Route: PO, Drug form: SYRP, Q6H, Dosing Weight 77.273, kg, Start date: 12/06/16 0:00:00 CDT, Duration: 30 day, Stop date: 01/04/17 18:00:00 CDTNotes: (Same as:Chronulac) No Longer Active 12/06/2016 [facility] Norepinephrine 16 mg, 16 mL, Rate: Titrate, [...] catheter (PICC) line. No Longer Active 12/06/2016 [facility] Clindamycin 600 mg, 4 mL, Route: IV, Drug form: INJ, ABXQ8H, Dosing Weight 77.273, kg, Start date: 12/05/16 23:00:00 CDT, Duration: 30 day, Stop date: 01/04/17 15:00:00 CDT, ABX Indication: Other (specify in Commen ts)Notes: (clindamycin 150 mg/1 ml (600 mg/4 ml VL) INJ) (Same As: Cleocin) No Longer Active 12/06/2016 [facility] Norepinephrine 16 mg, 16 mL, Rate: Titrate, [...] peripherally-inserted central catheter (PICC) line. Inactive 12/06/2016 [facility] sodium bicarbonate 150 mEq + D5W 1,000 mL 1,000 mL, Rate: 150 ml/hr, Infuse over: 7.7 hr, Route: IV, Dosing Weight 77.273 kg, Total Volume: 1,150 mL, Start date: 12/05/16 22:39:00 CDT, Duration: 30 day, Stop date: 01/04/17 22:38:00 CDT No Longer Active 12/06/2016 [facility] sodium chloride 0.9% INJ 250 mL 250 mL, Rate: manager trade marketing for use with blood product administration, Dosing Weight 77.273, kg, Route: IV, Total Volume: 250, Start Date: 12/05/16 22:07:00 CDT, Duration: 30 day, Stop date: 01/04/17 22:06:00 CDT, Replace Every: 24 hr No Longer Active 12/06/2016 [facility] chlorhexidine gluconate 1.2 MG/ML Mouthwash 15 mL, Route: Swab Mouth, Q12H, Drug form: LIQ, Start date: 12/05/16 21:00:00 CDT, Duration: 30 day, Stop date: 01/04/17 9:00:00 CDTNotes: (Same As: Peridex) No Longer Active 12/06/2016 [facility] Saline Flush 0.9% 10 ml, Route: IVP, Drug Form: INJ, Dosing Weight 77.273, kg, Q12H, Start date: 12/05/16 21:00:00 CDT, Duration: 30 day, Stop date: 01/04/17 9:00:00 CDTNotes: (Same as: BD Posiflush) No Longer Active 12/06/2016 [facility] Docusate 100 mg, 10 mL, Route: PO, Drug form: LIQ, Q12H, Dosing Weight 77.273, kg, Start date: 12/05/16 21:00:00 CDT, Stop date: 01/04/17 9:00:00 CDTNotes: (Same as: Colace) No Longer Active 12/06/2016 [facility] sodium bicarbonate 150 mEq + D5W 1,000 mL 1,000 mL, Rate: 999 ml/hr, Infuse over: 1.2 hr, Route: IV, Dosing Weight 77.273 kg, Total Volume: 1,150 mL, Start date: 12/05/16 20:37:00 CDT, Duration: 30 day, Stop date: 01/04/17 20:36:00 CDT No Longer Active 12/06/2016 [facility] albumin human 5% intravenous solution 25 gm, 500 mL, 500 ml/hr, Route: IV, Drug Form: INJ, Dosing Weight 77.273, kg, ONCE, Start date: 12/05/16 20:36:00 CDT, Stop date: 12/05/16 20:36:00 CDTNotes: LOT#: Mfg: (Same as: Albuminar) "blood product derivative" WASTE: F/P - Red; E -Red MEDICATION WASTE Product Size: 25 gm Product Wasted: 0 gm Inactive 12/06/2016 [facility] sodium chloride 0.9% INJ 250 mL 250 mL, Rate: manager trade marketing for use with blood product administration, Dosing Weight 77.273, kg, Route: IV, Total Volume: 250, Start Date: 12/05/16 20:30:00 CDT, Duration: 30 day, Stop date: 01/04/17 20:29:00 CDT, Replace Every: 24 hr No Longer Active 12/06/2016 [facility] Versed 1 mg, 1 mL, Route: IVP, Drug form: INJ, ONCE, Dosing Weight 77.273, kg, PRN Other -See Comment, Start date: 12/05/16 20:15:00 CDTNotes: (Same as: Versed) MEDICATION WASTE Product Size: 2 mg Product Wasted: 0 mg No Longer Active 12/06/2016 [facility] Insulin regular 8 unit, 0.08 mL, Route: [...] days from Date No Longer Active 12/06/2016 [facility] Glucagon 1 mg, Route: IM, Drug form: PDR/INJ, PRN, Dosing Weight 77.273, kg, PRN Blood Glucose Results, Start date: 12/05/16 20:14:00 CDT, Duration: 30 day, Stop date: 01/04/17 20:13:00 CDT No Longer Active 12/06/2016 [facility] Dextrose 50% Syringe 25 gm, 50 mL, Route: IVP, Drug Form: INJ, Dosing Weight 77.273, kg, PRN, PRN Blood Glucose Results, Start date: 12/05/16 20:14:00 CDT, Duration: 30 day, Stop date: 01/04/17 20:13:00 CDT No Longer Active 12/06/2016 [facility] sodium bicarbonate 8.4% 100 mEq, 100 mL, Route: IVP, Drug Form: INJ, Dosing Weight 77.273, kg, ONCE, Start date: 12/05/16 20:14:00 CDT, Stop date: 12/05/16 20:14:00 CDTNotes: (sodium bicarb 8.4% (1 mEq/ml) 50 ml syringe) Inactive 12/06/2016 [facility] Norepinephrine 8 mg, 8 mL, Rate: Titrate, [...] peripherally-inserted central catheter (PICC) line. Inactive 12/06/2016 [facility] sodium bicarbonate 8.4% 100 mEq, 100 mL, Route: IVP, Drug Form: SOLN, Dosing Weight 77.273, kg, ONCE, Start date: 12/05/16 20:03:00 CDT, Stop date: 12/05/16 20:03:00 CDTNotes: For oral use only. Inactive 12/06/2016 [facility] Midazolam 1 mg, Route: IVP, ONCE, Dosing Weight 77.273, kg, Start date: 12/05/16 19:03:00 CDT, Stop date: 12/05/16 19:03:00 CDT Inactive 12/06/2016 [facility] Fentanyl 50 microgram, 1 mL, Route: IVP, Drug form: INJ, Q2H, Dosing Weight 77.273, kg, PRN Pain Score 6-10, Start date: 12/05/16 19:03:00 CDT, Duration: 30 day, Stop date: 01/04/17 19:02:00 CDTNotes: (Same as: Sublimaze) Preservative free. No Longer Active 12/06/2016 [facility] Saline Flush 0.9% 10 ml, Route: IVP, Drug Form: INJ, Dosing Weight 77.273, kg, PRN, PRN Line Flush, Start date: 12/05/16 18:53:00 CDT, Duration: 30 day, Stop date: 01/04/17 18:52:00 CDTNotes: (Same as: BD Posiflush) No Longer Active 12/05/2016 [facility] Nystatin 100 UNT/MG Topical Powder 1 appl, Route: TOP, PRN, Drug form: PWDR, PRN For Fungal Prophylaxis, Start date: 12/05/16 18:53:00 CDT, Duration: 30 day, Stop date: 01/04/17 18:52:00 CDTNotes: (Same as:Mycostatin, Nilstat) For external use only. No Longer Active 12/05/2016 [facility] chlorhexidine gluconate 1.2 MG/ML Mouthwash 15 mL, Route: Swab Mouth, PRN, Drug form: LIQ, PRN Other -See Comment, Start date: 12/05/16 18:44:00 CDT, Duration: 30 day, Stop date: 01/04/17 18:43:00 CDTNotes: (Same As: Peridex) No Longer Active 12/05/2016 [facility] iodixanol 100 mL, Route: IVP, Drug Form: SOLN, Dosing Weight 77.273, kg, ONCALL, STAT, Start date: 12/05/16 18:28:00 CDT, Duration: 1 doses or times, Dose=2.2ml/kg, Max ozlo=[id number] -- "To be infused by Radiology Staff ONLY" Inactive 12/05/2016 [facility] physiological irrigating solution 5,000 mL, Route: DIALYSIS, Dialysis PRN, Irrigation Site: Groin, Right, "For Irrigation Only", Start date: 12/05/16 17:24:00 CDT, Duration: 30 day, Stop date: 01/04/17 17:23:00 CDTNotes: NxStage [id number]/Ca3 Total ingredients in bag Na 140meq/L; K 2meq/L; HCO 35meq/L; Ca 3meq/L; Magnesium 1meq/L; CL 111meq/L; Glucose 100mg/dL; "Break seal Between compartments and mix before hanging" No Longer Active 12/05/2016 [facility] Magnesium Sulfate 2 gm, 50 mL, Route: IVPB, Drug form: INJ, PRN, Dosing Weight 77.273, kg, PRN Abnormal Lab Result, Via central line, Start date: 12/05/16 17:02:00 CDT, Duration: 30 day, Stop date: 01/04/17 17:01:00 CDTNotes: WASTE: F/P - Sink; E - Municipal Trash Bin No Longer Active 12/05/2016 [facility] sodium phosphate + sodium chloride 0.9% INJ 250 mL 30 mmol, 10 mL, Route: IVPB, PRN, Dosing Weight 77.273, kg, PRN Abnormal Lab Result, Via central line, Start date: 12/05/16 17:02:00 CDT, Duration: 30 day, Stop date: 01/04/17 17:01:00 CDT No Longer Active 12/05/2016 [facility] Calcium Chloride 1 gm, 10 mL, Route: IVPB, PRN, Dosing Weight 77.273, kg, PRN Abnormal Lab Result, Via central line, Start date: 12/05/16 17:02:00 CDT, Duration: 30 day, Stop date: 01/04/17 17:01:00 CDTNotes: WASTE: F/P - Sink; E - Municipal Trash Bin No Longer Active 12/05/2016 [facility] physiological irrigating solution 5000 mL 5,000 mL, Route: DIALYSIS, Irrigation Site: Groin, Right, 3,500 ml/hr, 1.4 hr, Total Volume: 5,000 mL, "For Irrigation Only", Start date: 12/05/16 17:02:00 CDT, Duration: 30 day, Stop date: 01/04/17 17:01:00 CDT Inactive 12/05/2016 [facility] Fentanyl 1,000 microgram, 20 mL, Rate: Titrate, Start Dose: 50 microgram/hr, Titration: 25 microgram/hour every 15 minutes, Goal(s): RASS (0) to (-2), Max Dose: 300 microgram/hr, Route: IV, Dosing Weight 77.273 kg, Total Volume: 20, Start date: 12/05/16 16:13:... No Longer Active 12/05/2016 [facility] Propofol 30 mg, Route: IV, Drug form: INJ, ONCE, Dosing Weight 77.273, kg, Start date: 12/05/16 16:10:00 CDT, Stop date: 12/05/16 16:10:00 CDT, Loading Dose; Pediatric Dosing Inactive 12/05/2016 [facility] Isolyte S PH-7.4 (Bolus) IV 1,000 mL, 1000 ml/hr, Route: IV, Drug Form: SOLN, Dosing Weight 77.273, kg, ONCE, STAT, Start date: 12/05/16 16:08:00 CDT, Stop date: 12/05/16 16:08:00 CDTNotes: (Same as: Isolyte S PH 7.4) Inactive 12/05/2016 [facility] Ketamine 100 mg, Route: IV, ONCE, Dosing Weight 77.273, kg, Start date: 12/05/16 16:08:00 CDT, Duration: 1 doses or times, Stop date: 12/05/16 16:08:00 CDT Inactive 12/05/2016 [facility] Ondansetron 4 mg, Route: IVP, Drug form: INJ, ONCE, Dosing Weight 77.273, kg, Priority: STAT, Start date: 12/05/16 14:47:00 CDT, Stop date: 12/05/16 14:47:00 CDT Inactive 12/05/2016 [facility] Morphine 4 mg, Route: IVP, ONCE, Dosing Weight 77.273, kg, Priority: STAT, Start date: 12/05/16 14:47:00 CDT, Stop date: 12/05/16 14:47:00 CDT Inactive 12/05/2016 [facility] cefepime 1 gm, Route: IVPB, ONCE, Dosing Weight 77.273, kg, Priority: STAT, Start date: 12/05/16 14:21:00 CDT, Duration: 1 doses or times, Stop date: 12/05/16 14:21:00 CDT, ABX Indication: Bacteremia Inactive 12/05/2016 [facility] Clindamycin 600 mg, Route: IVPB, ONCE, Dosing Weight 77.273, kg, Priority: STAT, Start date: 12/05/16 14:21:00 CDT, Duration: 1 doses or times, Stop date: 12/05/16 14:21:00 CDT, ABX Indication: Bacteremia Inactive 12/05/2016 [facility] sodium bicarbonate 150 mEq + D5W 1,000 mL 1,000 mL, Rate: 150 ml/hr, Infuse over: 7.7 hr, Route: IV, Dosing Weight 77.273 kg, Total Volume: 1,150 mL, Start date: 12/05/16 14:16:00 CDT, Duration: 30 day, Stop date: 01/04/17 14:15:00 CDT Inactive 12/05/2016 [facility] Sodium Chloride 0.154 MEQ/ML Injectable Solution 1,000 mL, Infuse Over: 1 hr, Route: IV, ONCE, Priority: STAT, Dosing Weight 77.273 kg, Start date: 12/05/16 13:27:00 CDT, Duration: 1 doses or times, Stop date: 12/05/16 13:27:00 CDT Inactive 12/05/2016 [facility] D5W 1/2NS 1,000 mL 1,000 mL, Rate: 125 ml/hr, Infuse over: 8 hr, Route: IV, Dosing Weight 77.273 kg, Total Volume: 1,000, Start date: 12/05/16 13:25:00 CDT, Duration: 30 day, Stop date: 01/04/17 13:24:00 CDT No Longer Active 12/05/2016 [facility] Albuterol 0.83 MG/ML Inhalant Solution 10 mg, Route: INHALATION, ONCE, Dosing Weight 77.273, kg, Start date: 12/05/16 13:25:00 CDT, Stop date: 12/05/16 13:25:00 CDT Inactive 12/05/2016 [facility] Sodium Chloride 0.154 MEQ/ML Injectable Solution 1,000 mL, Infuse Over: 1 hr, Route: IV, ONCE, Priority: STAT, Dosing Weight 77.273 kg, Start date: 12/05/16 13:24:00 CDT, Duration: 1 doses or times, Stop date: 12/05/16 13:24:00 CDT Inactive 12/05/2016 [facility] Dextrose 50% Syringe 25 gm, Route: IVP, Dosing Weight 77.273, kg, ONCE, STAT, Start date: 12/05/16 13:08:00 CDT, Stop date: 12/05/16 13:08:00 CDT Inactive 12/05/2016 [facility] cefepime 1 gm, Route: IV, Drug form: INJ, [id number], Dosing Weight 77.273, kg, Start date: 12/05/16 3:00:00 CDT, Stop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 Cardiomediastinal silhouette is within normal limits. Pulmonary vascularity is within normal limits. No acute osseous abnormality identified. IMPRESSION: No acute cardiopulmonary abnormality. SL: [id number] 07/02/2018 - - Read by: Valdo Sanders MD Dictated Date/time: 07/02/18 15:38 Electronically Signed by: Valdo Sanders MD 07/02/18 15:38 FINAL REPORT [facility] Ribs unilateral 3 views w PA [...] assessment. IMPRESSION: No evidence for rib fractures. [id number] 03/17/2018 - - Read by: Vince Navarrete MD Dictated Date/time: 03/17/18 22:47 Electronically Signed by: Vince Navarrete MD 03/17/18 22:48 FINAL REPORT [facility] Abdomen AP DX Abdomen AP DX Patient Name: SANGITA ESCALANTE : 1945; Age: 71 years Male MR: [id number] Study: Abdomen AP DX 02/26/2017 4:07 PM [...] Intraluminal location of the gastrostomy tube. SL: [id number] 02/26/2017 - - Read by: Gage Garzon MD Dictated Date/time: 02/26/17 16:38 Electronically Signed by: Gage Garzon MD 02/26/17 16:39 FINAL REPORT [facility] ELECTROLYTES AGAP 11.6 meq/L 10.0 - 20.0 12/21/2016 [facility] ELECTROLYTES eGFR 54 mL/min/1.73m2 12/21/2016 Result Comment: [...] should be multiplied by the estimated BMI. [facility] ELECTROLYTES Chloride Lvl 102 meq/L 95 - 109 12/21/2016 [facility] ELECTROLYTES CO2 28 meq/L 24 - 32 12/21/2016 [facility] ELECTROLYTES BUN 34 mg/dL 7 - 22 12/21/2016 [facility] ELECTROLYTES Calcium Lvl 8.1 mg/dL 8.5 - 10.5 12/21/2016 [facility] ELECTROLYTES Sodium Lvl 137 meq/L 135 - 145 12/21/2016 [facility] ELECTROLYTES Creatinine Lvl 1.32 mg/dL 0.50 - 1.40 12/21/2016 [facility] ELECTROLYTES Potassium Lvl 4.6 meq/L 3.5 - 5.1 12/21/2016 [facility] ELECTROLYTES Glucose Lvl 86 mg/dL 70 - 99 12/21/2016 [facility] HEMATOLOGY Segs 78.0 % 45.0 - 75.0 12/21/2016 [facility] HEMATOLOGY Monocytes 6.9 % 2.0 - 12.0 12/21/2016 [facility] HEMATOLOGY Lymphocytes 12.6 % 20.0 - 40.0 12/21/2016 [facility] HEMATOLOGY Basophils 0.4 % 0.0 - 1.0 12/21/2016 [facility] HEMATOLOGY Segs-Bands # 7.6 K/CMM 1.5 - 8.1 12/21/2016 [facility] HEMATOLOGY Monocytes # 0.7 K/CMM 0.0 - 0.8 12/21/2016 [facility] HEMATOLOGY Lymphocytes # 1.2 K/CMM 1.0 - 5.5 12/21/2016 [facility] HEMATOLOGY Eosinophils # 0.2 K/CMM 0.0 - 0.5 12/21/2016 [facility] HEMATOLOGY Anisocyte 1+ *ABN* (12/21/16 2:50 AM) None Seen 12/21/2016 [facility] HEMATOLOGY Eosinophils 2.1 % 0.0 - 4.0 12/21/2016 [facility] HEMATOLOGY Plt Morph Normal (12/21/16 2:50 AM) 12/21/2016 [facility] HEMATOLOGY PTT 35.4 s 22.9 - 35.8 12/21/2016 [facility] HEMATOLOGY PT 13.5 s 12.0 - 14.7 12/21/2016 [facility] HEMATOLOGY INR 1.01 0.85 - 1.17 12/21/2016 [facility] HEMATOLOGY WBC 9.8 K/CMM 3.7 - 10.4 12/21/2016 [facility] HEMATOLOGY RBC 2.80 M/CMM 4.70 - 6.10 12/21/2016 [facility] HEMATOLOGY Hgb 8.6 g/dL 14.0 - 18.0 12/21/2016 [facility] HEMATOLOGY Hct 25.2 % 42.0 - 54.0 12/21/2016 [facility] HEMATOLOGY MCV 89.7 fL 80.0 - 94.0 12/21/2016 [facility] HEMATOLOGY MCH 30.6 pg 27.0 - 31.0 12/21/2016 [facility] HEMATOLOGY MCHC 34.1 g/dL 32.0 - 36.0 12/21/2016 [facility] HEMATOLOGY RDW 17.8 % 11.5 - 14.5 12/21/2016 [facility] HEMATOLOGY Platelet 284 K/CMM 133 - 450 12/21/2016 [facility] HEMATOLOGY MPV 8.5 fL 7.4 - 10.4 12/21/2016 [facility] Chest 1view DX Chest 1view DX EXAM: [...] Bryant Emerson MD 12/20/16 13:19 FINAL REPORT [facility] CHEM PANEL eGFR 52 mL/min/1.73m2 12/20/2016 Result [...] should be multiplied by the estimated BMI. [facility] CHEM PANEL Albumin Lvl 2.2 g/dL 3.5 - 5.0 12/20/2016 [facility] CHEM PANEL Total Protein 6.1 g/dL 6.4 - 8.4 12/20/2016 [facility] CHEM PANEL ALT 18 unit/L 0 - 65 12/20/2016 [facility] CHEM PANEL AST 36 unit/L 0 - 37 12/20/2016 [facility] CHEM PANEL Globulin 3.9 g/dL 2.7 - 4.2 12/20/2016 [facility] CHEM PANEL A/G Ratio 0.6 0.7 - 1.6 12/20/2016 [facility] CHEM PANEL Bili Total 0.4 mg/dL 0.2 - 1.3 12/20/2016 [facility] CHEM PANEL Alk Phos 98 unit/L 39 - 136 12/20/2016 [facility] CHEM PANEL Glucose Lvl 238 mg/dL 70 - 99 12/20/2016 [facility] CHEM PANEL Creatinine Lvl 1.36 mg/dL 0.50 - 1.40 12/20/2016 [facility] CHEM PANEL BUN 33 mg/dL 7 - 22 12/20/2016 [facility] CHEM PANEL Potassium Lvl 4.6 meq/L 3.5 - 5.1 12/20/2016 [facility] CHEM PANEL Sodium Lvl 137 meq/L 135 - 145 12/20/2016 [facility] CHEM PANEL Chloride Lvl 104 meq/L 95 - 109 12/20/2016 [facility] CHEM PANEL CO2 25 meq/L 24 - 32 12/20/2016 [facility] CHEM PANEL B/C Ratio 24 6 - 25 12/20/2016 [facility] CHEM PANEL Calcium Lvl 7.9 mg/dL 8.5 - 10.5 12/20/2016 [facility] CHEM PANEL AGAP 12.6 meq/L 10.0 - 20.0 12/20/2016 [facility] HEMATOLOGY MPV 8.2 fL 7.4 - 10.4 12/20/2016 [facility] HEMATOLOGY Platelet 267 K/CMM 133 - 450 12/20/2016 [facility] HEMATOLOGY WBC 9.8 K/CMM 3.7 - 10.4 12/20/2016 [facility] HEMATOLOGY MCHC 33.5 g/dL 32.0 - 36.0 12/20/2016 [facility] HEMATOLOGY MCH 30.2 pg 27.0 - 31.0 12/20/2016 [facility] HEMATOLOGY RDW 18.9 % 11.5 - 14.5 12/20/2016 [facility] HEMATOLOGY MCV 90.2 fL 80.0 - 94.0 12/20/2016 [facility] HEMATOLOGY Hct 23.8 % 42.0 - 54.0 12/20/2016 [facility] HEMATOLOGY Hgb 8.0 g/dL 14.0 - 18.0 12/20/2016 [facility] HEMATOLOGY RBC 2.63 M/CMM 4.70 - 6.10 12/20/2016 [facility] HEMATOLOGY Eosinophils # 0.2 K/CMM 0.0 - 0.5 12/20/2016 [facility] HEMATOLOGY Segs-Bands # 7.5 K/CMM 1.5 - 8.1 12/20/2016 [facility] HEMATOLOGY Monocytes # 0.7 K/CMM 0.0 - 0.8 12/20/2016 [facility] HEMATOLOGY Lymphocytes # 1.3 K/CMM 1.0 - 5.5 12/20/2016 [facility] HEMATOLOGY Basophils 0.4 % 0.0 - 1.0 12/20/2016 [facility] HEMATOLOGY Eosinophils 2.0 % 0.0 - 4.0 12/20/2016 [facility] HEMATOLOGY Segs 76.4 % 45.0 - 75.0 12/20/2016 [facility] HEMATOLOGY Lymphocytes 13.8 % 20.0 - 40.0 12/20/2016 [facility] HEMATOLOGY Monocytes 7.4 % 2.0 - 12.0 12/20/2016 [facility] ELECTROLYTES CO2 30 meq/L 24 - 32 12/19/2016 [facility] ELECTROLYTES Calcium Lvl 7.7 mg/dL 8.5 - 10.5 12/19/2016 [facility] ELECTROLYTES AGAP 9.6 meq/L 10.0 - 20.0 12/19/2016 [facility] ELECTROLYTES Potassium Lvl 4.6 meq/L 3.5 - 5.1 12/19/2016 [facility] ELECTROLYTES B/C Ratio 26 6 - 25 12/19/2016 [facility] ELECTROLYTES Glucose Lvl 169 mg/dL 70 - 99 12/19/2016 [facility] ELECTROLYTES BUN 37 mg/dL 7 - 22 12/19/2016 [facility] ELECTROLYTES Sodium Lvl 142 meq/L 135 - 145 12/19/2016 [facility] ELECTROLYTES Chloride Lvl 107 meq/L 95 - 109 12/19/2016 [facility] ELECTROLYTES Creatinine Lvl 1.40 mg/dL 0.50 - 1.40 12/19/2016 [facility] ELECTROLYTES eGFR 50 mL/min/1.73m2 12/19/2016 Result Comment: [...] should be multiplied by the estimated BMI. [facility] ELECTROLYTES A/G Ratio 0.6 0.7 - 1.6 12/19/2016 [facility] ELECTROLYTES Bili Total 0.4 mg/dL 0.2 - 1.3 12/19/2016 [facility] ELECTROLYTES Globulin 4.0 g/dL 2.7 - 4.2 12/19/2016 [facility] ELECTROLYTES Alk Phos 98 unit/L 39 - 136 12/19/2016 [facility] ELECTROLYTES AST 42 unit/L 0 - 37 12/19/2016 [facility] ELECTROLYTES Total Protein 6.2 g/dL 6.4 - 8.4 12/19/2016 [facility] ELECTROLYTES ALT 18 unit/L 0 - 65 12/19/2016 [facility] ELECTROLYTES Albumin Lvl 2.2 g/dL 3.5 - 5.0 12/19/2016 [facility] CHEM PANEL Bili Total 0.6 mg/dL 0.2 - 1.3 12/18/2016 [facility] CHEM PANEL Alk Phos 98 unit/L 39 - 136 12/18/2016 [facility] CHEM PANEL ALT 21 unit/L 0 - 65 12/18/2016 [facility] CHEM PANEL Total Protein 6.5 g/dL 6.4 - 8.4 12/18/2016 [facility] CHEM PANEL Albumin Lvl 2.2 g/dL 3.5 - 5.0 12/18/2016 [facility] CHEM PANEL Globulin 4.3 g/dL 2.7 - 4.2 12/18/2016 [facility] CHEM PANEL A/G Ratio 0.5 0.7 - 1.6 12/18/2016 [facility] CHEM PANEL AST 37 unit/L 0 - 37 12/18/2016 [facility] CHEM PANEL B/C Ratio 26 6 - 25 12/18/2016 [facility] HEMATOLOGY MPV 8.3 fL 7.4 - 10.4 12/18/2016 [facility] HEMATOLOGY RDW 19.3 % 11.5 - 14.5 12/18/2016 [facility] HEMATOLOGY MCH 29.9 pg 27.0 - 31.0 12/18/2016 [facility] HEMATOLOGY MCHC 33.5 g/dL 32.0 - 36.0 12/18/2016 [facility] HEMATOLOGY Platelet 327 K/CMM 133 - 450 12/18/2016 [facility] HEMATOLOGY WBC 11.6 K/CMM 3.7 - 10.4 12/18/2016 [facility] HEMATOLOGY RBC 2.91 M/CMM 4.70 - 6.10 12/18/2016 [facility] HEMATOLOGY Hct 26.0 % 42.0 - 54.0 12/18/2016 [facility] HEMATOLOGY MCV 89.4 fL 80.0 - 94.0 12/18/2016 [facility] HEMATOLOGY Hgb 8.7 g/dL 14.0 - 18.0 12/18/2016 [facility] HEMATOLOGY Segs 77.3 % 45.0 - 75.0 12/18/2016 [facility] HEMATOLOGY Lymphocytes 11.7 % 20.0 - 40.0 12/18/2016 [facility] HEMATOLOGY Basophils 0.5 % 0.0 - 1.0 12/18/2016 [facility] HEMATOLOGY Monocytes 7.9 % 2.0 - 12.0 12/18/2016 [facility] HEMATOLOGY Segs-Bands # 9.0 K/CMM 1.5 - 8.1 12/18/2016 [facility] HEMATOLOGY Eosinophils 2.6 % 0.0 - 4.0 12/18/2016 [facility] HEMATOLOGY Basophils # 0.1 K/CMM 0.0 - 0.2 12/18/2016 [facility] HEMATOLOGY Eosinophils # 0.3 K/CMM 0.0 - 0.5 12/18/2016 [facility] HEMATOLOGY Monocytes # 0.9 K/CMM 0.0 - 0.8 12/18/2016 [facility] HEMATOLOGY Lymphocytes # 1.4 K/CMM 1.0 - 5.5 12/18/2016 [facility] Abdomen AP DX Abdomen AP DX EXAM: XR ABDOMEN 1 VIEW DATE: 12/18/2016 4:13 AM CDT INDICATION: - Tube placement ADDITIONAL INFORMATION: None. COMPARISON: [place] 12/17/2016 TECHNIQUE: AP view of the abdomen. Number of images: 1 FINDINGS: Transesophageal suction tube: The tip overlies the greater curvature of the proximal to mid body with the side-port in the central proximal body. Transesophageal feeding tube: None. Other tubes and lines: None. Bowel: Mild gaseous distention without dilatation. Fecal [place]: Mild. Bones: No acute abnormalities seen. Soft tissues. There is stable moderate left retrocardiac opacification. IMPRESSION: 1. Non-specific bowel gas pattern with no acute abnormality seen. 2. Tube(s) and/or catheter(s) as above. 12/18/2016 - - Read by: Magdaleno Spann MD Dictated Date/time: 12/18/16 09:46 Electronically Signed by: Magdaleno Spann MD 12/18/16 09:47 FINAL REPORT [facility] HEMATOLOGY Basophils # 0.1 K/CMM 0.0 - 0.2 12/17/2016 [facility] Abdomen AP DX Abdomen AP DX EXAM: [...] by: Leidy Chavez 12/17/16 09:18 FINAL REPORT [facility] Chest Pulmonary Embolism CTA Chest Pulmonary Embolism [...] IS PROVIDED PRELIMINARY REPORT BY THE ON-CALL EDUCATION LIAISON. FINAL REPORT IS DETAILED ABOVE. IMPRESSION: This exam was repeated secondary to motion artifact. Both original and repeat exam are somewhat limited by quantum mottle artifact. Within the limitations, no filling defects in the pulmonary arteries to the segmental level. Moderate bilateral pleural effusions with subsegmental atelectasis. [place] SECTION: Chest 12/16/2016 - - This report was dictated by a Recycling Or Rubbish Collector/Fellow. I have personally reviewed the images as well as the Resident's interpretation and agree with the findings. Read by: Cat Krueger MD Resident: Cat Krueger MD Dictated Date/time: 12/16/16 20:40 Electronically Signed by: Travon Castro MD 12/17/16 08:30 FINAL REPORT [facility] Chest 1view DX Chest 1view DX EXAM: [...] by: Adonay Schuler 12/17/16 06:11 FINAL REPORT [facility] Abdomen AP DX Abdomen AP DX EXAM: [...] - This report was dictated by a Recycling Or Rubbish Collector/Fellow. I have personally reviewed the images as well as the Resident's interpretation and agree with the findings. Read by: Yong Paul MD Resident: Yong Paul MD Dictated Date/time: 12/15/16 16:04 Electronically Signed by: Pan Coe MD 12/15/16 16:50 FINAL REPORT [facility] CHEM PANEL Lactic Acid Lvl 1.0 mMol/L 0.5 - 2.2 12/15/2016 [facility] URINE AND STOOL Micro? Performed *NA* (12/15/16 9:55 AM) 12/15/2016 [facility] URINE AND STOOL UA Bacteria Occasional /HPF None Seen /HPF 12/15/2016 [facility] URINE AND STOOL UA RBC null 0 - 2 12/15/2016 [facility] URINE AND STOOL UA [place] Yeast Occasional /HPF None Seen /HPF 12/15/2016 [facility] URINE AND STOOL UA Urobilinogen <=1.0 mg/dL 0.1 - 1.0 12/15/2016 [facility] URINE AND STOOL UA WBC 19 /HPF 0 - 5 12/15/2016 [facility] URINE AND STOOL UA Blood Negative (12/15/16 9:55 AM) Negative 12/15/2016 [facility] URINE AND STOOL UA Bili Negative *NA* (12/15/16 9:55 AM) Negative 12/15/2016 [facility] URINE AND STOOL UA Protein 100 mg/dL Negative mg/dL 12/15/2016 [facility] URINE AND STOOL UA Glucose Negative mg/dL Negative mg/dL 12/15/2016 [facility] URINE AND STOOL UA Turbidity Clear (12/15/16 9:55 AM) Clear 12/15/2016 [facility] URINE AND STOOL UA Color Yellow *NA* (12/15/16 9:55 AM) Yellow 12/15/2016 [facility] URINE AND STOOL UA pH 7.5 5.0 - 8.0 12/15/2016 [facility] URINE AND STOOL UA Spec Grav 1.012 <=1.030 12/15/2016 [facility] URINE AND STOOL UA Nitrite Negative (12/15/16 9:55 AM) Negative 12/15/2016 [facility] URINE AND STOOL UA Sq Epi Occasional /LPF Few /LPF 12/15/2016 [facility] URINE AND STOOL UA Leuk Est Small *ABN* (12/15/16 9:55 AM) Negative 12/15/2016 [facility] URINE AND STOOL UA Ketones Negative mg/dL Negative mg/dL 12/15/2016 [facility] HEMATOLOGY Plt Morph Normal (12/15/16 5:27 AM) 12/15/2016 [facility] HEMATOLOGY RBC Morph Normal (12/15/16 5:27 AM) 12/15/2016 [facility] HEMATOLOGY RBC Morph Normal (12/14/16 4:24 AM) 12/14/2016 [facility] HEMATOLOGY Plt Morph Normal (12/14/16 4:24 AM) 12/14/2016 [facility] Chest 2 views DX Chest 2 views [...] Jessica Matthew MD 12/14/16 10:12 FINAL REPORT [facility] CHEM PANEL Phosphorus 2.8 mg/dL 2.5 - 4.5 12/12/2016 [facility] CHEM PANEL Phosphorus 0.5 mg/dL 2.5 - 4.5 12/11/2016 Result Comment: Critical Result(s) called to Tristan Ortiz at 12/11/2016 19:44 byJP. Read back OK. [facility] CHEM PANEL Magnesium Lvl 2.2 mg/dL 1.8 - 2.4 12/11/2016 [facility] CHEM PANEL Phosphorus 1.2 mg/dL 2.5 - 4.5 12/11/2016 Result Comment: Critical Result(s) called to Baltazar MAY at 12/11/2016 01:32 byJw. Read back OK. [facility] PARATHYROID PROFILE Ca Ion WB 1.06 mMol/L 1.05 - 1.25 12/11/2016 [facility] PARATHYROID PROFILE Ca Norm WB 1.11 mMol/L 1.05 - 1.25 12/11/2016 [facility] Chest 1view DX Chest 1view DX EXAM: [...] Bryant Emerson MD 12/10/16 14:32 FINAL REPORT [facility] CHEM PANEL Lactic Acid Lvl 1.1 mMol/L 0.5 - 2.2 12/10/2016 [facility] URINE AND STOOL UA Amorph Georgie Moderate /HPF None Seen /HPF 12/10/2016 [facility] URINE AND STOOL UA Sq Epi None Seen 12/10/2016 [facility] URINE AND STOOL UA Urobilinogen <=1.0 mg/dL 0.1 - 1.0 12/10/2016 [facility] URINE AND STOOL UA [place] 74 /LPF 12/10/2016 [facility] URINE AND STOOL UA Nitrite Negative (12/10/16 2:08 AM) Negative 12/10/2016 [facility] URINE AND STOOL UA RBC 15 /HPF 0 - 2 12/10/2016 [facility] URINE AND STOOL UA Leuk Est Large *ABN* (12/10/16 2:08 AM) Negative 12/10/2016 [facility] URINE AND STOOL UA WBC 129 /HPF 0 - 5 12/10/2016 [facility] URINE AND STOOL UA Blood Moderate *ABN* (12/10/16 2:08 AM) Negative 12/10/2016 [facility] URINE AND STOOL UA Protein 70 mg/dL Negative mg/dL 12/10/2016 [facility] URINE AND STOOL UA Ketones 40 mg/dL Negative mg/dL 12/10/2016 [facility] URINE AND STOOL UA Bacteria Few /HPF None Seen /HPF 12/10/2016 [facility] URINE AND STOOL UA Mucus Few /LPF None Seen /LPF 12/10/2016 [facility] URINE AND STOOL UA Bili Negative *NA* (12/10/16 2:08 AM) Negative 12/10/2016 [facility] [facility] URINE AND STOOL UA Glucose >=1000 mg/dL Negative mg/dL 12/10/2016 [facility] URINE AND STOOL UA Turbidity Marked *ABN* (12/10/16 2:08 AM) Clear 12/10/2016 [facility] URINE AND STOOL UA pH 6.5 5.0 - 8.0 12/10/2016 [facility] URINE AND STOOL UA Spec Grav 1.006 <=1.030 12/10/2016 [facility] URINE AND STOOL UA Color Light Yellow (12/10/16 2:08 AM) Yellow 12/10/2016 [facility] CHEM PANEL Magnesium Lvl 2.4 mg/dL 1.8 - 2.4 12/10/2016 [facility] HEMATOLOGY Schistocyte Occasional 12/10/2016 [facility] HEMATOLOGY Polychrom slight 12/10/2016 [facility] HEMATOLOGY Anisocyte 1+ *ABN* (12/10/16 12:03 AM) None Seen 12/10/2016 [facility] HEMATOLOGY Toxic Gran slight 12/10/2016 [facility] PARATHYROID PROFILE Ca Norm WB 1.09 mMol/L 1.05 - 1.25 12/10/2016 [facility] PARATHYROID PROFILE Ca Ion WB 1.03 mMol/L 1.05 - 1.25 12/10/2016 [facility] Chest 1view DX Chest 1view DX ADDENDUM: Dr. Armen Tan, the assembler deck and hull in the MICU, was notified by phone [...] from the stas. Dr. Armen Tan, the Deputy Sheriff Chief in the MICU was notified by phone of this at 0930 hours. 12/10/2016 - - Read by: Jessica Matthew MD Dictated Date/time: 12/10/16 09:38 Electronically Signed by: Jessica Matthew MD 12/10/16 09:39 FINAL REPORT - - Read by: Jessica Matthew MD Dictated Date/time: 12/10/16 09:27 Electronically Signed by: Jessica Matthew MD 12/10/16 09:30 FINAL REPORT [facility] URINE CHEM TV CrCl 12H 2121 mL 800 - 1800 12/09/2016 [facility] URINE CHEM Ur Creat 30.30 mg/dL 12/09/2016 [facility] URINE CHEM WT Crcl 121 [lb_ap] 12/09/2016 [facility] URINE CHEM HT Crcl 69 [in_i] 12/09/2016 [facility] URINE CHEM BSA Cr Clear 1.66 12/09/2016 [facility] URINE CHEM U12 Cr Clear 42 mL/min 97 - 137 12/09/2016 [facility] CHEM PANEL Magnesium Lvl 2.5 mg/dL 1.8 - 2.4 12/09/2016 [facility] PARATHYROID PROFILE Ca Ion WB 1.08 mMol/L 1.05 - 1.25 12/09/2016 [facility] PARATHYROID PROFILE Ca Norm WB 1.08 mMol/L 1.05 - 1.25 12/09/2016 [facility] Chest 1view DX Chest 1view DX EXAM: [...] Jessica Matthew MD 12/09/16 10:20 FINAL REPORT [facility] HEMATOLOGY PTT 37.6 s 22.9 - 35.8 12/08/2016 [facility] HEMATOLOGY INR 1.26 0.85 - 1.17 12/08/2016 [facility] HEMATOLOGY PT 16.1 s 12.0 - 14.7 12/08/2016 [facility] HEMATOLOGY POC Activated Clotting Time 101 s 12/08/2016 [facility] HEMATOLOGY PT 17.1 s 12.0 - 14.7 12/08/2016 [facility] HEMATOLOGY INR 1.37 0.85 - 1.17 12/08/2016 [facility] HEMATOLOGY PTT 138.0 s 22.9 - 35.8 12/08/2016 Result Comment: Critical Result(s) called to Maryjo TEJADA at 12/08/2016 02:31 by ECAni. Read back OK. [facility] CARDIAC ENZYMES Troponin-I 4.55 ng/mL 0.00 - 0.40 12/07/2016 Result Comment: Critical Result(s) called to at 12/07/2016 17:45 by CINDY. Read back OK. [facility] HEMATOLOGY Anisocyte 1+ *ABN* (12/07/16 10:42 AM) None Seen 12/07/2016 [facility] Ext Upper & Lower Venous Doppler Jose [...] - This report was dictated by a Recycling Or Rubbish Collector/Fellow. I have personally reviewed the images as well as the Resident's interpretation and agree with the findings. Read by: Frank Matson MD Resident: Frank Matson MD Dictated Date/time: 12/07/16 16:17 Electronically Signed by: Juventino Copeland MD 12/07/16 18:10 FINAL REPORT [facility] Chest 1view DX Chest 1view DX EXAM: [...] Jessica Matthew MD 12/07/16 09:46 FINAL REPORT [facility] CARDIAC ENZYMES Troponin-I 8.52 ng/mL 0.00 - 0.40 12/07/2016 Result Comment: Critical Result(s) called to Tal Crowley at 12/07/2016 02:45 byJw. Read back OK. [facility] Chest 1view DX Chest 1view DX EXAM: [...] retrocardiac opacity. 12/07/2016 - - Read by: Jesisca Matthew MD Dictated Date/time: 12/07/16 10:07 Electronically Signed by: Jessica Matthew MD 12/07/16 10:08 FINAL REPORT [facility] CARDIAC ENZYMES Troponin-I 8.64 ng/mL 0.00 - 0.40 12/07/2016 Result Comment: Critical Result(s) called to brittney at 12/06/2016 21:57 m by ko. Read back OK. [facility] BLOOD BANK RESULTS RBC product Product available (12/06/16 11:40 AM) 12/06/2016 [facility] BLOOD BANK RESULTS FFP product Product available (12/06/16 11:40 AM) 12/06/2016 [facility] BLOOD BANK RESULTS RBC product Product available (12/06/16 10:22 AM) 12/06/2016 [facility] CHEM PANEL Lactic Acid Lvl 5.9 mMol/L 0.5 - 2.2 12/06/2016 Result Comment: Critical Result(s) called to Kenna Bates at 12/06/2016 10:00 by melani. Read back OK. [facility] CARDIAC ENZYMES Total CK 511 unit/L 12 - 191 12/06/2016 [facility] BACTERIAL - SEROLOGY MRSA by PCR Negative (12/05/16 10:58 PM) 12/06/2016 [facility] URINE AND STOOL UA Ketones TR 12/06/2016 [facility] URINE AND STOOL UA Urobilinogen <=1.0 mg/dL 0.1 - 1.0 12/06/2016 [facility] URINE AND STOOL UA Sq Epi None Seen 12/06/2016 [facility] URINE AND STOOL UA RBC 17 /HPF 0 - 2 12/06/2016 [facility] URINE AND STOOL UA Bacteria Many /HPF None Seen /HPF 12/06/2016 [facility] URINE AND STOOL UA Mucus Few /LPF None Seen /LPF 12/06/2016 [facility] URINE AND STOOL UA pH 6.0 5.0 - 8.0 12/06/2016 [facility] URINE AND STOOL UA Protein >=300 mg/dL Negative mg/dL 12/06/2016 [facility] URINE AND STOOL UA Glucose 30 mg/dL Negative mg/dL 12/06/2016 [facility] URINE AND STOOL UA Color Yellow *NA* (12/05/16 10:58 PM) Yellow 12/06/2016 [facility] URINE AND STOOL UA Turbidity Marked *ABN* (12/05/16 10:58 PM) Clear 12/06/2016 [facility] URINE AND STOOL UA Spec Grav 1.012 <=1.030 12/06/2016 [facility] URINE AND STOOL UA Bili Negative *NA* (12/05/16 10:58 PM) Negative 12/06/2016 [facility] URINE AND STOOL UA Blood Moderate *ABN* (12/05/16 10:58 PM) Negative 12/06/2016 [facility] URINE AND STOOL UA Nitrite Negative (12/05/16 10:58 PM) Negative 12/06/2016 [facility] URINE AND STOOL UA Leuk Est Large *ABN* (12/05/16 10:58 PM) Negative 12/06/2016 [facility] URINE AND STOOL UA WBC null 0 - 5 12/06/2016 [facility] BLOOD BANK RESULTS ABO/Rh O POS 12/06/2016 [facility] BLOOD BANK RESULTS Antibody Scrn Negative (12/05/16 8:42 PM) 12/06/2016 [facility] HEMATOLOGY PB Smear Path Peripheral blood smear shows hypochromic normocytic anemia with anisopoikilocytosis, moderate number of janine cells, slight polychromasia, normal number/morphology of platelets, leukocytosis with left shift.Impression: (1) RBC morphology is suggestive of renal disorder, (2) a leukemoid reaction.CPT: 72783 12/06/2016 [facility] HEMATOLOGY Retic Auto 3.0 % 0.5 - 1.5 12/06/2016 [facility] IMMUNOLOGY HIV Ag/Ab 4th Gen Negative *NA* (12/05/16 8:39 PM) Negative 12/06/2016 [facility] BLOOD BANK RESULTS RBC product Product available (12/05/16 8:30 PM) 12/06/2016 [facility] CHEM PANEL Bili Indirect 0.2 mg/dL 0.0 - 1.0 12/06/2016 [facility] CHEM PANEL Bili Direct 0.1 mg/dL 0.0 - 0.3 12/06/2016 [facility] CHEM PANEL Lipase Lvl 234 unit/L 73 - 393 12/06/2016 [facility] CHEM PANEL Procalcitonin Lvl 0.52 ng/mL 0.00 - 0.10 12/06/2016 [facility] Retroperitoneal Complete US Retroperitoneal Complete US EXAM: [...] - This report was dictated by a Recycling Or Rubbish Collector/Fellow. I have personally reviewed the images as well as the Resident's interpretation and agree with the findings. Read by: Justino Salazar MD Resident: Justino Salazar MD Dictated Date/time: 12/06/16 00:10 Electronically Signed by: Rodolfo Retana MD 12/06/16 05:47 FINAL REPORT [facility] Abdomen AP DX Abdomen AP DX EXAM: [...] Tommy Vaughan MD 12/06/16 09:10 FINAL REPORT [facility] CHEM PANEL Lactic Acid WB 17.1 mmol/L 0.5 - 2.2 12/05/2016 Result Comment: Critical Result(s) called to Dr. Kenzie Spain at 12/05/2016 18:11 byPALMER. Read back OK. [facility] Chest 1view DX Chest 1view DX EXAM: [...] Tommy Vaughan MD 12/06/16 09:09 FINAL REPORT [facility] URINE AND STOOL Micro? Performed (12/05/16 3:04 PM) 12/05/2016 [facility] Chest 1view DX Chest 1view DX EXAM: [...] Tommy Vaughan MD 12/05/16 22:53 FINAL REPORT [facility] CHEM PANEL Lactic Acid WB 16.1 mmol/L 0.5 - 2.2 12/05/2016 Result Comment: Critical Result(s) called to Thao Jean at 12/05/2016 14:16 by Karsten. Read back OK. [facility] Abdomen/Pelvis w IV contrast CT Abdomen/Pelvis w [...] - This report was dictated by a Recycling Or Rubbish Collector/Fellow. I have personally reviewed the images as well as the Resident's interpretation and agree with the findings. Read by: John Paul Gu MD Resident: John Paul Gu MD Dictated Date/time: 12/05/16 18:22 Electronically Signed by: Magdaleno Spann MD 12/05/16 22:26 FINAL REPORT [facility] CHEM PANEL Lipase Lvl 195 unit/L 73 - 393 12/05/2016 [facility] HEMATOLOGY Basophils # 0.1 K/CMM 0.0 - 0.2 12/05/2016 [facility] Chest 1view DX Chest 1view DX EXAM: [...] - This report was dictated by a Recycling Or Rubbish Collector/Fellow. I have personally reviewed the images as well as the Resident's interpretation and agree with the findings. Read by: Yong Paul MD Resident: Yong Paul MD Dictated Date/time: 12/05/16 16:18 Electronically Signed by: Henrik Blackwell MD 12/05/16 17:05 FINAL REPORT [facility] Chest 1view DX Chest 1view DX EXAM: [...] - This report was dictated by a Recycling Or Rubbish Collector/Fellow. I have personally reviewed the images as well as the Resident's interpretation and agree with the findings. Read by: Yong Paul MD Resident: Yong Paul MD Dictated Date/time: 12/05/16 14:44 Electronically Signed by: Carlton Kenney MD 12/05/16 14:47 FINAL REPORT [facility] ELECTROLYTES AGAP 12.6 meq/L 10.0 - 20.0 08/01/2015 [facility] ELECTROLYTES Calcium Lvl 8.3 mg/dL 8.5 - 10.5 08/01/2015 [facility] ELECTROLYTES Chloride Lvl 102 meq/L 95 - 109 08/01/2015 [facility] ELECTROLYTES Potassium Lvl 4.6 meq/L 3.5 - 5.1 08/01/2015 [facility] ELECTROLYTES CO2 24 meq/L 24 - 32 08/01/2015 [facility] ELECTROLYTES BUN 15 mg/dL 7 - 22 08/01/2015 [facility] ELECTROLYTES Glucose Lvl 51 mg/dL 70 - 99 08/01/2015 [facility] ELECTROLYTES Sodium Lvl 134 meq/L 135 - 145 08/01/2015 [facility] ELECTROLYTES Creatinine Lvl 1.57 mg/dL 0.50 - 1.40 08/01/2015 [facility] ELECTROLYTES eGFR 44 mL/min/1.73m2 08/01/2015 Result [...] should be multiplied by the estimated BMI. [facility] RDW 15.8 % 11.5 - 14.5 08/01/2015 [facility] MPV 7.8 fL 7.4 - 10.4 08/01/2015 [facility] MCHC 32.1 g/dL 32.0 - 36.0 08/01/2015 [facility] Hct 34.2 % 42.0 - 54.0 08/01/2015 [facility] Hgb 11.0 g/dL 14.0 - 18.0 08/01/2015 [facility] Platelet 205 K/CMM 133 - 450 08/01/2015 [facility] MCH 28.0 pg 27.0 - 31.0 08/01/2015 [facility] MCV 87.4 fL 80.0 - 94.0 08/01/2015 [facility] RBC 3.91 M/CMM 4.70 - 6.10 08/01/2015 [facility] WBC 12.4 K/CMM 3.7 - 10.4 08/01/2015 [facility] Segs-Bands # 10.4 K/CMM 1.5 - 8.1 08/01/2015 [facility] Lymphocytes # 1.0 K/CMM 1.0 - 5.5 08/01/2015 [facility] Eosinophils # 0.1 K/CMM 0.0 - 0.5 08/01/2015 [facility] Monocytes # 0.8 K/CMM 0.0 - 0.8 08/01/2015 [facility] Eosinophils 1.2 % 0.0 - 4.0 08/01/2015 [facility] Monocytes 6.6 % 2.0 - 12.0 08/01/2015 [facility] HEMATOLOGY Basophils 0.3 % 0.0 - 1.0 08/01/2015 [facility] Lymphocytes 8.1 % 20.0 - 40.0 08/01/2015 [facility] Segs 83.8 % 45.0 - 75.0 08/01/2015 [facility] CARDIAC ENZYMES Total CK 109 unit/L 12 - 191 07/31/2015 [facility] CARDIAC ENZYMES CK MB 2.2 ng/mL 0.5 - 3.6 07/31/2015 [facility] CARDIAC ENZYMES Troponin-I 0.03 ng/mL 0.00 - 0.40 07/31/2015 [facility] CARDIAC ENZYMES CK MB Index 2.0 0.0 - 2.5 07/31/2015 [facility] CHEM PANEL Creatinine Lvl 1.66 mg/dL 0.50 - 1.40 07/31/2015 [facility] CHEM PANEL eGFR 41 mL/min/1.73m2 07/31/2015 [...] should be multiplied by the estimated BMI. [facility] HEMATOLOGY Platelet 223 K/CMM 133 - 450 07/31/2015 [facility] CARDIAC ENZYMES Total CK 116 unit/L 07/31/2015 [facility] CARDIAC ENZYMES CK MB 2.0 ng/mL 0.5 - 3.6 07/31/2015 [facility] CARDIAC ENZYMES Troponin-I 0.04 ng/mL 0.00 - 0.40 07/31/2015 [facility] CARDIAC ENZYMES CK MB Index 1.7 0.0 - 2.5 07/31/2015 [facility] CARDIAC ENZYMES Total CK 115 unit/L - 07/31/2015 [facility] CARDIAC ENZYMES CK MB 1.8 ng/mL 0.5 - 3.6 07/31/2015 [facility] CARDIAC ENZYMES Troponin-I 0.03 ng/mL 0.00 - 0.40 07/31/2015 [facility] CARDIAC ENZYMES CK MB Index 1.6 0.0 - 2.5 07/31/2015 [facility] CHEM PANEL eGFR 42 mL/min/1.73m2 07/31/2015 [...] should be multiplied by the estimated BMI. [facility] CHEM PANEL AGAP 19.5 meq/L 10.0 - 20.0 07/31/2015 [facility] CHEM PANEL A/G Ratio 0.8 0.7 - 1.6 07/31/2015 [facility] CHEM PANEL Globulin 4.6 g/dL 2.0 - 4.0 07/31/2015 [facility] CHEM PANEL B/C Ratio 11 6 - 25 07/31/2015 [facility] CHEM PANEL Glucose Lvl 218 mg/dL 70 - 99 07/31/2015 [facility] CHEM PANEL Potassium Lvl 4.5 meq/L 3.5 - 5.1 07/31/2015 [facility] CHEM PANEL AST 27 unit/L 0 - 37 07/31/2015 [facility] CHEM PANEL Alk Phos 106 unit/L 39 - 136 07/31/2015 [facility] CHEM PANEL ALT 26 unit/L 0 - 65 07/31/2015 [facility] CHEM PANEL Bili Total 0.4 mg/dL 0.2 - 1.3 07/31/2015 [facility] CHEM PANEL Calcium Lvl 9.4 mg/dL 8.5 - 10.5 07/31/2015 [facility] CHEM PANEL Total Protein 8.4 g/dL 6.4 - 8.4 07/31/2015 [facility] CHEM PANEL Chloride Lvl 97 meq/L 95 - 109 07/31/2015 [facility] CHEM PANEL CO2 18 meq/L 24 - 32 07/31/2015 [facility] CHEM PANEL Creatinine Lvl 1.63 mg/dL 0.50 - 1.40 07/31/2015 [facility] CHEM PANEL Sodium Lvl 130 meq/L 135 - 145 07/31/2015 [facility] CHEM PANEL BUN 18 mg/dL 7 - 22 07/31/2015 [facility] CHEM PANEL Albumin Lvl 3.8 g/dL 3.5 - 5.0 07/31/2015 [facility] CHEM PANEL Lipase Lvl 133 unit/L 73 - 393 07/31/2015 [facility] CHEM PANEL Amylase Lvl 72 unit/L 25 - 115 07/31/2015 [facility] HEMATOLOGY INR 1.21 0.85 - 1.17 07/31/2015 [facility] HEMATOLOGY PT 15.6 s 12.0 - 14.7 07/31/2015 [facility] MCH 28.2 pg 27.0 - 31.0 07/31/2015 [facility] MCV 87.5 fL 80.0 - 94.0 07/31/2015 [facility] Hct 36.6 % 42.0 - 54.0 07/31/2015 [facility] Hgb 11.8 g/dL 14.0 - 18.0 07/31/2015 [facility] MPV 7.9 fL 7.4 - 10.4 07/31/2015 [facility] Platelet 216 K/CMM 133 - 450 07/31/2015 [facility] RDW 15.8 % 11.5 - 14.5 07/31/2015 [facility] RBC 4.18 M/CMM 4.70 - 6.10 07/31/2015 [facility] WBC 23.8 K/CMM 3.7 - 10.4 07/31/2015 [facility] MCHC 32.3 g/dL 32.0 - 36.0 07/31/2015 [facility] PTT 41.0 s 22.9 - 35.8 07/31/2015 [facility] Plt Morph Normal (07/30/15 11:15 PM) 07/31/2015 [facility] Monocytes # 0.8 K/CMM 0.0 - 0.8 07/31/2015 [facility] Lymphocytes # 0.7 K/CMM 1.0 - 5.5 07/31/2015 [facility] Segs-Bands # 22.3 K/CMM 1.5 - 8.1 07/31/2015 [facility] Basophils 0.1 % 0.0 - 1.0 07/31/2015 [facility] Eosinophils 0.1 % 0.0 - 4.0 07/31/2015 [facility] Segs 93.5 % 45.0 - 75.0 07/31/2015 [facility] HEMATOLOGY Lymphocytes 2.9 % 20.0 - 40.0 07/31/2015 [facility] HEMATOLOGY Monocytes 3.4 % 2.0 - 12.0 07/31/2015 [facility] HEMATOLOGY RBC Morph Normal (07/30/15 11:15 PM) 07/31/2015 [facility] URINE AND STOOL UA Urobilinogen <=1.0 mg/dL 0.1 - 1.0 07/31/2015 [facility] URINE AND STOOL UA Sq Epi None Seen 07/31/2015 [facility] URINE AND STOOL UA Color Ltyellow 07/31/2015 [facility] URINE AND STOOL UA Spec Grav 1.010 <=1.030 07/31/2015 [facility] URINE AND STOOL UA Turbidity Clear (07/30/15 11:15 PM) Clear 07/31/2015 [facility] URINE AND STOOL UA Protein 100 mg/dL Negative mg/dL 07/31/2015 [facility] URINE AND STOOL UA pH 6.0 5.0 - 8.0 07/31/2015 [facility] URINE AND STOOL UA Bili Negative *NA* (07/30/15 11:15 PM) Negative 07/31/2015 [facility] URINE AND STOOL UA Nitrite Negative (07/30/15 11:15 PM) Negative 07/31/2015 [facility] URINE AND STOOL UA Blood Small *ABN* (07/30/15 11:15 PM) Negative 07/31/2015 [facility] URINE AND STOOL UA Ketones Trace mg/dL Negative mg/dL 07/31/2015 [facility] URINE AND STOOL UA Glucose 150 mg/dL Negative mg/dL 07/31/2015 [facility] URINE AND STOOL UA RBC 6 /HPF 0 - 2 07/31/2015 [facility] URINE AND STOOL UA WBC 26 /HPF 0 - 5 07/31/2015 [facility] URINE AND STOOL UA Leuk Est Moderate *ABN* (07/30/15 11:15 PM) Negative 07/31/2015 [facility] Shoulder 2+ Views Bilateral DX Shoulder [...] Leodan Roberts MD 12/28/13 11:42 FINAL RE[facility] [place] [facility] Gluc POC Lifscn 290 mg/dL 70 - 99 06/07/2012 [place] 1Interpretive Data: Upper Reportable Limit: 200 mg/dL. [facility] BEDSIDE GLUCOSE TESTING Gluc POC Lifscn 131 mg/dL 70 - 99 06/07/2012 [place] 2Interpretive Data: Upper Reportable Limit: 200 mg/dL. [facility] BEDSIDE GLUCOSE TESTING Comment1 Notify RN/ 06/07/2012 NA [facility] BEDSIDE GLUCOSE TESTING Gluc POC Lifscn 105 mg/dL 70 - 99 06/07/2012 [place] 3Interpretive Data: Upper Reportable Limit: 200 mg/dL. [facility] CHEMISTRY Magnesium Lvl 1.9 mg/dL 1.8 - 2.4 06/07/2012 Normal [facility] CHEMISTRY AGAP 9.5 meq/L 10.0 - 20.0 06/07/2012 LOW [facility] CHEMISTRY Calcium Lvl 7.8 mg/dL 8.5 - 10.5 06/07/2012 LOW [facility] CHEMISTRY Potassium Lvl 3.5 meq/L 3.5 - 5.1 06/07/2012 Normal [facility] CHEMISTRY Chloride Lvl 109 meq/L 95 - 109 06/07/2012 Normal [facility] CHEMISTRY Sodium Lvl 146 meq/L 135 - 145 06/07/2012 HI [facility] CHEMISTRY eGFR 92 mL/min/1.73m2 06/07/2012 NA [...] should be multiplied by the estimated BMI. [facility] CHEMISTRY CO2 31 meq/L 24 - 32 06/07/2012 Normal [facility] CHEMISTRY Creatinine Lvl 0.8 mg/dL 0.5 - 1.4 06/07/2012 Normal [facility] CHEMISTRY Glucose Lvl 96 mg/dL 70 - 99 06/07/2012 Normal 5Interpretive Data: Adult reference range values reflect the clinical guidelines of the [place] [employer]. [facility] CHEMISTRY BUN 13 mg/dL 7 - 22 06/07/2012 Normal [facility] HEMATOLOGY MCHC 33.4 g/dL 32.0 - 36.0 06/07/2012 Normal [facility] HEMATOLOGY MPV 7.9 fL 7.4 - 10.4 06/07/2012 Normal [facility] HEMATOLOGY RDW 15.4 % 11.5 - 14.5 06/07/2012 [facility] HEMATOLOGY Platelet 149 K/CMM 133 - 450 06/07/2012 Normal [facility] HEMATOLOGY RBC 3.16 M/CMM 4.70 - 6.10 06/07/2012 LOW [facility] HEMATOLOGY Hgb 10.1 g/dL 14.0 - 18.0 06/07/2012 LOW [facility] HEMATOLOGY MCH 32.0 pg 27.0 - 31.0 06/07/2012 [facility] HEMATOLOGY Hct 30.3 % 42.0 - 54.0 06/07/2012 LOW [facility] HEMATOLOGY MCV 95.7 fL 80.0 - 94.0 06/07/2012 [facility] HEMATOLOGY WBC 7.2 K/CMM 3.7 - 10.4 06/07/2012 Normal [facility] HEMATOLOGY Eosinophils # 0.1 K/CMM 0.0 - 0.5 06/07/2012 Normal [facility] HEMATOLOGY Monocytes # 0.6 K/CMM 0.0 - 0.8 06/07/2012 Normal [facility] HEMATOLOGY Segs-Bands # 5.4 K/CMM 1.5 - 8.1 06/07/2012 Normal [facility] HEMATOLOGY Lymphocytes # 1.0 K/CMM 1.0 - 5.5 06/07/2012 Normal [facility] HEMATOLOGY Basophils # 0.0 K/CMM 0.0 - 0.2 06/07/2012 Normal [facility] HEMATOLOGY Monocytes 8.7 % 2.0 - 12.0 06/07/2012 Normal [facility] HEMATOLOGY Eosinophils 1.6 % 0.0 - 4.0 06/07/2012 Normal [facility] HEMATOLOGY Basophils 0.5 % 0.0 - 1.0 06/07/2012 Normal [facility] Lymphocytes 14.0 % 20.0 - 40.0 06/07/2012 LOW [facility] HEMATOLOGY Segs 75.2 % 45.0 - 75.0 06/07/2012 HI [facility] BEDSIDE GLUCOSE TESTING Comment1 Notify RN/MD 06/07/2012 NA [facility] BEDSIDE GLUCOSE TESTING Comment1 Notify RN/MD 06/07/2012 NA [facility] HEMATOLOGY PT 13.9 s 12.0 - 14.7 06/06/2012 Normal [facility] HEMATOLOGY INR 1.05 0.85 - 1.17 06/06/2012 Normal 6Interpretive Data: RECOMMENDED RANGES FOR PROTIME INR: 2.0-3.0 for most medical and surgical thromboembolic states. 2.5-3.5 for artificial heart valves and recurrent embolism. INR SHOULD BE USED ONLY FOR PATIENTS ON STABLE ANTICOAGULANT THERAPY. [facility] HEMATOLOGY PTT 31.8 s 22.9 - 35.8 06/06/2012 Normal 7Interpretive Data: Heparin Therapeutic Range: 57 - 92 Seconds [facility] Vital Signs Vital Sign Value Date Comments Source Diastolic (mm Hg) 78 09/06/2018 [facility] Systolic (mm Hg) 183 09/06/2018 [facility] Heart Rate 85 09/06/2018 [facility] Weight 72.727 09/05/2018 [facility] Heart Rate 97 09/05/2018 [facility] Temperature Oral (F) 98.2 F 09/05/2018 [facility] Respitory Rate 16 09/05/2018 [facility] Systolic (mm Hg) 166 09/05/2018 [facility] Diastolic (mm Hg) 75 09/05/2018 [facility] Height 175.26 cm 09/05/2018 [facility] BMI Calculated 23.68 09/05/2018 [facility] Height 172.72 cm 03/02/[facility] Temperature Oral (F) 97.9 F 03/02/2018 [facility] Heart Rate 73 03/02/2018 [facility] Respitory Rate 14 03/02/2018 [facility] Systolic (mm Hg) 109 03/02/2018 [facility] Diastolic (mm Hg) 51 03/02/2018 [facility] Height 172.72 cm 01/20/2018 [facility] Temperature Oral (F) 98 F 01/20/2018 [facility] Respitory Rate 14 01/20/2018 [facility] Heart Rate 82 01/20/2018 [facility] Systolic (mm Hg) 127 01/20/2018 [facility] Diastolic (mm Hg) 59 01/20/2018 [facility] Height 172.72 cm 10/21/2017 [facility] Temperature Oral (F) 98.7 F 10/21/2017 [facility] [...] [facility] BMI Calculated 24.38 05/25/2017 [facility] Height 172.72 cm 05/25/2017 [facility] BMI Calculated 25.11 03/23/2017 [facility] Weight 72.727 03/23/2017 [facility] Height 170.18 cm 03/23/2017 [facility] BMI Calculated 25.11 03/18/2017 [facility] Weight 72.727 03/18/2017 [facility] Height 170.18 cm 03/18/2017 [facility] Heart Rate 73 03/18/2017 [facility] Systolic (mm Hg) 122 03/18/2017 [facility] Diastolic (mm Hg) 58 03/18/2017 [facility] Respitory Rate 18 03/04/2017 [facility] Heart Rate 80 03/04/2017 [facility] Systolic (mm Hg) 142 03/04/2017 [facility] Diastolic (mm Hg) 69 03/04/2017 [facility] BMI Calculated 28.35 03/04/2017 [facility] Height 165.1 cm 03/04/2017 [facility] Heart Rate 80 03/04/2017 [facility] Weight 77.273 03/04/2017 [facility] Temperature Oral (F) 98 F 03/04/2017 [facility] Respitory Rate 18 03/04/2017 [facility] Systolic (mm Hg) 162 03/04/2017 [facility] Diastolic (mm Hg) 78 03/04/2017 [facility] Temperature Oral (F) 98.2 F 02/26/2017 [facility] Systolic (mm Hg) 132 02/26/2017 [facility] Diastolic (mm Hg) 97 02/26/2017 [facility] Systolic (mm Hg) 161 02/26/2017 [facility] Diastolic (mm Hg) 82 02/26/2017 [facility] Systolic (mm Hg) 116 02/26/2017 [facility] Diastolic (mm Hg) 60 02/26/2017 [facility] Respitory Rate 18 02/26/2017 [facility] Respitory Rate 17 02/26/2017 [facility] Respitory Rate 19 02/26/2017 [facility] Weight 72.727 02/26/2017 [facility] BMI Calculated 26.68 02/26/2017 [facility] Temperature Oral (F) 98.3 F 02/26/2017 [facility] Height 165.1 cm 02/26/2017 [facility] Heart Rate 77 02/26/2017 [facility] Systolic (mm Hg) 129 12/22/2016 [facility] Diastolic (mm Hg) 64 12/22/2016 [facility] Respitory Rate 18 12/22/2016 [facility] Heart Rate 75 12/22/2016 [facility] Heart Rate 60 12/22/2016 [facility] Respitory Rate 18 12/22/2016 [facility] Systolic (mm Hg) 103 12/22/2016 [facility] Diastolic (mm Hg) 60 12/22/2016 [facility] Temperature Oral (F) 98.8 F 12/22/2016 [facility] Systolic (mm Hg) 144 12/22/2016 [facility] Diastolic (mm Hg) 60 12/22/2016 [facility] Temperature Oral (F) 98.2 F 12/22/2016 [facility] Respitory Rate 18 12/22/2016 [facility] Heart Rate 74 12/22/2016 [facility] Temperature Oral (F) 98.2 F 12/22/2016 [facility] Height 172.72 cm 12/10/2016 [facility] Height 172.72 cm 12/10/2016 [facility] Height 172.72 cm 12/10/2016 [facility] BMI Calculated 25.9 12/07/2016 [facility] Weight 77.273 12/07/2016 [facility] BMI Calculated 25.9 12/05/2016 [facility] Weight 77.273 12/05/2016 [facility] Temperature Oral (F) 98.0 F 08/02/2015 [facility] Respitory Rate 18 08/02/2015 [facility] Heart Rate 78 08/02/2015 [facility] Systolic (mm Hg) 150 08/02/2015 [facility] Diastolic (mm Hg) 72 08/02/2015 [facility] Heart Rate 77 08/02/2015 [facility] Systolic (mm Hg) 169 08/02/2015 [facility] Diastolic (mm Hg) 75 08/02/2015 [facility] Respitory Rate 18 08/02/2015 [facility] Heart Rate 74 08/02/2015 [facility] Temperature Oral (F) 97.8 F 08/02/2015 [facility] Systolic (mm Hg) 184 08/02/2015 [facility] Diastolic (mm Hg) 82 08/02/2015 [facility] Temperature Oral (F) 97.8 F 08/02/2015 [facility] Respitory Rate 18 08/02/2015 [facility] Height 172.72 cm 07/31/2015 [facility] Weight 66.818 07/31/2015 [facility] BMI Calculated 22.4 07/31/2015 [facility] BMI Calculated 24.85 07/31/2015 [facility] Weight 63.636 07/31/2015 [facility] Height 160.02 cm 07/31/2015 [facility] Respitory Rate 20 06/07/2012 [facility] Systolic (mm Hg) 121 06/07/2012 [facility] Diastolic (mm Hg) 65 06/07/2012 [facility] Temperature Oral (F) 97.7 F 06/07/2012 [facility] Heart Rate 80 06/07/2012 [facility] Systolic (mm Hg) 122 06/07/2012 [facility] Diastolic (mm Hg) 70 06/07/2012 [facility] Temperature Oral (F) 98.0 F 06/07/2012 [facility] Respitory Rate 18 06/07/2012 [facility] Heart Rate 75 06/07/2012 [facility] Diastolic (mm Hg) 76 06/07/2012 [facility] Systolic (mm Hg) 130 06/07/2012 [facility] Respitory Rate 18 06/07/2012 [facility] Heart Rate 80 06/07/2012 [facility] Temperature Oral (F) 97.7 F 06/07/2012 [facility] Weight 62.727 06/06/2012 [facility] Height 170.18 cm 06/06/2012 [facility] Encounters Location Location Details Encounter Type Encounter Number Reason For Visit Attending Provider ADM Date DC Date Status Source [facility] OU [id number] CHEST PAIN RADHA CAMPBELL 05/18/2012 05/18/2012 Active [facility] JOHN PAUL [id number] ANGINA/CAD 411.1/414.01/402.10/433.11/794.31/440.21 RADHA CAMPBELL 05/23/2012 05/23/2012 Active [facility] OU [id number] 440.21 RADHA CAMPBELL 06/06/2012 06/07/2012 Active [facility] [place] [facility] [id number] Hardeep Dobson 12/28/2013 12/29/2013 [facility] [place] [facility] [place] [facility] [id number] Jojo Morel 07/23/2014 07/24/2014 [facility] [place] Outpatient [id number] SYDNEY BULLARD 04/19/2015 Active [facility] Inpatient [id number] Leonardo Teqwimuah 07/31/2015 08/03/2015 [facility] Outpatient [id number] [place] 03/24/2016 Active [facility] Outpatient [id number] [place] 04/06/2016 Active [facility] Jeancarlos Outpatient [id number] [place] 05/04/2016 Active [facility] Outpatient [id number] [place] 06/01/2016 Active [facility] Je[facility]arl[facility] Outpatient [id number] [place] 06/30/2016 Active [facility] Jeancarlos Outpatient [id number] [place] 07/13/2016 Active [facility] Outpatient [id number] [place] 10/12/2016 Active [facility] Keene Outpatient [id number] [place] 10/19/2016 Active [facility] Outpatient [id number] [place] 11/16/2016 Active [facility] Inpatient [id number] Odalys Joaquin 12/05/2016 12/22/2016 [facility] Outpatient [id number] [place] 01/18/2017 Active [facility] Phone Message [id number] 02/16/2017 02/18/2017 [facility] Outpatient [id number] KEV MORALES 02/17/2017 Active [facility] Emergency [id number] Lucia Krishnamurthy 02/26/2017 02/26/2017 [facility] Emergency [id number] Luis M Arias 03/04/2017 03/04/2017 [facility] Outpatient [id number] [place] 03/16/2017 Active [facility] Outpatient [id number] Shyla Kraus 03/18/2017 03/19/2017 [facility] Outpatient [id number] David Mcdaniel 03/23/2017 03/24/2017 [facility] Outpatient [id number] [place] 03/30/2017 Active [facility] Outpatient [id number] [place] 04/01/2017 Active [facility] Outpatient [id number] [place] 04/08/2017 Active [facility] Outpatient [id number] [place] 04/26/2017 Active [facility] Outpatient [id number] [place] 06/11/2017 Active [facility] Outpatient [id number] [place] Florez 06/11/2017 06/12/2017 [facility] Outpatient [id number] [place] 07/16/2017 Active [facility] Ambulatory Pre-Reg [id number] [place] 07/16/2017 07/16/2017 [facility] Outpatient [id number] [place] 07/22/2017 Active [facility] Outpatient [id number] [place] 07/22/2017 07/23/2017 [facility] Outpatient [id number] [place] 10/21/2017 Active [facility] Outpatient [id number] [place] 10/21/2017 10/22/2017 [facility] Primary [facility] Phone Message [id number] 12/01/2017 12/03/2017 [facility] Outpatient [id number] [place] 01/20/2018 Active [facility] Primary [facility] Outpatient [id number] [place] 01/20/2018 01/21/2018 [facility] Outpatient [id number] [place] 03/02/2018 Active [facility] Outpatient [id number] [place] 03/02/2018 03/03/2018 [facility] Outpatient [id number] [place] 05/31/2018 Active [facility] Outpatient [id number] [place] 08/31/2018 Active [facility] Primary [facility] Ambulatory Pre-Reg [id number] [place] 08/31/2018 08/31/2018 [facility] Emergency [id number] Jah Iheme 09/05/2018 09/06/2018 [facility] Procedures Procedure Code Date Perfomer Comments Source Screening colonoscopy<sup>1</sup> [id number] 01/11/2018 Hemorroids. Normal colonosopcy Repeat in 10 years but per recommendation of Dr Villanueva, do not repeat due to age and comorbidities [facility] Screening colonoscopy<sup>1</sup> [id number] 01/11/2018 Hemorroids. Normal colonosopcy Repeat in 10 years but per recommendation of Dr Villanueva, do not repeat due to age and comorbidities [facility] Angiogram<sup>1</sup> [id number] coronary [facility] Cataract surgery [id number] [facility] Operation<sup>2</sup> [id number] prostate [facility] Operation<sup>3</sup> [id number] prostate [facility] PEG - Percutaneous endoscopic gastrostomy [id number] [facility] Angiogram<sup>2</sup> [id number] coronary [facility] Operation<sup>4</sup> [id number] foot surgery [facility] Angiogram<sup>2</sup> [id number] coronary [facility] Cataract surgery [id number] [facility] Operation<sup>3</sup> [id number] prostate [facility] Operation<sup>4</sup> [id number] foot surgery [facility] PEG - Percutaneous endoscopic gastrostomy [id number] [facility]
--- OUTSIDE RECORDS SUMMARY | 2018-09-28 10:04 | XMS REPORT | Summary of Care ---
Author Author [facility] Primary Care [facility] Organization [facility] Address Unknown Phone Unavailable Encounter NICHOLE Hernández(GERTRUDE) [id number] Date(s): 03/02/18 - 03/02/18 [facility] [address] [place] [address]- [phone] Discharge Disposition: Home or Self Care Attending Physician: Malena Arriaza MD Vital Signs Most recent to 1 oldest [Reference Range]: Height 172.72 cm (03/02/18 8:52 AM) Temperature Oral 97.9 DegF [96.4-99.1 DegF] (03/02/18 8:52 AM) Blood Pressure 109/51 mmHg [90-140/60-90 mmHg] (03/02/18 8:52 AM) Respiratory Rate 14 BRMIN [14-20 BRMIN] (03/02/18 8:52 AM) Peripheral Pulse 73 bpm Rate [60-100 bpm] (03/02/18 8:52 AM) Problem List Condition Effective Dates Status [...] Substance Reaction Severity Status vancomycin Active Medications Janumet 50 mg/1000 mg oral tablet 1 tab, PO, BID-Meals, # 180 tab, 1 Refill(s), Pharmacy: [facility] Start Date: 03/02/18 Stop Date: 08/29/18 Status: Ordered lactulose 10 g/15 mL oral syrup 10 gm=15 mL, PO, BID, PRN constipation, X 16 day, # 240 mL, 0 Refill(s), Pharmac y: [facility] Start Date: 05/09/18 Stop Date: 05/25/18 Status: Completed Lantus 100 units/mL See Instructions, INYECTAR 25 UNIDADES DEBAJO DE LA PIEL DIARIAMENTE PARA 90 INNA S *TIRE 28 FAM DESPUES DE ABRIR CADA FRASCO*, # 30 mL, 1 Refill(s), Pharmacy: [facility] Start Date: 03/02/18 Status: Ordered Voltaren Topical 1% topical gel 4 gm, TOP, BID, Apply to affected area, # 240 gm, 1 Refill(s), Pharmacy: [facility] Start Date: 05/09/18 Stop Date: 07/08/18 Status: Ordered Results No data available for [...] Reg Smoking Cessation Counseling No entered on: 09/05/18 Assessment and Plan No data available for this section
--- OUTSIDE RECORDS SUMMARY | 2018-09-28 10:06 | XMS REPORT ---
Author Author [facility] Address Unknown Phone Unavailable Care Team Providers Care Porcelain Enameling Supervisor Name Role Phone DIEGO MOSES Unavailable Unavailable Problems This patient has no known problems. Allergies, Adverse Reactions, Alerts This patient has no known allergies or adverse reactions. Medications This patient has no known medications. Results Test Description Test Time Test Comments Text Results Atomic Results Result Comments CHEST 2 VIEWS 2018-09-13 06:36:00 [place] [address] Patient Name: SANGITA ESCALANTE MR #: [id number] : 1945 Age/Sex: 73/M Req #: [id number] Adm Physician: Ordered by: DIEGO MOSES DPM Report #: [id number] Location: OR Room/Bed: Procedure: [id number] DX/CHEST 2 VIEWS Exam Date: Exam Time: REPORT STATUS: Signed EXAMINATION: PA and lateral views of the chest. COMPARISON: None CLINICAL HISTORY: Pre-op anesthesia protocol DISCUSSION: Lines/tubes: None. Lungs: The lungs are well inflated and clear. There is no evidence of pneumonia or pulmonary edema. Pleura: There is no pleural effusion or pneumothorax. Heart and mediastinum: Enlarged cardiac silhouette. Pulmonary vasculature is normal. Bones and soft tissues: No acute bony abnormalities. Degenerative changes in the thoracic spine IMPRESSION: Enlarged cardiac silhouette, without acute cardiopulmonary abnormalities. Signed by: Dr. Carter Chou M.D. on 09/13/2018 6:37 AM Dictated By: CARTER CHOU MD 6 Transcribed By: SULTANA on 09/13/18636 COPY TO: DIEGO MOSES DPM
[2018-09-28] MEDS ORDERED: ACETAMINOPHEN 650 MG SUPP PR PRN (10:45)
[2018-09-28] MEDS ORDERED: HYDROCODONE/APAP 5MG-325MG TAB PO PRN ×2 (10:45→16:45)
[2018-09-28] MEDS ORDERED: ONDANSETRON HCL INJ 2MG/ML 2ML 2 MG/ML VIAL IV PRN (10:45)
[2018-09-28 10:50] VITALS: BP 173/78
--- NOTE | 2018-09-28 11:15 | NUR ---
Pt received as direct admit. Alert and oriented x. Oriented to staff and surroundings. 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 Pt noted with excoriation to groin area, and non-blanching redness to sacrum. Encouraged to press call bangura if help needed. Emotional support given. Call bangrua within reach. Will monitor
[2018-09-28 11:50] LABS: BILIRUBIN,URINE NEGATIVE (NEGATIVE); CLARITY,URINE CLEAR (CLEAR); COLOR,URINE YELLOW (YELLOW); KETONES,URINE NEGATIVE (NEGATIVE); LEUKOCYTE ESTERASE ,URINE NEGATIVE (NEGATIVE); NITRITE,URINE NEGATIVE (NEGATIVE); PROTEIN,URINE DIPSTICK NEGATIVE (NEGATIVE); URINE UROBILINOGEN 0.2 mg/dL (0.2 - 1)
[2018-09-28 11:59] LABS: BACTERIA,URINE RARE /HPF; EPITHELIAL CELLS,URINE RARE /LPF; RBC,URINE 0-5 /HPF (0-5); WBC,URINE (MAN) 0-5 /HPF (0-5)
[2018-09-28 12:00] VITALS: BP 173/78
[2018-09-28 12:00] LABS: BASOPHILS # (AUTO) 0.1 (0.0-0.1); BASOPHILS % 0.3 % (0.0-1.0); EOSINOPHILS # (AUTO) 0.4 (0.0-0.4); EOSINOPHILS % 2.5 % (0.0-6.0); HEMATOCRIT 34.8 % (38.2-49.6); HEMOGLOBIN 11.3 g/dL (14.0-18.0); LYMPHOCYTES # (AUTO) 0.7 (1.0-3.2); LYMPHOCYTES % 4.7 % (18.0-39.1); MEAN CORPUSCULAR HEMOGLOBIN 29.7 pg (28-32); MEAN CORPUSCULAR HGB CONC 32.5 g/dL (31-35); MEAN CORPUSCULAR VOLUME 91.6 fL (81-99); MONOCYTES # (AUTO) 0.7 (0.2-0.8); MONOCYTES % 4.8 % (4.4-11.3); NEUTROPHILS % 86.7 % (38.7-80.0); PLATELET COUNT 413 x10e3/uL (140-360); RED CELL DISTRIBUTION WIDTH 12.6 % (11.7-14.4)
[2018-09-28] MEDS ORDERED: PIPER-TAZ 3.375 GM 50 ML IV SCH (12:00)
[2018-09-28] MEDS ORDERED: TYLENOL WITH C1 EACH PO (12:16)
[2018-09-28] MEDS ORDERED: LANTUS 3ML100 UNITS/ (12:16)
[2018-09-28] MEDS ORDERED: VSL#3 DS PACKE1 EACH PO (12:16)
[2018-09-28] MEDS ORDERED: METFORMIN HCL500 MG PO (12:16)
[2018-09-28] MEDS ORDERED: JANUMET XR 1001 EACH PO (12:16)
[2018-09-28] MEDS ORDERED: GLYBURIDE5 MG PO (12:16)
[2018-09-28 12:20] LABS: ALBUMIN/GLOBULIN RATIO 0.6 (0.8-2.0); ANION GAP 12.6 mmol/L (8-16); CALCIUM 9.4 mg/dL (8.4-10.2); CREATININE, SERUM 1.46 mg/dL (0.72-1.25); MAGNESIUM 2.5 MG/DL (1.3-2.1); POTASSIUM 4.6 mmol/L (3.5-5.1)
[2018-09-28 12:31] LABS: ERYTHROCYTE SEDIMENTATION RATE 95 mm/hr (0-13)
[2018-09-28] MEDS ORDERED: SODIUM CHLORIDE 0.9% 250ML 250 ML ONE (12:41)
[2018-09-28] MEDS: ACETAMINOPHEN 325 MG TAB PO PRN ×2 (13:10→19:00)
[2018-09-28 16:00] VITALS: BP 140/67
--- NOTE | 2018-09-28 16:29 | NUR ---
CASE MANAGEMENT INITIAL ASSESSMENT Advertising Inserter to bedside to discuss plan of care with patient/family. CM/SW role and care transitions discussed. Anticipated discharge plan discussed along with duration of care. CM/SW discussed patients right to make decisions in care. CM/SW work hours given. Patient lives: [place] [address] [address] Admit/Transfer: DIRECT ADMIT FROM DOC'S OFFICE Hospital/ER visits since last admit: NONE POA/Emergency contact: REBECCA ESCALANTE / @ [phone] Current/Previous Home Health: NONE PCP/Follow-up Care: ASTRID BASS Current/Previous DME: HOSPITAL BED, WC. PT DOES NOT WALK Other Services: PROVIDER 7 DAYS/WEEK 6.5HRS X 5 DAYS AND 6HRS X 2DAYS Employment Status: RETIRED Areas of Concerns: SURGERY FOR FOOT; PROVIDER HAS BEEN DOING DRSG CHANGES TO R FOOT. STATES THE [employer]HA[employer] EMISSIONS INSPECTOR WILL CLEAN THE FOOT; [place]BRIDE. Referral Needs: LTAC. CHOICE PROVIDED. CHOICE LETTER WAS SIGNED AND COPY TO PT AN COPY TO CHART. Education Needs: NONE AT THIS TIME IMM/SANCHEZ given and signed (if applicable): ALREADY GIVEN Goal for discharge: DC TO [facility] CONT[facility] OF CARE. CM/SW left business card at the bedside with contact information. Name and number was also written on the patients whiteboard. Patient verbalized understanding of discussion. CM will follow-up with ongoing discharge and transition of care needs.
[2018-09-28] MEDS: LINEZOLID 600 MG/D5W 300ML 300 ML IV SCH (18:44)
--- NOTE | 2018-09-28 18:54 | Diagnostic Imaging Report ---
Radiographs of the right foot - 3 views HISTORY: Pain COMPARISON: MRI 09/28/2018 FINDINGS: Bones: No acute displaced fracture. Osseous alignment is within normal limits. Joints: Scattered degenerative changes. No osseous erosion. Soft tissues: Soft tissue swelling. Scattered vascular calcification. IMPRESSION: Soft tissue swelling. Scattered degenerative changes. No osseous erosion. Signed by: Dr. Lazarus Esposito M.D. on 09/28/2018 6:50 PM
--- NOTE | 2018-09-28 19:03 | Diagnostic Imaging Report ---
EXAMINATION: CHEST SINGLE (PORTABLE) INDICATION: Cough. Pneumonia. ^r/o pna ^[id number] ^1827 ^Y COMPARISON: September 13, 2018 FINDINGS: TUBES and LINES: None. LUNGS: Lungs are well inflated. Perihilar peribronchial hazy opacity could be due to bronchitis. There is no evidence of pneumonia or pulmonary edema. PLEURA: No pleural effusion or pneumothorax. HEART AND MEDIASTINUM: The cardiomediastinal silhouette is unremarkable. BONES AND SOFT TISSUES: No acute osseous lesion. Soft tissues are unremarkable. UPPER ABDOMEN: No free air under the diaphragm. IMPRESSION: Perihilar peribronchial hazy opacity could be due to bronchitis. Signed by: Dr. Lazarus Esposito M.D. on 09/28/2018 6:59 PM
--- NOTE | 2018-09-28 19:30 | NUR ---
Pt visited in room during nursing rounds. Alert and oriented x4. Oriented to staff and surroundings. Right foot 4th toe amputation site with wet to dry dressing and kerlix. Pt noted with excoriation to groin area, and non-blanching redness to sacrum. Encouraged to press call bangura if help needed. Call bangura within reach. Will monitor
--- NOTE | 2018-09-28 19:32 | NUR ---
Patient uruguayan speaking only. at bedside. Noticeably pt having some intermittent squirming movements with left hand appearing stiff and extended on position.
[2018-09-28 19:45] VITALS: BP 139/91
[2018-09-28] MEDS ORDERED: DEXTROSE 50% SYRINGE 50 ML IV PRN (20:45)
[2018-09-28] MEDS ORDERED: ACETAMINOPHEN/CODEINE 300MG - 30MG TAB PO PRN (20:45)
[2018-09-28] MEDS ORDERED: NYSTATIN/TRIAMCINOLONE 15 GM CR TOP SCH (21:00)
[2018-09-28] MEDS ORDERED: NON-FORMULARY MEDICATION (Atorvastatin Calcium 40 MG) PO SCH (21:00)
[2018-09-28] MEDS: BALSAM PERU/CASTOR OIL 60 GM OINT...G. TP SCH (21:15)
[2018-09-28] MEDS: NYSTATIN/TRIAMCINOLONE 15 GM CR TOP PRN (21:15)
[2018-09-28] MEDS: DONEPEZIL HCL 5 MG TAB PO SCH (21:15)
[2018-09-28] MEDS: ZINC OXIDE / BALSAM PERU 30 GM TUBE TOP SCH (21:15)
[2018-09-28] MEDS: ATORVASTATIN 40 MG TAB PO SCH (21:15)
[2018-09-28] MEDS: CEPHALEXIN 500 MG CAP PO SCH (21:15)
[2018-09-28] MEDS: DOCUSATE SODIUM 100 MG CAP PO SCH (21:15)
--- NOTE | 2018-09-28 21:15 | NUR ---
Venelex ointment applied and Allevyn dressing on sacral area. Bilateral groin redness and excoriation treated with Nystatin cream and Jac cream. 4th right toe amputated area changed dressing with gauze and kerlix.
[2018-09-28] MEDS: INSULIN LISPRO 100 UNIT/1 ML 3ML VIAL SQ SCH (21:36)
--- NOTE | 2018-09-28 23:36 | Consultation ---
DATE OF CONSULTATION: The patient has osteomyelitis of the foot. HISTORY OF PRESENT ILLNESS: This patient is a very pleasant 73-year-old male with history of diabetes mellitus and hypertension, who had gangrene of the 4th toe, underwent amputation on September 13, 2018, by Dr. Kassi Frausto. The patient was discharged home. He is doing well. He is coming with redness and swelling of the foot. The patient does have underlying history of diabetes mellitus. The patient being admitted with redness and swelling for the last 2 weeks. PAST MEDICAL HISTORY: As mentioned above. He also has chronic kidney disease, diabetes mellitus, hypertension, atherosclerotic disease, and neuropathy. PAST SURGICAL HISTORY: Amputation of 4th toe. ALLERGIES: VANCOMYCIN. SOCIAL HISTORY: There is no smoking, drug abuse, or alcohol abuse. LABORATORY DATA: Sodium 135, potassium 4.6, creatinine 1.46. Liver enzymes within normal limit. Blood cultures and wound cultures pending. REVIEW OF SYSTEMS: HEENT: Negative. PULMONARY: Negative. CARDIAC: Negative. PHYSICAL EXAMINATION: GENERAL: He is currently alert and oriented, does not seem to be in acute distress. VITAL SIGNS: Stable, currently afebrile. HEENT: He is not icteric. NECK: Supple. CHEST: Clear. HEART: S1, S2. No S3, S4, or murmur. ABDOMEN: Soft. Bowel sounds present. No tenderness. EXTREMITIES: The foot, there is erythema and there is edema involving the right foot. The pulse is weak. IMPRESSION/PLAN: Infection of the foot, osteomyelitis. We will put the patient on Zyvox and Zosyn at renal dose, Zyvox 600 IV q.12, Zosyn 3.375 IV q.8. Obtain MRI of the foot with no contrast, Vascular workup. We will follow. MD MARY KAY Harris/VIKI /[id number]
[2018-09-29] VITALS (7 sets, daily range): BP systolic 137–178; BP diastolic 66–81
--- NOTE | 2018-09-29 01:01 | Diagnostic Imaging Report ---
TECHNIQUE: Magnetic resonance imaging of the right foot and ankle was performed WITHOUT injected contrast. HISTORY: Pain, evaluate for osteomyelitis. COMPARISON: None available. DISCUSSION: Motion artifact limits evaluation. Ill-defined soft tissue phlegmon of the forefoot plantar to the metatarsals measuring approximately 2 x 1 x 2.5 cm (axial image 10 coronal image 22 forefoot. Additional soft tissue phlegmon surrounding the more distal lateral forefoot axial image 19 and coronal image 18. Exact measurements difficult. Amputation at the fourth MTP joint. Possible osteomyelitis of the proximal phalanx of the third toe and fifth toe with edema and T1 signal loss. Multifocal arthropathy of the forefoot and hindfoot. IMPRESSION: Severely limited MRI due to patient motion. Probable osteomyelitis of the proximal phalanges of the third and fifth toe. 2 regions of soft tissue phlegmon of the forefoot. Signed by: Dr. Alfredo Yao M.D. on 09/29/2018 12:58 AM
[2018-09-29] MEDS: LINEZOLID 600 MG/D5W 300ML 300 ML IV SCH ×2 (04:22→16:07)
[2018-09-29] MEDS: TRULANCE 3 MG PO SCH (07:18)
[2018-09-29] MEDS: XIGDUO PO SCH (07:19)
[2018-09-29] MEDS: BIF CMB1 PO SCH (07:19)
[2018-09-29] MEDS: S THERMOPHL PO SCH (07:19)
[2018-09-29] MEDS: LACT CMB2 PO SCH (07:19)
[2018-09-29] MEDS: ASPIRIN 81 MG CHEW TAB PO SCH (08:28)
[2018-09-29] MEDS: TAMSULOSIN HCL 0.4 MG CAP PO SCH (08:28)
[2018-09-29] MEDS: PANTOPRAZOLE SOD 40 MG TABEC PO SCH (08:29)
[2018-09-29] MEDS: ESCITALOPRAM OXALATE 10 MG TAB PO SCH (08:29)
[2018-09-29] MEDS: ZINC OXIDE / BALSAM PERU 30 GM TUBE TOP SCH ×2 (08:29→21:20)
[2018-09-29] MEDS: CLOPIDOGREL BISULFATE 75 MG TAB PO SCH (08:29)
[2018-09-29] MEDS: CEPHALEXIN 500 MG CAP PO SCH (08:29)
[2018-09-29] MEDS: OMEGA 3 POLYUNSAT FATTY ACIDS 1000 MG SOFTGEL PO SCH (08:29)
[2018-09-29] MEDS: LISINOPRIL 2.5 MG TAB PO SCH (08:29)
[2018-09-29] MEDS: HYDROCODONE/APAP 5MG-325MG TAB PO PRN ×2 (08:30→16:08)
[2018-09-29] MEDS: INSULIN LISPRO 100 UNIT/1 ML 3ML VIAL SQ SCH ×4 (08:30→21:34)
--- NOTE | 2018-09-29 08:30 | NUR ---
Pt received resting in bed. Alert and oriented x3 but Citizen Of [place] speaking only. Right foot dressing dry and intact. Emotional support given. Call bangura within reach. Will monitor
[2018-09-29] MEDS ORDERED: BIF CMB1 PO SCH (09:00)
[2018-09-29] MEDS ORDERED: [UNRECOGNIZED DRUG - OTHER] SQ SCH ×2 (09:00)
[2018-09-29] MEDS ORDERED: S THERMOPHL PO SCH (09:00)
[2018-09-29] MEDS ORDERED: GLYBURIDE 5 MG TAB PO SCH (09:00)
[2018-09-29] MEDS ORDERED: SITAGLIPTIN 100 MG TAB PO SCH (09:00)
[2018-09-29] MEDS ORDERED: METFORMIN HCL 500 MG TAB PO SCH (09:00)
[2018-09-29] MEDS ORDERED: LACT CMB2 PO SCH (09:00)
[2018-09-29] MEDS ORDERED: TRULANCE 3 MG PO SCH (09:00)
[2018-09-29] MEDS ORDERED: XIGDUO PO SCH (09:00)
[2018-09-29] MEDS ORDERED: METFORMIN HCL 500 MG TAB CR PO SCH (09:00)
--- NOTE | 2018-09-29 10:45 | NUR ---
ORDER RECEIVED FOR LTAC EVAL. MET W THE PT AT THE BEDSIDE. DISCUSSED CHOICE FOR LTAC. PT REQUESTED [facility]. CHOICE LETTER WAS SIGNED AND COPY TO PT AND COPY TO CHART. MOT INITIATED. NOTIFIED CHARLY JOSEPH OF EVAL.
[2018-09-29] MEDS: HYDROCODONE/APAP 10MG-325MG TAB PO PRN (12:31)
--- NOTE | 2018-09-29 12:41 | NUR ---
WOUND CARE CONSULTATION - INITIAL EVALUATION Patient admitted from home to ER for RLE Foot pain with redness and swelling Dr. Whitlock on case for Foot Wound Management WBC14.97 HGB11.3 HCT34.8 NEUT%86.7 DGX481 HBA1C8.0 ALB3.0 WC Consulted for evaluation of foot wound and sacral ulcer. PATIENT VISIT: Rudy Score 15 Alternating Pressure Air Mattress in place HOB elevated < 30 degrees Moderate PUP Active Left Sided Weakness - HX of Stroke. Able to turn self with min assist. Shear Friction Precautions Right Foot S/P Amputation of 4th Digit.- Dehisced- Draining Purulence. Right Foot Plantar - Abscess/ Indurated reddened area, Annular shaped and streaks to mid foot and dorsal mid foot. Patient complains of throbbing pain at plantar area where abscess is located. MRI performed and results called to Dr. Whitlock. Will likely require I&D and washout of area. Right Foot 3rd toe at 3rd webspace has area of tissue necrosis. Appears stable. Measurements & Description further detailed at linked Assessment note. IMPRESSION: 1. Right Foot DFU Grade 3 2. Sacral - Pressure Ulcer- Stage I - Healing- POA 3. Bilateral Groin - Moisture & Heat related RASH RECOMMENDATION: 1. Right Foot DFU Grade 3 - - Betadine wet to dry dressing daily 2. Sacral - Pressure Ulcer- Stage I - Healing: - Venelex and Allevyn Foam Dressing Daily 3. Bilateral Groin - Moisture & Heat related rash - Argyle Cream mixed with Nystatin Cream q12H and PRN Soiling 4. Continue Moderate PUP Protocol. Thank you for consulting with Wound Care. Addendum: 09/29/18 at 1255 by Yash Royal RN Amended: Links added.
[2018-09-29] MEDS: PIPERACILLIN/TAZO 2.25 GM 50 ML IV SCH (18:00)
--- NOTE | 2018-09-29 19:20 | NUR ---
Pt visited in room during nursing rounds. Alert and oriented x4. Croatian speaking only. Oriented to staff and surroundings. Right foot 4th toe amputation site with wet to dry dressing and kerlix. Pt noted with excoriation to groin area, and non-blanching redness to sacrum. Encouraged to press call bangura if help needed. at bedside. Pt and aware pt scheduled for Right foot Incision and drainage tomorrow (09/30/18) by Dr. Frausto. Call bangura within reach. Will monitor closely.
--- NOTE | 2018-09-29 19:24 | NUR ---
Pt resting comfortably in bed. Call bangura within reach. Endorsed to next shift
[2018-09-29] MEDS: DONEPEZIL HCL 5 MG TAB PO SCH (21:20)
[2018-09-29] MEDS: NYSTATIN/TRIAMCINOLONE 15 GM CR TOP PRN (21:20)
[2018-09-29] MEDS: DOCUSATE SODIUM 100 MG CAP PO SCH (21:20)
[2018-09-29] MEDS: ATORVASTATIN 40 MG TAB PO SCH (21:20)
[2018-09-30] VITALS (9 sets, daily range): BP systolic 119–177; BP diastolic 61–82
--- NOTE | 2018-09-30 00:27 | Consultation ---
DATE OF CONSULTATION: 09/29/2018 HISTORY OF PRESENT ILLNESS: This is a well-known patient to my practice who had an amputation by me 2 weeks ago. He was healing well. He came back for his postoperative visit. At the office, I noticed that there was drainage and what appeared to be the forming of an abscess at the planter aspect of the foot, so he was admitted into the hospital. 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 PAST SURGICAL HISTORY: Amputation of 4th digit, right. ALLERGIES: VANCOMYCIN. SOCIAL HISTORY: Lives at home with . MEDICATIONS: Please refer to MAR cephalexin and Zosyn. IMAGING: The MRI is positive for an abscess at the plantar aspect of the foot. LABORATORY DATA: White blood count, it is up to 14.97; lymphocytes 4.7, neutrophils 86.7, and platelets 413 . PHYSICAL EXAMINATION: Lower extremity physical exam, pedal pulses are diminished . Muscle mass is symmetrical. He does have an abscess of the plantar aspect of the foot. There is erythema and edema that extends to about the ankle joint. At this point, it is beginning to localize . He has an open area at dorsal aspect of the 4th, the 3rd digit has some gangrenous changes at this point, they are more of a stable gangrene. ASSESSMENT: 1. Diabetic foot ulcer, grade 4. 2. Abscess, right foot. 3. Osteomyelitis, right foot. 4. Peripheral vascular disease. PLAN: He was admitted for IV antibiotics. I will take him to the OR tomorrow for incision and drainage and debridement, probably going to apply antibiotic impregnated beads to the area. He is also going to have arteriogram and hopefully, he will be revascularized if needed. ID is on the case, they are managing the IV antibiotic and the infection is beginning to localize. At this point, we will continue Betadine and he is on schedule for the OR tomorrow at 11:00 a.m. He will be n.p.o. tonight. 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 CLIFF Tellez /[id number]
--- NOTE | 2018-09-30 00:32 | Consultation ---
DATE OF CONSULTATION: Cardiology Consultation. REASON FOR CONSULTATION: Peripheral arterial disease. HISTORY OF PRESENT ILLNESS: This is a 73-year-old man with history of hypertension, hyperlipidemia, diabetes mellitus, who had gangrene of the 4th toe, status post amputation and had an uneventful course until recently. Evidently, he developed some redness and swelling with subsequent imaging findings consistent with osteomyelitis. Arterial Doppler showed severe peripheral arterial disease in the right popliteal artery with monophasic waveforms in the tibial vessels distally. PAST MEDICAL HISTORY: As stated above. PAST SURGICAL HISTORY: Amputation. PAST FAMILY HISTORY: No premature coronary artery disease or sudden cardiac . SOCIAL HISTORY: No illicit drug, alcohol, or tobacco use. ALLERGIES: VANCOMYCIN. MEDICATIONS: See medication reconciliation form. PHYSICAL EXAMINATION: VITAL SIGNS: Temperature is 99.9, heart rate is 87, respirations are 20, blood pressure is 156/74, oxygen saturation 97% on room air. GENERAL: Well appearing man, lying comfortably in bed. HEENT: Head is normocephalic, atraumatic. Eyes, the extraocular muscles are intact. Conjunctivae are clear. NECK: No JVD. No bruits. CARDIOVASCULAR: Regular rate and rhythm. LUNGS: Clear to auscultation. ABDOMEN: Soft, nontender, nondistended. EXTREMITIES: No clubbing, cyanosis, or edema. There are diminished pulses in the right lower extremity. LABORATORY DATA: Reviewed. IMPRESSION: 1. Right foot osteomyelitis. 2. Peripheral arterial disease. 3. Hypertension. 4. Hyperlipidemia. RECOMMENDATIONS: The patient was found to have right foot osteomyelitis and started on antibiotic therapies. The patient has severe peripheral arterial disease and recommend peripheral angiogram with possible intervention. We will continue to follow along. DO MIRIAM Archuleta/MODL /[id number]
[2018-09-30] MEDS: PIPERACILLIN/TAZO 2.25 GM 50 ML IV SCH ×3 (00:40→23:17)
[2018-09-30] MEDS: LINEZOLID 600 MG/D5W 300ML 300 ML IV SCH ×2 (04:08→17:24)
[2018-09-30] MEDS ORDERED: MORPHINE SULFATE 2 MG/ML SYR 1ML IV PRN (04:30)
[2018-09-30] MEDS ORDERED: MORPHINE SULFATE INJ 4 MG/ML INJ 1ML IV PRN ×2 (05:15→05:30)
[2018-09-30] MEDS: INSULIN LISPRO 100 UNIT/1 ML 3ML VIAL SQ SCH ×4 (07:30→23:20)
[2018-09-30] MEDS ORDERED: PIPERACILLIN/TAZO 2.25 GM 50 ML IV SCH (08:00)
[2018-09-30] MEDS ORDERED: NEOSTIGMINE 1 MG/ML 10ML VIAL ONE (08:28)
[2018-09-30] MEDS ORDERED: BACITRACIN 50,000 UNIT VIAL ONE ×2 (08:28→10:07)
[2018-09-30] MEDS ORDERED: BUPIVACAINE HCL 0.5% INJ 30 ML VIAL INJ ONE ×2 (08:28→10:07)
--- NOTE | 2018-09-30 08:30 | NUR ---
PATIENT IS AWAKE AND IN STABLE CONDITION WITH NO S/S OF RESPIRATORY DISTRESS. NO PAIN VOICED BY THE PATIENT. PATIENT IS NPO FOR PROCEDURE TODAY. ALLEVYN PAD APPLIED TO PATIENT SACRUM AREA- DRESSING IS DRY AND INTACT. RIGHT FOOT DRESSING IS DRY AND INTACT. BED ALARM ON. AIR PUMP APPLIED TO BED. PRESENT IN ROOM. CALL LIGHT IS WITHIN REACH, PATIENT INSTRUCTED TO CALL FOR ASSISTANCE NEEDED.
[2018-09-30] MEDS: ASPIRIN 81 MG CHEW TAB PO SCH (09:00)
[2018-09-30] MEDS: BIF CMB1 PO SCH (09:00)
[2018-09-30] MEDS: XIGDUO PO SCH (09:00)
[2018-09-30] MEDS: LACT CMB2 PO SCH (09:00)
[2018-09-30] MEDS: CLOPIDOGREL BISULFATE 75 MG TAB PO SCH (09:00)
[2018-09-30] MEDS: TRULANCE 3 MG PO SCH (09:00)
[2018-09-30] MEDS: S THERMOPHL PO SCH (09:00)
[2018-09-30] MEDS: ZINC OXIDE / BALSAM PERU 30 GM TUBE TOP SCH ×2 (09:57→21:26)
[2018-09-30] MEDS: BALSAM PERU/CASTOR OIL 60 GM OINT...G. TP SCH (09:57)
--- NOTE | 2018-09-30 12:22 | NUR ---
PATIENT BACK ON THE UNIT- RIGHT FOOT IS DRESSED WITH KERLEX AND GILBERTO BANDAGE. PATIENT IN STABLE CONDITION WITH NO S/S OF RESPIRATORY DISTRESS. NO PAIN VOICED. CALL LIGHT IS WITHIN REACH, PATIENT INSTRUCTED TO CALL FOR ASSISTANCE NEEDED. BED ALARM ON.
[2018-09-30] MEDS ORDERED: LIDOCAINE HCL 2% LOCAL 20 ML VIAL ONE (14:06)
[2018-09-30] MEDS ORDERED: MIDAZOLAM HCL 2 MG/2 ML VIAL ONE (14:06)
[2018-09-30] MEDS ORDERED: FENTANYL CITRATE/PF 100MCG/2 ML INJ ONE (14:06)
[2018-09-30] MEDS ORDERED: HEPARIN SOD/SOD CHLORIDE 2,000 ML ONE (14:07)
[2018-09-30] MEDS ORDERED: IOPAMIDOL 300MG/ML 100 ML INFUS..BTL IV ONE (14:07)
[2018-09-30] MEDS ORDERED: SODIUM CHLORIDE 0.9% 1000ML 1,000 ML ONE (14:07)
[2018-09-30] MEDS ORDERED: HEPARIN SOD (PORCINE) 1000 UNIT/ML 30ML ONE (14:14)
--- NOTE | 2018-09-30 14:14 | NUR ---
PATIENT OFF THE UNIT TO INSTRUMENTATION INSTRUCTOR FOR PROCEDURE- PATIENT IN STABLE CONDITION WITH NO S/S OF RESPIRATORY DISTRESS.
[2018-09-30] MEDS ORDERED: ATROPINE SULFATE 0.1 MG/ML 10ML SYR ONE (15:39)
--- NOTE | 2018-09-30 16:00 | NUR ---
Left groin hemostasis obtained, no s&s of bleeding or hematoma noted. VSS, transported to room 293 report given to SUSANNA Yuan.
--- NOTE | 2018-09-30 16:28 | NUR ---
PT AWAITING CULTURES BEFORE TRANSFERRING TO LTAC. WILL CONTINUE TO FOLLOW.
[2018-09-30] MEDS: LISINOPRIL 2.5 MG TAB PO SCH (17:19)
[2018-09-30] MEDS: TAMSULOSIN HCL 0.4 MG CAP PO SCH (17:20)
[2018-09-30] MEDS: ESCITALOPRAM OXALATE 10 MG TAB PO SCH (17:21)
[2018-09-30] MEDS: PANTOPRAZOLE SOD 40 MG TABEC PO SCH (17:21)
[2018-09-30] MEDS: OMEGA 3 POLYUNSAT FATTY ACIDS 1000 MG SOFTGEL PO SCH (17:21)
--- NOTE | 2018-09-30 17:21 | NUR ---
WOUND CARE CONSULTATION - FOLLOW UP- NPWT PLACEMENT Patient admitted from home to ER for RLE Foot pain with redness and swelling Dr. Whitlock on case for Foot Wound Management WBC14.97 HGB11.3 HCT34.8 NEUT%86.7 CUK672 HBA1C8.0 ALB3.0 WC Consulted for VAC placement of foot wound. PATIENT VISIT: Rudy Score 15 Alternating Pressure Air Mattress in place HOB elevated < 30 degrees Moderate PUP Active Left Sided Weakness - HX of Stroke. Able to turn self with min assist. Shear Friction Precautions Right Foot S/P Amputation of 4th Digit.- Dehisced- Draining Serosanguineous fluid ( 1.5x0.5x1.5cm). NPWT-120mmHg Cont. Applied. ( White foam to Black Foam) Right Foot Plantar (2.5x0.5x2cm) -S/P Abscession/ Reddened periwound , irregular redness streaks to mid foot and dorsal mid foot. NPWT-120mmHg Cont. Applied. ( White foam to Black Foam) IMPRESSION: 1. Right Foot DFU Grade 3 - S/P Abscession & Washout by Dr. Whitlock 09/30/18 2. Sacral - Pressure Ulcer- Stage I - Healing- POA 3. Bilateral Groin - Moisture & Heat related RASH- Improving RECOMMENDATION: 1. Right Foot DFU Grade 3 - - NPWT-120mmHg Cont.( White foam to Black Foam) 2. Sacral - Pressure Ulcer- Stage I - Healing: - Venelex and Allevyn Foam Dressing Daily 3. Bilateral Groin - Moisture & Heat related rash - Jac Cream mixed with Nystatin Cream q12H and PRN Soiling 4. Continue Moderate PUP Protocol. Thank you for consulting with Wound Care. Addendum: 09/30/18 at 1725 by Yash Royal RN Amended: Links added.
--- NOTE | 2018-09-30 18:06 | Operative Report ---
DATE OF PROCEDURE: 09/30/2018 SURGEON: Kassi Frausto DPM PREOPERATIVE DIAGNOSIS: Abscess with osteomyelitis and diabetic foot ulcer to the right foot. POSTOPERATIVE DIAGNOSIS: Abscess with osteomyelitis and diabetic foot ulcer to the right foot. PROCEDURE: Incision and drainage with bone cultures of the plantar abscess of right foot. ANESTHESIA: General anesthetic. HEMOSTASIS: None. ESTIMATED BLOOD LOSS: Less than 10 mL. MATERIALS: A pulse dose with Bacitracin. COMPLICATIONS: None. CONDITION: Stable. PROCEDURE IN DETAIL: Under mild sedation, patient was brought to the operating room and placed on the operating table in supine position. Following IV sedation, anesthesia was obtained with a general anesthetic. At this point, the right foot was scrubbed, prepped, and draped in the usual aseptic manner. The leg was lowered to the table. Attention was then directed to the plantar aspect of the foot, where the plantar abscess was. The incision was made down to the level of the plantar space. Large amount of purulence was gathered from the area. It was expressed. Cultures and sensitivities were taken. The area was then flushed with copious amount of pressure irrigation with bacitracin. The area was then packed. A clean dressing was applied. The patient tolerated procedure and anesthesia well, will be readmitted back into the hospital. A wound VAC will be applied on the floor. He is going to have an angiogram and the long-term plan is probably going to be IV antibiotics and local wound care. He will need to be evaluated for hyperbaric and he will need a wound VAC. I will continue to follow him in the hospital. CLIFF Tellez/MODL /[id number]
[2018-09-30] MEDS ORDERED: DESFLURANE 240 ML BTL INH ONE (19:26)
[2018-09-30] MEDS ORDERED: LIDOCAINE HCL 2% JELLY 5 ML TUBE ONE (19:26)
[2018-09-30] MEDS ORDERED: LIDOCAINE HCL 2% LOCAL INJ 5 ML SDV VIAL INJ ONE (19:26)
[2018-09-30] MEDS ORDERED: PROPOFOL IV EMULSION 10 MG/ML 20 ML VIAL ONE (19:26)
--- NOTE | 2018-09-30 19:47 | Progress Note ---
DATE: Cardiology Progress Note SUBJECTIVE: No events. Underwent incision and drainage today and peripheral angiography. OBJECTIVE: VITAL SIGNS: Temperature is 98.5, heart rate is 93, respirations are 18, blood pressure is 155/68, and oxygen saturation 100% on room air. GENERAL: He is a well-appearing male, in no apparent distress. Alert and oriented x3. CARDIOVASCULAR: Regular rate and rhythm. LUNGS: Clear to auscultation. ABDOMEN: Soft and nontender. EXTREMITIES: Diminished pulses. CARDIOVASCULAR MEDICATIONS: Reviewed. LABORATORY DATA: Reviewed. 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 IMPRESSION: 1. Peripheral arterial disease. 2. Right foot osteomyelitis. 3. Hypertension. 4. Hyperlipidemia. RECOMMENDATIONS: No percutaneous revascularization options are viable in the patient. 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 If his wound does not heal, the patient would likely benefit from a [id number] amputation. Sergei Porter DO BM/MODL /[id number]
--- NOTE | 2018-09-30 19:51 | NUR ---
PT IS RESTING IN THE BED WITH AT BEDSIDE. RESPIRATION IS EVEN AND UNLABORED, NO DISTRESS NOTED. BED IN THE LOWEST POSITION, LOCKED, BED ALARM ON, AND CALL LIGHT WITHIN REACH. WILL CONTINUE TO MONITOR.
[2018-09-30] MEDS: DONEPEZIL HCL 5 MG TAB PO SCH (21:26)
[2018-09-30] MEDS: NYSTATIN/TRIAMCINOLONE 15 GM CR TOP PRN (21:26)
[2018-09-30] MEDS: DOCUSATE SODIUM 100 MG CAP PO SCH (21:26)
[2018-09-30] MEDS: ATORVASTATIN 40 MG TAB PO SCH (21:26)
[2018-10-01] VITALS (7 sets, daily range): BP systolic 119–171; BP diastolic 61–77
[2018-10-01] MEDS ORDERED: SODIUM CHLORIDE 0.9% 250ML 250 ML ONE (01:35)
[2018-10-01] MEDS: LINEZOLID 600 MG/D5W 300ML 300 ML IV SCH ×2 (04:15→15:31)
[2018-10-01] MEDS: PIPERACILLIN/TAZO 2.25 GM 50 ML IV SCH ×4 (06:21→23:30)
[2018-10-01 06:41] LABS: BASOPHILS % 0.2 % (0.0-1.0); EOSINOPHILS # (AUTO) 0.1 (0.0-0.4); EOSINOPHILS % 0.5 % (0.0-6.0); HEMATOCRIT 28.1 % (38.2-49.6); LYMPHOCYTES % 7.5 % (18.0-39.1); MEAN CORPUSCULAR HEMOGLOBIN 29.4 pg (28-32); MEAN CORPUSCULAR VOLUME 91.8 fL (81-99); MONOCYTES # (AUTO) 0.9 (0.2-0.8); MONOCYTES % 6.6 % (4.4-11.3); NEUTROPHILS # (AUTO) 11.1 (2.1-6.9); NEUTROPHILS % 83.8 % (38.7-80.0); PLATELET COUNT 315 x10e3/uL (140-360); RED BLOOD COUNT 3.06 x10e6/uL (4.3-5.7); RED CELL DISTRIBUTION WIDTH 12.7 % (11.7-14.4)
[2018-10-01 07:00] LABS: ALBUMIN 2.2 g/dL (3.5-5.0); ALBUMIN/GLOBULIN RATIO 0.5 (0.8-2.0); ANION GAP 11.8 mmol/L (8-16); CALCIUM 8.5 mg/dL (8.4-10.2); CREATININE, SERUM 1.53 mg/dL (0.72-1.25); POTASSIUM 4.8 mmol/L (3.5-5.1)
--- NOTE | 2018-10-01 07:05 | NUR ---
PATIENT IS IN STABLE CONDITION WITH NO S/S OF RESPIRATORY DISTRESS. NO PAIN VOICED. BED ALARM ON. PRESENT IN ROOM. CALL LIGHT IS WITHIN REACH-PATIENT INSTRUCTED TO CALL FOR ASSISTANCE NEEDED.
[2018-10-01] MEDS: INSULIN LISPRO 100 UNIT/1 ML 3ML VIAL SQ SCH ×4 (07:30→21:00)
[2018-10-01] MEDS: S THERMOPHL PO SCH (09:00)
[2018-10-01] MEDS: LACT CMB2 PO SCH (09:00)
[2018-10-01] MEDS: BIF CMB1 PO SCH (09:00)
[2018-10-01] MEDS: LIXISENATIDE SQ SCH (09:00)
[2018-10-01] MEDS: INSULIN GLARGINE SQ SCH (09:00)
[2018-10-01] MEDS: TRULANCE 3 MG PO SCH (09:00)
[2018-10-01] MEDS: XIGDUO PO SCH (09:00)
[2018-10-01] MEDS: SITAGLIPTIN 100 MG TAB PO SCH (09:33)
[2018-10-01] MEDS: GLYBURIDE 5 MG TAB PO SCH (09:33)
[2018-10-01] MEDS: METFORMIN HCL 500 MG TAB CR PO SCH (09:33)
[2018-10-01] MEDS: ASPIRIN 81 MG CHEW TAB PO SCH (09:33)
[2018-10-01] MEDS: TAMSULOSIN HCL 0.4 MG CAP PO SCH (09:34)
[2018-10-01] MEDS: LISINOPRIL 2.5 MG TAB PO SCH (09:34)
[2018-10-01] MEDS: ESCITALOPRAM OXALATE 10 MG TAB PO SCH (09:34)
[2018-10-01] MEDS: PANTOPRAZOLE SOD 40 MG TABEC PO SCH (09:34)
[2018-10-01] MEDS: CLOPIDOGREL BISULFATE 75 MG TAB PO SCH (09:34)
[2018-10-01] MEDS: OMEGA 3 POLYUNSAT FATTY ACIDS 1000 MG SOFTGEL PO SCH (09:34)
[2018-10-01] MEDS: ZINC OXIDE / BALSAM PERU 30 GM TUBE TOP SCH ×2 (09:37→23:30)
[2018-10-01] MEDS: BALSAM PERU/CASTOR OIL 60 GM OINT...G. TP SCH (09:37)
--- NOTE | 2018-10-01 10:17 | NUR ---
THE COVERING PHYSICIAN FOR DR. GOMEZ WAS INFORMED OF PATIENT'S WOUND CULTURE- NO NEW ORDER GIVEN.
--- NOTE | 2018-10-01 10:21 | NUR ---
CALL PLACED OUT TO DR. KAPOOR TO INFORM HIM OF PATIENT'S WOUND CULTURE RESULTS: [facility]- AWAITING CALLBACK.
--- NOTE | 2018-10-01 14:50 | Progress Note ---
DATE: 10/01/2018 Cardiology Progress Note SUBJECTIVE: The patient denies chest pain or shortness of breath. OBJECTIVE: VITAL SIGNS: Temperature 97.1 degrees, pulse 112, respiratory rate 18, blood pressure 171/77, and oxygen saturation 99% on room air. GENERAL: Awake, alert, in no acute distress. LUNGS: Clear to auscultation bilaterally. No wheezes or crackles. CARDIOVASCULAR: Normal rate, regular rhythm. No murmur. Normal S1, S2. ABDOMEN: Soft, nontender. EXTREMITIES: Diminished pulses. CARDIAC MEDICATIONS: Fish oil 1000 mg p.o. daily, lisinopril 10 mg p.o. daily, Plavix 75 mg p.o. daily, aspirin 81 mg p.o. daily, atorvastatin 40 mg p.o. at bedtime. LABORATORY DATA: WBC 13.24, hemoglobin 9, hematocrit 28.1, platelets 315. Sodium 130, potassium 4.8, chloride 100, CO2 23, BUN 16, and creatinine 1.53. IMPRESSION: 1. 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 2. Right foot osteomyelitis. 3. Hypertension. 4. Hyperlipidemia. RECOMMENDATIONS: No percutaneous revascularization options are viable in this patient. He has severe distal disease with chronic total occlusion of his posterior tibial artery. If his wound does not heal, would likely benefit from a below-knee amputation. Continue to monitor wound. Continue current cardiac medications. Thank you for this consult. We will continue to follow. Ruchi Daniels MD ABS/VIKI /[id number] MTDD
--- NOTE | 2018-10-01 19:09 | NUR ---
PATIENT IS IN STABLE CONDITION WITH NO S/S OF RESPIRATORY DISTRESS. NO PAIN VOICED. DRESSING TO RIGHT FOOT IS DRY AND INTACT; WOUND VAC APPLIED. BED ALARM ON. PRESENT IN THE ROOM. CALL LIGHT IS WITHIN REACH-PATIENT INSTRUCTED TO CALL FOR ASSISTANCE NEEDED. BEDSIDE REPORT GIVEN TO ONCOMING NURSE.
[2018-10-01] MEDS: DOCUSATE SODIUM 100 MG CAP PO SCH (23:30)
[2018-10-01] MEDS: ATORVASTATIN 40 MG TAB PO SCH (23:30)
[2018-10-01] MEDS: DONEPEZIL HCL 5 MG TAB PO SCH (23:30)
[2018-10-02] MEDS: LINEZOLID 600 MG/D5W 300ML 300 ML IV SCH ×2 (03:50→17:38)
[2018-10-02 04:00] VITALS: BP 141/63
[2018-10-02] MEDS: PIPERACILLIN/TAZO 2.25 GM 50 ML IV SCH ×4 (05:50→23:10)
[2018-10-02] MEDS: INSULIN LISPRO 100 UNIT/1 ML 3ML VIAL SQ SCH ×4 (07:30→20:50)
[2018-10-02 08:00] VITALS: BP 138/62
[2018-10-02 08:12] VITALS: BP 138/62
[2018-10-02] MEDS: BIF CMB1 PO SCH (09:00)
[2018-10-02] MEDS: LIXISENATIDE SQ SCH (09:00)
[2018-10-02] MEDS: LACT CMB2 PO SCH (09:00)
[2018-10-02] MEDS: TRULANCE 3 MG PO SCH (09:00)
[2018-10-02] MEDS: XIGDUO PO SCH (09:00)
[2018-10-02] MEDS: INSULIN GLARGINE SQ SCH (09:00)
[2018-10-02] MEDS: S THERMOPHL PO SCH (09:00)
[2018-10-02] MEDS: OMEGA 3 POLYUNSAT FATTY ACIDS 1000 MG SOFTGEL PO SCH (09:24)
[2018-10-02] MEDS: CLOPIDOGREL BISULFATE 75 MG TAB PO SCH (09:24)
[2018-10-02] MEDS: SITAGLIPTIN 100 MG TAB PO SCH (09:24)
[2018-10-02] MEDS: PANTOPRAZOLE SOD 40 MG TABEC PO SCH (09:24)
[2018-10-02] MEDS: LISINOPRIL 2.5 MG TAB PO SCH (09:24)
[2018-10-02] MEDS: TAMSULOSIN HCL 0.4 MG CAP PO SCH (09:24)
[2018-10-02] MEDS: ASPIRIN 81 MG CHEW TAB PO SCH (09:24)
[2018-10-02] MEDS: ESCITALOPRAM OXALATE 10 MG TAB PO SCH (09:24)
[2018-10-02] MEDS: GLYBURIDE 5 MG TAB PO SCH (09:24)
[2018-10-02] MEDS: METFORMIN HCL 500 MG TAB CR PO SCH (09:24)
[2018-10-02] MEDS: ZINC OXIDE / BALSAM PERU 30 GM TUBE TOP SCH ×2 (09:25→20:48)
[2018-10-02] MEDS: BALSAM PERU/CASTOR OIL 60 GM OINT...G. TP SCH (09:25)
[2018-10-02] MEDS: HYDROCODONE/APAP 10MG-325MG TAB PO PRN (11:05)
[2018-10-02 11:51] VITALS: BP 159/75
--- NOTE | 2018-10-02 14:39 | Progress Note ---
DATE: 10/02/2018 Cardiology Progress Note SUBJECTIVE: The patient denies chest pain or shortness of breath. OBJECTIVE: VITAL SIGNS: Temperature 99.3 degrees, pulse 90, respiratory rate 18, blood pressure 138/62, and oxygen saturation 98% on room air. GENERAL: Awake, alert, no acute distress. LUNGS: Clear to auscultation bilaterally. No wheezes or crackles. CARDIOVASCULAR: Normal rate, regular rhythm. No murmur. Normal S1 and S2. ABDOMEN: Soft, nontender. EXTREMITIES: Diminished pulses. Wound VAC on right foot. CARDIAC MEDICATIONS: Fish oil 1000 mg p.o. daily, lisinopril 10 mg p.o. daily, Plavix 75 mg p.o. daily, aspirin 81 mg p.o. daily, atorvastatin 20 mg p.o. at bedtime. LABORATORY DATA: None today. IMPRESSION: 1. Peripheral arterial disease with occluded distal port, dorsalis pedis, distal peroneal and CT of the posterior tibial artery. 2. Right foot osteomyelitis. 3. Hypertension. 4. Hyperlipidemia. RECOMMENDATIONS: No percutaneous revascularization options are viable in this patient. He has severe distal disease with chronic total occlusion of his posterior tibial artery. If his wound does not heal would likely benefit from BKA. Continue to monitor wound. Continue current cardiac medication. Thank you for this consult. We will continue to follow. Ruchi Daniels MD ABS/MODL /[id number]
[2018-10-02 15:44] VITALS: BP 133/60
--- NOTE | 2018-10-02 19:11 | NUR ---
PATIENT IS IN STABLE CONDITION WITH NO S/S OF RESPIRATORY DISTRESS. PATIENT DENIES PAIN AT THIS TIME. RIGHT FOOT DRESSING IS DRY AND INTACT. CALL LIGHT IS WITHIN REACH, PATIENT INSTRUCTED TO CALL FOR ASSISTANCE NEEDED. BEDSIDE REPORT GIVEN TO ONCOMING NURSE.
[2018-10-02 20:10] VITALS: BP 153/70
[2018-10-02] MEDS: DONEPEZIL HCL 5 MG TAB PO SCH (20:48)
[2018-10-02] MEDS: DOCUSATE SODIUM 100 MG CAP PO SCH (20:48)
[2018-10-02] MEDS: ATORVASTATIN 40 MG TAB PO SCH (20:48)
--- NOTE | 2018-10-02 22:41 | Progress Note ---
DATE: 10/02/2018 SUBJECTIVE: The patient was seen at bedside today in no acute distress. Dressings are clean, dry and intact to the right foot. Wound VAC is intact and in place. The patient denies any overnight constitutional symptoms. He states he is quite comfortable. No issues at all. Clinically, dressing were clean, dry and intact. ASSESSMENT: 1. Status post 2 days incision and drainage of abscess with bone cultures of the right foot plantar abscess. 2. Peripheral arterial disease with occluded posterior tibial and dorsalis pedis and distal peroneal according to the CT. 3. Right foot osteomyelitis. 4. Hypertension. 5. Hyperlipidemia. RECOMMENDATIONS: Continue with wound care orders per Dr. Whitlock. At this point, with conservative care. Thank you again for including me in the care of this patient. Dr. Whitlock will continue to follow the patient tomorrow. Laura Lundberg DPM Ange/VIKI /[id number]
[2018-10-03] VITALS (8 sets, daily range): BP systolic 120–187; BP diastolic 58–104
[2018-10-03] MEDS: HYDROCODONE/APAP 10MG-325MG TAB PO PRN ×3 (02:45→16:45)
[2018-10-03] MEDS: PIPERACILLIN/TAZO 2.25 GM 50 ML IV SCH ×4 (04:18→22:42)
[2018-10-03] MEDS: LINEZOLID 600 MG/D5W 300ML 300 ML IV SCH ×2 (05:06→16:46)
[2018-10-03 06:51] LABS: BASOPHILS % 0.4 % (0.0-1.0); EOSINOPHILS # (AUTO) 0.2 (0.0-0.4); EOSINOPHILS % 1.5 % (0.0-6.0); HEMOGLOBIN 9.3 g/dL (14.0-18.0); LYMPHOCYTES # (AUTO) 1.3 (1.0-3.2); LYMPHOCYTES % 11.4 % (18.0-39.1); MEAN CORPUSCULAR HEMOGLOBIN 29.8 pg (28-32); MEAN CORPUSCULAR HGB CONC 33.2 g/dL (31-35); MEAN CORPUSCULAR VOLUME 89.7 fL (81-99); MONOCYTES # (AUTO) 0.7 (0.2-0.8); MONOCYTES % 6.6 % (4.4-11.3); NEUTROPHILS # (AUTO) 8.8 (2.1-6.9); NEUTROPHILS % 78.8 % (38.7-80.0); PLATELET COUNT 331 x10e3/uL (140-360); RED BLOOD COUNT 3.12 x10e6/uL (4.3-5.7); RED CELL DISTRIBUTION WIDTH 12.6 % (11.7-14.4)
[2018-10-03 07:32] LABS: ALBUMIN 2.4 g/dL (3.5-5.0); ALBUMIN/GLOBULIN RATIO 0.6 (0.8-2.0); ANION GAP 11.6 mmol/L (8-16); CALCIUM 8.5 mg/dL (8.4-10.2); CREATININE, SERUM 1.46 mg/dL (0.72-1.25); POTASSIUM 4.6 mmol/L (3.5-5.1)
[2018-10-03] MEDS: TRULANCE 3 MG PO SCH (08:48)
[2018-10-03] MEDS: SITAGLIPTIN 100 MG TAB PO SCH (08:48)
[2018-10-03] MEDS: GLYBURIDE 5 MG TAB PO SCH (08:48)
[2018-10-03] MEDS: INSULIN LISPRO 100 UNIT/1 ML 3ML VIAL SQ SCH ×4 (08:48→20:54)
[2018-10-03] MEDS: METFORMIN HCL 500 MG TAB CR PO SCH (08:48)
[2018-10-03] MEDS: LISINOPRIL 2.5 MG TAB PO SCH (08:49)
[2018-10-03] MEDS: CLOPIDOGREL BISULFATE 75 MG TAB PO SCH (08:49)
[2018-10-03] MEDS: INSULIN GLARGINE SQ SCH (08:49)
[2018-10-03] MEDS: LACT CMB2 PO SCH (08:49)
[2018-10-03] MEDS: ASPIRIN 81 MG CHEW TAB PO SCH (08:49)
[2018-10-03] MEDS: S THERMOPHL PO SCH (08:49)
[2018-10-03] MEDS: OMEGA 3 POLYUNSAT FATTY ACIDS 1000 MG SOFTGEL PO SCH (08:49)
[2018-10-03] MEDS: PANTOPRAZOLE SOD 40 MG TABEC PO SCH (08:49)
[2018-10-03] MEDS: ESCITALOPRAM OXALATE 10 MG TAB PO SCH (08:49)
[2018-10-03] MEDS: BIF CMB1 PO SCH (08:49)
[2018-10-03] MEDS: LIXISENATIDE SQ SCH (08:49)
[2018-10-03] MEDS: TAMSULOSIN HCL 0.4 MG CAP PO SCH (08:49)
[2018-10-03] MEDS: XIGDUO PO SCH (08:49)
[2018-10-03] MEDS: ZINC OXIDE / BALSAM PERU 30 GM TUBE TOP SCH ×2 (08:50→20:53)
[2018-10-03] MEDS: BALSAM PERU/CASTOR OIL 60 GM OINT...G. TP SCH (08:50)
--- NOTE | 2018-10-03 08:50 | NUR ---
Pt received resting in bed. Alert and oriented x3 but Greek speaking only. Right foot dressing dry and intact to wound vacuum. Oriented to staff and surroundings. All meds given as ordered. Emotional support given. Call bangura within reach. Will monitor
--- NOTE | 2018-10-03 09:01 | NUR ---
RECEIVED NOTIFICATION FOR CHARLY JOSEPH THE PT WAS DENIED LTAC. STATES SHE SPOKE W DR. PIERCE AND HE RECOMMENDED A SNF.
--- NOTE | 2018-10-03 11:28 | NUR ---
WOUND CARE CONSULTATION - FOLLOW UP- NPWT PLACEMENT Patient admitted from home to ER for RLE Foot pain with redness and swelling Dr. Whitlock on case for Foot Wound Management WC Consulted for VAC placement of foot wound. PATIENT VISIT: Rudy Score 15 Alternating Pressure Air Mattress in place HOB elevated < 30 degrees Moderate PUP Active Left Sided Weakness - HX of Stroke. Able to turn self with min assist. Shear Friction Precautions Right Foot S/P Amputation of 4th Digit.- Dehisced- Draining Serosanguineous fluid ( 2x0.5x0.5cm). NPWT-120mmHg Cont. Applied. ( White foam to Black Foam) Right Foot Plantar (2.5x0.7x2cm)Tunneling @ 6 o'clock 3cm -S/P Abscession/ Reddened periwound , irregular redness streaks to amputation site. Maceration present to plantar aspect. NPWT-120mmHg Cont. Applied. ( White foam to Black Foam) IMPRESSION: 1. Right Foot DFU Grade 3 - S/P Abscession & Washout by Dr. Whitlock 09/30/18 2. Sacral - Pressure Ulcer- Stage I - Healing- POA 3. Bilateral Groin - Moisture & Heat related RASH- Improving RECOMMENDATION:( Continue Current Treatment Plan Right Foot DFU Grade 3 -( x2 sites) - NPWT -120mmHg Cont. Change TIW. Addendum: 10/03/18 at 1132 by Yash Royal RN Amended: Links added.
--- NOTE | 2018-10-03 11:46 | Progress Note ---
DATE: SUBJECTIVE: The patient did well overnight, no new complaints. OBJECTIVE: VITAL SIGNS: Temperature is 99.3, pulse 75, blood pressure on room air. GENERAL: No apparent distress. CARDIOVASCULAR: Regular rate and rhythm. LUNGS: Clear to auscultation bilaterally. ABDOMEN: Good bowel sounds. Soft and nontender. EXTREMITIES: No clubbing or cyanosis. Right foot is damaged. . ASSESSMENT AND PLAN: 1. Osteomyelitis IV antibiotics. 2. Diabetes. Continue with current care. 3. Peripheral arterial disease. Unfortunately, . 4. Chronic kidney disease stage 3. Continue to monitor. 5. Leukocytosis. Continue to monitor. 6. Anemia. Continue to monitor. 7. Hyperlipidemia. Continue with his medications. 8. Hypertension. Continue with his medications. Please see hospital chart for details. MD POLO Sal/VIKI /[id number]
[2018-10-03] MEDS: HYDROCODONE/APAP 5MG-325MG TAB PO PRN (11:59)
[2018-10-03] MEDS ORDERED: ACETAMINOPHEN/CODEINE 300MG - 30MG TAB PO PRN (13:30)
--- NOTE | 2018-10-03 13:57 | Progress Note ---
DATE: 10/03/2018 Cardiology Progress Note SUBJECTIVE: The patient denies chest pain or shortness of breath. OBJECTIVE: VITAL SIGNS: Temperature 97.5 degrees, pulse 80, respiratory rate 18, blood pressure 187/78, and oxygen saturation 96%. GENERAL: Awake, alert, in no acute distress. LUNGS: Clear to auscultation bilaterally. No wheezes or crackles. CARDIOVASCULAR: Normal rate, regular rhythm. No murmur. Normal S1, S2. ABDOMEN: Soft, nontender. EXTREMITIES: Diminished pulses. Wound VAC present on the right foot. CARDIAC MEDICATIONS: Fish oil 1000 mg p.o. daily, lisinopril 10 mg p.o. daily, Plavix 75 mg p.o. daily, aspirin 81 mg p.o. daily, and atorvastatin 40 mg p.o. at bedtime. LABORATORY DATA: WBC 11.09, hemoglobin 9.3, hematocrit 28, and platelets 331. Sodium 134, potassium 4.6, chloride 102, CO2 of 25, BUN 11, and creatinine 1.46. IMPRESSION: 1. Peripheral arterial disease with occluded distal dorsalis pedis, distal peroneal on CUTTING AND PRINTING MACHINE OPERATOR of the posterior tibial artery. 2. Right foot osteomyelitis. 3. Hypertension. 4. Hyperlipidemia. RECOMMENDATIONS: No percutaneous revascularization options are viable in this patient. He has severe distal disease with CUTTING AND PRINTING MACHINE OPERATOR of his posterior tibial artery. If his wound does not heal, he would likely benefit from BKA. Continue to monitor wound. Continue current cardiac medications. Thank you for this consult. We will continue to follow. Ruchi Daniels MD ABS/MODL /[id number]
[2018-10-03] MEDS ORDERED: ONDANSETRON HCL 4 MG ORAL DISINTEGRATING TAB PO PRN (15:30)
--- NOTE | 2018-10-03 15:57 | Progress Note ---
DATE: 10/03/2018 The patient was seen at bedside. He has the wound VAC on the wound. There is erythema and edema is beginning to localize to plantar aspect, has some changes that might be consistent with gangrenous changes. At this point, I am going to wait to see . He was unable to be revascularized. If he ends up needing further surgery, he is going to need a proximal amputation to the level of the BKA. At this point, I am going to recommend local wound care. It is empirical that he begins hyperbaric treatment. Without hyperbaric, he does not have the vascularity to heal the wound. He is going to need IV antibiotics. He is going to need to offload. I will continue to follow. CLIFF Tellez/VIKI /[id number]
--- NOTE | 2018-10-03 19:10 | NUR ---
patient received awake, alert, lying quietly in bed. no c/o pain noted. wound vac to right foot remains c,d,i. pm assessment complete. family noted at the bedside. patient/family instructed to call for assistance when needed.
[2018-10-03] MEDS: DOCUSATE SODIUM 100 MG CAP PO SCH (20:53)
[2018-10-03] MEDS: DONEPEZIL HCL 5 MG TAB PO SCH (20:53)
[2018-10-03] MEDS: ATORVASTATIN 40 MG TAB PO SCH (20:53)
[2018-10-04] VITALS (8 sets, daily range): BP systolic 118–184; BP diastolic 57–81
[2018-10-04] MEDS ORDERED: SODIUM CHLORIDE 0.9% 250ML 250 ML ONE (01:51)
[2018-10-04] MEDS: LINEZOLID 600 MG/D5W 300ML 300 ML IV SCH ×2 (04:30→17:10)
[2018-10-04] MEDS: PIPERACILLIN/TAZO 2.25 GM 50 ML IV SCH ×4 (05:00→22:01)
[2018-10-04] MEDS: GLYBURIDE 5 MG TAB PO SCH (08:36)
[2018-10-04] MEDS: LACT CMB2 PO SCH (08:37)
[2018-10-04] MEDS: S THERMOPHL PO SCH (08:37)
[2018-10-04] MEDS: TRULANCE 3 MG PO SCH (08:37)
[2018-10-04] MEDS: INSULIN LISPRO 100 UNIT/1 ML 3ML VIAL SQ SCH ×4 (08:37→20:44)
[2018-10-04] MEDS: HYDROCODONE/APAP 5MG-325MG TAB PO PRN ×2 (08:37→18:53)
[2018-10-04] MEDS: METFORMIN HCL 500 MG TAB CR PO SCH (08:37)
[2018-10-04] MEDS: BIF CMB1 PO SCH (08:37)
[2018-10-04] MEDS: SITAGLIPTIN 100 MG TAB PO SCH (08:37)
--- NOTE | 2018-10-04 08:37 | NUR ---
Pt received resting in bed with at bedside. All meds given as ordered. Wound vacuum to right foot dry, and intact. Will monitor
[2018-10-04] MEDS: ESCITALOPRAM OXALATE 10 MG TAB PO SCH (08:38)
[2018-10-04] MEDS: ASPIRIN 81 MG CHEW TAB PO SCH (08:38)
[2018-10-04] MEDS: OMEGA 3 POLYUNSAT FATTY ACIDS 1000 MG SOFTGEL PO SCH (08:38)
[2018-10-04] MEDS: CLOPIDOGREL BISULFATE 75 MG TAB PO SCH (08:38)
[2018-10-04] MEDS: PANTOPRAZOLE SOD 40 MG TABEC PO SCH (08:38)
[2018-10-04] MEDS: TAMSULOSIN HCL 0.4 MG CAP PO SCH (08:38)
[2018-10-04] MEDS: XIGDUO PO SCH (08:38)
[2018-10-04] MEDS: LISINOPRIL 2.5 MG TAB PO SCH (08:38)
[2018-10-04] MEDS: ZINC OXIDE / BALSAM PERU 30 GM TUBE TOP SCH ×2 (08:39→20:06)
[2018-10-04] MEDS: LIXISENATIDE SQ SCH (08:39)
[2018-10-04] MEDS: INSULIN GLARGINE SQ SCH (08:39)
[2018-10-04] MEDS: BALSAM PERU/CASTOR OIL 60 GM OINT...G. TP SCH (08:39)
--- NOTE | 2018-10-04 10:34 | NUR ---
SPOKE WITH PT AND AT BEDSIDE USED ECONOMIC HISTORY TEACHER JERRICA [id number] SIGNED CHOICE FOR [facility] WILL FAX CLINICALS.
--- NOTE | 2018-10-04 12:37 | Progress Note ---
DATE: 10/04/2018 Cardiology Progress Note SUBJECTIVE: The patient denies chest pain or shortness of breath. OBJECTIVE: VITAL SIGNS: Temperature 98.1 degrees, pulse 109, respiratory rate 18, blood pressure 183/81, oxygen saturation 98%. GENERAL: Awake, alert, in no acute distress. LUNGS: Clear to auscultation bilaterally. No wheezes or crackles. CARDIOVASCULAR: Normal rate, regular rhythm. No murmur. Normal S1, S2. ABDOMEN: Soft, nontender. EXTREMITIES: Diminished pulses. Wound VAC present on the right foot. CARDIAC MEDICATIONS: Fish oil 1000 mg p.o. daily, lisinopril 10 mg p.o. daily, Plavix 75 mg p.o. daily, aspirin 81 mg p.o. daily, atorvastatin 40 mg p.o. at bedtime. LABORATORY DATA: None today. IMPRESSION: 1. Peripheral artery disease with occluded distal dorsalis pedis, distal perennial and CT of the right posterior tibial artery. 2. Right foot osteomyelitis. 3. Hypertension. 4. Hyperlipidemia. RECOMMENDATIONS: No percutaneous revascularization options are viable in this patient. He has severe distal disease with CT of his posterior tibial artery. If his wound does not heal he would likely benefit from BKA. Continue to monitor wound. Continue current cardiac medications. Thank you for this consult. We will continue to follow. Ruchi Daniels MD ABS/MODL /[id number]
--- NOTE | 2018-10-04 16:00 | NUR ---
Nutrition Screen Note RD Recommendation for Physician: - Continue current diet - BG and insulin management per MD - Recommend Ivan 1 packet BID, vitamin C 500 mg BID, and zinc sulfate 220 mg q day x 10 days to promote wound healing Plan of Care: RD following, monitoring for tolerance and adequacy Nutrition reason for involvement: LOS Primary Diagnose(s): osteomyelitis, R diabetic foot ulcer PMH: DM, PAD, HTN, HLD, CKD3 Ht: 68 in Wt: 158 lb BMI: 24 kg/m2 IBW: [address] Assessment: (10/04) 73 YOM admitted for R foot osteomyelitis and diabetic ulcer. Pt discussed during am rounds. Pt had I&D on 09/28 and per Cardiology if wound does not heal he will need an amputation. Unable to obtain hx at time of visit, pt and Citizen [place] speaking only. Chart reviewed. Labs and meds reviewed. GI: LBM 10/03 Skin: R foot wound, sacral stage I Labs: 10/03: Na 134, K 4.6, BUN 11, Cr 1.46, Gluc 22, POC Gluc 151-280 Current Diet: 1800 ADA, Renal, Mechanical Soft Malnutrition Evaluation (10/04/18) The patient does not meet criteria for a specified degree of malnutrition at this time. Will re-evaluate at follow-up as appropriate. Diet Education Needs Assessment: Diet education indicated, pt not appropriate at this time. Estimated Nutritional Needs: [id number] calories/day (25-30 kcal/kg CBW) 72-129 g protein/day (1-1.8 g pro/kg CBW) Diet Adequacy: Meeting calorie needs, Meeting protein needs Nutrition Diagnosis: PES Goal: Patient will meet 75-100% of estimated needs by follow up Progress: Progressing Interventions: CHO, texture modified diet, Commercial beverage, Multivitamin/mineral supplement therapy, Collaboration with other providers Monitoring/Evaluation: Total energy intake, Total protein intake, Modified diet, Liquid supplement, Self management Nutrition Care Level: Low Signed: Ruthann Dixon RD, LD, [facility]
--- NOTE | 2018-10-04 18:53 | NUR ---
patient received awake, alert, lying quietly in bed. wound vac/dressing to right foot c,d,i. patient medicated with norco 5/325 mg po for c/o right foot pain /10 at this time. sr up x 3. patients call bangura placed within reach. noted at the bedside. patient/ instructed to call for assistance when needed.
[2018-10-04] MEDS: DONEPEZIL HCL 5 MG TAB PO SCH (20:06)
[2018-10-04] MEDS: DOCUSATE SODIUM 100 MG CAP PO SCH (20:06)
[2018-10-04] MEDS: ATORVASTATIN 40 MG TAB PO SCH (20:06)
[2018-10-05] VITALS (7 sets, daily range): BP systolic 118–180; BP diastolic 56–79
--- NOTE | 2018-10-05 | NUR ---
patient appears to be resting quietly. no c/o pain noted. remains at the bedside. wound vac dressing remains c,d,i.
[2018-10-05] MEDS: LINEZOLID 600 MG/D5W 300ML 300 ML IV SCH ×2 (03:43→18:12)
[2018-10-05] MEDS: PIPERACILLIN/TAZO 2.25 GM 50 ML IV SCH ×4 (05:00→22:36)
[2018-10-05] MEDS: HYDROCODONE/APAP 5MG-325MG TAB PO PRN ×2 (05:53→11:16)
--- NOTE | 2018-10-05 05:53 | NUR ---
patient medicated with norco 5/325 mg po for c/o right foot pain 5/10 per patients request at this time.
--- NOTE | 2018-10-05 05:54 | NUR ---
bp 179/77 hr 84 rr 18 patient medicated for pain. will continue to monitor.
[2018-10-05] MEDS: INSULIN LISPRO 100 UNIT/1 ML 3ML VIAL SQ SCH ×4 (07:30→21:00)
[2018-10-05] MEDS: S THERMOPHL PO SCH (08:09)
[2018-10-05] MEDS: INSULIN GLARGINE SQ SCH (08:09)
[2018-10-05] MEDS: XIGDUO PO SCH (08:09)
[2018-10-05] MEDS: BIF CMB1 PO SCH (08:09)
[2018-10-05] MEDS: LACT CMB2 PO SCH (08:09)
[2018-10-05] MEDS: TRULANCE 3 MG PO SCH (08:09)
[2018-10-05] MEDS: LIXISENATIDE SQ SCH (08:09)
[2018-10-05] MEDS: PANTOPRAZOLE SOD 40 MG TABEC PO SCH (08:12)
[2018-10-05] MEDS: CLOPIDOGREL BISULFATE 75 MG TAB PO SCH (08:12)
[2018-10-05] MEDS: OMEGA 3 POLYUNSAT FATTY ACIDS 1000 MG SOFTGEL PO SCH (08:13)
[2018-10-05] MEDS: SITAGLIPTIN 100 MG TAB PO SCH (08:13)
[2018-10-05] MEDS: ESCITALOPRAM OXALATE 10 MG TAB PO SCH (08:13)
[2018-10-05] MEDS: TAMSULOSIN HCL 0.4 MG CAP PO SCH (08:13)
[2018-10-05] MEDS: METFORMIN HCL 500 MG TAB CR PO SCH (08:13)
[2018-10-05] MEDS: LISINOPRIL 2.5 MG TAB PO SCH (08:13)
[2018-10-05] MEDS: ASPIRIN 81 MG CHEW TAB PO SCH (08:13)
[2018-10-05] MEDS: GLYBURIDE 5 MG TAB PO SCH (08:13)
[2018-10-05] MEDS: ZINC OXIDE / BALSAM PERU 30 GM TUBE TOP SCH ×2 (10:10→21:00)
[2018-10-05] MEDS: BALSAM PERU/CASTOR OIL 60 GM OINT...G. TP SCH (10:10)
--- NOTE | 2018-10-05 10:11 | NUR ---
ALLEVYN PAD APPLIED
--- NOTE | 2018-10-05 13:25 | NUR ---
SPOKE WITH DR. GOMEZ REGARDING PATIENT'S CARE. DR. GOMEZ IS RECOMMENDING PATIENT TO GO TO LTAC IN ORDER FOR HIM TO RECEIVE HYPERBARIC TREATMENT. DR. GOMEZ AWARE OF SNF ORDER BUT WANTS PATIENT TO GO TO [facility] D/T PATIENT'S RIGHT LOWER EXTREMITY NOT REVASCULARIZING. SPOKE WITH DR. PIERCE REGARDING DR. GOMEZ RECOMMENDATION- DR. PIERCE GAVE THE OKAY FOR LTAC ORDER AND DC SNF ORDER.
--- NOTE | 2018-10-05 13:30 | NUR ---
CALL RECEIVED FROM BEDSIDE NURSE, SUSANNA DELACRUZ. STATES DR. GOMEZ WANTED TO KNOW IF THE PT WILL BE ABLE TO GO FOR HBO WHILE AT [facility] INFORMED NUB[facility] THERE WAS NEVER AN ORDER FOR HBO. DR. GOMEZ STATES SHE HAS ALWAYS DOCUMENTED THE PT NEEDED HBO. KAREL SILVA CALLED [facility] AND THEY SAID THEY WOULD NOT BE ABLE TO ARRANGE HBO FOR THE PT. IT WOULD BE A SEPARATE COST. DR. GOMEZ STATES [facility] DOES HBO AND THE PT WILL NEED HBO, BECAUSE THEY WERE NOT ABLE TO REVASCULARIZE HIS LEG. LTAC WAS ORDERED PT WAS ACCEPTED TO [facility] TODAY.
--- NOTE | 2018-10-05 14:08 | NUR ---
RECEIVED CALL BACK FROM [facility] STATING THERE WAS AN LTAC ORDER ON 09/28/2018. NOTED LTAC WAS INITIATED AND A DENIAL WAS GIVEN. DR. PIERCE DECLINED THE P2P AND ORDERED A SNF AT THAT TIME. NOTIFIED [facility]. STATES DR. GOMEZ CAN DO THE APPEAL FOR THE PT. COPY OF REQUEST TO APPEAL THE DENIAL WILL BE PLACED ON THE FRONT OF THE CHART DR. GOMEZ' OFFICE NURSE / BRADY WAS NOTIFIED. CM LEFT CONTACT INFO.
--- NOTE | 2018-10-05 14:33 | NUR ---
RECEIVED CALL BACK FROM DR. GOMEZ. REQUESTED FORM BE FAXED TO HER OFFICE @ [phone]. NOTIFIED [facility]. SHE WILL P/U FORM ONCE RECEIVED.
[2018-10-05] MEDS: HYDROCODONE/APAP 10MG-325MG TAB PO PRN ×2 (17:31→21:40)
--- NOTE | 2018-10-05 18:23 | NUR ---
WOUND CARE CONSULTATION - FOLLOW UP- NPWT PLACEMENT Patient admitted from home to ER for RLE Foot pain with redness and swelling Dr. Whitlock on case for Foot Wound Management WC Consulted for VAC placement of foot wound. PATIENT VISIT: Rudy Score 15 Alternating Pressure Air Mattress in place HOB elevated < 30 degrees Moderate PUP Active Left Sided Weakness - HX of Stroke. Able to turn self with min assist. Shear Friction Precautions Right Foot S/P Amputation of 4th Digit.- Dehisced- Draining Serosanguineous fluid ( 2x0.5x0.5cm). NPWT-120mmHg Cont. Applied. ( White foam to Black Foam) Right Foot Plantar (2.5x0.7x2cm)Tunneling @ 6 o'clock 3cm -S/P Abscession/ Reddened periwound , irregular redness streaks to amputation site. Maceration present to plantar aspect. NPWT-120mmHg Cont. Applied. (Black Foam Only) IMPRESSION: 1. Right Foot DFU Grade 3 - S/P Abscession & Washout by Dr. Whitlock 09/30/18 2. Sacral - Pressure Ulcer- Stage I - Healing- POA 3. Bilateral Groin - Moisture & Heat related RASH- Improving RECOMMENDATION:( Continue Current Treatment Plan Right Foot DFU Grade 3 -( x2 sites) - NPWT -120mmHg Cont. Change TIW. DISCHARGE PLANNING : LTAC with HBO Treatments. Addendum: 10/05/18 at 1825 by Yash Royal RN Amended: Links added.
--- NOTE | 2018-10-05 19:00 | NUR ---
patient received awake, alert, lying quietly in bed. no c/o pain noted. wound vac to right foot c,d,i. pm assessment complete. noted at the bedside. patient/ instructed to call for assistance when needed.
--- NOTE | 2018-10-05 19:07 | Progress Note ---
DATE: 10/05/2018 SUBJECTIVE: The patient denies chest pain or shortness of breath. OBJECTIVE: VIAL SIGNS: Temperature 98.2 degrees, pulse 83, respiratory rate 17, blood pressure 180/79, oxygen saturation 96%. GENERAL: Awake, alert, in no acute distress. LUNGS: Clear to auscultation bilaterally. No wheezes or crackles. CARDIOVASCULAR: Normal rate. Regular rhythm. No murmur. Normal S1, S2. ABDOMEN: Soft and nontender. EXTREMITIES: Diminished pulses with wound VAC on the right foot. CARDIAC MEDICATIONS: Fish oil 1000 mg p.o. daily, lisinopril 10 mg p.o. daily, aspirin 81 mg p.o. daily, Plavix 75 mg p.o. daily, atorvastatin 40 mg p.o. at bedtime. LABORATORY DATA: None today. IMPRESSION: 1. Peripheral artery disease with occluded distal dorsalis pedis, distal peroneal and CT of the right posterior tibial artery. 2. SCRAP COLLECTOR of the right posterior tibial artery. 3. Right foot osteomyelitis. 4. Hypertension. 5. Hyperlipidemia. RECOMMENDATIONS: No percutaneous revascularization options are viable in this patient. He has severe distal disease with SCRAP COLLECTOR of his posterior tibial artery. His wound does not heal. He would likely benefit from BKA. Continue to monitor wound. Continue current cardiac medications. Ruchi Daniels MD ABS/MODL /[id number]
--- NOTE | 2018-10-05 19:10 | NUR ---
BEDSIDE REPORT GIVEN TO ONCOMING NURSE- PATIENT IN STALE CONDITION WITH NO S/S OF RESPIRATORY DISTRESS.
[2018-10-05] MEDS: DONEPEZIL HCL 5 MG TAB PO SCH (21:00)
[2018-10-05] MEDS: ATORVASTATIN 40 MG TAB PO SCH (21:00)
[2018-10-05] MEDS: DOCUSATE SODIUM 100 MG CAP PO SCH (21:00)
--- NOTE | 2018-10-05 21:40 | NUR ---
patient medicated with norco 10/325 mg po for c/o right foot pain 01/04 at this time.
[2018-10-06] VITALS (8 sets, daily range): BP systolic 121–164; BP diastolic 63–74
--- NOTE | 2018-10-06 03:37 | NUR ---
new iv #20 gauge placed to left forearm x 1 stick. previous iv d/c'd and clean, dry dressing applied to site.
[2018-10-06] MEDS: LINEZOLID 600 MG/D5W 300ML 300 ML IV SCH ×2 (03:41→18:24)
[2018-10-06] MEDS: PIPERACILLIN/TAZO 2.25 GM 50 ML IV SCH ×4 (05:00→22:50)
[2018-10-06 05:46] LABS: BASOPHILS # (AUTO) 0.1 (0.0-0.1); BASOPHILS % 0.5 % (0.0-1.0); EOSINOPHILS # (AUTO) 0.5 (0.0-0.4); EOSINOPHILS % 3.8 % (0.0-6.0); HEMATOCRIT 29.2 % (38.2-49.6); HEMOGLOBIN 9.6 g/dL (14.0-18.0); LYMPHOCYTES # (AUTO) 1.4 (1.0-3.2); LYMPHOCYTES % 11.1 % (18.0-39.1); MEAN CORPUSCULAR HEMOGLOBIN 29.4 pg (28-32); MEAN CORPUSCULAR HGB CONC 32.9 g/dL (31-35); MEAN CORPUSCULAR VOLUME 89.3 fL (81-99); MONOCYTES # (AUTO) 0.6 (0.2-0.8); MONOCYTES % 4.4 % (4.4-11.3); NEUTROPHILS # (AUTO) 10.2 (2.1-6.9); NEUTROPHILS % 79.5 % (38.7-80.0); PLATELET COUNT 273 x10e3/uL (140-360); RED BLOOD COUNT 3.27 x10e6/uL (4.3-5.7); RED CELL DISTRIBUTION WIDTH 12.6 % (11.7-14.4)
[2018-10-06 06:10] LABS: ALBUMIN 2.4 g/dL (3.5-5.0); ALBUMIN/GLOBULIN RATIO 0.6 (0.8-2.0); ANION GAP 11.4 mmol/L (8-16); CALCIUM 8.3 mg/dL (8.4-10.2); CREATININE, SERUM 1.56 mg/dL (0.72-1.25); POTASSIUM 4.4 mmol/L (3.5-5.1)
[2018-10-06] MEDS: INSULIN LISPRO 100 UNIT/1 ML 3ML VIAL SQ SCH ×4 (07:30→21:39)
[2018-10-06] MEDS: S THERMOPHL PO SCH (09:00)
[2018-10-06] MEDS: TRULANCE 3 MG PO SCH (09:00)
[2018-10-06] MEDS: XIGDUO PO SCH (09:00)
[2018-10-06] MEDS: INSULIN GLARGINE SQ SCH (09:00)
[2018-10-06] MEDS: BIF CMB1 PO SCH (09:00)
[2018-10-06] MEDS: LACT CMB2 PO SCH (09:00)
[2018-10-06] MEDS: LIXISENATIDE SQ SCH (09:00)
[2018-10-06] MEDS: METFORMIN HCL 500 MG TAB CR PO SCH (09:23)
[2018-10-06] MEDS: PANTOPRAZOLE SOD 40 MG TABEC PO SCH (09:23)
[2018-10-06] MEDS: OMEGA 3 POLYUNSAT FATTY ACIDS 1000 MG SOFTGEL PO SCH (09:23)
[2018-10-06] MEDS: GLYBURIDE 5 MG TAB PO SCH (09:23)
[2018-10-06] MEDS: BALSAM PERU/CASTOR OIL 60 GM OINT...G. TP SCH (09:23)
[2018-10-06] MEDS: SITAGLIPTIN 100 MG TAB PO SCH (09:23)
[2018-10-06] MEDS: TAMSULOSIN HCL 0.4 MG CAP PO SCH (09:23)
[2018-10-06] MEDS: ZINC OXIDE / BALSAM PERU 30 GM TUBE TOP SCH ×2 (09:23→21:35)
[2018-10-06] MEDS: ASPIRIN 81 MG CHEW TAB PO SCH (09:23)
[2018-10-06] MEDS: LISINOPRIL 2.5 MG TAB PO SCH (09:23)
[2018-10-06] MEDS: ESCITALOPRAM OXALATE 10 MG TAB PO SCH (09:23)
[2018-10-06] MEDS: CLOPIDOGREL BISULFATE 75 MG TAB PO SCH (09:23)
[2018-10-06] MEDS: HYDROCODONE/APAP 5MG-325MG TAB PO PRN (12:39)
--- NOTE | 2018-10-06 14:41 | Progress Note ---
DATE: 10/06/2018 Cardiology Progress Note SUBJECTIVE: The patient denies chest pain or shortness of breath. OBJECTIVE: VITAL SIGNS: Temperature 97.4 degrees, pulse 78, respiratory rate 16, blood pressure 161/72, and oxygen saturation 97%. GENERAL: Awake, alert, in no acute distress. LUNGS: Clear to auscultation bilaterally. No wheezes or crackles. CARDIOVASCULAR: Normal rate. Regular rhythm. No murmur. Normal S1, S2. ABDOMEN: Soft, nontender. EXTREMITIES: Diminished pulse with wound VAC on the right foot. CARDIAC MEDICATIONS: Fish oil 1000 mg p.o. daily, lisinopril 10 mg p.o. daily, Plavix 75 mg p.o. daily, aspirin 81 mg p.o. daily, and atorvastatin 40 mg p.o. at bedtime. LABORATORY DATA: WBC 12.76, hemoglobin 9.6, hematocrit 29.2, and platelets 273. Sodium 129, potassium 4.4, chloride 99, CO2 23, BUN 16, and creatinine 1.56. IMPRESSION: 1. Peripheral arterial disease with occluded distal dorsalis pedis, distal peroneal, and TRAINING AND DEVELOPMENT HEAD of the right posterior tibial artery. 2. Right foot osteomyelitis. 3. Hypertension. 4. Hyperlipidemia. RECOMMENDATIONS: No percutaneous revascularization options are viable in this patient. He had severe distal disease with TRAINING AND DEVELOPMENT HEAD of his posterior tibial artery. If his wound does not heal, he would likely benefit from BKA. Continue to monitor wound. Continue current cardiac medications. Thank you for this consult. We will continue to follow. Ruchi Daniels MD ABS/MODL /[id number]
--- NOTE | 2018-10-06 19:18 | NUR ---
PATIENT IN STABLE CONDITION WITH NO S/S OF RESPIRATORY DISTRESS. NO PAIN VOICED. ALLEVYN APPLIED TO SACRUM- DIAPER APPLIED. WOUND VAC APPLIED TO RIGHT FOOT. PRESENT IN ROOM. IV ANTIBIOTIC INFUSING. BEDSIDE REPORT GIVEN TO ONCOMING NURSE.
--- NOTE | 2018-10-06 19:58 | Operative Report ---
DATE OF PROCEDURE: 09/30/2018 SURGEON: Sergei Porter DO PROCEDURES PERFORMED: 1. Selective coronary angiography x2. Conscious sedation 30 minutes. 2. Unilateral extremity angiography. 3. Third-order peripheral angiography of the right lower extremity. PREPROCEDURE DIAGNOSIS: Lower extremity wounds of the right lower extremity. POSTPROCEDURE DIAGNOSIS: Peripheral artery disease. ESTIMATED BLOOD LOSS: Less than 20 mL. SPECIMENS REMOVED: None. PROCEDURE IN DETAIL: After informed consent was obtained, the patient was brought to the cardiac catheterization laboratory in a fasting and nonsedated state. Bilateral groins were prepped and draped in the usual sterile fashion. A 2% lidocaine was infiltrated over the left anterior groin for local anesthesia. Using micropuncture needle, the left common femoral artery was accessed via the modified Seldinger technique. A 5-Chinese sheath was placed. Next, an Omni Flush catheter was taken up and over the iliac bifurcation in the third-order peripheral angiography position and multiple images were performed. The patient tolerated the procedure well with no immediate complications. He was transferred back to his room in stable condition. PROCEDURE FINDINGS: The right iliac and femoral systems are patent. The popliteal vessel has 50% stenosis. The proximal portions of the anterior tibial, tibioperoneal trunk, and peroneal vessels are patent. The midportion of the anterior tibial has a 50% stenosis. There is chronic total occlusions of the dorsalis pedis, distal peroneal, and the entire posterior tibial arteries on the right lower extremity. Sergei Porter DO BM/MODL /[id number]
[2018-10-06] MEDS: DOCUSATE SODIUM 100 MG CAP PO SCH (21:34)
[2018-10-06] MEDS: ATORVASTATIN 40 MG TAB PO SCH (21:34)
[2018-10-06] MEDS: DONEPEZIL HCL 5 MG TAB PO SCH (21:34)
[2018-10-07] VITALS (7 sets, daily range): BP systolic 136–171; BP diastolic 63–80
[2018-10-07] MEDS: LINEZOLID 600 MG/D5W 300ML 300 ML IV SCH ×2 (04:53→17:00)
--- NOTE | 2018-10-07 07:23 | NUR ---
Patient endorsed to next shift for continuity of care.
[2018-10-07] MEDS: LACT CMB2 PO SCH (09:00)
[2018-10-07] MEDS: TRULANCE 3 MG PO SCH (09:00)
[2018-10-07] MEDS: S THERMOPHL PO SCH (09:00)
[2018-10-07] MEDS: LIXISENATIDE SQ SCH (09:00)
[2018-10-07] MEDS: XIGDUO PO SCH (09:00)
[2018-10-07] MEDS: INSULIN GLARGINE SQ SCH (09:00)
[2018-10-07] MEDS: BIF CMB1 PO SCH (09:00)
[2018-10-07] MEDS: INSULIN LISPRO 100 UNIT/1 ML 3ML VIAL SQ SCH ×4 (09:00→22:19)
[2018-10-07] MEDS: ASPIRIN 81 MG CHEW TAB PO SCH (09:33)
[2018-10-07] MEDS: METFORMIN HCL 500 MG TAB CR PO SCH (09:33)
[2018-10-07] MEDS: SITAGLIPTIN 100 MG TAB PO SCH (09:33)
[2018-10-07] MEDS: GLYBURIDE 5 MG TAB PO SCH (09:33)
[2018-10-07] MEDS: OMEGA 3 POLYUNSAT FATTY ACIDS 1000 MG SOFTGEL PO SCH (09:34)
[2018-10-07] MEDS: LISINOPRIL 2.5 MG TAB PO SCH (09:34)
[2018-10-07] MEDS: TAMSULOSIN HCL 0.4 MG CAP PO SCH (09:34)
[2018-10-07] MEDS: ESCITALOPRAM OXALATE 10 MG TAB PO SCH (09:34)
[2018-10-07] MEDS: CLOPIDOGREL BISULFATE 75 MG TAB PO SCH (09:34)
[2018-10-07] MEDS: PANTOPRAZOLE SOD 40 MG TABEC PO SCH (09:34)
[2018-10-07] MEDS: HYDROCODONE/APAP 5MG-325MG TAB PO PRN (09:56)
[2018-10-07] MEDS: ZINC OXIDE / BALSAM PERU 30 GM TUBE TOP SCH ×2 (09:59→22:17)
[2018-10-07] MEDS: BALSAM PERU/CASTOR OIL 60 GM OINT...G. TP SCH (09:59)
[2018-10-07] MEDS: PIPERACILLIN/TAZO 2.25 GM 50 ML IV SCH ×4 (10:00→22:16)
--- NOTE | 2018-10-07 15:27 | NUR ---
WOUND CARE CONSULTATION - FOLLOW UP- NPWT PLACEMENT Patient admitted from home to ER for RLE Foot pain with redness and swelling Dr. Whitlock on case for Foot Wound Management WC Consulted for VAC placement of foot wound. PATIENT VISIT: Rudy Score 15 Alternating Pressure Air Mattress in place HOB elevated < 30 degrees Moderate PUP Active Left Sided Weakness - HX of Stroke. Able to turn self with min assist. Shear Friction Precautions Right Foot S/P Amputation of 4th Digit.- Dehisced- Draining Serosanguineous fluid ( 2x0.5x0.5cm). NPWT-120mmHg Cont. Applied. ( Black Foam) Right Foot Plantar (2.5x0.7x2cm)Tunneling @ 6 o'clock 4.5cm -S/P Abscession/ Reddened periwound , irregular redness streaks to amputation site. Maceration present to plantar aspect. NPWT-120mmHg Cont. Applied. (Black Foam) IMPRESSION: 1. Right Foot DFU Grade 3 - S/P Abscession & Washout by Dr. Whitlock 09/30/18 2. Sacral - Pressure Ulcer- Stage I - Healing- POA 3. Bilateral Groin - Moisture & Heat related RASH- Improving RECOMMENDATION:( Continue Current Treatment Plan) Right Foot DFU Grade 3 -( x2 sites) - NPWT -120mmHg Cont. Change TIW. DISCHARGE PLANNING : LTAC with HBO Treatments. Addendum: 10/07/18 at 1529 by Yash Royal RN Amended: Links added.
[2018-10-07] MEDS: HYDROCODONE/APAP 10MG-325MG TAB PO PRN (15:39)
--- NOTE | 2018-10-07 16:51 | NUR ---
CALL RECEIVED FROM TANIA PEDRAZA INQUIRING ABOUT THE FREQUENCY OF HBO FOR THE LTAC. CALL TO DR. GOMEZ. STATES PT WILL NEED DAILY HBO WHILE AT THE LTAC. TANIA WAS NOTIFIED. WILL AWAIT INSURANCE DETERMINATION.
--- NOTE | 2018-10-07 19:00 | NUR ---
Received patient from day nurse for continuity of care, patient is currently stable, will continue to monitor.
--- NOTE | 2018-10-07 19:48 | Progress Note ---
DATE: 10/07/2018 SUBJECTIVE: The patient was seen at bedside. The wound is beginning to improve. It is beginning to form granular tissue. He did still have some necrosis to the flap of the distal aspect, but it is stable. No streaking erythema. No ascending lymphangitis. Intrinsic minus type of foot, equinus and contracture noted. ASSESSMENT: 1. Status post incision and drainage with debridement down to bone of the right foot. 2. Diabetes with neuropathy. 3. PVD, nonrevascularizable. PLAN: At this point, the patient has been approved for LTAC and hyperbaric oxygen treatment. He is pending transfer. His best chance of saving the lower extremity is the hyperbaric chamber. He is not a candidate for revascularization. If this does not heal, he is going to need a proximal amputation and he is aware of this. CLIFF Tellez/VIKI /[id number]
--- NOTE | 2018-10-07 20:34 | Progress Note ---
DATE: 10/07/2018 Cardiology Progress Note SUBJECTIVE: The patient denies chest pain or shortness of breath. OBJECTIVE: VITAL SIGNS: Temperature 97.4 degrees, pulse 92, respiratory rate 20, blood pressure 155/70, and oxygen saturation 98% on room air. GENERAL: Awake, alert, in no acute distress. LUNGS: Clear to auscultation bilaterally. No wheezes or crackles. CARDIOVASCULAR: Normal rate. Regular rhythm. No murmur. Normal S1, S2. ABDOMEN: Soft and nontender. EXTREMITIES: Diminished pulses with wound VAC on the right foot. CARDIAC MEDICATIONS: Fish oil 1000 mg p.o. daily, lisinopril 10 mg p.o. daily, Plavix 75 mg p.o. daily, aspirin 81 mg p.o. daily, and atorvastatin 40 mg p.o. at bedtime. LABORATORY DATA: None today. IMPRESSION: 1. Peripheral arterial disease with occluded distal dorsalis pedis, distal peroneal and SALESPERSON YARD GOODS of the right posterior tibial artery. 2. Right foot osteomyelitis. 3. Hypertension. 4. Hyperlipidemia. RECOMMENDATIONS: No percutaneous revascularization options are viable in this patient. He has severe distal disease with SALESPERSON YARD GOODS of the posterior tibial artery. If his wound does not heal, he will likely benefit from BKA. Continue to monitor wound. Continue current cardiac medications. Thank you for this consult. We will continue to follow. Ruchi Daniels MD ABS/MODL /[id number]
[2018-10-07] MEDS: DONEPEZIL HCL 5 MG TAB PO SCH (22:15)
[2018-10-07] MEDS: DOCUSATE SODIUM 100 MG CAP PO SCH (22:15)
[2018-10-07] MEDS: ATORVASTATIN 40 MG TAB PO SCH (22:15)
[2018-10-08] VITALS (7 sets, daily range): BP systolic 118–166; BP diastolic 58–86
--- NOTE | 2018-10-08 00:15 | NUR ---
patient endorsed to another nurse for continuity of care.
--- NOTE | 2018-10-08 00:45 | NUR ---
patient endorsed to next shift for continuity of care.
--- NOTE | 2018-10-08 01:20 | NUR ---
KERLIX DRESSING WITH WOUND VAC INTACT TO THE RIGHT FOOT, THE MACHINE BEEP FEW TIMES SAYING LOW BATTERY. THE MACHINE WAS ASSESSED BUT COULD NOT FIND THE SITE OR WHERE IT NEEDED TO BE PLUG. WILL NOTIFY [facility] ASSISTANT DIRECTOR WOUND CARE TEAM IN THE MORNING.
--- NOTE | 2018-10-08 04:24 | NUR ---
WOUND VAC INTACT TO THE RIGHT FOOT, THE MACHINE IS NOW WORKING EFFECTIVELY . PATIENT DENIES PAIN, BED ALARM ON AND CALL LIGHT WITHIN EASY REACH.
[2018-10-08] MEDS: PIPERACILLIN/TAZO 2.25 GM 50 ML IV SCH ×4 (05:05→23:40)
--- NOTE | 2018-10-08 05:05 | NUR ---
PATIENT PULL OUT HIS IV AND THE LINEN'S BLOODY. IV #20 GAUGE INSERTED TO THE LEFT AC, PATIENT TOLERATED PROCEDURE WELL. HE'S ALSO INCONTINENT OF URINE, KEPT CLEAN AND DRY, WITH SKIN PROTECTANT APPLIED TO RASHES TO THE PERINEAL.
[2018-10-08] MEDS: LINEZOLID 600 MG/D5W 300ML 300 ML IV SCH (05:40)
[2018-10-08] MEDS: SITAGLIPTIN 100 MG TAB PO SCH (08:48)
[2018-10-08] MEDS: METFORMIN HCL 500 MG TAB CR PO SCH (08:48)
[2018-10-08] MEDS: GLYBURIDE 5 MG TAB PO SCH (08:48)
[2018-10-08] MEDS: ASPIRIN 81 MG CHEW TAB PO SCH (08:49)
[2018-10-08] MEDS: CLOPIDOGREL BISULFATE 75 MG TAB PO SCH (08:49)
[2018-10-08] MEDS: BIF CMB1 PO SCH (08:49)
[2018-10-08] MEDS: TRULANCE 3 MG PO SCH (08:49)
[2018-10-08] MEDS: S THERMOPHL PO SCH (08:49)
[2018-10-08] MEDS: OMEGA 3 POLYUNSAT FATTY ACIDS 1000 MG SOFTGEL PO SCH (08:49)
[2018-10-08] MEDS: LACT CMB2 PO SCH (08:49)
[2018-10-08] MEDS: TAMSULOSIN HCL 0.4 MG CAP PO SCH (08:49)
[2018-10-08] MEDS: ESCITALOPRAM OXALATE 10 MG TAB PO SCH (08:49)
[2018-10-08] MEDS: XIGDUO PO SCH (08:49)
[2018-10-08] MEDS: PANTOPRAZOLE SOD 40 MG TABEC PO SCH (08:50)
[2018-10-08] MEDS: BALSAM PERU/CASTOR OIL 60 GM OINT...G. TP SCH (08:50)
[2018-10-08] MEDS: ZINC OXIDE / BALSAM PERU 30 GM TUBE TOP SCH ×2 (08:50→21:37)
[2018-10-08] MEDS: LISINOPRIL 2.5 MG TAB PO SCH (08:50)
[2018-10-08] MEDS: LIXISENATIDE SQ SCH (08:50)
[2018-10-08] MEDS: INSULIN GLARGINE SQ SCH (08:50)
[2018-10-08] MEDS: INSULIN LISPRO 100 UNIT/1 ML 3ML VIAL SQ SCH ×4 (08:51→21:00)
--- NOTE | 2018-10-08 09:47 | Progress Note ---
DATE: SUBJECTIVE: A 73-year-old male, comes in with diabetic foot ulcer. The patient is asleep. No complaint of pain from the . No chest pains. No shortness of breath. No nausea, vomiting, or diarrhea. OBJECTIVE: VITAL SIGNS: Temperature is 98.1, pulse of 101, respiration of 20, blood pressure is 165/86, pulse oximetry 97% on room air. HEENT: Normocephalic, atraumatic. Pupils are reactive to light and accommodation. CVS: Regular rate and rhythm. ABDOMEN: Nontender, nondistended. EXTREMITIES: No clubbing, no cyanosis. The patient's foot was bandaged, wound VAC is in place. The patient has been seen by Cardiology for peripheral arterial disease and also by Podiatry for foot ulcer. ASSESSMENT: 1. Right foot osteomyelitis. Plan is to continue on antibiotics. 2. Peripheral arterial disease with occluded dorsalis pedis. We will continue to monitor the patient. 3. Osteomyelitis, on antibiotics. 4. Hypertension. 5. Hyperlipidemia, continue with statin, blood pressure medications and CV medication. PLAN: The patient and is aware of his peripheral arterial disease and the possibility of amputation. Further recommendation per clinical course. The patient's medications have been reviewed and currently he is on linezolid and also Zosyn. MD ANGEL Gonzales/GREGL /[id number]
--- NOTE | 2018-10-08 12:48 | Progress Note ---
DATE: Cardiology Progress Note SUBJECTIVE: The patient complains of some pain in his right foot, otherwise no any other complaints. Denies any shortness of breath, chest pain, or palpitations. OBJECTIVE: VITAL SIGNS: Temperature 97.2, pulse 86, respiratory rate 20, blood pressure 166/73, oxygen saturation 97% on room air. GENERAL: Alert and oriented x3. Resting comfortably in bed. at the bedside. LUNGS: Clear to auscultation throughout. No wheezing. No rhonchi or crackles. CARDIOVASCULAR: Regular rate and rhythm, S4 noted. Normal S1 and S2. ABDOMEN: Soft, nontender. LOWER EXTREMITIES: Absent pedal pulses. Wound VAC in place to the right foot with a dressing. CARDIOVASCULAR MEDICATIONS: Lisinopril 10 mg p.o. daily, fish oil 1000 mg p.o. daily, Plavix 75 mg p.o. daily, aspirin 81 mg p.o. daily, Atorvastatin 40 mg p.o. at bedtime. LABORATORY DATA: No new labs today. IMPRESSION: 1. Peripheral arterial disease with occluded distal dorsalis pedis, distal peroneal and chronic total occlusion to the right posterior tibial artery. 2. Right foot osteomyelitis. 3. Hypertension. 4. Hyperlipidemia. RECOMMENDATIONS: No percutaneous revascularization options are available for this patient. He has severe distal disease with chronic total occlusion of the posterior tibial artery. If his wound does not heal, he will likely benefit from a BKA. Continue to monitor the wound. Continue wound VAC. Continue current cardiac medications. We will continue to follow closely. Dictated by Ashlee Sierra, ASHER MD ZARI JeromeV/GREGL /[id number]
--- NOTE | 2018-10-08 20:05 | NUR ---
KERLIX DRESSING DRY AND INTACT TO THE RIGHT FOOT WITH WOUND VAC INTACT, NO ACUTE DISTRESS OBSERVED AND PATIENT DENIES PAIN. CALL LIGHT WITHIN EASY REACH, FAMILY MEMBER AT THE BEDSIDE.
[2018-10-08] MEDS: ATORVASTATIN 40 MG TAB PO SCH (21:37)
[2018-10-08] MEDS: DOCUSATE SODIUM 100 MG CAP PO SCH (21:37)
[2018-10-08] MEDS: DONEPEZIL HCL 5 MG TAB PO SCH (21:37)
[2018-10-09] VITALS (8 sets, daily range): BP systolic 100–179; BP diastolic 53–81
--- NOTE | 2018-10-09 00:30 | NUR ---
ASSISTED PATIENT WITH ADLS, NO ACUTE DISTRESS OBSERVED. REPOSITION IN BED FOR COMFORT, CALL LIGHT WITHIN EASY REACH AND BED ALARM ON. WOUND VAC REMAINS INTACT TO THE RIGHT FOOT.
--- NOTE | 2018-10-09 04:10 | NUR ---
WALKING ROUNDS MADE, PATIENT OBSERVED SOUNDLY ASLEEP. HE'S EASY TO AROUSE, WOUND VAC INTACT TO THE RIGHT FOOT AND HE DENIES PAIN. BED ALARM ON, CALL LIGHT AND URINAL WITHIN EASY REACH.
[2018-10-09] MEDS: PIPERACILLIN/TAZO 2.25 GM 50 ML IV SCH ×4 (05:25→22:39)
--- NOTE | 2018-10-09 05:26 | NUR ---
PATIENT INCONTINENT OF URINE, BED BATH PROVIDED, SKIN PROTECTANT APPLIED TO THE GEE-AREA. HEAD OF BED ELEVATED, URINAL AND CALL LIGHT WITHIN EASY REACH.
[2018-10-09 06:14] LABS: BASOPHILS # (AUTO) 0.1 (0.0-0.1); BASOPHILS % 0.7 % (0.0-1.0); EOSINOPHILS # (AUTO) 0.3 (0.0-0.4); EOSINOPHILS % 2.9 % (0.0-6.0); HEMATOCRIT 29.8 % (38.2-49.6); HEMOGLOBIN 9.8 g/dL (14.0-18.0); LYMPHOCYTES # (AUTO) 1.1 (1.0-3.2); LYMPHOCYTES % 10.7 % (18.0-39.1); MEAN CORPUSCULAR HEMOGLOBIN 29.8 pg (28-32); MEAN CORPUSCULAR HGB CONC 32.9 g/dL (31-35); MEAN CORPUSCULAR VOLUME 90.6 fL (81-99); MONOCYTES # (AUTO) 0.4 (0.2-0.8); MONOCYTES % 3.9 % (4.4-11.3); NEUTROPHILS # (AUTO) 8.3 (2.1-6.9); NEUTROPHILS % 81.2 % (38.7-80.0); PLATELET COUNT 215 x10e3/uL (140-360); RED BLOOD COUNT 3.29 x10e6/uL (4.3-5.7); RED CELL DISTRIBUTION WIDTH 12.6 % (11.7-14.4)
[2018-10-09 06:36] LABS: ANION GAP 14.1 mmol/L (8-16); CALCIUM 8.8 mg/dL (8.4-10.2); CREATININE, SERUM 1.33 mg/dL (0.72-1.25); POTASSIUM 4.1 mmol/L (3.5-5.1)
[2018-10-09] MEDS: GLYBURIDE 5 MG TAB PO SCH (08:35)
[2018-10-09] MEDS: SITAGLIPTIN 100 MG TAB PO SCH (08:36)
[2018-10-09] MEDS: INSULIN LISPRO 100 UNIT/1 ML 3ML VIAL SQ SCH ×4 (08:36→21:00)
[2018-10-09] MEDS: METFORMIN HCL 500 MG TAB CR PO SCH (08:36)
[2018-10-09] MEDS: XIGDUO PO SCH (08:37)
[2018-10-09] MEDS: S THERMOPHL PO SCH (08:37)
[2018-10-09] MEDS: LACT CMB2 PO SCH (08:37)
[2018-10-09] MEDS: TRULANCE 3 MG PO SCH (08:37)
[2018-10-09] MEDS: TAMSULOSIN HCL 0.4 MG CAP PO SCH (08:37)
[2018-10-09] MEDS: ASPIRIN 81 MG CHEW TAB PO SCH (08:37)
[2018-10-09] MEDS: ESCITALOPRAM OXALATE 10 MG TAB PO SCH (08:37)
[2018-10-09] MEDS: BIF CMB1 PO SCH (08:37)
[2018-10-09] MEDS: OMEGA 3 POLYUNSAT FATTY ACIDS 1000 MG SOFTGEL PO SCH (08:38)
[2018-10-09] MEDS: CLOPIDOGREL BISULFATE 75 MG TAB PO SCH (08:38)
[2018-10-09] MEDS: LISINOPRIL 20 MG TAB PO SCH (08:38)
[2018-10-09] MEDS: ZINC OXIDE / BALSAM PERU 30 GM TUBE TOP SCH ×2 (08:39→21:25)
[2018-10-09] MEDS: LIXISENATIDE SQ SCH (08:39)
[2018-10-09] MEDS: PANTOPRAZOLE SOD 40 MG TABEC PO SCH (08:39)
[2018-10-09] MEDS: INSULIN GLARGINE SQ SCH (08:39)
[2018-10-09] MEDS: BALSAM PERU/CASTOR OIL 60 GM OINT...G. TP SCH (08:39)
--- NOTE | 2018-10-09 08:47 | Progress Note ---
DATE: SUBJECTIVE: The patient is here for osteomyelitis of the foot, currently asymptomatic, slept well and is currently also sleeping, easily arousable. MEDICATIONS: He is on Zosyn, atorvastatin, donepezil, docusate, tamsulosin, fish oil, escitalopram, clopidogrel, aspirin, Januvia, metformin, glyburide, hydrocodone, and nystatin. OBJECTIVE: VITAL SIGNS: Temperature is 98.1, pulse of 96, respirations of 20, blood pressure is 124/78. The patient's pulse oximetry is 99%. HEENT: Normocephalic, atraumatic. Pupils are reactive to light and accommodation. CVS: S1, S2 normal. Regular rate and rhythm. ABDOMEN: Nontender and nondistended. EXTREMITIES: No clubbing, no cyanosis, and no edema. Right foot in a bandage and the patient has a wound VAC attached to this. ASSESSMENT AND PLAN: 1. Right foot osteomyelitis. Continue with antibiotics. 2. Peripheral arterial disease. Continue to monitor the patient. The patient is aware of his vascular status and might need amputation if the antibiotics do to take. 3. Osteomyelitis, on antibiotics. 4. Hypertension, continue with antihypertensive agent. 5. Hyperlipidemia. Continue on statin. Further recommendation on clinical course. We will continue the patient on linezolid and also Zosyn. MD ANGEL Gonzales/GREGL /[id number]
--- NOTE | 2018-10-09 11:37 | Progress Note ---
DATE: 10/09/2018 Cardiology Progress Note SUBJECTIVE: The patient is without any new complaints this morning. He denies any pain. He continues to have a wound VAC on his right lower extremity. He denies any calf pain. No shortness of breath. OBJECTIVE: VITAL SIGNS: Temperature 97.5, pulse 80, respiratory rate 16, blood pressure 159/69, and oxygen saturation 98% on room air. GENERAL: Alert and oriented x2, resting comfortably in bed. is at the bedside. Does not appear to be in any acute distress. LUNGS: Diminished breath sounds in anterior and posterior lower lobes, otherwise clear to auscultation. No wheezing. No rhonchi or crackles. CARDIOVASCULAR: Regular rate and rhythm. S4 noted. Normal S1 and S2. ABDOMEN: Soft, nontender. LOWER EXTREMITIES: Absent pedal pulses. Wound VAC to the right foot without any drainage noted. LABS: WBC 10.16, hemoglobin 9.8, hematocrit 29.8, platelets 215. Sodium 132, potassium 4.1, BUN 16, creatinine 1.33, glucose 184, calcium 8.8. IMPRESSION: 1. Peripheral arterial disease with occluded distal dorsalis pedis and distal peroneal and chronic total occlusion to the right posterior tibial artery. 2. Right foot osteomyelitis. 3. Hypertension. 4. Hyperlipidemia. RECOMMENDATION: No percutaneous revascularization options are available for this patient at this time. He has severe distal disease with chronic total occlusion to the right posterior tibial artery. If the wound does not heal, he will likely benefit from a BKA. Continue to monitor wound progress at this point. Continue wound VAC. Continue the above-listed medications. We will continue to follow this patient. Dictated by Ashlee Sierra, ASHER MD ZARI JeromeV/VIKI /[id number]
[2018-10-09] MEDS: HYDROCODONE/APAP 10MG-325MG TAB PO PRN (15:06)
[2018-10-09] MEDS: LINEZOLID 600 MG/D5W 300ML 300 ML IV SCH (17:03)
--- NOTE | 2018-10-09 19:59 | NUR ---
RECEIVE PT IN BED AOX3 .DENIES PAIN .PT WITH WOUND VAC AT RT FOOT .RASH TO THE GROIN AND STAGE 1 TO SACRUM.CALL LIGHT WITH IN REACH CONTINUE TO MONITOR
[2018-10-09] MEDS: DOCUSATE SODIUM 100 MG CAP PO SCH (21:25)
[2018-10-09] MEDS: ATORVASTATIN 40 MG TAB PO SCH (21:25)
[2018-10-09] MEDS: DONEPEZIL HCL 5 MG TAB PO SCH (21:25)
[2018-10-10] VITALS (8 sets, daily range): BP systolic 114–197; BP diastolic 63–85
[2018-10-10] MEDS: LINEZOLID 600 MG/D5W 300ML 300 ML IV SCH ×2 (04:30→17:55)
[2018-10-10] MEDS: PIPERACILLIN/TAZO 2.25 GM 50 ML IV SCH ×3 (05:12→21:32)
--- NOTE | 2018-10-10 05:37 | NUR ---
PT HAD LOOSE STOOL X3 NOTIFIED DR PIERCE .ORDER TO TO DO C-DIFF .CALL WISEMAN WITH IN REACH .CONTINUE TO MONITOR
--- NOTE | 2018-10-10 07:04 | NUR ---
RECEIVED PATIENT RESTING IN BED. NO ACUTE DISTRESS NOTED. AT BEDSIDE. CALL LIGHT WITHIN REACH. BED IN THE LOWEST POSITION.
--- NOTE | 2018-10-10 07:21 | NUR ---
REPORT GIVEN TO THE ONCOMING NURSE
[2018-10-10] MEDS: INSULIN LISPRO 100 UNIT/1 ML 3ML VIAL SQ SCH ×4 (07:30→21:00)
[2018-10-10] MEDS: BIF CMB1 PO SCH (08:16)
[2018-10-10] MEDS: S THERMOPHL PO SCH (08:16)
[2018-10-10] MEDS: TRULANCE 3 MG PO SCH (08:16)
[2018-10-10] MEDS: LACT CMB2 PO SCH (08:16)
[2018-10-10] MEDS: ZINC OXIDE / BALSAM PERU 30 GM TUBE TOP SCH ×2 (08:17→21:32)
[2018-10-10] MEDS: XIGDUO PO SCH (08:17)
[2018-10-10] MEDS: INSULIN GLARGINE SQ SCH (08:17)
[2018-10-10] MEDS: LIXISENATIDE SQ SCH (08:17)
[2018-10-10] MEDS: BALSAM PERU/CASTOR OIL 60 GM OINT...G. TP SCH (08:18)
[2018-10-10] MEDS: OMEGA 3 POLYUNSAT FATTY ACIDS 1000 MG SOFTGEL PO SCH (08:47)
[2018-10-10] MEDS: PANTOPRAZOLE SOD 40 MG TABEC PO SCH (08:47)
[2018-10-10] MEDS: ESCITALOPRAM OXALATE 10 MG TAB PO SCH (08:47)
[2018-10-10] MEDS: METFORMIN HCL 500 MG TAB CR PO SCH (08:47)
[2018-10-10] MEDS: LISINOPRIL 20 MG TAB PO SCH (08:47)
[2018-10-10] MEDS: CLOPIDOGREL BISULFATE 75 MG TAB PO SCH (08:47)
[2018-10-10] MEDS: ASPIRIN 81 MG CHEW TAB PO SCH (08:47)
[2018-10-10] MEDS: GLYBURIDE 5 MG TAB PO SCH (08:47)
[2018-10-10] MEDS: TAMSULOSIN HCL 0.4 MG CAP PO SCH (08:47)
[2018-10-10] MEDS: SITAGLIPTIN 100 MG TAB PO SCH (08:47)
--- NOTE | 2018-10-10 16:48 | Progress Note ---
DATE: 10/10/2018 Cardiology Progress Note SUBJECTIVE: The patient denies chest pain or shortness of breath. OBJECTIVE: VITAL SIGNS: Temperature 98.3 degrees, pulse 85, respiratory rate 18, blood pressure 178/77 oxygen saturation 98% on room air. GENERAL: Awake, alert, in no acute distress. LUNGS: Clear to auscultation bilaterally. No wheezes or crackles. CARDIOVASCULAR: Normal rate, regular rhythm. No murmur. Normal S1, S2. ABDOMEN: Soft, nontender. EXTREMITIES: No edema. Absent pedal pulses. Dressing present on the right foot. CARDIAC MEDICATIONS: Lisinopril 20 mg p.o. daily, fish oil 1000 mg p.o. daily, Plavix 75 mg p.o. daily, aspirin 81 mg p.o. daily, atorvastatin 40 mg p.o. at bedtime. LABORATORY DATA: None today. IMPRESSION: 1. Peripheral arterial disease, occluded distal dorsalis pedis and distal peroneal arteries as well as chronic total occlusion of the right posterior tibial artery. 2. Right foot osteomyelitis. 3. Hypertension. 4. Hyperlipidemia. RECOMMENDATIONS: No percutaneous revascularization options are available for this patient at this time. He has severe distal disease with chronic total occlusion to the right posterior tibial artery. He has CLUB CONCIERGE of the right posterior tibial artery. If the wound does not heal, he would likely benefit from BKA. Continue to monitor wound at this time. Wound care per Podiatry. Continue current cardiac medications. Thank you for this consult. We will continue to follow. Ruchi Daniels MD ABS/MODL /[id number]
--- NOTE | 2018-10-10 16:51 | NUR ---
PEER TO PEER DONE WEDNESDAY BETWEEN [facility] DIRECT[facility] AND DR GOMEZ (DR GOMEZ INSISTS HE NEEDS LTAC FOR HBO) DR GOMEZ STATES PT WAS APPROVED ON WEDNESDAY AFTER APPROVAL GUEST SERVICE SUPERVISOR CALLED DR GOMEZ AND ASKED HER IF SHE WOULD AGREE TO SNF WITH DAILY TRANSFERS FOR HBO SHE AGREES AND FAXED LETTER TO [facility] STATING SO AFTER REVIEW, [facility] DECIDED IT WAS MORE COST EFFECTIVE TO SEND PT TO LTAC TODAY DECISION IS BACK IN MEDICAL DIRECTORS HANDS AND CHARLY WITH [facility] EXPECTS APPROVAL TOMORROW
--- NOTE | 2018-10-10 19:17 | NUR ---
REPORT GIVEN TO ONCOMING NURSE, WALKING ROUNDS DONE. PATIENT IS IN STABLE CONDITION. AT BEDSIDE. CALL LIGHT WITHIN REACH. BED IN THE LOWEST POSITION.
--- NOTE | 2018-10-10 19:58 | NUR ---
RECEIVED PT IN BED AOX3 .DENIES PAIN .NO ACUTE DISTRESS NOTED .FAMILY AT THE BEDSIDE .CONTINUE TO MONITOR
[2018-10-10] MEDS: ATORVASTATIN 40 MG TAB PO SCH (21:25)
[2018-10-10] MEDS: DONEPEZIL HCL 5 MG TAB PO SCH (21:32)
[2018-10-10] MEDS: DOCUSATE SODIUM 100 MG CAP PO SCH (21:32)
[2018-10-11] VITALS: BP 114/58
[2018-10-11] MEDS: PIPERACILLIN/TAZO 2.25 GM 50 ML IV SCH ×3 (02:04→14:52)
[2018-10-11 04:00] VITALS: BP 117/47
[2018-10-11] MEDS: LINEZOLID 600 MG/D5W 300ML 300 ML IV SCH (04:30)
--- NOTE | 2018-10-11 06:16 | Consultation ---
DATE OF CONSULTATION: SUBJECTIVE: The patient did well overnight. No new complaints. OBJECTIVE: VITAL SIGNS: Temperature 98.6, pulse 92, blood pressure 114/58, and oxygen saturation 100%. GENERAL: No apparent distress. Lying in bed. CARDIOVASCULAR: Regular rate and rhythm. LUNGS: Clear to auscultation bilaterally. ABDOMEN: Has good bowel sounds. Soft, nontender. EXTREMITIES: No clubbing or cyanosis. Right foot is draped in dressing. NEUROLOGIC: Nonfocal. ASSESSMENT/PLAN: 1. Cellulitis, right foot. Continue with current care with Infectious Disease and Podiatry. 2. Peripheral arterial disease, very severe. Most likely, the patient will need an amputation since he is getting no further blood and unfortunately, treatment will most likely will be unsuccessful since there is no blood flow. 3. Diabetes. Continue with current. Monitor. 4. Hypertension. Continue to monitor. 5. Anemia. Continue to monitor as needed. 6. Chronic kidney disease stage 3. Continue to monitor. 7. Hyperlipidemia. Continue with cholesterol medicine. Please see hospital chart for full details. MD POLO Sal/MODL /[id number]
--- NOTE | 2018-10-11 07:04 | NUR ---
RECEIVED PATIENT RESTING IN BED. NO ACUTE DISTRESS NOTED. AT BEDSIDE. CALL LIGHT WITHIN REACH. BED IN THE LOWEST POSITION.
[2018-10-11 07:15] VITALS: BP 134/54
[2018-10-11] MEDS: XIGDUO PO SCH (08:01)
[2018-10-11] MEDS: TRULANCE 3 MG PO SCH (08:01)
[2018-10-11] MEDS: LACT CMB2 PO SCH (08:01)
[2018-10-11] MEDS: BIF CMB1 PO SCH (08:01)
[2018-10-11] MEDS: S THERMOPHL PO SCH (08:01)
[2018-10-11 08:02] VITALS: BP 134/54
[2018-10-11] MEDS: INSULIN GLARGINE SQ SCH (08:02)
[2018-10-11] MEDS: LIXISENATIDE SQ SCH (08:02)
[2018-10-11] MEDS: SITAGLIPTIN 100 MG TAB PO SCH (08:26)
[2018-10-11] MEDS: OMEGA 3 POLYUNSAT FATTY ACIDS 1000 MG SOFTGEL PO SCH (08:26)
[2018-10-11] MEDS: METFORMIN HCL 500 MG TAB CR PO SCH (08:26)
[2018-10-11] MEDS: GLYBURIDE 5 MG TAB PO SCH (08:26)
[2018-10-11] MEDS: ASPIRIN 81 MG CHEW TAB PO SCH (08:26)
[2018-10-11] MEDS: ESCITALOPRAM OXALATE 10 MG TAB PO SCH (08:26)
[2018-10-11] MEDS: CLOPIDOGREL BISULFATE 75 MG TAB PO SCH (08:26)
[2018-10-11] MEDS: TAMSULOSIN HCL 0.4 MG CAP PO SCH (08:26)
[2018-10-11] MEDS: ZINC OXIDE / BALSAM PERU 30 GM TUBE TOP SCH (08:27)
[2018-10-11] MEDS: LISINOPRIL 20 MG TAB PO SCH (08:27)
[2018-10-11] MEDS: BALSAM PERU/CASTOR OIL 60 GM OINT...G. TP SCH (08:27)
[2018-10-11] MEDS: PANTOPRAZOLE SOD 40 MG TABEC PO SCH (08:27)
[2018-10-11] MEDS: INSULIN LISPRO 100 UNIT/1 ML 3ML VIAL SQ SCH ×2 (08:48→11:58)
--- NOTE | 2018-10-11 09:31 | NUR ---
LONG-TERM ACUTE CARE DISCHARGE INFORMATION PATIENT HAS BEEN ACCEPTED TO: NAME: [facility] ADDRESS: [id number], [place] [address] ACCEPTING AUTOMOTIVE WINDOW TINTER: DAMION ALVARENGA, VEGETABLE VENDOR ACCEPTING MD: KARI ROOM: 303 NURSE CALL REPORT TO: THE FOLLOWING DOCUMENTS MUST ACCOMPANY PATIENT FOR TRANSFER: COPIED CHART: BY [employer] MOT INFO RECEIVED FROM: [facility] ORDER/RECONCILED MED LIST: BEDSIDE NURSE [id number] DNR: N/A
--- NOTE | 2018-10-11 11:53 | NUR ---
ATTEMPTED TO CALL REPORT TO JAKE FOR TRANSFER, NURSE UNAVAILABLE WILL CALL BACK.
--- NOTE | 2018-10-11 12:13 | Progress Note ---
DATE: 10/11/2018 Cardiology Progress Note SUBJECTIVE: The patient denies chest pain or shortness of breath. He reports he is being discharged to [place] today. OBJECTIVE: VITAL SIGNS: Temperature 96.9 degrees, pulse 85, respiratory rate 20, blood pressure 134/54, oxygen saturation 98% on room air. GENERAL: Awake, alert, in no acute distress. LUNGS: Clear to auscultation bilaterally. No wheeze or crackles. CARDIOVASCULAR: Normal rate, regular rhythm. No murmur. Normal S1, S2. ABDOMEN: Soft, nontender. EXTREMITIES: No edema. Absent pedal pulses. Wound VAC is present on the right foot. CARDIAC MEDICATIONS: Lisinopril 20 mg p.o. daily, fish oil 1000 mg p.o. daily, Plavix 75 mg p.o. daily, aspirin 81 mg p.o. daily, atorvastatin 40 mg p.o. at bedtime. LABORATORY DATA: None today. IMPRESSION: 1. Peripheral arterial disease with occluded distal dorsalis pedis and distal peroneal arteries as well as CT of the right posterior tibial artery. 2. Right foot osteomyelitis. 3. Hypertension. 4. Hyperlipidemia. RECOMMENDATIONS: No percutaneous revascularization options are available for this patient at this time. He has severe distal disease with chronic total occlusion of the right posterior tibial artery. If the wound does not heal, he would likely benefit from BKA. Continue to monitor wound. Wound care per Podiatry. Continue current cardiac medications. Thank you for this consult. We will continue to follow. Ruchi Daniels MD ABS/MODL /[id number]
[2018-10-11 12:45] VITALS: BP 187/81
--- NOTE | 2018-10-11 13:09 | NUR ---
CALLED REPORT TO SUSANNA MONSIVAIS AT [place] AT THIS TIME.
--- NOTE | 2018-10-11 15:12 | NUR ---
RECEIVED DISCHARGE ORDER FROM MD, PATIENT IS IN STABLE CONDITION. IV LINE LEFT AC IS INTACT, SALINE FLUSHED. AT BEDSIDE. PATIENT BEING TRANSFERRED TO [facility]. ALL TRANSFER PAPERWORK GIVEN TO EMS PERSONNEL. REPORT CALLED TO SUSANNA MONSIVAIS AT 1309. RECEIVING NURSE INFORMED THAT PATIENT WILL NEED WOUND VAC. PATIENT TRANSPORTED VIA [facility] BY AMBULANCE.
--- NOTE | 2018-10-12 06:56 | Discharge Summary ---
DISCHARGE DIAGNOSES: 1. Right foot osteomyelitis. 2. Diabetes. 3. Hypertension. 4. Peripheral arterial disease. DISPOSITION: The patient was transferred to [facility]. HISTORY OF PRESENT ILLNESS AND HOSPITAL COURSE: See hospital chart for full details. The patient is a gentleman with longstanding history of diabetes, peripheral arterial disease, and hypertension, presented with nonhealing right foot or he was found to have some osteomyelitis of the right foot. Workup by Podiatry, Infectious Disease, and Cardiology shows him to have severe peripheral arterial disease with no flow into the foot, that was not amenable to intervention, so the patient is fully aware of highly likelihood of amputation is in his future due to absent and no flow. We want to give the patient best chance, so he was then transferred to [place] for wound care therapy, hyperbaric therapy as well as continued the medications and continue care by the consultants, but due to the severity of his peripheral arterial disease, we felt the chance of success is minimal to unlikely. The patient had no other complications during the stay and transferred to [place]. Please see hospital chart for full details. MD POLO Sal/VIKI /[id number]
== END 2018-10-11 15:44 | DRG 872 ==
LOC: MED/SURG3 09:59
PROVIDERS: ADMIT Internal Medicine; ATTEND Internal Medicine
PROC: B41F1ZZ Fluoroscopy of Right Lower Extremity Arteries using Low Osmolar Contrast (ICD-10-PCS; 2018-09-30)
PROC: 0J9Q0ZX Drainage of Right Foot Subcutaneous Tissue and Fascia, Open Approach, Diagnostic (ICD-10-PCS; principal; 2018-09-30 11:09)
DX: A41.9 Sepsis, unspecified organism (principal); M86.9 Osteomyelitis, unspecified; E11.52 Type 2 diabetes mellitus with diabetic peripheral angiopathy with gangrene; I96 Gangrene, not elsewhere classified; I70.92 Chronic total occlusion of artery of the extremities; L03.115 Cellulitis of right lower limb; E11.621 Type 2 diabetes mellitus with foot ulcer; B96.20 Unspecified Escherichia coli [E. coli] as the cause of diseases classified elsewhere; B95.2 Enterococcus as the cause of diseases classified elsewhere; E11.51 Type 2 diabetes mellitus with diabetic peripheral angiopathy without gangrene; Z79.4 Long term (current) use of insulin; L97.514 Non-pressure chronic ulcer of other part of right foot with necrosis of bone; E11.22 Type 2 diabetes mellitus with diabetic chronic kidney disease; E11.65 Type 2 diabetes mellitus with hyperglycemia; I12.9 Hypertensive chronic kidney disease with stage 1 through stage 4 chronic kidney disease, or unspecified chronic kidney disease; N18.3 Chronic kidney disease, stage 3 (moderate); B96.5 Pseudomonas (aeruginosa) (mallei) (pseudomallei) as the cause of diseases classified elsewhere; E11.628 Type 2 diabetes mellitus with other skin complications
CPT/HCPCS: 36415; 71045; 75710; 80048; 80053; 81001; 82948; 83036; 83735; 84134; 85025; 85651; 86140; 87040; 87071; 87075; 87086; 87102; 87186; 87205; 87206; 93926; 93971; 96367; 97139; 97605; C1769; J1644; J2001; J2020; J2250; J2270; J2543; J2710; J7030; J7050; Q9967